=== PATIENT | male | born 1960 | race Caucasian/White ===

== ENCOUNTER 2019-06-16 12:32 | Emergency (ER) | payer MEDICARE, MEDICAID ==
[~2019-06-16] VITALS: Ht 175.3 cm; Wt 111.1 kg
[~2019-06-16 12:32] MED LIST: ACHD5005 PO
--- NOTE | 2019-06-16 13:04 | ED GI ---
General Chief Complaint: Abdominal/GI Problems Stated Complaint: HERNIA Nursing Triage Note: AMB TO ROOM WITH MOTHER. PATIENT REPORTS THAT HE HAS HAD A HERNIA FOR 8 YEARS LAST SEVERAL DAYS HAS FELT AREA HERNIA IS NOT FEELING RIGHT. NO PAIN. Sepsis Screen: No Definite Risk Source of Information: Patient Exam Limitations: No Limitations History of Present Illness Date Seen by Provider: Jun 16, 2019 Time Seen by Provider: 13:00 Initial Comments To ER by private vehicle accompanied by his mother with reports of epigastric abdominal discomfort. He states that his hernia here many years and years. Starting the past few days this area has had some sharp pains. He continues to pass gas and having normal bowel movements. No fevers or chills. No vomiting. Timing/Duration: Getting Worse, Intermittent Severity/Quality: Cramping Location: Epigastric Radiation: No Radiation Activities at Onset: None Allergies and Home Medications Allergies Coded Allergies: No Known Drug Allergies (Unverified , 09/14/15) Home Medications Hydrocodone Bit/Acetaminophen 1 Each Tablet, 1 EACH PO Q4H PRN for PAIN, (Reported) Patient Home Medication List Home Medication List Reviewed: Yes Review of Systems Review of Systems Constitutional: see HPI EENTM: No Symptoms Reported Respiratory: No Symptoms Reported Cardiovascular: No Symptoms Reported Gastrointestinal: See HPI, Abdominal Pain Genitourinary: No Symptoms Reported Musculoskeletal: no symptoms reported Skin: no symptoms reported Psychiatric/Neurological: No Symptoms Reported Endocrine: No Symptoms Reported Hematologic/Lymphatic: No Symptoms Reported Past Tnovqlw-Idbvba-Bazoqr Hx Patient Social History Alcohol Use: Occasionally Uses Alcohol Beverage of Choice: Beer Recreational Drug Use: Yes Smoking Status: Current Everyday Smoker Type Used: Smokeless Tobacco Recent Foreign Travel: No Contact w/Someone Who Travel: No Recent Infectious Disease Expo: No Seasonal Allergies Seasonal Allergies: No Past Medical History Surgeries: No Respiratory: No Cardiac: Yes Hypertension, Syncope Neurological: Yes (PAST HEAD INJURY) Traumatic Brain Injury Gastrointestinal: No Musculoskeletal: Yes Chronic Back Pain Endocrine: No Cancer: No Psychosocial: Yes ("MENTAL PROBLEMS" PER MOM) Depression Integumentary: No Blood Disorders: No Physical Exam Vital Signs Vital Signs - First Documented 06/16/19 12:37 Temp 99.0 Pulse 60 Resp 18 B/P (MAP) 129/88 (102) Pulse Ox 96 O2 Delivery Room Air Capillary Refill : Less Than 3 Seconds Height/Weight/BMI Height: 5'9.00" Weight: 245lbs. oz. 111.961697ab; BMI Method:Stated General Appearance: WD/WN, no apparent distress HEENT: PERRL/EOMI, normal ENT inspection Respiratory: no respiratory distress, no accessory muscle use Gastrointestinal: normal bowel sounds, soft, other (there is no palpable incarcerated hernia. When he goes from laying flat in an attempt to sit up in bed there is a bulge of the midline epigastric abdominal pain,diastasis rectus) Extremities: normal range of motion, non-tender Neurologic/Psychiatric: alert, normal mood/affect, oriented x 3 Skin: normal color, warm/dry Progress/Results/Core Measures Results/Orders Lab Results Laboratory Tests Test 06/16/19 13:05 Range/Units White Blood Count 9.9 4.3-11.0 10^3/uL Red Blood Count 4.84 4.35-5.85 10^6/uL Hemoglobin 15.4 13.3-17.7 G/DL Hematocrit 45 40-54 % Mean Corpuscular Volume 92 80-99 FL Mean Corpuscular Hemoglobin 32 25-34 PG Mean Corpuscular Hemoglobin Concent 35 32-36 G/DL Red Cell Distribution Width 14.1 10.0-14.5 % Platelet Count 260 130-400 10^3/uL Mean Platelet Volume 10.2 7.4-10.4 FL Neutrophils (%) (Auto) 62 42-75 % Lymphocytes (%) (Auto) 26 12-44 % Monocytes (%) (Auto) 9 0-12 % Eosinophils (%) (Auto) 3 0-10 % Basophils (%) (Auto) 1 0-10 % Neutrophils # (Auto) 6.1 1.8-7.8 X 10^3 Lymphocytes # (Auto) 2.6 1.0-4.0 X 10^3 Monocytes # (Auto) 0.9 0.0-1.0 X 10^3 Eosinophils # (Auto) 0.3 0.0-0.3 10^3/uL Basophils # (Auto) 0.1 0.0-0.1 10^3/uL My Orders Orders - ALEX DELANEY APRN Cbc With Automated Diff (06/16/19 12:57) Comprehensive Metabolic Panel (06/16/19 12:57) Lipase (06/16/19 12:57) Ed Iv/Invasive Line Start (06/16/19 12:57) Ct Abdomen/Pelvis W (06/16/19 12:57) Vital Signs/I&O 06/16/19 12:37 Temp 99.0 Pulse 60 Resp 18 B/P (MAP) 129/88 (102) Pulse Ox 96 O2 Delivery Room Air Blood Pressure Mean: 102 Departure Impression Primary Impression: Diastasis of rectus abdominis Disposition: 01 HOME, SELF-CARE Condition: Stable Departure-Patient Inst. Decision time for Depature: 13:17 Referrals: [facility] [place] (PCP/Family) Primary Care Physician MODESTO RODRIGEZ BRETT D DO KIDO, TAKAAKI MD Patient Instructions: Abdominal Wall Hernias Add. Discharge Instructions: 1. Call a surgeon of your choosing this week to make an appointment to be seen for further evaluation of this. All discharge instructions reviewed with patient and/or family. Voiced understanding. ALEX DELANEY APRN Jun 16, 2019 13:04
[2019-06-16] MEDS ORDERED: ALLO300T2 (13:13)
[2019-06-16] MEDS ORDERED: ATOR40TA70 (13:13)
[2019-06-16] MEDS ORDERED: OLAN7.5T3 (13:13)
[2019-06-16] MEDS ORDERED: LEVO125T6 (13:13)
[2019-06-16] MEDS ORDERED: BUSP15TA60 (13:13)
[2019-06-16] MEDS ORDERED: FLUO20CA42 (13:13)
[2019-06-16] MEDS ORDERED: PROP20TA5 (13:13)
[2019-06-16 13:15] LABS: BASOPHILS # (AUTO) 0.1 10^3/uL (0.0-0.1); BASOPHILS % (AUTO) 1 % (0-10); EOSINOPHILS # (AUTO) 0.3 10^3/uL (0.0-0.3); EOSINOPHILS % (AUTO) 3 % (0-10); HEMATOCRIT 45 % (40-54); HEMOGLOBIN 15.4 G/DL (13.3-17.7); LYMPHOCYTES # (AUTO) 2.6 X 10^3 (1.0-4.0); LYMPHOCYTES % (AUTO) 26 % (12-44); MEAN CORPUSCULAR HEMOGLOBIN 32 PG (25-34); MEAN CORPUSCULAR HGB CONC 35 G/DL (32-36); MEAN CORPUSCULAR VOLUME 92 FL (80-99); MEAN PLATELET VOLUME 10.2 FL (7.4-10.4); MONOCYTES # (AUTO) 0.9 X 10^3 (0.0-1.0); MONOCYTES % (AUTO) 9 % (0-12); NEUTROPHILS # (AUTO) 6.1 X 10^3 (1.8-7.8); NEUTROPHILS % (AUTO) 62 % (42-75); PLATELET COUNT 260 10^3/uL (130-400); RED CELL DISTRIBUTION WIDTH 14.1 % (10.0-14.5); WHITE BLOOD COUNT 9.9 10^3/uL (4.3-11.0)
[2019-06-16 13:32] LABS: ALANINE AMINOTRANSFERASE 23 U/L (0-55); ALBUMIN 4.3 GM/DL (3.2-4.5); ALKALINE PHOSPHATASE 75 U/L (40-136); BILIRUBIN,TOTAL 0.4 MG/DL (0.1-1.0); BUN/CREATININE RATIO 12; CALCIUM 9.6 MG/DL (8.5-10.1); CARBON DIOXIDE 24 MMOL/L (21-32); CHLORIDE 104 MMOL/L (98-107); CREATININE SERUM 1.07 MG/DL (0.60-1.30); GFR ESTIMATED > 60; GLUCOSE 110 MG/DL (70-105); LIPASE 39 U/L (8-78); POTASSIUM 4.1 MMOL/L (3.6-5.0); SODIUM 137 MMOL/L (135-145)
--- NOTE | 2019-06-16 13:44 | NUR ---
TO CT PER W/C
[2019-06-16] MEDS ORDERED: IOHEXOL 350 MG/ML 100 ML (OMNIPAQUE 350) VIAL IV ONE (13:45)
[2019-06-16] MEDS ORDERED: HOLD METFORMIN - RECEIVED CONTRAST 20 ML VIAL IV SCH (13:45)
[2019-06-16] MEDS ORDERED: NS 100 ML (IVPB) BAG IV ONE (13:45)
--- NOTE | 2019-06-16 14:09 | Diagnostic Imaging Report ---
PROCEDURE: CT abdomen and pelvis with contrast. TECHNIQUE: Multiple contiguous axial images were obtained through the abdomen and pelvis after administration of intravenous contrast. Auto Exposure Controls were utilized during the CT exam to meet ALARA standards for radiation dose reduction. INDICATION: Abdominal pain FINDINGS: Bibasilar partial atelectasis. The liver density suggest mild fatty infiltration. No liver mass. The gallbladder and bile ducts normal. The pancreas is unremarkable. There is no adrenal nodule. The spleen within normal limits. The kidneys unobstructed and nonfocal and nonacute. There is no evidence for bowel obstruction or viscus perforation. No ascites, abscesses, hematoma or other fluid collection. No inflammatory process. The aorta is nonaneurysmal. There is a small to moderate retrocardiac hiatal hernia. Prostate, seminal vesicles and urinary bladder are unremarkable. The osseous structures appeared nonacute. IMPRESSION: No obstructive features, inflammatory process, ascites, mass, fluid collection or acute pathology identified. Retrocardiac hiatal hernia noted. Dictated by: Dictated on workstation # [id number]
[2019-06-16 14:32] VITALS: BP 142/90
--- OUTSIDE RECORDS SUMMARY | 2019-06-16 22:50 | XMS REPORT ---
Author Author NANO ENAMORADO [facility] Address [address] [place] [address] Care Team Providers Care Process Maintenance Technician Name Role Phone NANO ENAMORADO Unavailable PROBLEMS Type Condition ICD9-CM Code YGF57-TC Code Onset Dates Condition Status SNOMED Code Problem Gout M10.9 Active 73423923 Problem Degenerative disc disease, lumbar M51.36 Active 33645459 Problem Hypothyroid E03.9 Active 27816920 Problem Chronic pain syndrome G89.4 Active 791184216 Problem Elevated fasting glucose R73.01 Active 12566911 Problem Hyperlipidemia E78.5 Active 47996021 Problem Depression F32.9 Active 94850541 Problem Anxiety F41.9 Active 31452260 Problem Hypertension I10 Active 66025731 Problem Unspecified kidney failure N19 Active 22103281 ALLERGIES No Information ENCOUNTERS Encounter Location Date Diagnosis [place] [address] [address] Jun, [facility] [id number] [place] [address] Apr, Hyperlipidemia LDL goal <70 E78.5 [facility] [id number] [place] [address] Apr, Hypertension I10 and Actinic keratoses L57.0 [facility] [id number] [place] [address] Dec, Hyperlipidemia LDL goal <70 E78.5 [facility] [id number] [place] [address] Nov, [facility] [id number] [place] [address] Oct, [place] [address] [id number] [place] [address] 13 Oct, 2018 Prediabetes R73.09 ; Hyperlipidemia E78.5 and Hypertension I10 [place] [address] [place] [id number] Jul, Hypertension I10 ; Hypothyroid E03.9 ; Actinic keratosis L57.0 ; Skin tag, acquired L91.8 ; Depression F32.9 ; Anxiety F41.9 and Hyperlipidemia LDL goal <70 E78.5 [place] [address] [address] May, Hypothyroid E03.9 [place] [address] [address] Apr, Hypertension I10 ; Hypothyroid E03.9 ; Elevated fasting glucose R73.01 ; Hypercholesterolemia E78.0 ; Depression F32.9 and Anxiety F41.9 [place] [address] [address] March, Depression F32.9 and Anxiety F41.9 [place] [address] [address] Jan, Hypothyroid E03.9 and Elevated fasting glucose R73.01 [place] [address] [address] Jan, Hypercholesterolemia E78.0 [place] [address] [place] [id number] [place] [address] Dec, Hypertension I10 ; Hypercholesterolemia E78.0 ; Hypothyroid E03.9 and Gout M10.[address] [address] 15 Dec, 2017 Hypertension I10 ; Hypercholesterolemia E78.0 ; Hypothyroid E03.9 ; Depression F32.9 ; Anxiety F41.9 ; Gout M10.9 ; Chronic pain syndrome G89.4 ; Controlled substance agreement broken Z91.14 and Controlled substance agreement terminated Z91.14 [facility] [address] [address] Sep, Degenerative disc disease, lumbar M51.36 [facility] [address] [place] [id number] Sep, Degenerative disc disease, lumbar M51.36 [place] [address] [address] Aug, Hypertension I10 ; Hypercholesterolemia E78.0 ; Hypothyroid E03.9 ; Depression F32.9 ; Gout M10.9 ; Anxiety F41.9 and Degenerative disc disease, lumbar M51.36 [place] [address] [address] Jul, [place] [address] [address] Jul, [place] [address] [address] Jun, [place] [address] [address] Jun, Gout M10.9 [place] [address] [address] May, Hypertension I10 and Hypercholesterolemia E78.0 [place] [address] [address] May, [place] [address] [address] May, Dental examination Z01.20 [place] [address] [address] Apr, [place] [address] [address] March, [place] [address] [address] March, [facility] [id number] [id number] March, [facility] [id number] [place] [address] March, [facility] [id number] [place] [address] Feb, [facility] [id number] [place] [address] Feb, [facility] [id number] [place] [address] Feb, Degenerative disc disease, lumbar M51.36 [facility] [id number] [place] [address] Feb, Hypothyroid E03.9 ; Hypertension I10 ; Anxiety F41.9 ; Hypercholesterolemia E78.0 ; Depression F32.9 ; Gout M10.9 and Degenerative disc disease, lumbar M51.36 [facility] [address] [place] [address] Feb, Encounter for dental examination and cleaning without abnormal findings Z01.20 [facility] [address] [place] [address] Jan, Encounter for dental examination Z01.20 [facility] [id number] [place] [address] Jan, [facility] [id number] [place] [address] Jan, Hypercholesterolemia E78.0 [facility] [address] [id number] [place] [address] Jan, Degenerative disc disease, lumbar M51.36 [facility] [id number] [place] [address] Dec, [facility] [id number] [place] [address] Dec, Degenerative disc disease, lumbar M51.36 ; Hypercholesterolemia E78.0 ; Depression F32.9 ; Hypothyroid E03.9 and Hypertension I10 [facility] [id number] [place] [address] 09 Dec, 2016 Degenerative disc disease, lumbar M51.36 [facility] [id number] [place] [id number] 03 Dec, 2016 Dental examination Z01.20 [facility] [address] [address] Nov, Dental examination Z01.20 [facility] [address] [address] Nov, Degenerative disc disease, lumbar M51.36 [facility] [address] [id number] [place] [address] Nov, Hypertension I10 ; Hypothyroid E03.9 ; Degenerative disc disease, lumbar M51.36 ; Gout M10.9 ; Unspecified kidney failure N19 ; Anxiety F41.9 ; Depression F32.9 and Hypercholesterolemia E78.0 [facility] [id number] [place] [address] Oct, [facility] [id number] [place] [address] Sep, [facility] [id number] [place] [address] Aug, [facility] [id number] [place] [address] Jul, [facility] [address] [address] Jun, [facility] [id number] [place] [address] Jun, [facility] [id number] [place] [address] May, [facility] [address] [address] May, [facility] [id number] [place] [address] May, [facility] [id number] [place] [address] Apr, Pain in unspecified shoulder M25.519 [facility] [address] [id number] [place] [address] Apr, Degenerative disc disease, lumbar M51.36 ; Hypertension I10 ; Unspecified kidney failure N19 ; Gout M10.9 ; Depression F32.9 ; Hypothyroid E03.9 ; Anxiety F41.9 ; 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 and Combined hyperlipidemia E78.2 [place] [address] [place] [id number] [place] [address] Apr, Gout M10.9 and Pain in unspecified shoulder M25.519 [facility] [address] [place] [id number] [place] [address] March, Degenerative disc disease, lumbar M51.36 [facility] [id number] [place] [address] Feb, Hypercholesterolemia E78.0 ; Hypothyroid E03.9 ; Gout M10.9 and Anxiety F41.9 [facility] [address] [place] [address] Feb, [facility] [address] [place] [address] Feb, Unspecified kidney failure N19 [facility] [address] [id number] [place] [address] Feb, Unspecified kidney failure N19 [facility] [id number] [place] [address] Feb, [facility] [address] [address] Feb, [facility] [id number] [place] [address] Jan, [facility] [id number] [place] [address] Dec, Sacroiliitis, not elsewhere classified 720.2 ; Hypercholesterolemia E78.0 ; Depression F32.9 ; Anxiety F41.9 ; Gout M10.9 ; Unspecified kidney failure N19 ; Hypothyroid E03.9 ; Degenerative disc disease, lumbar M51.36 and 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 [place] [address] [place] [id number] [place] [address] Dec, [facility] [id number] [place] [address] Nov, [facility] [id number] [place] [address] Nov, [facility] [id number] [place] [address] Nov, [facility] [id number] [place] [address] Oct, [facility] [address] [place] [address] Sep, [facility] [id number] [place] [address] Sep, Hypothyroid E03.9 ; Sacroiliitis, not elsewhere classified 720.2 ; Degenerative disc disease, lumbar M51.36 ; Hypercholesterolemia E78.0 ; Depression F32.9 ; Anxiety F41.9 ; Gout M10.9 ; HTN (hypertension) I10 and Hypothyroidism 244.9 [facility] [address] [address] Aug, Unspecified kidney failure N19 ; Hypothyroid E03.9 ; Hypertension I10 ; Anxiety F41.9 and Gout M10.9 [facility] [id number] [place] [address] Aug, Seborrheic keratosis L82.1 and Nevus D22.9 [facility] [id number] [place] [address] Aug, [place] [address] [address] Aug, [place] [address] [address] Aug, Hypothyroid E03.9 ; Degenerative disc disease, lumbar M51.36 ; Hypertension I10 ; Hypercholesterolemia E78.0 ; Depression F32.9 ; Anxiety F41.9 and Gout M10.9 [place] [address] [id number] [place] [address] Aug, [place] [address] [id number] [place] [address] Jun, [place] [address] [id number] [place] [address] Jun, Hypothyroidism 244.9 [place] [address] [id number] [place] [address] Jun, Hypothyroidism 244.9 ; Pain in joint, shoulder region 719.41 ; Sacroiliitis, not elsewhere classified 720.2 ; High risk medication use V58.69 and Facial skin lesion 709.9 [place] [id number] [place] [address] Apr, Hypothyroidism 244.9 ; Aggressive behavior of adult 301.3 and Edema 782.3 [place] [address] [place] [id number] [place] [address] March, [place] [address] [place] [id number] [place] [address] Feb, [place] [address] [place] [address] Feb, [facility] [place] [facility] [address] [id number] [place] [address] Jan, [facility] [place] [facility] [address] [id number] [place] [address] Jan, [facility] [place] [facility] [address] [id number] [place] [address] Jan, [facility] [place] [facility] [address] [id number] [place] [address] Jan, [facility] [place] [facility] [address] [id number] [place] [address] Dec, [facility] [place] [facility] [address] [id number] [place] [address] Dec, [facility] [place] [facility] [address] [id number] [place] [address] Nov, [facility] [place] [facility] [address] [id number] [place] [address] Nov, [facility] [place] [facility] [address] [id number] [place] [address] Nov, [facility] [place] [facility] [address] [id number] [place] [address] Nov, [facility] [place] [facility] [address] [id number] [place] [address] Nov, [facility] [place] [facility] [address] [id number] [place] [address] Nov, [facility] [place] [facility] [address] [id number] [place] [address] Oct, [facility] [place] [facility] [address] [id number] [place] [address] Oct, [facility] [place] [facility] [address] [id number] [place] [address] Sep, [facility] [place] [facility] [address] [id number] [place] [address] Sep, [facility] [place] [facility] [address] [id number] [place] [address] Sep, [facility] [place] [facility] [address] [id number] [place] [address] Sep, [facility] [place] [facility] [address] [id number] [place] [address] Sep, [facility] [place] [facility] [address] [id number] [place] [address] Sep, [facility] [place] [facility] [address] [id number] [place] [address] Aug, [facility] [place] [facility] [address] [id number] [place] [address] Aug, [facility] [place] [facility] [address] [id number] [address] Aug, [facility] [place] [facility] [address] [id number] [place] [address] Aug, [facility] [place] [facility] [address] [id number], [place] [address] Aug, [facility] [place] [facility] [address] [id number], [place] [address] Aug, [facility] [place] [facility] [address] [id number], [place] [address] 16 Jul, 2014 [facility] [place] [facility] [address] [id number] [place] [address] 16 Jul, 2014 [facility] [place] [facility] [address] [id number], [place] [address] 15 Jul, 2014 [facility] [place] [facility] [address] [id number] [place] [address] 15 Jul, 2014 [facility] [place] [facility] [address] [id number] [place] [address] Jul, [facility] [place] [facility] [address] [id number] [place] [address] Jul, [facility] [place] [facility] [address] [id number] [place] [address] Jun, [facility] [place] [facility] [address] [id number] [place] [address] Jun, [facility] [place] [facility] [address] [id number] [place] [address] May, [facility] [place] [facility] [address] [id number] [place] [address] May, [facility] [place] [facility] [address] [id number] [place] [address] May, [facility] [place] [facility] [address] [id number] [place] [address] May, [facility] [place] [facility] [address] [id number] [place] [address] May, [facility] [place] [facility] [address] [id number] [place] [address] May, [facility] [place] [facility] [address] [id number] [place] [address] Apr, [facility] [place] [facility] [address] [id number] [place] [address] Apr, [facility] [place] [facility] [address] [id number] [place] [address] Apr, [facility] [place] [facility] [address] [id number] [place] [address] Apr, [facility] [place] [facility] [address] [id number] [place] [address] Apr, [facility] [place] [facility] [address] [id number] [place] [address] Apr, [facility] [place] [facility] [address] [id number] [place] [address] Feb, [facility] [place] [facility] [address] [id number] [place] [address] Feb, [facility] [place] [facility] [address] [id number] [place] [address] Feb, [facility] [place] [facility] [address] [id number] [place] [address] Feb, [facility] [place] [facility] [address] [id number] [place] [address] Jan, [facility] [place] [facility] [address] [id number] [place] [address] Jan, [facility] [place] [facility] [address] [facility] [id number] [place] [address] Jan, [facility] [place] [facility] [address] [id number] [place] [address] Jan, [facility] [place] [facility] [address] [id number] [place] [address] Dec, [facility] [place] [facility] [address] [facility] [id number] [place] [address] Dec, [facility] [place] [facility] [address] [facility] [id number] [place] [address] Dec, [facility] [place] [facility] [address] [id number] [place] [address] Dec, [facility] [place] [facility] [address] [id number] [place] [address] Dec, [facility] [place] [facility] [address] [id number] [place] [address] Dec, [facility] [place] [facility] [address] [facility] [id number] [place] [address] Nov, [facility] [place] [facility] [address] [id number], [place] [address] Oct, [facility] [address] [id number] [place] [address] Oct, [facility] [place] [facility] [address] [id number] [place] [address] Oct, [facility] [address] [id number] [place] [address] Oct, [facility] [place] [facility] [address] [id number] [place] [address] Oct, [facility] [place] [facility] [address] [id number] [place] [address] Oct, [facility] [place] [facility] [address] [id number] [place] [address] Sep, [facility] [id number] [place] [address] Sep, [facility] [place] [facility] [address] [id number] [place] [address] Sep, [facility] [place] [facility] [id number] [place] [address] Jul, [facility] [place] [facility] [id number] [place] [address] Jun, [facility] [place] [facility] [address] [id number] [place] [address] Jun, [facility] [place] [facility] [address] [id number] [place] [address] Jun, [facility] [place] [facility] [address] [id number] [place] [address] May, [facility] [place] [facility] [address] [facility] [id number] [place] [address] May, [facility] [place] [facility] [address] [facility] [id number] [place] [address] May, [facility] [place] [facility] [address] [id number] [place] [address] Apr, [facility] [address] [id number] [place] [address] 24 Apr, 2013 [facility] [place] [facility] [address] [id number] [place] [address] 14 Apr, 2013 [facility] [place] [facility] [address] [id number] [place] [address] 05 Apr, 2013 [facility] [place] [facility] [address] [id number] [place] [address] March, [facility] [place] [facility] [address] [id number] [place] [address] March, [facility] [place] [facility] [address] [id number] [place] [address] March, [facility] [place] [facility] [address] [id number] [place] [address] March, [facility] [address] [id number] [place] [address] 24 Feb, 2013 [facility] [place] [facility] [address] [id number] [place] [address] Feb, [facility] [place] [facility] [address] [id number] [place] [address] 15 Feb, 2013 [facility] [place] [facility] [address] [id number] [place] [address] 10 Feb, 2013 [facility] [place] [facility] [address] [id number] [place] [address] 08 Feb, 2013 [facility] [place] [facility] [address] [id number] [place] [address] 04 Feb, 2013 [facility] [place] [facility] [address] [id number] [place] [address] 28 Jan, 2013 [facility] [place] [facility] [address] [id number] [place] [address] Jan, [facility] [place] [facility] [address] [id number] [place] [address] 16 Nov, 2012 [facility] [place] [facility] [address] [id number] [place] [address] 15 Nov, 2012 [facility] [place] [facility] [address] [id number] [place] [address] Nov, [facility] [place] [facility] [address] [id number] [place] [address] Nov, [facility] [place] [facility] [address] [id number] [place] [address] Sep, [facility] [place] [facility] [address] [id number] [place] [address] Sep, [facility] [place] [facility] [address] [id number] [place] [address] Sep, [facility] [place] [facility] [address] [id number] [address] Sep, [facility] [place] [facility] [address] [id number], [place] [address] Aug, [facility] [place] [facility] [address] [id number][place] [address] Aug, [facility] [place] [facility] [address] [id number], [place] [address] Aug, [facility] [place] [facility] [address] [id number], [place] [address] 26 Jul, 2012 [facility] [place] [facility] [address] [id number] [place] [address] 11 Jul, 2012 [facility] [place] [facility] [address] [id number][place] [address] 04 Jul, 2012 [facility] [place] [facility] [address] [id number], [place] [address] 13 Jun, 2012 [facility] [place] [facility] [address] [id number] [place] [address] Jun, [facility] [place] [facility] [address] [id number] [place] [address] May, [facility] [place] [facility] [address] [id number] [place] [address] May, [facility] [place] [facility] [address] [id number] [place] [address] May, [facility] [place] [facility] [address] [id number] [place] [address] Apr, [facility] [place] [facility] [address] [id number] [place] [address] March, [facility] [place] [facility] [address] [id number] [place] [address] Feb, [facility] [place] [facility] [address] [id number] [place] [address] Feb, [facility] [place] [facility] [address] [id number] [place] [address] Dec, [facility] [place] [facility] [address] [id number] [place] [address] Oct, [facility] [place] [facility] [address] [id number] [place] [address] Aug, [facility] [place] [facility] [address] [id number] [place] [address] Aug, [facility] [place] [facility] [address] [id number] [place] [address] Aug, [facility] [place] [facility] [address] [id number] [place] [address] Aug, [facility] [place] [facility] [address] [id number] [place] [address] Aug, [facility] [place] [facility] [address] [id number] [place] [address] Oct, [facility] [address] [id number], [place] [address] Sep, [facility] [address] [facility] [id number], [place] [address] Sep, [facility] [address] [facility] [id number], [place] [address] Sep, [facility] [address] [facility] [id number][place] [address] Sep, [facility] [address] [facility] [id number], [place] [address] Aug, [facility] [address] [facility] [id number], [place] [address] Aug, [facility] [address] [facility] [id number], [place] [address] Aug, [facility] [address] [facility] [id number], [place] [address] Aug, [facility] [address] [facility] [id number], [place] [address] Aug, [facility] [address] [facility] [id number][place] [address] Aug, [facility] [address] [facility] [id number], [place] [address] Nov, [facility] [address] [facility] [id number], [place] [address] Oct, [facility] [address] [facility] [facility] [id number] [address] Oct, [facility] [address] [facility] [id number] [address] Sep, [facility] [address] [facility] [id number], [place] [address] Jul, IMMUNIZATIONS No Known Immunizations SOCIAL HISTORY Never Assessed REASON FOR VISIT PLAN OF CARE VITAL SIGNS MEDICATIONS Unknown Medications RESULTS No Results PROCEDURES No Known procedures INSTRUCTIONS MEDICATIONS ADMINISTERED No Known Medications MEDICAL (GENERAL) HISTORY Type Description Date Medical History hypertension Medical History hyperlipidemia Medical History bronchitis Medical History Gout Medical History back pain Medical History neck pain - multi-level cervical degenerative disc disease most pronounced at C5-C6 w/ osteophytes resulting in bilateral neural foraminal stenosis, right greater than left Medical History anxiety Medical History depression Medical History alcohol abuse Medical History laceration to right 5th finger through tendon, subsequent Boxer's fracture - now has decreased ROM and pain in right hand and 5th finger Medical History periodontal disease Surgical History tonsillectomy Surgical History appendectomy Hospitalization History surgeries Hospitalization History kidney failure 08/2015
--- OUTSIDE RECORDS SUMMARY | 2019-06-16 22:51 | XMS REPORT ---
Author Author Migration, Doctor Organization 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 Name Role Phone Migration, Doctor Unavailable Unavailable PROBLEMS Type Condition ICD9-CM Code JMH62-DV Code Onset Dates Condition Status SNOMED Code Problem Gout M10.9 Active 00104556 Problem Degenerative disc disease, lumbar M51.36 Active 54399291 Problem Hypothyroid E03.9 Active 97613699 Problem Chronic pain syndrome G89.4 Active 302106959 Problem Elevated fasting glucose R73.01 Active 66796072 Problem Hyperlipidemia E78.5 Active 60322607 Problem Depression F32.9 Active 94172364 Problem Anxiety F41.9 Active 32365497 Problem Hypertension I10 Active 79719350 Problem Unspecified kidney failure N19 Active 47423893 ALLERGIES No Information ENCOUNTERS Encounter Location Date Diagnosis [place] [id number] [place] [address] Apr, [place] [address] [place] [id number] [place] [address] Dec, Hyperlipidemia LDL goal <70 E78.5 [place] [id number] [place] [address] Nov, [place] [id number] [place] [address] Oct, [place] [address] [place] [id number] [place] [address] Oct, Prediabetes R73.09 ; Hyperlipidemia E78.5 and Hypertension I10 [place] [address] [place] [id number] [place] [address] 18 Jul, 2018 Hypertension I10 ; Hypothyroid E03.9 ; Actinic keratosis L57.0 ; Skin tag, acquired L91.8 ; Depression F32.9 ; Anxiety F41.9 and Hyperlipidemia LDL goal <70 E78.5 [place] [address] [place] [id number] [place] [address] May, Hypothyroid E03.9 [place] [address] [place] [id number] Apr, Hypertension I10 ; Hypothyroid E03.9 ; Elevated fasting glucose R73.01 ; Hypercholesterolemia E78.0 ; Depression F32.9 and Anxiety F41.9 [place] [address] [address] March, Depression F32.9 and Anxiety F41.[address] [address] Jan, Hypothyroid E03.9 and Elevated fasting glucose R73.[address] [address] Jan, Hypercholesterolemia E78.0 [place] [address] [place] [id number] [place] [address] Dec, Hypertension I10 ; Hypercholesterolemia E78.0 ; Hypothyroid E03.9 and Gout M10.9 [place] [id number] [place] [address] Dec, Hypertension I10 ; Hypercholesterolemia E78.0 ; Hypothyroid E03.9 ; Depression F32.9 ; Anxiety F41.9 ; Gout M10.9 ; Chronic pain syndrome G89.4 ; Controlled substance agreement broken Z91.14 and Controlled substance agreement terminated Z91.14 [id number] [place] [address] Sep, Degenerative disc disease, lumbar M51.36 [place] [id number] [place] [address] Sep, Degenerative disc disease, lumbar M51.36 [place] [id number] [place] [address] Aug, Hypertension I10 ; Hypercholesterolemia E78.0 ; Hypothyroid E03.9 ; Depression F32.9 ; Gout M10.9 ; Anxiety F41.9 and Degenerative disc disease, lumbar M51.36 [facility] [address] [place] [address] [id number] [place] [address] Jul, [facility] [address] [id number] [place] [address] Jul, [facility] [address] [id number] [place] [address] Jun, [facility] [address] [place] [address] [id number] [place] [address] Jun, Gout M10.9 [facility] [address] [place] [id number] [place] [address] May, Hypertension I10 and Hypercholesterolemia E78.0 [facility] [address] [address] May, [facility] [address] [place] [id number] [place] [address] May, Dental examination Z01.20 [facility] [address] [place] [id number] [place] [address] Apr, [facility] [address] [place] [id number] [place] [address] March, [facility] [address] [place] [id number] [place] [address] March, [facility] [id number] [place] [id number] March, [facility] [address] [place] [address] [id number] [place] [address] March, [facility] [address] [place] [id number] [place] [address] Feb, [facility] [address] [address] Feb, [facility] [address] [address] Feb, Degenerative disc disease, lumbar M51.36 [facility] [address] [place] [address] Feb, Hypothyroid E03.9 ; Hypertension I10 ; Anxiety F41.9 ; Hypercholesterolemia E78.0 ; Depression F32.9 ; Gout M10.9 and Degenerative disc disease, lumbar M51.36 [facility] [address] [address] Feb, Encounter for dental examination and cleaning without abnormal findings Z01.20 [facility] [address] [place] [id number] Jan, Encounter for dental examination Z01.20 [place] [address] [address] Jan, [facility] [address] [address] Jan, Hypercholesterolemia E78.0 [facility] [address] [address] Jan, Degenerative disc disease, lumbar M51.36 [facility] [address] [address] Dec, [facility] [address] [address] Dec, Degenerative disc disease, lumbar M51.36 ; Hypercholesterolemia E78.0 ; Depression F32.9 ; Hypothyroid E03.9 and Hypertension I10 [facility] [address] [place] [id number] Dec, Degenerative disc disease, lumbar M51.36 [facility] [address] [id number] Dec, Dental examination Z01.20 [facility] [address] [id number] [address] Nov, Dental examination Z01.20 [facility] [address] [place] [id number] [place] [address] Nov, Degenerative disc disease, lumbar M51.36 [facility] [address] [place] [id number] [place] [address] Nov, Hypertension I10 ; Hypothyroid E03.9 ; Degenerative disc disease, lumbar M51.36 ; Gout M10.9 ; Unspecified kidney failure N19 ; Anxiety F41.9 ; Depression F32.9 and Hypercholesterolemia E78.0 [facility] [address] [place] [id number] [place] [address] Oct, [facility] [address] [place] [id number] [place] [address] Sep, [facility] [address] [place] [id number] [place] [address] Aug, [facility] [address] [place] [id number] [place] [address] Jul, [facility] [address] [place] [id number] [place] [address] Jun, [facility] [address] [place] [id number] [place] [address] Jun, [facility] [address] [place] [id number] [place] [address] May, [facility] [id number] [place] [address] May, [facility] [address] [place] [id number] [place] [address] May, [facility] [id number] [place] [address] Apr, Pain in unspecified shoulder M25.519 [facility] [address] [place] [id number] [place] [address] 13 Apr, 2016 Degenerative disc disease, lumbar M51.36 ; Hypertension I10 ; Unspecified kidney failure N19 ; Gout M10.9 ; Depression F32.9 ; Hypothyroid E03.9 ; Anxiety F41.9 ; 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 and Combined hyperlipidemia E78.2 [place] [address] [address] Apr, Gout M10.9 and Pain in unspecified shoulder M25.519 [place] [address] [address] March, Degenerative disc disease, lumbar M51.36 [place] [address] [address] Feb, Hypercholesterolemia E78.0 ; Hypothyroid E03.9 ; Gout M10.9 and Anxiety F41.9 [place] [address] [place] [id number] [place] [address] Feb, [place] [address] [address] Feb, Unspecified kidney failure N19 [place] [address] [place] [id number] [place] [address] Feb, Unspecified kidney failure N19 [place] [address] [place] [id number] [place] [address] Feb, [place] [address] [place] [id number] [place] [address] Feb, [place] [address] [address] Jan, [place] [address] [place] [id number] [place] [address] Dec, Sacroiliitis, not elsewhere classified 720.2 ; Hypercholesterolemia E78.0 ; Depression F32.9 ; Anxiety F41.9 ; Gout M10.9 ; Unspecified kidney failure N19 ; Hypothyroid E03.9 ; Degenerative disc disease, lumbar M51.36 and 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 [place] [address] [place] [id number] [place] [address] Dec, [place] [address] [place] [id number] [place] [address] Nov, [place] [address] [place] [id number] [place] [address] Nov, [place] [address] [place] [id number] [place] [address] Nov, [place] [id number] [place] [address] Oct, [place] [id number] [place] [address] Sep, [place] [id number] [place] [address] Sep, Hypothyroid E03.9 ; Sacroiliitis, not elsewhere classified 720.2 ; Degenerative disc disease, lumbar M51.36 ; Hypercholesterolemia E78.0 ; Depression F32.9 ; Anxiety F41.9 ; Gout M10.9 ; HTN (hypertension) I10 and Hypothyroidism 244.9 [place] [id number] [place] [address] Aug, Unspecified kidney failure N19 ; Hypothyroid E03.9 ; Hypertension I10 ; Anxiety F41.9 and Gout M10.9 [place] [id number] [place] [address] Aug, Seborrheic keratosis L82.1 and Nevus D22.9 [place] [id number] [place] [address] Aug, [place] [id number] [place] [address] Aug, [facility] [address] [place] [id number] [place] [address] Aug, Hypothyroid E03.9 ; Degenerative disc disease, lumbar M51.36 ; Hypertension I10 ; Hypercholesterolemia E78.0 ; Depression F32.9 ; Anxiety F41.9 and Gout M10.9 [facility] [address] [place] [id number] [place] [address] Aug, [facility] [address] [place] [id number] [place] [address] Jun, [facility] [address] [place] [id number] [place] [address] Jun, Hypothyroidism 244.9 [facility] [address] [place] [id number] [place] [address] Jun, Hypothyroidism 244.9 ; Pain in joint, shoulder region 719.41 ; Sacroiliitis, not elsewhere classified 720.2 ; High risk medication use V58.69 and Facial skin lesion 709.9 [facility] [address] [place] [id number] [place] [address] Apr, Hypothyroidism 244.9 ; Aggressive behavior of adult 301.3 and Edema 782.3 [facility] [address] [place] [id number] [place] [address] March, [facility] [address] [place] [id number] [place] [address] Feb, [facility] [address] [place] [id number] [place] [address] Feb, [facility] [address] [place] [id number] [place] [address] Jan, [facility] [address] [place] [id number] [place] [address] Jan, [facility] [address] [place] [id number] [place] [address] Jan, [facility] [place] [facility] [address] [id number] [place] [address] Jan, [facility] [place] [facility] [address] [id number] [place] [address] Dec, [facility] [place] [facility] [address] [id number] [place] [address] Dec, [facility] [place] [facility] [address] [id number] [place] [address] Nov, [facility] [place] [facility] [address] [id number] [place] [address] Nov, [facility] [place] [facility] [address] [id number] [place] [address] Nov, [facility] [place] [facility] [address] [id number] [place] [address] Nov, [facility] [place] [facility] [address] [id number] [place] [address] Nov, [facility] [place] [facility] [address] [id number] [place] [address] Nov, [facility] [place] [facility] [address] [id number] [place] [address] Oct, [facility] [place] [facility] [address] [id number] [place] [address] Oct, [facility] [place] [facility] [address] [id number], [place] [address] Sep, [facility] [place] [facility] [address] [id number] [place] [address] Sep, [facility] [place] [facility] [address] [id number] [place] [address] Sep, [facility] [place] [facility] [address] [id number] [place] [address] Sep, [facility] [place] [facility] [address] [id number] [address] Sep, [facility] [place] [facility] [address] [id number] [place] [address] Sep, [facility] [place] [facility] [address] [id number] [place] [address] Aug, [facility] [place] [facility] [address] [id number] [place] [address] Aug, [facility] [place] [facility] [address] [id number] [place] [address] Aug, [facility] [place] [facility] [address] [id number] [place] [address] Aug, [facility] [place] [facility] [address] [id number] [place] [address] Aug, [facility] [place] [facility] [address] [id number] [place] [address] Aug, [facility] [place] [facility] [address] [id number] [place] [address] 16 Jul, 2014 [facility] [place] [facility] [address] [id number] [place] [address] 16 Jul, 2014 [facility] [place] [facility] [address] [id number] [place] [address] 15 Jul, 2014 [facility] [place] [facility] [address] [id number], [place] [address] 15 Jul, 2014 [facility] [place] [facility] [address] [id number], [place] [address] 04 Jul, 2014 [facility] [place] [facility] [address] [id number] [place] [address] Jul, [facility] [place] [facility] [address] [id number] [place] [address] Jun, [facility] [place] [facility] [address] [id number] [place] [address] Jun, [facility] [place] [facility] [address] [id number] [place] [address] May, 2013 [facility] [place] [facility] [address] [id number] [place] [address] May, [facility] [place] [facility] [address] [id number] [place] [address] May, [facility] [place] [facility] [address] [id number] [place] [address] May, [facility] [place] [facility] [address] [id number] [place] [address] May, [facility] [place] [facility] [address] [id number] [place] [address] May, [facility] [place] [facility] [address] [id number] [place] [address] Apr, [facility] [place] [facility] [address] [id number] [place] [address] Apr, [facility] [place] [facility] [address] [id number] [place] [address] Apr, [facility] [place] [facility] [address] [id number] [place] [address] Apr, [facility] [place] [facility] [address] [id number] [place] [address] Apr, [facility] [place] [facility] [address] [id number] [place] [address] Apr, [facility] [place] [facility] [address] [id number] [place] [address] Feb, [facility] [place] [facility] [address] [id number] [place] [address] Feb, [facility] [place] [facility] [address] [id number] [place] [address] Feb, [facility] [place] [facility] [address] [id number] [place] [address] Feb, [facility] [place] [facility] [address] [id number] [place] [address] Jan, [facility] [place] [facility] [address] [id number] [place] [address] Jan, [facility] [place] [facility] [address] [id number] [place] [address] Jan, [facility] [place] [facility] [address] [id number] [place] [address] Jan, [facility] [place] [facility] [address] [id number] [place] [address] Dec, [facility] [place] [facility] [address] [id number] [place] [address] Dec, [facility] [place] [facility] [address] [facility] [id number] [place] [address] Dec, [facility] [place] [facility] [address] [id number] [place] [address] Dec, [facility] [place] [facility] [address] [id number] [place] [address] Dec, [facility] [place] [facility] [address] [facility] [id number] [place] [address] Dec, [facility] [place] [facility] [address] [facility] [id number] [place] [address] Nov, [facility] [place] [facility] [address] [id number] [place] [address] Oct, [facility] [place] [facility] [address] [id number] [place] [address] Oct, [facility] [place] [facility] [address] [facility] [id number] [place] [address] Oct, [facility] [place] [facility] [address] [facility] [id number] [place] [address] Oct, [facility] [place] [facility] [address] [id number] [place] [address] Oct, [facility] [address] [id number] [place] [address] Oct, [facility] [place] [facility] [address] [id number] [place] [address] Sep, [facility] [address] [id number] [place] [address] Sep, [facility] [place] [facility] [address] [id number] [place] [address] Sep, [facility] [address] [id number] [place] [address] Jul, [facility] [address] [id number] [place] [address] Jun, [facility] [address] [id number] [place] [address] Jun, [facility] [address] [id number] [place] [address] Jun, [facility] [address] [id number] [place] [address] May, [facility] [address] [id number] [place] [address] May, [facility] [place] [facility] [address] [id number] [place] [address] May, [facility] [place] [facility] [address] [id number] [place] [address] Apr, [facility] [place] [facility] [address] [id number] [place] [address] 24 Apr, 2013 [facility] [place] [facility] [address] [id number] [place] [address] 14 Apr, 2013 [facility] [place] [facility] [address] [id number] [place] [address] Apr, [facility] [address] [id number] [place] [address] March, [facility] [address] [id number] [place] [address] March, [facility] [address] [id number] [place] [address] March, [facility] [address] [id number] [place] [address] March, [facility] [address] [id number] [place] [address] Feb, [facility] [address] [id number] [place] [address] Feb, [facility] [address] [id number] [place] [address] Feb, [facility] [address] [id number] [place] [address] Feb, [facility] [address] [id number] [place] [address] Feb, [facility] [address] [id number] [place] [address] Feb, [facility] [address] [id number] [place] [address] Jan, [facility] [place] [facility] [address] [id number], [place] [address] Jan, [facility] [place] [facility] [address] [id number] [place] [address] 16 Nov, 2012 [facility] [place] [facility] [address] [id number] [place] [address] 15 Nov, 2012 [facility] [place] [facility] [address] [id number], [place] [address] Nov, [facility] [place] [facility] [address] [id number], [place] [address] Nov, [facility] [place] [facility] [address] [id number] [place] [address] Sep, [facility] [place] [facility] [address] [id number] [place] [address] Sep, [facility] [place] [facility] [address] [id number] [place] [address] Sep, [facility] [place] [facility] [address] [id number] [place] [address] Sep, [facility] [place] [facility] [address] [id number] [place] [address] Aug, [facility] [place] [facility] [address] [id number] [place] [address] Aug, [facility] [place] [facility] [address] [facility] [id number] [place] [address] Aug, [facility] [place] [facility] [address] [id number] [place] [address] Jul, [facility] [place] [facility] [address] [id number] [place] [address] Jul, [facility] [place] [facility] [address] [facility] [id number] [place] [address] Jul, [facility] [place] [facility] [address] [id number] [place] [address] Jun, [facility] [place] [facility] [address] [id number] [place] [address] Jun, [facility] [place] [facility] [address] [id number] [place] [address] May, [facility] [place] [facility] [address] [id number] [place] [address] May, [facility] [place] [facility] [address] [facility] [id number] [place] [address] May, [facility] [place] [facility] [address] [id number] [place] [address] Apr, [facility] [place] [facility] [address] [id number] [place] [address] March, [facility] [place] [facility] [address] [id number] [place] [address] Feb, [facility] [place] [facility] [address] [id number] [place] [address] Feb, [facility] [place] [facility] [address] [id number] [place] [address] Dec, [facility] [place] [facility] [address] [id number] [place] [address] Oct, [facility] [place] [facility] [address] [id number] [place] [address] Aug, [facility] [place] [facility] [address] [id number] [place] [address] Aug, [facility] [place] [facility] [address] [id number] [place] [address] Aug, [facility] [place] [facility] [address] [id number] [place] [address] Aug, [facility] [place] [facility] [address] [facility] [id number] [place] [address] Aug, [facility] [place] [facility] [address] [id number] [place] [address] Oct, [facility] [place] [facility] [address] [id number] [place] [address] Sep, [facility] [place] [facility] [address] [id number] [place] [address] Sep, [facility] [place] [facility] [address] [facility] [id number] [place] [address] Sep, [facility] [place] [facility] [address] [id number] [place] [address] Sep, [facility] [id number] [address] Aug, [facility] [address] [facility] [id number], [place] [address] Aug, [facility] [id number] [place] [address] Aug, [facility] [address] [facility] [id number], [place] [address] Aug, [facility] [id number] [address] Aug, [facility] [id number] [place] [id number] Aug, [facility] [id number], [place] [address] Nov, [facility] [id number] [address] Oct, [facility] [id number] [place] [address] Oct, [facility] [id number] [address] Sep, [facility] [id number] [address] Jul, IMMUNIZATIONS No Known Immunizations SOCIAL HISTORY Never Assessed REASON FOR VISIT [facility] [place] VITAL SIGNS MEDICATIONS Unknown [...]
--- OUTSIDE RECORDS SUMMARY | 2019-06-16 22:51 | XMS REPORT ---
Author Author NANO ENAMORADO [facility] Address [address] [place] [address] Care Team Providers Care Barrel Loader Name Role Phone NANO ENAMORADO Unavailable PROBLEMS Type Condition ICD9-CM Code OVC06-MJ Code Onset Dates Condition Status SNOMED Code Problem Gout M10.9 Active 94052263 Problem Degenerative disc disease, lumbar M51.36 Active 55279340 Problem Hypothyroid E03.9 Active 19765268 Problem Chronic pain syndrome G89.4 Active 701572228 Problem Elevated fasting glucose R73.01 Active 83546493 Problem Hyperlipidemia E78.5 Active 26057174 Problem Depression F32.9 Active 70458355 Problem Anxiety F41.9 Active 73760363 Problem Hypertension I10 Active 08746040 Problem Unspecified kidney failure N19 Active [id number] ALLERGIES No Information ENCOUNTERS Encounter Location Date Diagnosis [place] [id number] [place] [address] Apr, Hyperlipidemia LDL goal <70 E78.5 [place] [id number] [place] [address] Apr, Hypertension I10 and Actinic keratoses L57.0 [place] [id number] [place] [address] Dec, Hyperlipidemia LDL goal <70 E78.5 [place] [id number] [place] [address] Nov, [place] [id number] [place] [address] Oct, [place] [id number] [place] [address] Oct, Prediabetes R73.09 ; Hyperlipidemia E78.5 and Hypertension I10 [place] [address] [address] Jul, Hypertension I10 ; Hypothyroid E03.9 ; Actinic keratosis L57.0 ; Skin tag, acquired L91.8 ; Depression F32.9 ; Anxiety F41.9 and Hyperlipidemia LDL goal <70 E78.5 [place] [address] [address] May, Hypothyroid E03.9 [place] [address] [place] [id number] Apr, Hypertension I10 ; Hypothyroid E03.9 ; Elevated fasting glucose R73.01 ; Hypercholesterolemia E78.0 ; Depression F32.9 and Anxiety F41.9 [place] [address] [address] March, Depression F32.9 and Anxiety F41.9 [place] [address] [address] Jan, Hypothyroid E03.9 and Elevated fasting glucose R73.01 [place] [address] [address] Jan, Hypercholesterolemia E78.0 [place] [id number] [place] [address] Dec, Hypertension I10 ; Hypercholesterolemia E78.0 ; Hypothyroid E03.9 and Gout M10.9 [place] [address] [address] Dec, Hypertension I10 ; Hypercholesterolemia E78.0 ; Hypothyroid E03.9 ; Depression F32.9 ; Anxiety F41.9 ; Gout M10.9 ; Chronic pain syndrome G89.4 ; Controlled substance agreement broken Z91.14 and Controlled substance agreement terminated Z91.14 [place] [address] [address] Sep, Degenerative disc disease, lumbar M51.36 [facility] [id number] [place] [address] Sep, Degenerative disc disease, lumbar M51.36 [facility] [id number] [place] [address] Aug, Hypertension I10 ; Hypercholesterolemia E78.0 ; Hypothyroid E03.9 ; Depression F32.9 ; Gout M10.9 ; Anxiety F41.9 and Degenerative disc disease, lumbar M51.36 [facility] [id number] [place] [address] Jul, [facility] [address] [address] Jul, [facility] [address] [address] Jun, [facility] [address] [address] Jun, Gout M10.9 [facility] [id number] [place] [address] May, Hypertension I10 and Hypercholesterolemia E78.0 [facility] [id number] [place] [address] May, [facility] [address] [address] May, Dental examination Z01.20 [facility] [id number] [place] [address] Apr, [facility] [address] [address] March, [facility] [id number] [place] [address] March, [facility] [address] [id number] March, [place] [id number] [place] [address] March, [place] [id number] [place] [address] Feb, [place] [id number] [place] [address] Feb, [place] [id number] [place] [address] Feb, Degenerative disc disease, lumbar M51.36 [place] [id number] [place] [address] Feb, Hypothyroid E03.9 ; Hypertension I10 ; Anxiety F41.9 ; Hypercholesterolemia E78.0 ; Depression F32.9 ; Gout M10.9 and Degenerative disc disease, lumbar M51.36 [place] [id number] [place] [address] Feb, Encounter for dental examination and cleaning without abnormal findings Z01.20 [place] [id number] [place] [address] Jan, Encounter for dental examination Z01.20 [place] [id number] [place] [address] Jan, [place] [id number] [place] [address] Jan, Hypercholesterolemia E78.0 [place] [id number] [place] [address] Jan, Degenerative disc disease, lumbar M51.36 [place] [id number] [place] [address] Dec, [place] [id number] [place] [address] Dec, Degenerative disc disease, lumbar M51.36 ; Hypercholesterolemia E78.0 ; Depression F32.9 ; Hypothyroid E03.9 and Hypertension I10 [facility] [address] [address] Dec, Degenerative disc disease, lumbar M51.36 [facility] [address] [id number] Dec, Dental examination Z01.20 [facility] [id number] [place] [address] Nov, Dental examination Z01.20 [facility] [id number] [place] [address] Nov, Degenerative disc disease, lumbar M51.36 [facility] [id number] [place] [address] Nov, Hypertension I10 ; Hypothyroid E03.9 ; Degenerative disc disease, lumbar M51.36 ; Gout M10.9 ; Unspecified kidney failure N19 ; Anxiety F41.9 ; Depression F32.9 and Hypercholesterolemia E78.0 [facility] [id number] [place] [address] Oct, [facility] [id number] [place] [address] Sep, [facility] [id number] [place] [address] Aug, [facility] [id number] [place] [address] Jul, [facility] [id number] [place] [address] Jun, [facility] [id number] [place] [address] Jun, [facility] [id number] [place] [address] May, [facility] [id number] [place] [address] May, [facility] [id number] [place] [address] May, [facility] [id number] [place] [address] Apr, Pain in unspecified shoulder M25.519 [facility] [id number] [place] [address] Apr, Degenerative disc disease, lumbar M51.36 ; Hypertension I10 ; Unspecified kidney failure N19 ; Gout M10.9 ; Depression F32.9 ; Hypothyroid E03.9 ; Anxiety F41.9 ; Other group home (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.899 and Combined hyperlipidemia E78.2 [place] [id number] [place] [address] Apr, Gout M10.9 and Pain in unspecified shoulder M25.519 [place] [id number] [place] [address] March, Degenerative disc disease, lumbar M51.36 [place] [id number] [place] [address] Feb, Hypercholesterolemia E78.0 ; Hypothyroid E03.9 ; Gout M10.9 and Anxiety F41.9 [place] [id number] [place] [address] Feb, [place] [id number] [place] [address] Feb, Unspecified kidney failure N19 [facility] [id number] [place] [address] Feb, Unspecified kidney failure N19 [facility] [id number] [place] [address] Feb, [facility] [id number] [place] [address] Feb, [place] [id number] [place] [address] Jan, [facility] [id number] [place] [address] Dec, Sacroiliitis, not elsewhere classified 720.2 ; Hypercholesterolemia E78.0 ; Depression F32.9 ; Anxiety F41.9 ; Gout M10.9 ; Unspecified kidney failure N19 ; Hypothyroid E03.9 ; Degenerative disc disease, lumbar M51.36 and Other group home (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.899 [place] [id number] [place] [address] Dec, [facility] [address] [address] Nov, [place] [id number] [place] [address] Nov, [place] [id number] [place] [address] Nov, [facility] [id number] [place] [address] Oct, [place] [id number] [place] [address] Sep, [place] [id number] [place] [address] Sep, Hypothyroid E03.9 ; Sacroiliitis, not elsewhere classified 720.2 ; Degenerative disc disease, lumbar M51.36 ; Hypercholesterolemia E78.0 ; Depression F32.9 ; Anxiety F41.9 ; Gout M10.9 ; HTN (hypertension) I10 and Hypothyroidism 244.9 [facility] [id number] [place] [address] Aug, Unspecified kidney failure N19 ; Hypothyroid E03.9 ; Hypertension I10 ; Anxiety F41.9 and Gout M10.9 [place] [id number] [place] [address] Aug, Seborrheic keratosis L82.1 and Nevus D22.9 [place] [id number] [place] [address] Aug, [facility] [id number] [place] [address] Aug, [place] [address] [address] Aug, Hypothyroid E03.9 ; Degenerative disc disease, lumbar M51.36 ; Hypertension I10 ; Hypercholesterolemia E78.0 ; Depression F32.9 ; Anxiety F41.9 and Gout M10.9 [place] [id number] [place] [address] Aug, [place] [id number] [place] [address] Jun, [place] [id number] [place] [address] Jun, Hypothyroidism 244.9 [place] [id number] [place] [address] Jun, Hypothyroidism 244.9 ; Pain in joint, shoulder region 719.41 ; Sacroiliitis, not elsewhere classified 720.2 ; High risk medication use V58.69 and Facial skin lesion 709.9 [place] [id number] [place] [address] Apr, Hypothyroidism 244.9 ; Aggressive behavior of adult 301.3 and Edema 782.3 [place] [id number] [place] [address] March, [place] [id number] [place] [address] Feb, [facility] [id number] [place] [address] Feb, [place] [address] [place] [address] Jan, [facility] [place] [facility] [address] [id number] [place] [address] Jan, [facility] [place] [facility] [address] [id number] [place] [address] Jan, [facility] [place] [facility] [address] [id number] [place] [address] Jan, [facility] [place] [facility] [address] [id number] [place] [address] Dec, [facility] [place] [facility] [address] [id number] [place] [address] Dec, [facility] [place] [facility] [address] [id number] [place] [address] Nov, [facility] [place] [facility] [address] [id number] [place] [address] Nov, [facility] [place] [facility] [address] [id number] [place] [address] Nov, [facility] [place] [facility] [address] [id number] [place] [address] Nov, [facility] [place] [facility] [address] [id number] [place] [address] Nov, [facility] [place] [facility] [address] [id number] [place] [address] Nov, [facility] [place] [facility] [address] [id number] [place] [address] Oct, [facility] [place] [facility] [address] [id number] [place] [address] Oct, [facility] [place] [facility] [address] [id number] [place] [address] Sep, [facility] [place] [facility] [address] [id number] [place] [address] Sep, [facility] [place] [facility] [address] [id number] [place] [address] Sep, [facility] [place] [facility] [address] [id number] [place] [address] Sep, [facility] [place] [facility] [address] [id number] [place] [address] Sep, [facility] [place] [facility] [address] [id number] [place] [address] Sep, [facility] [place] [facility] [address] [id number] [place] [address] Aug, [facility] [place] [facility] [address] [id number] [place] [address] Aug, [facility] [place] [facility] [address] [id number] [place] [address] Aug, [facility] [place] [facility] [address] [id number] [address] Aug, [facility] [place] [facility] [address] [id number] [place] [address] Aug, [facility] [place] [facility] [address] [id number], [place] [address] Aug, [facility] [place] [facility] [address] [id number], [place] [address] 16 Jul, 2014 [facility] [place] [facility] [address] [id number], [place] [address] 16 Jul, 2014 [facility] [place] [facility] [address] [id number] [place] [address] 15 Jul, 2014 [facility] [place] [facility] [address] [id number], [place] [address] 15 Jul, 2014 [facility] [place] [facility] [address] [id number] [place] [address] 04 Jul, 2014 [facility] [place] [facility] [address] [id number] [place] [address] Jul, [facility] [place] [facility] [address] [id number] [place] [address] Jun, [facility] [place] [facility] [address] [id number] [place] [address] Jun, [facility] [place] [facility] [address] [id number] [place] [address] May, [facility] [place] [facility] [address] [id number] [place] [address] May, [facility] [place] [facility] [address] [id number] [place] [address] May, [facility] [place] [facility] [address] [id number] [place] [address] May, [facility] [place] [facility] [address] [id number] [place] [address] May, [facility] [place] [facility] [address] [id number] [place] [address] May, [facility] [place] [facility] [address] [id number] [place] [address] Apr, [facility] [place] [facility] [address] [id number] [place] [address] Apr, [facility] [place] [facility] [address] [id number] [place] [address] Apr, [facility] [place] [facility] [address] [id number] [place] [address] Apr, [facility] [place] [facility] [address] [id number] [place] [address] Apr, [facility] [place] [facility] [address] [id number] [place] [address] Apr, [facility] [place] [facility] [address] [id number] [place] [address] Feb, [facility] [place] [facility] [address] [id number] [place] [address] Feb, [facility] [place] [facility] [address] [id number] [place] [address] Feb, [facility] [place] [facility] [address] [id number] [place] [address] Feb, [facility] [place] [facility] [address] [id number] [place] [address] Jan, [facility] [place] [facility] [address] [id number] [place] [address] Jan, [facility] [place] [facility] [address] [id number] [place] [address] Jan, [facility] [place] [facility] [address] [facility] [id number] [place] [address] Jan, [facility] [place] [facility] [address] [id number] [place] [address] Dec, [facility] [place] [facility] [address] [id number] [place] [address] Dec, [facility] [place] [facility] [address] [facility] [place] [id number] [place] [address] Dec, [facility] [place] [facility] [address] [id number] [place] [address] Dec, [facility] [place] [facility] [address] [id number], [place] [address] Dec, [facility] [place] [facility] [address] [id number] [place] [address] Dec, [facility] [place] [facility] [address] [id number] [place] [address] Nov, [facility] [place] [facility] [address] [facility] [place] [id number] [place] [address] Oct, [facility] [place] [facility] [address] [id number], [place] [address] Oct, [facility] [address] [id number] [place] [address] Oct, [facility] [place] [facility] [address] [id number] [place] [address] Oct, [facility] [address] [facility] [place] [id number] [place] [address] Oct, [facility] [place] [facility] [address] [id number] [place] [address] Oct, [facility] [place] [facility] [address] [id number] [place] [address] Sep, [facility] [place] [facility] [address] [id number] [place] [address] Sep, [facility] [address] [id number] [place] [address] Sep, [facility] [place] [facility] [address] [facility] [place] [id number] [place] [address] Jul, [facility] [place] [facility] [address] [id number] [place] [address] Jun, [facility] [place] [facility] [address] [facility] [place] [id number] [place] [address] Jun, [facility] [place] [facility] [address] [facility] [place] [id number] [place] [address] Jun, [facility] [place] [facility] [address] [id number], [place] [address] May, [facility] [place] [facility] [address] [id number] [place] [address] May, [facility] [place] [facility] [address] [facility] [place] [id number] [place] [address] May, [facility] [place] [facility] [address] [facility] [place] [id number] [place] [address] Apr, [facility] [place] [facility] [address] [id number] [place] [address] 24 Apr, 2013 [facility] [address] [id number] [place] [address] Apr, [facility] [place] [facility] [address] [id number] [place] [address] 05 Apr, 2013 [facility] [address] [id number] [place] [address] March, [facility] [place] [facility] [address] [id number] [place] [address] March, [facility] [place] [facility] [address] [id number] [place] [address] March, [facility] [place] [facility] [address] [id number] [place] [address] March, [facility] [address] [id number] [place] [address] 24 Feb, 2013 [facility] [address] [id number] [place] [address] Feb, [facility] [place] [facility] [address] [id number] [place] [address] 15 Feb, 2013 [facility] [place] [facility] [address] [id number] [place] [address] Feb, [facility] [place] [facility] [address] [id number] [place] [address] 08 Feb, 2013 [facility] [place] [facility] [address] [id number] [place] [address] 04 Feb, 2013 [facility] [place] [facility] [address] [id number] [place] [address] 28 Jan, 2013 [facility] [place] [facility] [address] [id number] [place] [address] 13 Jan, 2013 [facility] [place] [facility] [address] [id number] [place] [address] 16 Nov, 2012 [facility] [place] [facility] [address] [id number] [place] [address] 15 Nov, 2012 [facility] [place] [facility] [address] [id number] [place] [address] Nov, [facility] [place] [facility] [address] [id number] [place] [address] Nov, [facility] [place] [facility] [address] [id number] [place] [address] Sep, [facility] [place] [facility] [address] [id number] [place] [address] Sep, [facility] [place] [facility] [address] [id number] [place] [address] Sep, [facility] [place] [facility] [address] [id number] [place] [address] Sep, [facility] [place] [facility] [address] [id number] [place] [address] Aug, [facility] [place] [facility] [address] [id number] [place] [address] Aug, [facility] [place] [facility] [address] [id number] [place] [address] Aug, [facility] [place] [facility] [address] [id number], [place] [address] Jul, [facility] [place] [facility] [address] [id number], [place] [address] Jul, [facility] [place] [facility] [address] [id number] [place] [address] Jul, [facility] [place] [facility] [address] [id number], [place] [address] Jun, [facility] [place] [facility] [address] [id number], [place] [address] Jun, [facility] [place] [facility] [address] [id number] [place] [address] May, [facility] [place] [facility] [address] [id number] [place] [address] May, [facility] [place] [facility] [address] [id number] [place] [address] May, [facility] [place] [facility] [address] [id number] [place] [address] Apr, [facility] [place] [facility] [address] [id number] [place] [address] March, [facility] [place] [facility] [address] [id number] [place] [address] Feb, [facility] [place] [facility] [address] [id number] [place] [address] Feb, [facility] [place] [facility] [address] [id number] [place] [address] Dec, [facility] [place] [facility] [address] [id number] [place] [address] Oct, [facility] [place] [facility] [address] [id number] [place] [address] Aug, [facility] [place] [facility] [address] [id number] [place] [address] Aug, [facility] [place] [facility] [address] [id number] [place] [address] Aug, [facility] [place] [facility] [address] [id number] [place] [address] Aug, [facility] [place] [facility] [address] [id number] [place] [address] Aug, [facility] [place] [facility] [address] [id number] [place] [address] Oct, [facility] [place] [facility] [address] [id number] [place] [address] Sep, [facility] [address] [facility] [place] [id number], [place] [address] Sep, [facility] [address] [facility] [place] [id number], [place] [address] Sep, [facility] [address] [facility] [place] [id number], [place] [address] Sep, [facility] [address] [facility] [place] [id number][place] [address] Aug, [facility] [address] [facility] [place] [id number], [place] [address] Aug, [facility] [address] [facility] [place] [id number], [place] [address] Aug, [facility] [id number], [place] [address] Aug, [facility] [id number], [place] [address] Aug, [facility] [id number], [place] [address] Aug, [facility] [id number], [place] [address] Nov, [facility] [address] [id number], [place] [address] Oct, [facility] [address] [id number], [place] [address] Oct, [facility] [address] [id number], [place] [address] Sep, [facility] [address] [id number], [place] [address] Jul, IMMUNIZATIONS No Known Immunizations SOCIAL HISTORY [...]
--- OUTSIDE RECORDS SUMMARY | 2019-06-16 22:52 | XMS REPORT ---
Author Author Migration, Doctor Organization [facility] Address Unknown Phone Unavailable Care Team Providers Care Magnetic Prospecting Supervisor Name Role Phone Migration, Doctor Unavailable Unavailable PROBLEMS Type Condition ICD9-CM Code TVV55-DE Code Onset Dates Condition Status SNOMED Code Problem Gout M10.9 Active 04643471 Problem Degenerative disc disease, lumbar M51.36 Active 09558064 Problem Hypothyroid E03.9 Active 46916141 Problem Chronic pain syndrome G89.4 Active 260769807 Problem Elevated fasting glucose R73.01 Active 32593817 Problem Hyperlipidemia E78.5 Active 39739765 Problem Depression F32.9 Active 38083116 Problem Anxiety F41.9 Active 77985703 Problem Hypertension I10 Active 74504257 Problem Unspecified kidney failure N19 Active 29356546 ALLERGIES No Information ENCOUNTERS Encounter Location Date Diagnosis [place] [id number] [place] [address] 15 Dec, 2018 Hyperlipidemia LDL goal <70 E78.5 [place] [address] [address] Nov, [place] [id number] [place] [address] Oct, [place] [id number] [place] [address] Oct, Prediabetes R73.09 ; Hyperlipidemia E78.5 and Hypertension I10 [place] [id number] [place] [address] Jul, Hypertension I10 ; Hypothyroid E03.9 ; Actinic keratosis L57.0 ; Skin tag, acquired L91.8 ; Depression F32.9 ; Anxiety F41.9 and Hyperlipidemia LDL goal <70 E78.5 [place] [id number] [place] [address] May, Hypothyroid E03.9 [place] [id number] [place] [address] Apr, Hypertension I10 ; Hypothyroid E03.9 ; Elevated fasting glucose R73.01 ; Hypercholesterolemia E78.0 ; Depression F32.9 and Anxiety F41.9 [place] [id number] [place] [address] March, Depression F32.9 and Anxiety F41.9 [place] [id number] [place] [address] Jan, Hypothyroid E03.9 and Elevated fasting glucose R73.01 [place] [id number] [place] [address] Jan, Hypercholesterolemia E78.0 [place] [id number] [place] [address] Dec, Hypertension I10 ; Hypercholesterolemia E78.0 ; Hypothyroid E03.9 and Gout M10.9 [place] [id number] [place] [address] Dec, Hypertension I10 ; Hypercholesterolemia E78.0 ; Hypothyroid E03.9 ; Depression F32.9 ; Anxiety F41.9 ; Gout M10.9 ; Chronic pain syndrome G89.4 ; Controlled substance agreement broken Z91.14 and Controlled substance agreement terminated Z91.14 [place] [id number] [place] [address] Sep, Degenerative disc disease, lumbar M51.36 [place] [id number] [place] [address] Sep, Degenerative disc disease, lumbar M51.36 [place] [id number] [place] [address] Aug, Hypertension I10 ; Hypercholesterolemia E78.0 ; Hypothyroid E03.9 ; Depression F32.9 ; Gout M10.9 ; Anxiety F41.9 and Degenerative disc disease, lumbar M51.36 [facility] [id number] [address] Jul, [facility] [id number] [place] [address] Jul, [facility] [id number] [place] [address] Jun, [facility] [id number] [place] [address] Jun, Gout M10.9 [facility] [id number] [place] [address] May, Hypertension I10 and Hypercholesterolemia E78.0 [facility] [id number] [place] [address] May, [facility] [id number] [place] [address] May, Dental examination Z01.20 [facility] [id number] [place] [address] Apr, [facility] [id number] [place] [address] March, [facility] [id number] [address] March, [facility] [id number] [place] [id number] March, [facility] [id number] [address] March, [facility] [id number] [place] [address] Feb, [facility] [address] [address] Feb, [facility] [id number] [place] [address] Feb, Degenerative disc disease, lumbar M51.36 [facility] [id number] [place] [address] Feb, Hypothyroid E03.9 ; Hypertension I10 ; Anxiety F41.9 ; Hypercholesterolemia E78.0 ; Depression F32.9 ; Gout M10.9 and Degenerative disc disease, lumbar M51.36 [facility] [address] [address] Feb, Encounter for dental examination and cleaning without abnormal findings Z01.20 [facility] [id number] [place] [address] Jan, Encounter for dental examination Z01.20 [facility] [address] [address] Jan, [facility] [address] [address] Jan, Hypercholesterolemia E78.0 [facility] [id number] [place] [address] Jan, Degenerative disc disease, lumbar M51.36 [facility] [address] [address] Dec, [facility] [id number] [place] [address] Dec, Degenerative disc disease, lumbar M51.36 ; Hypercholesterolemia E78.0 ; Depression F32.9 ; Hypothyroid E03.9 and Hypertension I10 [facility] [id number] [place] [address] Dec, Degenerative disc disease, lumbar M51.36 [facility] [id number] [place] [id number] Dec, Dental examination Z01.20 [facility] [id number] [place] [address] Nov, Dental examination Z01.20 [facility] [address] [address] Nov, Degenerative disc disease, lumbar M51.36 [facility] [id number] [place] [address] Nov, Hypertension I10 ; Hypothyroid E03.9 ; Degenerative disc disease, lumbar M51.36 ; Gout M10.9 ; Unspecified kidney failure N19 ; Anxiety F41.9 ; Depression F32.9 and Hypercholesterolemia E78.0 [facility] [id number] [place] [address] Oct, [facility] [id number] [place] [address] Sep, [facility] [id number] [place] [address] Aug, [facility] [id number] [place] [address] Jul, [facility] [id number] [place] [address] Jun, [facility] [id number] [place] [address] Jun, [facility] [id number] [place] [address] May, [facility] [id number] [place] [address] May, [facility] [id number] [place] [address] May, [facility] [id number] [place] [address] Apr, Pain in unspecified shoulder M25.519 [facility] [address] [address] Apr, Degenerative disc disease, lumbar M51.36 ; Hypertension I10 ; Unspecified kidney failure N19 ; Gout M10.9 ; Depression F32.9 ; Hypothyroid E03.9 ; Anxiety F41.9 ; Other chcf (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.899 and Combined hyperlipidemia E78.2 [place] [id number] [place] [address] Apr, Gout M10.9 and Pain in unspecified shoulder M25.519 [place] [address] [address] March, Degenerative disc disease, lumbar M51.36 [place] [address] [address] Feb, Hypercholesterolemia E78.0 ; Hypothyroid E03.9 ; Gout M10.9 and Anxiety F41.9 [place] [address] [address] Feb, [place] [address] [address] Feb, Unspecified kidney failure N19 [place] [address] [address] Feb, Unspecified kidney failure N19 [place] [id number] [place] [address] Feb, [place] [id number] [place] [address] Feb, [place] [id number] [place] [address] Jan, [place] [address] [address] Dec, Sacroiliitis, not elsewhere classified 720.2 ; Hypercholesterolemia E78.0 ; Depression F32.9 ; Anxiety F41.9 ; Gout M10.9 ; Unspecified kidney failure N19 ; Hypothyroid E03.9 ; Degenerative disc disease, lumbar M51.36 and Other chcf (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.899 [facility] [address] [address] Dec, [facility] [id number] [place] [address] Nov, [facility] [id number] [place] [address] Nov, [facility] [id number] [place] [address] Nov, [facility] [id number] [place] [address] Oct, [facility] [id number] [place] [address] Sep, [facility] [id number] [place] [address] Sep, Hypothyroid E03.9 ; Sacroiliitis, not elsewhere classified 720.2 ; Degenerative disc disease, lumbar M51.36 ; Hypercholesterolemia E78.0 ; Depression F32.9 ; Anxiety F41.9 ; Gout M10.9 ; HTN (hypertension) I10 and Hypothyroidism 244.9 [place] [id number] [place] [address] Aug, Unspecified kidney failure N19 ; Hypothyroid E03.9 ; Hypertension I10 ; Anxiety F41.9 and Gout M10.9 [facility] [address] [place] [address] Aug, Seborrheic keratosis L82.1 and Nevus D22.9 [place] [id number] [place] [address] Aug, [facility] [id number] [place] [address] Aug, [facility] [id number] [place] [address] Aug, Hypothyroid E03.9 ; Degenerative disc disease, lumbar M51.36 ; Hypertension I10 ; Hypercholesterolemia E78.0 ; Depression F32.9 ; Anxiety F41.9 and Gout M10.9 [facility] [id number] [place] [address] Aug, [facility] [address] [address] Jun, [facility] [address] [address] Jun, Hypothyroidism 244.9 [facility] [address] [address] Jun, Hypothyroidism 244.9 ; Pain in joint, shoulder region 719.41 ; Sacroiliitis, not elsewhere classified 720.2 ; High risk medication use V58.69 and Facial skin lesion 709.9 [place] [address] [address] Apr, Hypothyroidism 244.9 ; Aggressive behavior of adult 301.3 and Edema 782.3 [place] [address] [address] March, [facility] [id number] [place] [address] Feb, [facility] [id number] [place] [address] Feb, [facility] [id number] [place] [address] Jan, [facility] [address] [address] Jan, [facility] [id number] [place] [address] Jan, [facility] [address] [address] Jan, [facility] [place] [facility] [address] [id number] [place] [address] Dec, [facility] [place] [facility] [address] [id number] [place] [address] Dec, [facility] [place] [facility] [address] [id number] [place] [address] Nov, [facility] [place] [facility] [address] [id number] [place] [address] Nov, [facility] [place] [facility] [address] [id number] [place] [address] Nov, [facility] [place] [facility] [address] [id number] [place] [address] Nov, [facility] [place] [facility] [address] [facility] [id number] [place] [address] Nov, [facility] [place] [facility] [address] [id number] [place] [address] Nov, [facility] [place] [facility] [address] [id number] [place] [address] Oct, [facility] [place] [facility] [address] [id number] [place] [address] Oct, [facility] [place] [facility] [address] [id number] [place] [address] Sep, [facility] [place] [facility] [address] [id number] [address] Sep, [facility] [place] [facility] [address] [id number] [place] [address] Sep, [facility] [place] [facility] [address] [id number] [place] [address] Sep, [facility] [place] [facility] [address] [id number] [place] [address] Sep, [facility] [place] [facility] [address] [id number] [place] [address] Sep, [facility] [place] [facility] [address] [id number] [place] [address] Aug, [facility] [place] [facility] [address] [id number] [place] [address] Aug, [facility] [place] [facility] [address] [id number] [place] [address] Aug, [facility] [place] [facility] [address] [id number] [place] [address] Aug, [facility] [place] [facility] [address] [id number] [place] [address] Aug, [facility] [place] [facility] [address] [id number] [place] [address] Aug, [facility] [place] [facility] [address] [id number] [place] [address] 16 Jul, 2014 [facility] [place] [facility] [address] [id number] [place] [address] 16 Jul, 2014 [facility] [place] [facility] [address] [id number] [place] [address] 15 Jul, 2014 [facility] [place] [facility] [address] [id number] [place] [address] 15 Jul, 2014 [facility] [place] [facility] [address] [id number] [place] [address] Jul, [facility] [place] [facility] [address] [id number] [place] [address] Jul, [facility] [place] [facility] [address] [id number] [place] [address] Jun, [facility] [place] [facility] [address] [id number] [place] [address] Jun, [facility] [place] [facility] [address] [id number] [place] [address] May, [facility] [place] [facility] [address] [id number] [place] [address] May, [facility] [place] [facility] [address] [id number] [place] [address] May, [facility] [place] [facility] [address] [id number] [place] [address] May, [facility] [place] [facility] [address] [id number] [place] [address] May, [facility] [place] [facility] [address] [id number] [place] [address] May, [facility] [place] [facility] [address] [id number] [place] [address] Apr, [facility] [place] [facility] [address] [id number] [place] [address] Apr, [facility] [place] [facility] [address] [id number] [place] [address] Apr, [facility] [place] [facility] [address] [id number] [place] [address] Apr, [facility] [place] [facility] [address] [id number] [place] [address] Apr, [facility] [place] [facility] [address] [id number] [place] [address] Apr, [facility] [place] [facility] [address] [id number] [place] [address] Feb, [facility] [place] [facility] [address] [id number] [place] [address] Feb, [facility] [place] [facility] [address] [id number] [place] [address] Feb, [facility] [place] [facility] [address] [id number] [place] [address] Feb, [facility] [place] [facility] [address] [id number] [place] [address] Jan, [facility] [place] [facility] [address] [id number] [place] [address] 31 Jan, 2014 [facility] [place] [facility] [address] [id number] [place] [address] 14 Jan, 2014 [facility] [place] [facility] [address] [id number] [place] [address] 14 Jan, 2014 [facility] [place] [facility] [address] [id number] [place] [address] Dec, [facility] [place] [facility] [address] [id number] [place] [address] Dec, [facility] [place] [facility] [address] [id number] [place] [address] Dec, [facility] [place] [facility] [address] [id number] [place] [address] Dec, [facility] [place] [facility] [address] [id number] [place] [address] Dec, [facility] [place] [facility] [address] [id number] [place] [address] Dec, [facility] [place] [facility] [address] [id number] [place] [address] Nov, [facility] [place] [facility] [address] [id number] [place] [address] 18 Oct, 2013 [facility] [place] [facility] [address] [id number] [place] [address] 18 Oct, 2013 [facility] [place] [facility] [address] [id number] [place] [address] Oct, [facility] [place] [facility] [address] [id number] [place] [address] Oct, [facility] [place] [facility] [address] [facility] [id number] [place] [address] Oct, [facility] [place] [facility] [address] [id number] [place] [address] Oct, [facility] [address] [id number] [place] [address] Sep, [facility] [place] [facility] [address] [id number] [place] [address] Sep, [facility] [address] [id number] [place] [address] Sep, [facility] [address] [id number] [place] [address] Jul, [facility] [address] [id number] [place] [address] Jun, [facility] [address] [id number] [place] [address] Jun, [facility] [address] [id number] [place] [address] Jun, [facility] [address] [id number] [place] [address] May, [facility] [address] [id number] [place] [address] May, [facility] [address] [id number] [place] [address] May, [facility] [place] [facility] [address] [id number] [place] [address] Apr, [facility] [place] [facility] [address] [id number] [place] [address] Apr, [facility] [place] [facility] [address] [id number] [place] [address] Apr, [facility] [place] [facility] [address] [id number] [place] [address] Apr, [facility] [place] [facility] [address] [id number] [place] [address] March, [facility] [address] [id number] [place] [address] March, [facility] [address] [id number] [place] [address] March, [facility] [address] [id number] [place] [address] March, [facility] [address] [id number] [place] [address] Feb, [facility] [address] [id number] [place] [address] Feb, [facility] [address] [id number] [place] [address] Feb, [facility] [address] [id number] [place] [address] Feb, [facility] [address] [id number] [place] [address] Feb, [facility] [address] [id number] [place] [address] Feb, [facility] [address] [id number] [place] [address] Jan, [facility] [place] [facility] [address] [id number] [place] [address] Jan, [facility] [place] [facility] [address] [id number] [address] 16 Nov, 2012 [facility] [place] [facility] [address] [id number] [place] [address] Nov, [facility] [place] [facility] [address] [id number] [place] [address] Nov, [facility] [place] [facility] [address] [id number] [address] Nov, [facility] [place] [facility] [address] [id number], [place] [address] Sep, [facility] [place] [facility] [address] [id number] [place] [address] Sep, [facility] [place] [facility] [address] [id number] [place] [address] Sep, [facility] [place] [facility] [address] [id number] [place] [address] Sep, [facility] [place] [facility] [address] [id number] [place] [address] Aug, [facility] [place] [facility] [address] [id number] [place] [address] Aug, [facility] [place] [facility] [address] [id number] [place] [address] Aug, [facility] [place] [facility] [address] [facility] [id number] [place] [address] Jul, [facility] [place] [facility] [address] [id number] [place] [address] Jul, [facility] [place] [facility] [address] [facility] [id number] [place] [address] Jul, [facility] [place] [facility] [address] [facility] [id number] [place] [address] Jun, [facility] [place] [facility] [address] [id number] [place] [address] Jun, [facility] [place] [facility] [address] [id number] [place] [address] May, [facility] [place] [facility] [address] [id number] [place] [address] May, [facility] [place] [facility] [address] [facility] [id number] [place] [address] May, [facility] [place] [facility] [address] [facility] [id number] [place] [address] Apr, [facility] [place] [facility] [address] [id number] [place] [address] March, [facility] [place] [facility] [address] [id number] [place] [address] Feb, [facility] [place] [facility] [address] [id number] [place] [address] Feb, [facility] [place] [facility] [address] [id number] [place] [address] Dec, [facility] [place] [facility] [address] [id number] [place] [address] Oct, [facility] [place] [facility] [address] [id number] [place] [address] Aug, [facility] [place] [facility] [address] [id number] [place] [address] Aug, [facility] [place] [facility] [address] [id number] [place] [address] Aug, [facility] [place] [facility] [address] [id number] [place] [address] Aug, [facility] [place] [facility] [address] [id number] [place] [address] Aug, [facility] [place] [facility] [address] [id number] [place] [address] Oct, [facility] [place] [facility] [address] [id number] [place] [address] Sep, [facility] [place] [facility] [address] [id number] [place] [address] Sep, [facility] [place] [facility] [address] [id number] [place] [address] Sep, [facility] [place] [facility] [address] [id number] [place] [address] Sep, [facility] [place] [facility] [address] [id number] [place] [address] Aug, [facility] [address] [facility] [id number] [address] Aug, [facility] [address] [facility] [id number] [address] Aug, [facility] [address] [id number] [address] Aug, [facility] [address] [facility] [id number], [place] [address] Aug, [facility] [address] [facility] [id number] [address] Aug, [facility] [id number] [address] Nov, [facility] [id number] [address] Oct, [facility] [id number], [place] [address] Oct, [facility] [address] [id number] [address] Sep, [facility] [address] [id number] [address] Jul, IMMUNIZATIONS No Known Immunizations SOCIAL HISTORY Never Assessed REASON FOR VISIT EMR-[facility] PLAN OF CARE VITAL SIGNS MEDICATIONS Unknown [...]
--- OUTSIDE RECORDS SUMMARY | 2019-06-16 22:53 | XMS REPORT ---
Author Author KENISHA CABEZAS Organization [facility] Address [address] [place] [address] Care Team Providers Care Java Development Manager Name Role Phone KENISHA CABEZAS Unavailable PROBLEMS Type Condition ICD9-CM Code FXE39-HE Code Onset Dates Condition Status SNOMED Code Problem Gout M10.9 Active 75651712 Problem Hypothyroid E03.9 Active 68887775 Problem Degenerative disc disease, lumbar M51.36 Active 77882472 Problem Elevated fasting glucose R73.01 Active 67019420 Problem Hyperlipidemia E78.5 Active 21722453 Problem Chronic pain syndrome G89.4 Active 524281477 Problem Anxiety F41.9 Active 42708631 Problem Depression F32.9 Active 54144264 Problem Unspecified kidney failure N19 Active 85270389 Problem Hypertension I10 Active 13185149 ALLERGIES No Information ENCOUNTERS Encounter Location Date Diagnosis [place] [address] [address] Oct, [place] [address] [address] Oct, Prediabetes R73.09 ; Hyperlipidemia E78.5 and Hypertension I10 [place] [address] [place] [id number] [place] [address] Jul, Hypertension I10 ; Hypothyroid E03.9 ; Actinic keratosis L57.0 ; Skin tag, acquired L91.8 ; Depression F32.9 ; Anxiety F41.9 and Hyperlipidemia LDL goal <70 E78.5 [place] [address] [address] May, Hypothyroid E03.9 [place] [address] [place] [id number] [place] [address] Apr, Hypertension I10 ; Hypothyroid E03.9 ; Elevated fasting glucose R73.01 ; Hypercholesterolemia E78.0 ; Depression F32.9 and Anxiety F41.[address] [address] March, Depression F32.9 and Anxiety F41.9 [place] [address] [address] Jan, Hypothyroid E03.9 and Elevated fasting glucose R73.01 [place] [address] [address] Jan, Hypercholesterolemia E78.[address] [address] Dec, Hypertension I10 ; Hypercholesterolemia E78.0 ; Hypothyroid E03.9 and Gout M10.[address] [address] Dec, Hypertension I10 ; Hypercholesterolemia E78.0 ; Hypothyroid E03.9 ; Depression F32.9 ; Anxiety F41.9 ; Gout M10.9 ; Chronic pain syndrome G89.4 ; Controlled substance agreement broken Z91.14 and Controlled substance agreement terminated Z91.[address] [address] Sep, Degenerative disc disease, lumbar M51.[address] [address] Sep, Degenerative disc disease, lumbar M51.[address] [address] Aug, Hypertension I10 ; Hypercholesterolemia E78.0 ; Hypothyroid E03.9 ; Depression F32.9 ; Gout M10.9 ; Anxiety F41.9 and Degenerative disc disease, lumbar M51.36 [place] [address] [address] Jul, [address] [address] Jul, [facility] [address] [place] [id number] [place] [address] Jun, [facility] [address] [place] [id number] [place] [address] Jun, Gout M10.9 [facility] [address] [place] [id number] [place] [address] May, Hypertension I10 and Hypercholesterolemia E78.0 [facility] [address] [place] [id number] [place] [address] May, [facility] [address] [place] [id number] [place] [address] May, Dental examination Z01.20 [facility] [address] [place] [id number] [place] [address] Apr, [facility] [address] [place] [id number] [place] [address] March, [facility] [address] [place] [id number] [place] [address] March, [facility] [address] [id number] March, [facility] [id number] [place] [address] March, [facility] [address] [address] Feb, [facility] [id number] [place] [address] Feb, [facility] [id number] [place] [address] Feb, Degenerative disc disease, lumbar M51.36 [facility] [id number] [place] [address] Feb, Hypothyroid E03.9 ; Hypertension I10 ; Anxiety F41.9 ; Hypercholesterolemia E78.0 ; Depression F32.9 ; Gout M10.9 and Degenerative disc disease, lumbar M51.36 [facility] [address] [place] [id number] [place] [address] Feb, Encounter for dental examination and cleaning without abnormal findings Z01.20 [facility] [address] [place] [id number] [place] [address] Jan, Encounter for dental examination Z01.20 [facility] [address] [place] [id number] [place] [address] Jan, [facility] [address] [place] [id number] [place] [address] Jan, Hypercholesterolemia E78.0 [facility] [address] [place] [id number] [place] [address] Jan, Degenerative disc disease, lumbar M51.36 [facility] [address] [place] [id number] [place] [address] Dec, [facility] [address] [place] [id number] [place] [address] Dec, Degenerative disc disease, lumbar M51.36 ; Hypercholesterolemia E78.0 ; Depression F32.9 ; Hypothyroid E03.9 and Hypertension I10 [facility] [address] [place] [id number] [place] [address] Dec, Degenerative disc disease, lumbar M51.36 [facility] [address] [place] [id number] [place] [id number] Dec, Dental examination Z01.20 [facility] [address] [place] [id number] [place] [address] Nov, Dental examination Z01.20 [facility] [address] [place] [id number] [place] [address] Nov, Degenerative disc disease, lumbar M51.36 [place] [address] [address] Nov, Hypertension I10 ; Hypothyroid E03.9 ; Degenerative disc disease, lumbar M51.36 ; Gout M10.9 ; Unspecified kidney failure N19 ; Anxiety F41.9 ; Depression F32.9 and Hypercholesterolemia E78.0 [facility] [address] [place] [address] [id number] [address] Oct, [facility] [address] [place] [id number] [place] [address] Sep, [facility] [address] [place] [id number] [place] [address] Aug, [facility] [address] [place] [id number] [place] [address] Jul, [facility] [address] [place] [id number] [place] [address] Jun, [facility] [address] [place] [id number] [place] [address] Jun, [facility] [address] [place] [id number] [place] [address] May, [facility] [address] [place] [id number] [address] May, [facility] [address] [place] [id number] [place] [address] May, [facility] [address] [place] [id number] [place] [address] Apr, Pain in unspecified shoulder M25.519 [facility] [address] [place] [id number] [place] [address] Apr, Degenerative disc disease, lumbar M51.36 ; Hypertension I10 ; Unspecified kidney failure N19 ; Gout M10.9 ; Depression F32.9 ; Hypothyroid E03.9 ; Anxiety F41.9 ; 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 and Combined hyperlipidemia E78.2 [facility] [address] [place] [id number] [place] [address] Apr, Gout M10.9 and Pain in unspecified shoulder M25.519 [facility] [address] [place] [id number] [place] [address] March, Degenerative disc disease, lumbar M51.36 [place] [address] [address] Feb, Hypercholesterolemia E78.0 ; Hypothyroid E03.9 ; Gout M10.9 and Anxiety F41.9 [place] [address] [address] Feb, [place] [address] [address] Feb, Unspecified kidney failure N19 [place] [address] [address] Feb, Unspecified kidney failure N19 [facility] [address] [address] Feb, [place] [address] [place] [id number] [place] [address] Feb, [place] [address] [place] [id number] [place] [address] Jan, [place] [address] [address] Dec, Sacroiliitis, not elsewhere classified 720.2 ; Hypercholesterolemia E78.0 ; Depression F32.9 ; Anxiety F41.9 ; Gout M10.9 ; Unspecified kidney failure N19 ; Hypothyroid E03.9 ; Degenerative disc disease, lumbar M51.36 and Other penitentiary (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.899 [place] [address] [place] [id number] [place] [address] Dec, [place] [address] [address] Nov, [place] [address] [place] [id number] [place] [address] Nov, [facility] [address] [place] [id number] [place] [address] Nov, [place] [address] [place] [id number] [place] [address] Oct, [place] [address] [place] [id number] [place] [address] Sep, [place] [address] [place] [id number] [place] [address] Sep, Hypothyroid E03.9 ; Sacroiliitis, not elsewhere classified 720.2 ; Degenerative disc disease, lumbar M51.36 ; Hypercholesterolemia E78.0 ; Depression F32.9 ; Anxiety F41.9 ; Gout M10.9 ; HTN (hypertension) I10 and Hypothyroidism 244.9 [place] [id number] [place] [address] Aug, Unspecified kidney failure N19 ; Hypothyroid E03.9 ; Hypertension I10 ; Anxiety F41.9 and Gout M10.9 [place] [address] [place] [id number] [place] [address] Aug, Seborrheic keratosis L82.1 and Nevus D22.9 [place] [id number] [place] [address] Aug, [place] [address] [place] [id number] [place] [address] Aug, [place] [address] [place] [id number] [place] [address] Aug, Hypothyroid E03.9 ; Degenerative disc disease, lumbar M51.36 ; Hypertension I10 ; Hypercholesterolemia E78.0 ; Depression F32.9 ; Anxiety F41.9 and Gout M10.9 [facility] [address] [place] [id number] [place] [address] Aug, [facility] [address] [place] [id number] [place] [address] Jun, [facility] [address] [place] [id number] [place] [address] Jun, Hypothyroidism 244.9 [facility] [address] [address] Jun, Hypothyroidism 244.9 ; Pain in joint, shoulder region 719.41 ; Sacroiliitis, not elsewhere classified 720.2 ; High risk medication use V58.69 and Facial skin lesion 709.9 [facility] [address] [place] [id number] [place] [address] Apr, Hypothyroidism 244.9 ; Aggressive behavior of adult 301.3 and Edema 782.3 [facility] [address] [place] [id number] [place] [address] March, [facility] [address] [place] [id number] [place] [address] Feb, [facility] [address] [place] [id number] [place] [address] Feb, [facility] [address] [place] [id number] [place] [address] Jan, [facility] [address] [place] [id number] [place] [address] Jan, [facility] [address] [place] [id number] [place] [address] Jan, [facility] [address] [place] [id number] [place] [address] Jan, [facility] [id number] [place] [address] Dec, [facility] [address] [place] [id number] [place] [address] Dec, [facility] [place] [facility] [address] [id number] [place] [address] Nov, [facility] [place] [facility] [address] [facility] [id number] [address] Nov, [facility] [place] [facility] [address] [facility] [id number] [place] [address] Nov, [facility] [place] [facility] [address] [facility] [id number] [place] [address] Nov, [facility] [place] [facility] [id number] [place] [address] Nov, [facility] [place] [facility] [address] [facility] [id number] [place] [address] Nov, [facility] [place] [facility] [id number] [address] Oct, [facility] [place] [facility] [address] [facility] [id number], [place] [address] Oct, [facility] [place] [facility] [id number] [address] Sep, [facility] [place] [facility] [id number] [address] Sep, [facility] [place] [facility] [address] [facility] [id number], [place] [address] Sep, [facility] [place] [facility] [address] [facility] [id number], [place] [address] Sep, [facility] [place] [facility] [address] [facility] [id number], [place] [address] Sep, [facility] [place] [facility] [address] [facility] [id number], [place] [address] Sep, [facility] [place] [facility] [id number] [address] Aug, [facility] [place] [facility] [address] [id number] [place] [address] Aug, [facility] [place] [facility] [address] [id number] [place] [address] Aug, [facility] [place] [facility] [address] [id number] [place] [address] Aug, [facility] [place] [facility] [address] [id number] [place] [address] Aug, [facility] [place] [facility] [address] [id number] [place] [address] Aug, [facility] [place] [facility] [address] [id number] [place] [address] 16 Jul, 2014 [facility] [place] [facility] [address] [id number] [place] [address] 16 Jul, 2014 [facility] [place] [facility] [address] [id number] [place] [address] 15 Jul, 2014 [facility] [place] [facility] [address] [id number] [place] [address] 15 Jul, 2014 [facility] [place] [facility] [address] [id number] [place] [address] 04 Jul, 2014 [facility] [place] [facility] [address] [id number] [place] [address] Jul, [facility] [place] [facility] [address] [id number] [place] [address] Jun, [facility] [place] [facility] [address] [id number] [place] [address] Jun, [facility] [place] [facility] [address] [id number] [place] [address] May, [facility] [place] [facility] [address] [id number] [place] [address] May, [facility] [place] [facility] [address] [id number] [place] [address] May, [facility] [place] [facility] [address] [id number] [place] [address] May, [facility] [place] [facility] [address] [id number] [place] [address] May, [facility] [place] [facility] [address] [id number] [place] [address] May, [facility] [place] [facility] [address] [id number] [place] [address] Apr, [facility] [place] [facility] [address] [id number] [place] [address] Apr, [facility] [place] [facility] [address] [id number] [place] [address] Apr, [facility] [place] [facility] [address] [id number] [place] [address] Apr, [facility] [place] [facility] [address] [id number] [place] [address] Apr, [facility] [place] [facility] [address] [id number] [place] [address] Apr, [facility] [place] [facility] [address] [id number] [place] [address] Feb, [facility] [place] [facility] [address] [id number] [place] [address] Feb, [facility] [place] [facility] [address] [id number], [place] [address] Feb, [facility] [place] [facility] [address] [id number] [place] [address] Feb, [facility] [place] [facility] [address] [id number] [place] [address] Jan, [facility] [place] [facility] [address] [id number] [place] [address] Jan, [facility] [place] [facility] [address] [id number] [place] [address] 14 Jan, 2014 [facility] [place] [facility] [address] [id number] [place] [address] 14 Jan, 2014 [facility] [place] [facility] [address] [id number] [place] [address] Dec, [facility] [place] [facility] [address] [id number] [place] [address] Dec, [facility] [place] [facility] [address] [id number] [place] [address] Dec, [facility] [place] [facility] [address] [id number] [place] [address] Dec, [facility] [place] [facility] [address] [facility] [id number] [place] [address] Dec, [facility] [place] [facility] [address] [facility] [id number] [place] [address] 18 Dec, 2013 [facility] [place] [facility] [address] [id number] [place] [address] Nov, [facility] [place] [facility] [address] [facility] [id number] [place] [address] Oct, [facility] [place] [facility] [address] [facility] [id number] [place] [address] 18 Oct, 2013 [facility] [place] [facility] [address] [facility] [id number] [place] [address] Oct, [facility] [place] [facility] [address] [id number] [place] [address] 17 Oct, 2013 [facility] [place] [facility] [address] [facility] [id number] [place] [address] Oct, [facility] [place] [facility] [address] [facility] [id number] [place] [address] Oct, [facility] [place] [facility] [address] [facility] [id number] [place] [address] Sep, [facility] [place] [facility] [address] [id number] [place] [address] Sep, [facility] [place] [facility] [address] [id number] [place] [address] Sep, [facility] [place] [facility] [address] [id number] [place] [address] Jul, [facility] [place] [facility] [address] [id number] [place] [address] Jun, [facility] [place] [facility] [address] [id number] [place] [address] Jun, [facility] [place] [facility] [address] [id number] [place] [address] Jun, [facility] [place] [facility] [address] [id number] [place] [address] May, [facility] [place] [facility] [address] [id number] [place] [address] May, [facility] [place] [facility] [address] [id number] [place] [address] May, [facility] [place] [facility] [address] [id number] [place] [address] Apr, [facility] [place] [facility] [address] [id number] [place] [address] Apr, [facility] [place] [facility] [address] [id number] [address] Apr, [facility] [place] [facility] [address] [id number] [place] [address] Apr, [facility] [place] [facility] [address] [id number] [place] [address] March, [facility] [place] [facility] [address] [id number] [place] [address] March, [facility] [place] [facility] [address] [id number] [place] [address] March, [facility] [address] [id number] [place] [address] March, [facility] [address] [id number] [place] [address] Feb, [facility] [address] [id number] [place] [address] Feb, [facility] [address] [id number] [place] [address] 15 Feb, 2013 [facility] [address] [id number] [place] [address] Feb, [facility] [address] [id number] [place] [address] Feb, [facility] [address] [id number] [place] [address] Feb, [facility] [address] [id number] [place] [address] Jan, [facility] [address] [id number] [place] [address] Jan, [facility] [address] [id number] [place] [address] 16 Nov, 2012 [facility] [address] [id number] [place] [address] Nov, [facility] [address] [id number] [place] [address] Nov, [facility] [address] [id number] [place] [address] Nov, [facility] [address] [id number] [place] [address] Sep, [facility] [address] [id number] [place] [address] Sep, [facility] [place] [facility] [address] [id number] [place] [address] Sep, [facility] [place] [facility] [address] [id number] [place] [address] Sep, [facility] [place] [facility] [address] [id number] [place] [address] Aug, [facility] [place] [facility] [address] [id number] [place] [address] Aug, [facility] [place] [facility] [address] [id number] [place] [address] Aug, [facility] [place] [facility] [address] [id number] [place] [address] Jul, [facility] [place] [facility] [address] [id number] [place] [address] Jul, [facility] [place] [facility] [address] [id number] [place] [address] Jul, [facility] [place] [facility] [address] [id number] [place] [address] Jun, [facility] [place] [facility] [address] [id number] [place] [address] Jun, [facility] [place] [facility] [address] [id number] [place] [address] May, [facility] [place] [facility] [address] [id number] [place] [address] May, [facility] [place] [facility] [address] [id number] [place] [address] May, [facility] [place] [facility] [address] [id number] [place] [address] Apr, [facility] [place] [facility] [address] [id number] [place] [address] March, [facility] [place] [facility] [address] [id number] [place] [address] Feb, [facility] [place] [facility] [address] [id number] [place] [address] Feb, [facility] [place] [facility] [address] [id number] [place] [address] Dec, [facility] [place] [facility] [address] [id number] [place] [address] Oct, [facility] [place] [facility] [address] [id number] [place] [address] Aug, [facility] [place] [facility] [address] [id number] [place] [address] Aug, [facility] [place] [facility] [address] [id number] [place] [address] Aug, [facility] [place] [facility] [address] [id number] [place] [address] Aug, [facility] [place] [facility] [address] [id number] [place] [address] Aug, [facility] [place] [facility] [address] [id number] [place] [address] Oct, [facility] [place] [facility] [address] [id number] [place] [address] Sep, [facility] [facility] [facility] [address] [id number] [address] Sep, [facility] [place] [facility] [address] [id number], [place] [address] Sep, [facility] [place] [facility] [address] [id number] [place] [address] Sep, [facility] [place] [facility] [address] [id number] [place] [address] Aug, [facility] [place] [facility] [address] [id number] [place] [address] Aug, [facility] [place] [facility] [address] [id number] [address] 18 Aug, 2010 [facility] [address] [id number] [address] Aug, [facility] [id number] [address] Aug, [facility] [id number] [address] Aug, [facility] [id number] [address] Nov, [facility] [id number] [place] [id number] Oct, [facility] [id number] [address] Oct, [facility] [id number] [address] Sep, [facility] [address] [id number] [address] Jul, IMMUNIZATIONS No Known Immunizations SOCIAL HISTORY Never Assessed REASON FOR VISIT med refills PLAN OF CARE VITAL SIGNS MEDICATIONS Medication Instructions Dosage Frequency Start Date End Date Duration Status Allopurinol 300 MG TAKE 1 TABLET BY MOUTH ONCE DAILY 90 Active Propranolol HCl 20 mg TAKE 1 TABLET BY MOUTH TWICE DAILY 90 Active RESULTS No Results PROCEDURES No Known procedures [...]
--- OUTSIDE RECORDS SUMMARY | 2019-06-16 22:53 | XMS REPORT ---
Author Author Migration, Doctor Organization [facility] Address Unknown Phone Unavailable Care Team Providers Care Senior Net Software Developer Name Role Phone Migration, Doctor Unavailable Unavailable PROBLEMS Type Condition ICD9-CM Code THS00-MC Code Onset Dates Condition Status SNOMED Code Problem Gout M10.9 Active 02539270 Problem Degenerative disc disease, lumbar M51.36 Active 66294613 Problem Hypothyroid E03.9 Active 25552650 Problem Chronic pain syndrome G89.4 Active 857106136 Problem Elevated fasting glucose R73.01 Active 45231292 Problem Hyperlipidemia E78.5 Active 57880975 Problem Depression F32.9 Active 58266539 Problem Anxiety F41.9 Active 18536494 Problem Hypertension I10 Active 52362513 Problem Unspecified kidney failure N19 Active 12990505 ALLERGIES No Information ENCOUNTERS Encounter Location Date Diagnosis [place] [id number] [place] [address] 15 Dec, 2018 Hyperlipidemia LDL goal <70 E78.5 [place] [address] [address] Nov, [place] [id number] [place] [address] Oct, [place] [id number] [place] [address] Oct, Prediabetes R73.09 ; Hyperlipidemia E78.5 and Hypertension I10 [place] [id number] [place] [address] Jul, Hypertension I10 ; Hypothyroid E03.9 ; Actinic keratosis L57.0 ; Skin tag, acquired L91.8 ; Depression F32.9 ; Anxiety F41.9 and Hyperlipidemia LDL goal <70 E78.5 [place] [id number] [place] [address] May, Hypothyroid E03.9 [place] [id number] [place] [address] Apr, Hypertension I10 ; Hypothyroid E03.9 ; Elevated fasting glucose R73.01 ; Hypercholesterolemia E78.0 ; Depression F32.9 and Anxiety F41.9 [place] [id number] [place] [address] March, Depression F32.9 and Anxiety F41.9 [place] [id number] [place] [address] Jan, Hypothyroid E03.9 and Elevated fasting glucose R73.01 [place] [address] [address] [id number] [place] [address] Jan, Hypercholesterolemia E78.0 [place] [id number] [place] [address] Dec, Hypertension I10 ; Hypercholesterolemia E78.0 ; Hypothyroid E03.9 and Gout M10.9 [place] [id number] [place] [address] Dec, Hypertension I10 ; Hypercholesterolemia E78.0 ; Hypothyroid E03.9 ; Depression F32.9 ; Anxiety F41.9 ; Gout M10.9 ; Chronic pain syndrome G89.4 ; Controlled substance agreement broken Z91.14 and Controlled substance agreement terminated Z91.14 [place] [id number] [place] [address] Sep, Degenerative disc disease, lumbar M51.36 [place] [id number] [place] [address] Sep, Degenerative disc disease, lumbar M51.36 [place] [address] [id number] [place] [address] Aug, Hypertension I10 ; Hypercholesterolemia E78.0 ; Hypothyroid E03.9 ; Depression F32.9 ; Gout M10.9 ; Anxiety F41.9 and Degenerative disc disease, lumbar M51.36 [facility] [id number] [address] Jul, [facility] [id number] [place] [address] Jul, [facility] [id number] [place] [address] Jun, [facility] [id number] [place] [address] Jun, Gout M10.9 [facility] [id number] [place] [address] May, Hypertension I10 and Hypercholesterolemia E78.0 [facility] [id number] [place] [address] May, [facility] [id number] [place] [address] May, Dental examination Z01.20 [facility] [id number] [place] [address] Apr, [facility] [id number] [place] [address] March, [facility] [id number] [address] March, [facility] [id number] [place] [id number] March, [facility] [id number] [address] March, [facility] [id number] [place] [address] Feb, [facility] [address] [address] Feb, [facility] [id number] [place] [address] Feb, Degenerative disc disease, lumbar M51.36 [facility] [id number] [place] [address] Feb, Hypothyroid E03.9 ; Hypertension I10 ; Anxiety F41.9 ; Hypercholesterolemia E78.0 ; Depression F32.9 ; Gout M10.9 and Degenerative disc disease, lumbar M51.36 [facility] [address] [address] Feb, Encounter for dental examination and cleaning without abnormal findings Z01.20 [facility] [id number] [place] [address] Jan, Encounter for dental examination Z01.20 [facility] [place] [address] [address] Jan, [facility] [address] [address] Jan, Hypercholesterolemia E78.0 [facility] [id number] [place] [address] Jan, Degenerative disc disease, lumbar M51.36 [facility] [address] [address] Dec, [facility] [id number] [place] [address] Dec, Degenerative disc disease, lumbar M51.36 ; Hypercholesterolemia E78.0 ; Depression F32.9 ; Hypothyroid E03.9 and Hypertension I10 [facility] [id number] [place] [address] Dec, Degenerative disc disease, lumbar M51.36 [facility] [address] [place] [id number] Dec, Dental examination Z01.20 [facility] [id number] [place] [address] Nov, Dental examination Z01.20 [facility] [address] [address] Nov, Degenerative disc disease, lumbar M51.36 [facility] [id number] [place] [address] Nov, Hypertension I10 ; Hypothyroid E03.9 ; Degenerative disc disease, lumbar M51.36 ; Gout M10.9 ; Unspecified kidney failure N19 ; Anxiety F41.9 ; Depression F32.9 and Hypercholesterolemia E78.0 [facility] [id number] [place] [address] Oct, [facility] [id number] [place] [address] Sep, [facility] [id number] [place] [address] Aug, [facility] [id number] [place] [address] Jul, [facility] [id number] [place] [address] Jun, [facility] [id number] [place] [address] Jun, [facility] [id number] [place] [address] May, [facility] [id number] [place] [address] May, [facility] [address] [place] [address] May, [facility] [id number] [place] [address] Apr, Pain in unspecified shoulder M25.519 [facility] [address] [address] Apr, Degenerative disc disease, lumbar M51.36 ; Hypertension I10 ; Unspecified kidney failure N19 ; Gout M10.9 ; Depression F32.9 ; Hypothyroid E03.9 ; Anxiety F41.9 ; Other jail (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.899 and Combined hyperlipidemia E78.2 [place] [id number] [place] [address] Apr, Gout M10.9 and Pain in unspecified shoulder M25.519 [place] [address] [address] March, Degenerative disc disease, lumbar M51.36 [place] [address] [address] Feb, Hypercholesterolemia E78.0 ; Hypothyroid E03.9 ; Gout M10.9 and Anxiety F41.9 [place] [address] [address] Feb, [place] [address] [address] Feb, Unspecified kidney failure N19 [place] [address] [address] Feb, Unspecified kidney failure N19 [place] [address] [address] [id number] [place] [address] Feb, [place] [address] [address] [id number] [place] [address] Feb, [place] [id number] [place] [address] Jan, [place] [address] [address] Dec, Sacroiliitis, not elsewhere classified 720.2 ; Hypercholesterolemia E78.0 ; Depression F32.9 ; Anxiety F41.9 ; Gout M10.9 ; Unspecified kidney failure N19 ; Hypothyroid E03.9 ; Degenerative disc disease, lumbar M51.36 and Other jail (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.899 [facility] [address] [address] Dec, [facility] [id number] [place] [address] Nov, [facility] [id number] [place] [address] Nov, [facility] [id number] [place] [address] Nov, [facility] [id number] [place] [address] Oct, [facility] [id number] [place] [address] Sep, [facility] [id number] [place] [address] Sep, Hypothyroid E03.9 ; Sacroiliitis, not elsewhere classified 720.2 ; Degenerative disc disease, lumbar M51.36 ; Hypercholesterolemia E78.0 ; Depression F32.9 ; Anxiety F41.9 ; Gout M10.9 ; HTN (hypertension) I10 and Hypothyroidism 244.9 [place] [id number] [place] [address] Aug, Unspecified kidney failure N19 ; Hypothyroid E03.9 ; Hypertension I10 ; Anxiety F41.9 and Gout M10.9 [facility] [address] [place] [address] Aug, Seborrheic keratosis L82.1 and Nevus D22.9 [place] [id number] [place] [address] Aug, [facility] [id number] [place] [address] Aug, [facility] [id number] [place] [address] Aug, Hypothyroid E03.9 ; Degenerative disc disease, lumbar M51.36 ; Hypertension I10 ; Hypercholesterolemia E78.0 ; Depression F32.9 ; Anxiety F41.9 and Gout M10.9 [facility] [id number] [place] [address] Aug, [facility] [address] [address] Jun, [facility] [address] [address] Jun, Hypothyroidism 244.9 [facility] [address] [address] Jun, Hypothyroidism 244.9 ; Pain in joint, shoulder region 719.41 ; Sacroiliitis, not elsewhere classified 720.2 ; High risk medication use V58.69 and Facial skin lesion 709.9 [place] [address] [address] Apr, Hypothyroidism 244.9 ; Aggressive behavior of adult 301.3 and Edema 782.3 [place] [address] [address] March, [facility] [id number] [place] [address] Feb, [facility] [id number] [place] [address] Feb, [facility] [id number] [place] [address] Jan, [facility] [place] [address] [address] Jan, [facility] [id number] [place] [address] Jan, [facility] [place] [address] [address] Jan, [facility] [place] [facility] [address] [id number] [place] [address] Dec, [facility] [place] [facility] [address] [id number] [place] [address] Dec, [facility] [place] [facility] [address] [id number] [place] [address] Nov, [facility] [place] [facility] [address] [id number] [place] [address] Nov, [facility] [place] [facility] [address] [id number] [place] [address] Nov, [facility] [place] [facility] [address] [id number] [place] [address] Nov, [facility] [place] [facility] [address] [facility] [id number] [place] [address] Nov, [facility] [place] [facility] [address] [id number] [place] [address] Nov, [facility] [place] [facility] [address] [id number] [place] [address] Oct, [facility] [place] [facility] [address] [id number] [place] [address] Oct, [facility] [place] [facility] [address] [id number] [place] [address] Sep, [facility] [place] [facility] [address] [id number] [address] Sep, [facility] [place] [facility] [address] [id number] [place] [address] Sep, [facility] [place] [facility] [address] [id number] [place] [address] Sep, [facility] [place] [facility] [address] [id number] [place] [address] Sep, [facility] [place] [facility] [address] [id number] [place] [address] Sep, [facility] [place] [facility] [address] [id number] [place] [address] Aug, [facility] [place] [facility] [address] [id number] [place] [address] Aug, [facility] [place] [facility] [address] [id number] [place] [address] Aug, [facility] [place] [facility] [address] [id number] [place] [address] Aug, [facility] [place] [facility] [address] [id number] [place] [address] Aug, [facility] [place] [facility] [address] [id number] [place] [address] Aug, [facility] [place] [facility] [address] [id number] [place] [address] 16 Jul, 2014 [facility] [place] [facility] [address] [id number] [place] [address] 16 Jul, 2014 [facility] [place] [facility] [address] [id number] [place] [address] 15 Jul, 2014 [facility] [place] [facility] [address] [id number] [place] [address] 15 Jul, 2014 [facility] [place] [facility] [address] [id number] [place] [address] Jul, [facility] [place] [facility] [address] [id number] [place] [address] Jul, [facility] [place] [facility] [address] [id number] [place] [address] Jun, [facility] [place] [facility] [address] [id number] [place] [address] Jun, [facility] [place] [facility] [address] [id number] [place] [address] May, [facility] [place] [facility] [address] [id number] [place] [address] May, [facility] [place] [facility] [address] [id number] [place] [address] May, [facility] [place] [facility] [address] [id number] [place] [address] May, [facility] [place] [facility] [address] [id number] [place] [address] May, [facility] [place] [facility] [address] [id number] [place] [address] May, [facility] [place] [facility] [address] [id number] [place] [address] Apr, [facility] [place] [facility] [address] [id number] [place] [address] Apr, [facility] [place] [facility] [address] [id number] [place] [address] Apr, [facility] [place] [facility] [address] [id number] [place] [address] Apr, [facility] [place] [facility] [address] [id number] [place] [address] Apr, [facility] [place] [facility] [address] [id number] [place] [address] Apr, [facility] [place] [facility] [address] [id number] [place] [address] Feb, [facility] [place] [facility] [address] [id number] [place] [address] Feb, [facility] [place] [facility] [address] [id number] [place] [address] Feb, [facility] [place] [facility] [address] [id number] [place] [address] Feb, [facility] [place] [facility] [address] [id number] [place] [address] Jan, [facility] [place] [facility] [address] [id number] [place] [address] 31 Jan, 2014 [facility] [place] [facility] [address] [id number] [place] [address] 14 Jan, 2014 [facility] [place] [facility] [address] [id number] [place] [address] 14 Jan, 2014 [facility] [place] [facility] [address] [id number] [place] [address] Dec, [facility] [place] [facility] [address] [id number] [place] [address] Dec, [facility] [place] [facility] [address] [id number] [place] [address] Dec, [facility] [place] [facility] [address] [id number] [place] [address] Dec, [facility] [place] [facility] [address] [id number] [place] [address] Dec, [facility] [place] [facility] [address] [id number] [place] [address] Dec, [facility] [place] [facility] [address] [id number] [place] [address] Nov, [facility] [place] [facility] [address] [id number] [place] [address] 18 Oct, 2013 [facility] [place] [facility] [address] [id number] [place] [address] 18 Oct, 2013 [facility] [place] [facility] [address] [id number] [place] [address] Oct, [facility] [place] [facility] [address] [id number] [place] [address] Oct, [facility] [place] [facility] [address] [facility] [id number] [place] [address] Oct, [facility] [place] [facility] [address] [id number] [place] [address] Oct, [facility] [address] [id number] [place] [address] Sep, [facility] [place] [facility] [address] [id number] [place] [address] Sep, [facility] [address] [id number] [place] [address] Sep, [facility] [address] [id number] [place] [address] Jul, [facility] [address] [id number] [place] [address] Jun, [facility] [address] [id number] [place] [address] Jun, [facility] [address] [id number] [place] [address] Jun, [facility] [address] [id number] [place] [address] May, [facility] [address] [id number] [place] [address] May, [facility] [address] [id number] [place] [address] May, [facility] [place] [facility] [address] [id number] [place] [address] Apr, [facility] [place] [facility] [address] [id number] [place] [address] Apr, [facility] [place] [facility] [address] [id number] [place] [address] Apr, [facility] [place] [facility] [address] [id number] [place] [address] Apr, [facility] [place] [facility] [address] [id number] [place] [address] March, [facility] [address] [id number] [place] [address] March, [facility] [address] [id number] [place] [address] March, [facility] [address] [id number] [place] [address] March, [facility] [address] [id number] [place] [address] Feb, [facility] [address] [id number] [place] [address] Feb, [facility] [address] [id number] [place] [address] Feb, [facility] [address] [id number] [place] [address] Feb, [facility] [address] [id number] [place] [address] Feb, [facility] [address] [id number] [place] [address] Feb, [facility] [address] [id number] [place] [address] Jan, [facility] [place] [facility] [address] [id number] [place] [address] Jan, [facility] [place] [facility] [address] [id number], [place] [address] 16 Nov, 2012 [facility] [place] [facility] [address] [id number] [place] [address] Nov, [facility] [place] [facility] [address] [id number] [place] [address] Nov, [facility] [place] [facility] [address] [id number], [place] [address] Nov, [facility] [place] [facility] [address] [id number], [place] [address] Sep, [facility] [place] [facility] [address] [id number] [place] [address] Sep, [facility] [place] [facility] [address] [id number] [place] [address] Sep, [facility] [place] [facility] [address] [id number] [place] [address] Sep, [facility] [place] [facility] [address] [id number] [place] [address] Aug, [facility] [place] [facility] [address] [id number] [place] [address] Aug, [facility] [place] [facility] [address] [id number] [place] [address] Aug, [facility] [place] [facility] [address] [facility] [id number] [place] [address] Jul, [facility] [place] [facility] [address] [id number] [place] [address] Jul, [facility] [place] [facility] [address] [facility] [id number] [place] [address] Jul, [facility] [place] [facility] [address] [facility] [id number] [place] [address] Jun, [facility] [place] [facility] [address] [id number] [place] [address] Jun, [facility] [place] [facility] [address] [id number] [place] [address] May, [facility] [place] [facility] [address] [id number] [place] [address] May, [facility] [place] [facility] [address] [facility] [id number] [place] [address] May, [facility] [place] [facility] [address] [facility] [id number] [place] [address] Apr, [facility] [place] [facility] [address] [id number] [place] [address] March, [facility] [place] [facility] [address] [id number] [place] [address] Feb, [facility] [place] [facility] [address] [id number] [place] [address] Feb, [facility] [place] [facility] [address] [id number] [place] [address] Dec, [facility] [place] [facility] [address] [id number] [place] [address] Oct, [facility] [place] [facility] [address] [id number] [place] [address] Aug, [facility] [place] [facility] [address] [id number] [place] [address] Aug, [facility] [place] [facility] [address] [id number] [place] [address] Aug, [facility] [place] [facility] [address] [id number] [place] [address] Aug, [facility] [place] [facility] [address] [id number] [place] [address] Aug, [facility] [place] [facility] [address] [id number] [place] [address] Oct, [facility] [place] [facility] [address] [id number] [place] [address] Sep, [facility] [place] [facility] [address] [id number] [place] [address] Sep, [facility] [place] [facility] [address] [id number] [place] [address] Sep, [facility] [place] [facility] [address] [id number] [place] [address] Sep, [facility] [place] [facility] [address] [id number] [place] [address] Aug, [facility] [place] [address] [facility] [id number] [address] Aug, [facility] [place] [address] [facility] [id number][place] [address] Aug, [facility] [place] [address] [id number] [address] Aug, [facility] [place] [address] [facility] [id number], [place] [address] Aug, [facility] [place] [address] [facility] [id number], [place] [address] Aug, [facility] [place] [id number], [place] [address] Nov, [facility] [place] [id number], [place] [address] Oct, [facility] [place] [id number], [place] [address] Oct, [facility] [place] [address] [id number], [place] [address] Sep, [facility] [place] [address] [id number] [address] Jul, IMMUNIZATIONS No Known Immunizations SOCIAL HISTORY Never Assessed REASON FOR VISIT [place] [place] VITAL SIGNS MEDICATIONS Unknown [...]
--- OUTSIDE RECORDS SUMMARY | 2019-06-16 22:54 | XMS REPORT ---
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 Phone JARROD Roach Unavailable PROBLEMS Type Condition ICD9-CM Code BJD48-SU Code Onset Dates Condition Status SNOMED Code Problem Gout M10.9 Active 26162480 Problem Hypothyroid E03.9 Active 59655172 Problem Degenerative disc disease, lumbar M51.36 Active 66101014 Problem Elevated fasting glucose R73.01 Active 69990576 Problem Hyperlipidemia LDL goal <70 E78.5 Active 60725091 Problem Chronic pain syndrome G89.4 Active 294928946 Problem Anxiety F41.9 Active 58079152 Problem Depression F32.9 Active 81112959 Problem Unspecified kidney failure N19 Active 84737090 Problem Hypertension I10 Active 71087016 ALLERGIES No Known Allergies ENCOUNTERS Encounter Location Date Diagnosis [facility] [id number] [place] [address] Jul, Hypertension I10 ; Hypothyroid E03.9 ; Actinic keratosis L57.0 ; Skin tag, acquired L91.8 ; Depression F32.9 ; Anxiety F41.9 and Hyperlipidemia LDL goal <70 E78.5 [facility] [id number] [place] [address] May, Hypothyroid E03.9 [facility] [id number] [place] [address] Apr, Hypertension I10 ; Hypothyroid E03.9 ; Elevated fasting glucose R73.01 ; Hypercholesterolemia E78.0 ; Depression F32.9 and Anxiety F41.9 [facility] [id number] [place] [address] March, Depression F32.9 and Anxiety F41.9 [facility] [id number] [place] [address] Jan, Hypothyroid E03.9 and Elevated fasting glucose R73.01 [facility] [address] [address] Jan, Hypercholesterolemia E78.0 [facility] [address] [address] Dec, Hypertension I10 ; Hypercholesterolemia E78.0 ; Hypothyroid E03.9 and Gout M10.9 [facility] [address] [address] Dec, Hypertension I10 ; Hypercholesterolemia E78.0 ; Hypothyroid E03.9 ; Depression F32.9 ; Anxiety F41.9 ; Gout M10.9 ; Chronic pain syndrome G89.4 ; Controlled substance agreement broken Z91.14 and Controlled substance agreement terminated Z91.14 [facility] [address] [address] Sep, Degenerative disc disease, lumbar M51.36 [facility] [address] [address] Sep, Degenerative disc disease, lumbar M51.36 [facility] [address] [address] Aug, Hypertension I10 ; Hypercholesterolemia E78.0 ; Hypothyroid E03.9 ; Depression F32.9 ; Gout M10.9 ; Anxiety F41.9 and Degenerative disc disease, lumbar M51.36 [facility] [id number] [place] [address] Jul, [address] [address] Jul, [facility] [address] [address] Jun, [facility] [address] [place] [address] Jun, Gout M10.9 [facility] [id number] [place] [address] May, Hypertension I10 and Hypercholesterolemia E78.0 [facility] [id number] [place] [address] May, [facility] [id number] [place] [address] May, Dental examination Z01.20 [facility] [id number] [place] [address] Apr, [facility] [id number] [place] [address] March, [facility] [id number] [place] [address] March, [facility] [id number] [place] [id number] March, [facility] [id number] [place] [address] March, [facility] [id number] [place] [address] Feb, [facility] [id number] [place] [address] Feb, [facility] [id number] [place] [address] Feb, Degenerative disc disease, lumbar M51.36 [facility] [id number] [place] [address] Feb, Hypothyroid E03.9 ; Hypertension I10 ; Anxiety F41.9 ; Hypercholesterolemia E78.0 ; Depression F32.9 ; Gout M10.9 and Degenerative disc disease, lumbar M51.36 [facility] [id number] [place] [address] Feb, Encounter for dental examination and cleaning without abnormal findings Z01.20 [facility] [id number] [place] [address] Jan, Encounter for dental examination Z01.20 [facility] [id number] [place] [address] Jan, [facility] [id number] [place] [address] Jan, Hypercholesterolemia E78.0 [facility] [id number] [place] [address] Jan, Degenerative disc disease, lumbar M51.36 [facility] [id number] [place] [address] Dec, [facility] [id number] [place] [address] Dec, Degenerative disc disease, lumbar M51.36 ; Hypercholesterolemia E78.0 ; Depression F32.9 ; Hypothyroid E03.9 and Hypertension I10 [facility] [address] [place] [address] Dec, Degenerative disc disease, lumbar M51.36 [facility] [address] [place] [id number] Dec, Dental examination Z01.20 [facility] [id number] [place] [address] Nov, Dental examination Z01.20 [facility] [address] [place] [address] Nov, Degenerative disc disease, lumbar M51.36 [facility] [id number] [place], [place] [id number] Nov, Hypertension I10 ; Hypothyroid E03.9 ; Degenerative disc disease, lumbar M51.36 ; Gout M10.9 ; Unspecified kidney failure N19 ; Anxiety F41.9 ; Depression F32.9 and Hypercholesterolemia E78.0 [facility] [address] [address] 14 Oct, 2016 [facility] [id number] [place] [address] Sep, [facility] [id number] [place] [address] Aug, [facility] [id number] [place] [address] Jul, [facility] [id number] [place] [address] Jun, [facility] [id number] [place] [address] Jun, [facility] [id number] [place] [address] May, [facility] [id number] [place] [address] May, [facility] [id number] [place] [address] May, [facility] [id number] [place] [address] Apr, Pain in unspecified shoulder M25.519 [facility] [id number] [place] [address] 13 Apr, 2016 Degenerative disc disease, lumbar M51.36 ; Hypertension I10 ; Unspecified kidney failure N19 ; Gout M10.9 ; Depression F32.9 ; Hypothyroid E03.9 ; Anxiety F41.9 ; 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 and Combined hyperlipidemia E78.2 [facility] [address] [place] [address] Apr, Gout M10.9 and Pain in unspecified shoulder M25.519 [facility] [id number] [place] [address] March, Degenerative disc disease, lumbar M51.36 [facility] [id number] [place] [address] Feb, Hypercholesterolemia E78.0 ; Hypothyroid E03.9 ; Gout M10.9 and Anxiety F41.9 [facility] [id number] [place] [address] Feb, [facility] [address] [address] Feb, Unspecified kidney failure N19 [facility] [address] [address] Feb, Unspecified kidney failure N19 [facility] [id number] [place] [address] Feb, [facility] [id number] [place] [address] Feb, [facility] [id number] [place] [address] Jan, [facility] [id number] [place] [address] Dec, Sacroiliitis, not elsewhere classified 720.2 ; Hypercholesterolemia E78.0 ; Depression F32.9 ; Anxiety F41.9 ; Gout M10.9 ; Unspecified kidney failure N19 ; Hypothyroid E03.9 ; Degenerative disc disease, lumbar M51.36 and Other usp (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.899 [facility] [id number] [place] [address] Dec, [facility] [id number] [place] [address] Nov, [facility] [id number] [place] [address] Nov, [facility] [address] [place] [address] Nov, [facility] [id number] [place] [address] Oct, [facility] [id number] [place] [address] Sep, [place] [address] [address] Sep, Hypothyroid E03.9 ; Sacroiliitis, not elsewhere classified 720.2 ; Degenerative disc disease, lumbar M51.36 ; Hypercholesterolemia E78.0 ; Depression F32.9 ; Anxiety F41.9 ; Gout M10.9 ; HTN (hypertension) I10 and Hypothyroidism 244.9 [facility] [id number] [place] [address] Aug, Unspecified kidney failure N19 ; Hypothyroid E03.9 ; Hypertension I10 ; Anxiety F41.9 and Gout M10.9 [facility] [id number] [place] [address] Aug, Seborrheic keratosis L82.1 and Nevus D22.9 [facility] [id number] [place] [address] Aug, [facility] [id number] [place] [address] Aug, [facility] [address] [address] Aug, Hypothyroid E03.9 ; Degenerative disc disease, lumbar M51.36 ; Hypertension I10 ; Hypercholesterolemia E78.0 ; Depression F32.9 ; Anxiety F41.9 and Gout M10.9 [facility] [id number] [place] [address] Aug, [facility] [id number] [place] [address] Jun, [facility] [id number] [address] Jun, Hypothyroidism 244.9 [facility] [id number] [place] [address] Jun, Hypothyroidism 244.9 ; Pain in joint, shoulder region 719.41 ; Sacroiliitis, not elsewhere classified 720.2 ; High risk medication use V58.69 and Facial skin lesion 709.9 [facility] [id number] [place] [address] Apr, Hypothyroidism 244.9 ; Aggressive behavior of adult 301.3 and Edema 782.3 [facility] [id number] [place] [address] March, [facility] [id number] [place] [address] Feb, [facility] [id number] [place] [address] Feb, [facility] [id number] [place] [address] Jan, [facility] [id number] [place] [address] Jan, [facility] [address] [address] Jan, [facility] [id number] [place] [address] Jan, [facility] [address] [place] [address] Dec, [facility] [id number] [place] [address] Dec, [facility] [address] [address] Nov, [facility] [id number] [place] [address] Nov, [facility] [place] [facility] [address] [id number] [place] [address] Nov, [facility] [place] [facility] [address] [id number] [place] [address] Nov, [facility] [place] [facility] [address] [facility] [id number] [place] [address] Nov, [facility] [place] [facility] [address] [id number] [place] [address] Nov, [facility] [place] [facility] [address] [id number] [place] [address] Oct, [facility] [place] [facility] [address] [id number] [place] [address] Oct, [facility] [place] [facility] [address] [id number] [place] [address] Sep, [facility] [place] [facility] [address] [id number] [address] Sep, [facility] [place] [facility] [address] [id number], [place] [address] Sep, [facility] [place] [facility] [address] [id number] [address] Sep, [facility] [place] [facility] [address] [id number] [address] Sep, [facility] [place] [facility] [address] [id number], [place] [address] Sep, [facility] [place] [facility] [address] [id number], [place] [address] Aug, [facility] [place] [facility] [address] [id number], [place] [address] Aug, [facility] [place] [facility] [address] [facility] [id number] [address] Aug, [facility] [place] [facility] [address] [id number] [place] [address] Aug, [facility] [place] [facility] [address] [id number] [place] [address] Aug, [facility] [place] [facility] [address] [id number] [place] [address] Aug, [facility] [place] [facility] [address] [id number] [place] [address] 16 Jul, 2014 [facility] [place] [facility] [address] [id number] [place] [address] 16 Jul, 2014 [facility] [place] [facility] [address] [id number] [place] [address] 15 Jul, 2014 [facility] [place] [facility] [address] [id number] [place] [address] Jul, [facility] [place] [facility] [address] [id number] [place] [address] Jul, [facility] [place] [facility] [address] [id number] [place] [address] Jul, [facility] [place] [facility] [address] [id number] [place] [address] Jun, [facility] [place] [facility] [address] [id number] [place] [address] Jun, [facility] [place] [facility] [address] [id number] [place] [address] May, [facility] [place] [facility] [address] [id number] [place] [address] May, [facility] [place] [facility] [address] [id number] [place] [address] May, [facility] [place] [facility] [address] [id number] [place] [address] May, [facility] [place] [facility] [address] [id number] [place] [address] May, [facility] [place] [facility] [address] [id number] [place] [address] May, [facility] [place] [facility] [address] [id number] [place] [address] Apr, [facility] [place] [facility] [address] [id number] [place] [address] Apr, [facility] [place] [facility] [address] [id number] [place] [address] Apr, [facility] [place] [facility] [address] [id number] [place] [address] Apr, [facility] [place] [facility] [address] [id number] [place] [address] Apr, [facility] [place] [facility] [address] [id number] [place] [address] Apr, [facility] [place] [facility] [address] [id number] [place] [address] Feb, [facility] [place] [facility] [address] [id number] [place] [address] Feb, [facility] [place] [facility] [address] [id number] [place] [address] Feb, [facility] [place] [facility] [address] [id number] [place] [address] Feb, [facility] [place] [facility] [address] [id number] [place] [address] Jan, [facility] [place] [facility] [address] [id number] [place] [address] Jan, [facility] [place] [facility] [address] [id number] [place] [address] Jan, [facility] [place] [facility] [address] [id number] [place] [address] Jan, [facility] [place] [facility] [address] [id number] [place] [address] Dec, [facility] [address] [id number] [place] [address] Dec, [facility] [place] [facility] [address] [id number] [place] [address] Dec, [facility] [place] [facility] [address] [id number] [place] [address] Dec, [facility] [place] [facility] [address] [id number] [place] [address] Dec, [facility] [place] [facility] [address] [id number] [place] [address] Dec, [facility] [place] [facility] [address] [id number] [place] [address] Nov, [facility] [address] [id number] [place] [address] Oct, [facility] [place] [facility] [address] [id number] [place] [address] Oct, [facility] [place] [facility] [address] [id number] [place] [address] Oct, [facility] [place] [facility] [address] [facility] [id number] [place] [address] Oct, [facility] [place] [facility] [address] [id number] [place] [address] Oct, [facility] [place] [facility] [address] [id number] [place] [address] Oct, [facility] [place] [facility] [address] [id number] [place] [address] Sep, [facility] [place] [facility] [address] [id number] [place] [address] Sep, [facility] [place] [facility] [address] [id number] [place] [address] Sep, [facility] [place] [facility] [address] [id number] [place] [address] Jul, [facility] [place] [facility] [address] [id number] [place] [address] Jun, [facility] [place] [facility] [address] [id number] [place] [address] Jun, [facility] [place] [facility] [address] [id number] [place] [address] Jun, [facility] [place] [facility] [address] [id number] [place] [address] May, [facility] [place] [facility] [address] [id number] [place] [address] May, [facility] [place] [facility] [address] [id number] [place] [address] May, [facility] [place] [facility] [address] [id number] [place] [address] Apr, [facility] [place] [facility] [address] [id number] [place] [address] Apr, [facility] [place] [facility] [address] [id number] [place] [address] Apr, [facility] [place] [facility] [address] [id number] [place] [address] Apr, [facility] [place] [facility] [address] [id number] [place] [address] March, [facility] [place] [facility] [address] [id number] [place] [address] March, [facility] [place] [facility] [address] [id number] [place] [address] March, [facility] [place] [facility] [address] [id number] [place] [address] March, [facility] [place] [facility] [address] [id number] [place] [address] 24 Feb, 2013 [facility] [address] [id number] [place] [address] 22 Feb, 2013 [facility] [place] [facility] [address] [id number] [place] [address] 15 Feb, 2013 [facility] [place] [facility] [address] [id number] [place] [address] 10 Feb, 2013 [facility] [place] [facility] [address] [id number] [place] [address] 08 Feb, 2013 [facility] [address] [id number] [place] [address] 04 Feb, 2013 [facility] [place] [facility] [address] [id number] [place] [address] 28 Jan, 2013 [facility] [place] [facility] [address] [id number] [place] [address] Jan, [facility] [place] [facility] [address] [id number] [place] [address] 16 Nov, 2012 [facility] [address] [id number] [place] [address] Nov, [facility] [place] [facility] [address] [id number] [place] [address] Nov, [facility] [address] [id number] [address] Nov, [facility] [place] [facility] [address] [id number], [place] [address] Sep, [facility] [place] [facility] [address] [id number] [place] [address] Sep, [facility] [place] [facility] [address] [id number] [place] [address] 13 Sep, 2012 [facility] [place] [facility] [address] [id number] [place] [address] Sep, [facility] [place] [facility] [address] [id number] [place] [address] Aug, [facility] [address] [id number] [place] [address] Aug, [facility] [place] [facility] [address] [id number] [place] [address] Aug, [facility] [address] [id number] [place] [address] Jul, [facility] [address] [id number] [place] [address] Jul, [facility] [address] [id number] [place] [address] Jul, [facility] [address] [id number] [place] [address] Jun, [facility] [address] [id number] [place] [address] Jun, [facility] [address] [id number] [place] [address] May, [facility] [address] [id number] [place] [address] May, [facility] [address] [facility] [id number] [place] [address] May, [facility] [place] [facility] [address] [id number] [place] [address] Apr, [facility] [address] [id number] [place] [address] March, [facility] [place] [facility] [address] [id number] [place] [address] Feb, [facility] [place] [facility] [address] [id number] [place] [address] Feb, [facility] [place] [facility] [address] [id number] [place] [address] Dec, [facility] [place] [facility] [address] [id number] [place] [address] Oct, [facility] [place] [facility] [address] [id number] [place] [address] Aug, [facility] [place] [facility] [address] [id number] [place] [address] Aug, [facility] [place] [facility] [address] [id number] [place] [address] Aug, [facility] [place] [facility] [address] [id number] [place] [address] Aug, [facility] [place] [facility] [address] [id number] [place] [address] Aug, [facility] [place] [facility] [address] [id number] [place] [address] Oct, [facility] [place] [facility] [address] [id number], [place] [address] Sep, [facility] [place] [facility] [address] [id number] [place] [address] Sep, [facility] [place] [facility] [address] [id number], [place] [address] Sep, [facility] [place] [facility] [address] [id number], [place] [address] Sep, [facility] [place] [facility] [address] [address] [id number] [address] Aug, [facility] [address] [id number], [place] [address] Aug, [facility] [address] [id number], [place] [address] Aug, [facility] [address] [id number], [place] [address] Aug, [facility] [address] [id number], [place] [address] Aug, [facility] [address] [facility] [id number], [place] [address] Aug, [facility] [id number] [address] Nov, [facility] [address] [id number], [place] [address] Oct, [facility] [id number] [address] Oct, [facility] [address] [facility] [id number] [address] Sep, [facility] [address] [id number], [place] [address] Jul, IMMUNIZATIONS No Known Immunizations SOCIAL HISTORY Never Assessed REASON FOR VISIT Hypertension-Shelby, Will call [facility] pharmacy to verify medications as pt is unsure of what he is taking PLAN OF CARE Activity Details Follow Up 3 Months, prn Reason:CHM/w/ Supriya Future/Pending Procedure SKIN TAG REM 1-15 Future/Pending Procedure BIOPSY SKIN LESION (SINGLE) VITAL SIGNS Height 70 in 2018-08-13 Weight 244 lbs 2018-08-13 Temperature 98.7 degrees Fahrenheit 2018-08-13 Heart Rate 70 bpm 2018-08-13 Respiratory Rate 18 2018-08-13 BMI 35.01 kg/m2 2018-08-13 Blood pressure systolic 140 mmHg 2018-08-13 Blood pressure diastolic 82 mmHg 2018-08-13 MEDICATIONS Medication Instructions Dosage Frequency Start Date End Date Duration Status Levothyroxine Sodium 125 mcg Orally Once a day 1 tablet on an empty stomach in the morning 24h Active Propranolol HCl 20 mg 1 tablet Twice a day Orally 90 days Active Allopurinol 300 MG 1 tablet Once a day Orally 90 days 90 Active Depakote ER 250 MG Orally Once a day in the morning 1 tablet Nov, Active Zyprexa 7.5 MG Orally at bedtime 1 tablet Once a day Orally 30 days Active BusPIRone HCl 15 mg 1 tablet Twice a day Orally 90 days Active Lipitor 40 mg 1 tablet Once a day Orally 90 days Active Prozac 20 mg Orally Once a day 1 capsule in the morning 24h Nov, Active Depakote ER 500 mg Orally Once a day in the evening 1 tablet Nov, Active RESULTS No Results PROCEDURES Procedure Date Ordered Result Body Site BIOPSY OF SKIN LESION Aug 13, 2018 REMOVAL OF SKIN TAGS Aug 13, 2018 [facility] VISIT ESTABLISHED PATIENT Aug 13, 2018 INSTRUCTIONS MEDICATIONS ADMINISTERED No Known Medications MEDICAL [...]
--- OUTSIDE RECORDS SUMMARY | 2019-06-16 22:55 | XMS REPORT ---
Author Author FITZGERALDJARROD [place] Organization [facility] Address [address] [place] [address] Care Team Providers Care Keycase Assembler Name Role Phone JARROD FITZGERALD Unavailable PROBLEMS Type Condition ICD9-CM Code SVF26-PS Code Onset Dates Condition Status SNOMED Code Problem Gout M10.9 Active 03886383 Problem Hypothyroid E03.9 Active 61931327 Problem Degenerative disc disease, lumbar M51.36 Active 95598603 Problem Elevated fasting glucose R73.01 Active 19014711 Problem Chronic pain syndrome G89.4 Active 303434365 Problem Unspecified kidney failure N19 Active 80193058 Problem Hypercholesterolemia E78.0 Active 04479908 Problem Depression F32.9 Active 40489452 Problem Hypertension I10 Active 79801278 Problem Anxiety F41.9 Active 49041429 ALLERGIES No Information ENCOUNTERS Encounter Location Date Diagnosis [place] [id number] [place] [address] Jul, [place] [id number] [place] [address] May, Hypothyroid E03.9 [place] [id number] [place] [address] Apr, Hypertension I10 ; Hypothyroid E03.9 ; Elevated fasting glucose R73.01 ; Hypercholesterolemia E78.0 ; Depression F32.9 and Anxiety F41.9 [facility] [id number] [place] [address] March, Depression F32.9 and Anxiety F41.9 [place] [id number] [place] [address] Jan, Hypothyroid E03.9 and Elevated fasting glucose R73.01 [place] [address] [address] Jan, Hypercholesterolemia E78.0 [facility] [address] [address] Dec, Hypertension I10 ; Hypercholesterolemia E78.0 ; Hypothyroid E03.9 and Gout M10.9 [place] [address] [address] Dec, Hypertension I10 ; Hypercholesterolemia E78.0 ; Hypothyroid E03.9 ; Depression F32.9 ; Anxiety F41.9 ; Gout M10.9 ; Chronic pain syndrome G89.4 ; Controlled substance agreement broken Z91.14 and Controlled substance agreement terminated Z91.14 [place] [address] [address] Sep, Degenerative disc disease, lumbar M51.36 [place] [address] [address] Sep, Degenerative disc disease, lumbar M51.36 [place] [address] [address] Aug, Hypertension I10 ; Hypercholesterolemia E78.0 ; Hypothyroid E03.9 ; Depression F32.9 ; Gout M10.9 ; Anxiety F41.9 and Degenerative disc disease, lumbar M51.36 [place] [id number] [place] [address] Jul, [place] [address] [address] Jul, [place] [address] [address] Jun, [place] [address] [address] Jun, Gout M10.9 [facility] [address] [address] May, Hypertension I10 and Hypercholesterolemia E78.0 [facility] [address] [address] May, [facility] [id number] [place] [address] May, Dental examination Z01.20 [facility] [address], [place] [address] Apr, [facility] [id number] [place] [address] March, [facility] [address] [address] March, [facility] [id number] [place] [id number] March, [facility] [address] [place] [address] March, [facility] [id number] [place] [address] Feb, [facility] [address] [place] [address] Feb, [facility] [id number] [place] [address] Feb, Degenerative disc disease, lumbar M51.36 [facility] [id number] [place] [address] Feb, Hypothyroid E03.9 ; Hypertension I10 ; Anxiety F41.9 ; Hypercholesterolemia E78.0 ; Depression F32.9 ; Gout M10.9 and Degenerative disc disease, lumbar M51.36 [facility] [id number] [place] [address] Feb, Encounter for dental examination and cleaning without abnormal findings Z01.20 [facility] [address], [place] [address] Jan, Encounter for dental examination Z01.20 [facility] [address] [place] [address] Jan, [facility] [address] [address] Jan, Hypercholesterolemia E78.0 [facility] [id number] [place] [address] Jan, Degenerative disc disease, lumbar M51.36 [facility] [address] [place] [address] [address] Dec, [facility] [address] [address] Dec, Degenerative disc disease, lumbar M51.36 ; Hypercholesterolemia E78.0 ; Depression F32.9 ; Hypothyroid E03.9 and Hypertension I10 [place] [id number] [place] [address] Dec, Degenerative disc disease, lumbar M51.36 [facility] [id number] [place] [id number] Dec, Dental examination Z01.20 [facility] [id number] [place] [address] Nov, Dental examination Z01.20 [facility] [id number] [place] [address] Nov, Degenerative disc disease, lumbar M51.36 [facility] [id number] [place] [address] Nov, Hypertension I10 ; Hypothyroid E03.9 ; Degenerative disc disease, lumbar M51.36 ; Gout M10.9 ; Unspecified kidney failure N19 ; Anxiety F41.9 ; Depression F32.9 and Hypercholesterolemia E78.0 [facility] [id number] [place] [address] Oct, [facility] [address] [place] [address] [id number] Sep, [facility] [address], [place] [address] Aug, [facility] [address], [place] [address] Jul, [facility] [address], [place] [address] Jun, [facility] [id number] [place] [address] Jun, [facility] [address] [place] [address] May, [facility] [id number] [place] [address] May, [facility] [id number] [place] [address] May, [facility] [id number], [place] [address] Apr, Pain in unspecified shoulder M25.519 [facility] [id number] [place] [address] Apr, Degenerative disc disease, lumbar M51.36 ; Hypertension I10 ; Unspecified kidney failure N19 ; Gout M10.9 ; Depression F32.9 ; Hypothyroid E03.9 ; Anxiety F41.9 ; Other intermediate designer (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.899 and Combined hyperlipidemia E78.2 [facility] [address], [place] [address] Apr, Gout M10.9 and Pain in unspecified shoulder M25.519 [facility] [address], [place] [address] March, Degenerative disc disease, lumbar M51.36 [facility] [address], [place] [address] Feb, Hypercholesterolemia E78.0 ; Hypothyroid E03.9 ; Gout M10.9 and Anxiety F41.9 [facility] [address], [place] [address] Feb, [facility] [address] [place] [address] Feb, Unspecified kidney failure N19 [facility] [address] [place] [address] Feb, Unspecified kidney failure N19 [facility] [id number] [place] [address] Feb, [facility] [id number] [place] [address] Feb, [facility] [id number] [place] [address] Jan, [facility] [id number] [place] [address] Dec, Sacroiliitis, not elsewhere classified 720.2 ; Hypercholesterolemia E78.0 ; Depression F32.9 ; Anxiety F41.9 ; Gout M10.9 ; Unspecified kidney failure N19 ; Hypothyroid E03.9 ; Degenerative disc disease, lumbar M51.36 and Other custodial (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.899 [facility] [address], [place] [address] Dec, [facility] [address] [place] [address] Nov, [facility] [address] [place] [address] Nov, [facility] [address] [place] [address] Nov, [facility] [address], [place] [address] Oct, [facility] [id number] [place] [address] Sep, [place] [address] [address] Sep, Hypothyroid E03.9 ; Sacroiliitis, not elsewhere classified 720.2 ; Degenerative disc disease, lumbar M51.36 ; Hypercholesterolemia E78.0 ; Depression F32.9 ; Anxiety F41.9 ; Gout M10.9 ; HTN (hypertension) I10 and Hypothyroidism 244.9 [place] [id number] [place] [address] Aug, Unspecified kidney failure N19 ; Hypothyroid E03.9 ; Hypertension I10 ; Anxiety F41.9 and Gout M10.9 [place] [id number] [place] [address] Aug, Seborrheic keratosis L82.1 and Nevus D22.9 [place] [id number] [place] [address] Aug, [place] [id number] [place] [address] Aug, [place] [id number] [place] [address] Aug, Hypothyroid E03.9 ; Degenerative disc disease, lumbar M51.36 ; Hypertension I10 ; Hypercholesterolemia E78.0 ; Depression F32.9 ; Anxiety F41.9 and Gout M10.9 [place] [id number] [place] [address] Aug, [place] [address] [address] Jun, [place] [id number] [place] [address] Jun, Hypothyroidism 244.9 [place] [id number] [place] [address] Jun, Hypothyroidism 244.9 ; Pain in joint, shoulder region 719.41 ; Sacroiliitis, not elsewhere classified 720.2 ; High risk medication use V58.69 and Facial skin lesion 709.9 [facility] [id number] [place] [address] Apr, Hypothyroidism 244.9 ; Aggressive behavior of adult 301.3 and Edema 782.3 [facility] [address] [address] March, [facility] [id number] [place] [address] Feb, [facility] [id number] [place] [address] Feb, [facility] [id number] [place] [address] Jan, [facility] [id number] [place] [address] Jan, [facility] [id number] [place] [address] Jan, [facility] [id number] [place] [address] Jan, [facility] [id number] [place] [address] Dec, [facility] [id number] [place] [address] Dec, [facility] [id number] [place] [address] Nov, [facility] [id number] [place] [address] Nov, [facility] [id number] [place] [address] Nov, [facility] [id number] [place] [address] Nov, [facility] [place] [facility] [address] [id number] [place] [address] Nov, [facility] [place] [facility] [address] [id number] [place] [address] Nov, [facility] [place] [facility] [address] [id number] [place] [address] Oct, [facility] [place] [facility] [address] [id number] [place] [address] Oct, [facility] [place] [facility] [address] [id number] [place] [address] Sep, [facility] [place] [facility] [address] [id number] [place] [address] Sep, [facility] [place] [facility] [address] [id number] [place] [address] Sep, [facility] [place] [facility] [address] [id number] [place] [address] Sep, [facility] [place] [facility] [address] [id number] [place] [address] Sep, [facility] [place] [facility] [address] [id number] [place] [address] Sep, [facility] [place] [facility] [address] [id number] [address] Aug, [facility] [place] [facility] [address] [id number], [place] [address] Aug, [facility] [place] [facility] [address] [id number] [place] [address] Aug, [facility] [place] [facility] [address] [id number], [place] [address] Aug, [facility] [place] [facility] [address] [id number] [place] [address] Aug, [facility] [place] [facility] [address] [id number] [place] [address] Aug, [facility] [place] [facility] [address] [id number] [place] [address] 16 Jul, 2014 [facility] [place] [facility] [address] [id number] [place] [address] 16 Jul, 2014 [facility] [place] [facility] [address] [id number] [place] [address] 15 Jul, 2014 [facility] [place] [facility] [address] [id number] [place] [address] 15 Jul, 2014 [facility] [place] [facility] [address] [id number] [place] [address] Jul, [facility] [place] [facility] [address] [id number] [place] [address] Jul, [facility] [place] [facility] [address] [id number] [place] [address] Jun, [facility] [place] [facility] [address] [id number] [place] [address] Jun, [facility] [place] [facility] [address] [id number] [place] [address] May, [facility] [place] [facility] [address] [id number] [place] [address] May, [facility] [place] [facility] [address] [id number] [place] [address] May, [facility] [place] [facility] [address] [id number] [place] [address] May, [facility] [place] [facility] [address] [id number] [place] [address] May, [facility] [place] [facility] [address] [id number] [place] [address] May, [facility] [place] [facility] [address] [id number] [place] [address] Apr, [facility] [place] [facility] [address] [id number] [place] [address] Apr, [facility] [place] [facility] [address] [id number] [place] [address] Apr, [facility] [place] [facility] [address] [id number] [place] [address] Apr, [facility] [place] [facility] [address] [id number] [place] [address] Apr, [facility] [place] [facility] [address] [id number] [place] [address] Apr, [facility] [place] [facility] [address] [id number] [place] [address] Feb, [facility] [place] [facility] [address] [id number] [place] [address] Feb, [facility] [place] [facility] [address] [id number] [place] [address] Feb, [facility] [place] [facility] [address] [id number] [place] [address] Feb, [facility] [place] [facility] [address] [id number] [place] [address] Jan, [facility] [place] [facility] [address] [id number] [place] [address] Jan, [facility] [place] [facility] [address] [id number] [place] [address] Jan, [facility] [place] [facility] [address] [id number] [place] [address] Jan, [facility] [place] [facility] [address] [id number] [place] [address] Dec, [facility] [place] [facility] [address] [id number] [place] [address] Dec, [facility] [place] [facility] [address] [id number] [place] [address] Dec, [facility] [address] [id number] [place] [address] Dec, [facility] [place] [facility] [address] [id number] [place] [address] Dec, [facility] [address] [id number] [place] [address] Dec, [facility] [address] [id number] [place] [address] Nov, [facility] [address] [id number] [place] [address] Oct, [facility] [address] [facility] [id number] [place] [address] Oct, [facility] [address] [facility] [id number] [place] [address] Oct, [facility] [address] [facility] [id number] [place] [address] Oct, [facility] [id number] [place] [address] Oct, [facility] [address] [facility] [id number] [place] [address] Oct, [facility] [place] [facility] [address] [facility] [id number] [place] [address] Sep, [facility] [place] [facility] [address] [id number] [place] [address] Sep, [facility] [place] [facility] [address] [facility] [id number] [place] [address] Sep, [facility] [place] [facility] [address] [facility] [id number] [place] [address] 05 Jul, 2013 [facility] [place] [facility] [address] [facility] [id number] [place] [address] Jun, [facility] [address] [id number] [place] [address] Jun, [facility] [place] [facility] [address] [id number] [place] [address] Jun, [facility] [place] [facility] [address] [id number] [place] [address] May, [facility] [place] [facility] [address] [id number] [place] [address] May, [facility] [place] [facility] [address] [id number] [place] [address] May, [facility] [place] [facility] [address] [id number] [place] [address] Apr, [facility] [place] [facility] [address] [id number] [place] [address] Apr, [facility] [place] [facility] [address] [id number] [place] [address] Apr, [facility] [place] [facility] [address] [id number] [place] [address] Apr, [facility] [place] [facility] [address] [id number] [place] [address] March, [facility] [place] [facility] [address] [id number] [place] [address] March, [facility] [place] [facility] [address] [id number] [place] [address] March, [facility] [place] [facility] [address] [id number] [place] [address] March, [facility] [place] [facility] [address] [id number] [place] [address] Feb, [facility] [place] [facility] [address] [id number] [place] [address] Feb, [facility] [place] [facility] [address] [id number], [place] [address] 15 Feb, 2013 [facility] [address] [id number] [place] [address] 10 Feb, 2013 [facility] [place] [facility] [address] [id number] [place] [address] 08 Feb, 2013 [facility] [place] [facility] [address] [id number] [place] [address] 04 Feb, 2013 [facility] [place] [facility] [address] [id number] [place] [address] 28 Jan, 2013 [facility] [place] [facility] [address] [id number] [place] [address] Jan, [facility] [place] [facility] [address] [id number] [place] [address] 16 Nov, 2012 [facility] [address] [facility] [id number] [place] [address] Nov, [facility] [place] [facility] [address] [id number] [place] [address] Nov, [facility] [address] [facility] [id number] [place] [address] Nov, [facility] [place] [facility] [address] [facility] [id number] [place] [address] Sep, [facility] [place] [facility] [address] [id number], [place] [address] 27 Sep, 2012 [facility] [place] [facility] [address] [id number], [place] [address] Sep, [facility] [place] [facility] [address] [id number] [place] [address] 13 Sep, 2012 [facility] [place] [facility] [address] [facility] [id number] [place] [address] 11 Aug, 2012 [facility] [place] [facility] [address] [facility] [id number] [place] [address] 11 Aug, 2012 [facility] [place] [facility] [address] [id number] [place] [address] 09 Aug, 2012 [facility] [place] [facility] [address] [id number] [place] [address] 26 Jul, 2012 [facility] [place] [facility] [address] [id number] [place] [address] Jul, [facility] [place] [facility] [address] [id number] [place] [address] Jul, [facility] [place] [facility] [address] [id number] [place] [address] Jun, [facility] [place] [facility] [address] [id number] [place] [address] Jun, [facility] [place] [facility] [address] [id number] [place] [address] May, [facility] [place] [facility] [address] [id number] [place] [address] May, [facility] [place] [facility] [address] [id number] [place] [address] May, [facility] [place] [facility] [address] [id number] [place] [address] Apr, [facility] [place] [facility] [address] [id number] [place] [address] March, [facility] [place] [facility] [address] [id number] [place] [address] Feb, [facility] [place] [facility] [address] [id number] [place] [address] Feb, [facility] [place] [facility] [address] [id number] [place] [address] Dec, [facility] [place] [facility] [address] [id number] [place] [address] Oct, [facility] [place] [facility] [address] [id number] [place] [address] 13 Aug, 2011 [facility] [place] [facility] [address] [id number] [place] [address] 12 Aug, 2011 [facility] [place] [facility] [address] [id number] [place] [address] 11 Aug, 2011 [facility] [place] [facility] [address] [id number] [place] [address] 10 Aug, 2011 [facility] [place] [facility] [address] [id number] [place] [address] 10 Aug, 2011 [facility] [place] [facility] [address] [id number] [place] [address] Oct, [facility] [place] [facility] [address] [id number] [place] [address] Sep, [facility] [place] [facility] [address] [id number] [place] [address] Sep, [facility] [place] [facility] [address] [id number], [place] [address] Sep, [facility] [place] [facility] [address] [id number] [place] [address] Sep, [facility] [place] [facility] [address] [id number], [place] [address] Aug, [facility] [place] [facility] [address] [id number], [place] [address] Aug, [facility] [place] [facility] [address] [id number], [place] [address] 18 Aug, 2010 [facility] [place] [facility] [address] [id number], [place] [address] 18 Aug, 2010 [facility] [place] [facility] [address] [id number], [place] [address] 13 Aug, 2010 [facility] [place] [facility] [address] [id number], [place] [address] Aug, [facility] [place] [facility] [address] [facility] [id number] [place] [address] 11 Nov, 2009 [facility] [address] [facility] [id number], [place] [address] Oct, [facility] [address] [facility] [id number], [place] [address] Oct, [facility] [address] [facility] [id number], [place] [address] Sep, [facility] [address] [facility] [id number], [place] [address] Jul, IMMUNIZATIONS No Known Immunizations SOCIAL HISTORY Never Assessed REASON FOR VISIT med refill PLAN OF CARE VITAL SIGNS MEDICATIONS Medication Instructions Dosage Frequency Start Date End Date Duration Status Levothyroxine Sodium 125 mcg Orally Once a day 1 tablet on an empty stomach in the morning 24h 90 days Active RESULTS No Results PROCEDURES No Known [...]
--- OUTSIDE RECORDS SUMMARY | 2019-06-16 22:55 | XMS REPORT ---
Author Author FITZGERALDJARROD [place] Organization [facility] Address [address] [place] [address] Care Team Providers Care Brass Roller Name Role Phone JARROD FITZGERALD Unavailable PROBLEMS Type Condition ICD9-CM Code NTO82-HL Code Onset Dates Condition Status SNOMED Code Problem Gout M10.9 Active 71059560 Problem Hypothyroid E03.9 Active 59531858 Problem Degenerative disc disease, lumbar M51.36 Active 43056506 Problem Elevated fasting glucose R73.01 Active 65074575 Problem Chronic pain syndrome G89.4 Active 300847733 Problem Unspecified kidney failure N19 Active 51360342 Problem Hypercholesterolemia E78.0 Active 09897034 Problem Depression F32.9 Active 98795771 Problem Hypertension I10 Active 52846011 Problem Anxiety F41.9 Active 83698824 ALLERGIES No Known Allergies ENCOUNTERS Encounter Location Date Diagnosis [place] [id number] [place] [address] Jul, [place] [id number] [place] [address] May, Hypothyroid E03.9 [facility] [id number] [place] [address] Apr, Hypertension I10 ; Hypothyroid E03.9 ; Elevated fasting glucose R73.01 ; Hypercholesterolemia E78.0 ; Depression F32.9 and Anxiety F41.9 [facility] [id number] [place] [address] March, Depression F32.9 and Anxiety F41.9 [place] [id number] [place] [address] Jan, Hypothyroid E03.9 and Elevated fasting glucose R73.01 [place] [id number] [place] [address] Jan, Hypercholesterolemia E78.0 [place] [address] [address] Dec, Hypertension I10 ; Hypercholesterolemia E78.0 ; Hypothyroid E03.9 and Gout M10.9 [place] [address] [address] Dec, Hypertension I10 ; Hypercholesterolemia E78.0 ; Hypothyroid E03.9 ; Depression F32.9 ; Anxiety F41.9 ; Gout M10.9 ; Chronic pain syndrome G89.4 ; Controlled substance agreement broken Z91.14 and Controlled substance agreement terminated Z91.14 [place] [address] [address] Sep, Degenerative disc disease, lumbar M51.36 [place] [address] [address] Sep, Degenerative disc disease, lumbar M51.36 [place] [address] [address] Aug, Hypertension I10 ; Hypercholesterolemia E78.0 ; Hypothyroid E03.9 ; Depression F32.9 ; Gout M10.9 ; Anxiety F41.9 and Degenerative disc disease, lumbar M51.36 [place] [id number] [place] [address] Jul, [place] [address] [address] Jul, [place] [address] [address] Jun, [place] [address] [address] Jun, Gout M10.9 [place] [address] [address] May, Hypertension I10 and Hypercholesterolemia E78.0 [facility] [address], [place] [address] May, [facility] [id number] [place] [address] May, Dental examination Z01.20 [facility] [id number] [place] [address] Apr, [facility] [id number] [place] [address] March, [facility] [id number] [place] [address] March, [facility] [place] [id number] [place] [id number] March, [facility] [id number] [place] [address] March, [facility] [id number] [place] [address] Feb, [facility] [id number] [place] [address] Feb, [facility] [id number] [place] [address] Feb, Degenerative disc disease, lumbar M51.36 [facility] [id number] [place] [address] Feb, Hypothyroid E03.9 ; Hypertension I10 ; Anxiety F41.9 ; Hypercholesterolemia E78.0 ; Depression F32.9 ; Gout M10.9 and Degenerative disc disease, lumbar M51.36 [facility] [id number] [place] [address] Feb, Encounter for dental examination and cleaning without abnormal findings Z01.20 [facility] [address], [place] [address] Jan, Encounter for dental examination Z01.20 [facility] [address] [place] [address] Jan, [facility] [address] [address] Jan, Hypercholesterolemia E78.0 [facility] [id number] [place] [address] Jan, Degenerative disc disease, lumbar M51.36 [facility] [address] [address] Dec, [facility] [address] [address] Dec, Degenerative disc disease, lumbar M51.36 ; Hypercholesterolemia E78.0 ; Depression F32.9 ; Hypothyroid E03.9 and Hypertension I10 [place] [address] [address] Dec, Degenerative disc disease, lumbar M51.36 [facility] [address] [id number] Dec, Dental examination Z01.20 [place] [id number] [place] [address] Nov, Dental examination Z01.20 [facility] [id number] [place] [address] Nov, Degenerative disc disease, lumbar M51.36 [facility] [id number] [place] [address] Nov, Hypertension I10 ; Hypothyroid E03.9 ; Degenerative disc disease, lumbar M51.36 ; Gout M10.9 ; Unspecified kidney failure N19 ; Anxiety F41.9 ; Depression F32.9 and Hypercholesterolemia E78.0 [facility] [id number] [place] [address] Oct, [facility] [address] [id number] Sep, [facility] [address], [place] [address] Aug, [facility] [id number] [place] [address] Jul, [facility] [id number] [place] [address] Jun, [facility] [id number] [place] [address] Jun, [facility] [id number] [place] [address] May, [facility] [id number] [place] [address] May, [facility] [id number] [place] [address] May, [facility] [id number] [place] [address] Apr, Pain in unspecified shoulder M25.519 [facility] [id number] [place] [address] Apr, Degenerative disc disease, lumbar M51.36 ; Hypertension I10 ; Unspecified kidney failure N19 ; Gout M10.9 ; Depression F32.9 ; Hypothyroid E03.9 ; Anxiety F41.9 ; 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 and Combined hyperlipidemia E78.2 [facility] [address] [place] [address] Apr, Gout M10.9 and Pain in unspecified shoulder M25.519 [facility] [address] [place] [address] March, Degenerative disc disease, lumbar M51.36 [facility] [address], [place] [address] Feb, Hypercholesterolemia E78.0 ; Hypothyroid E03.9 ; Gout M10.9 and Anxiety F41.9 [facility] [address], [place] [address] Feb, [facility] [address] [place] [address] Feb, Unspecified kidney failure N19 [facility] [id number] [place] [address] Feb, Unspecified kidney failure N19 [facility] [id number] [place] [address] Feb, [facility] [id number] [place] [address] Feb, [facility] [id number] [place] [address] Jan, [facility] [id number] [place] [address] Dec, Sacroiliitis, not elsewhere classified 720.2 ; Hypercholesterolemia E78.0 ; Depression F32.9 ; Anxiety F41.9 ; Gout M10.9 ; Unspecified kidney failure N19 ; Hypothyroid E03.9 ; Degenerative disc disease, lumbar M51.36 and 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 [facility] [address], [place] [address] Dec, [facility] [address], [place] [address] Nov, [facility] [address], [place] [address] Nov, [facility] [id number] [place] [address] Nov, [facility] [address], [place] [address] Oct, [facility] [id number] [place] [address] Sep, [place] [address] [address] Sep, Hypothyroid E03.9 ; Sacroiliitis, not elsewhere classified 720.2 ; Degenerative disc disease, lumbar M51.36 ; Hypercholesterolemia E78.0 ; Depression F32.9 ; Anxiety F41.9 ; Gout M10.9 ; HTN (hypertension) I10 and Hypothyroidism 244.9 [place] [address] [address] Aug, Unspecified kidney failure N19 ; Hypothyroid E03.9 ; Hypertension I10 ; Anxiety F41.9 and Gout M10.9 [place] [address] [address] Aug, Seborrheic keratosis L82.1 and Nevus D22.9 [place] [address] [address] Aug, [place] [address] [address] Aug, [place] [id number] [place] [address] Aug, Hypothyroid E03.9 ; Degenerative disc disease, lumbar M51.36 ; Hypertension I10 ; Hypercholesterolemia E78.0 ; Depression F32.9 ; Anxiety F41.9 and Gout M10.9 [place] [id number] [place] [address] Aug, [place] [address] [address] Jun, [place] [address] [address] Jun, Hypothyroidism 244.9 [place] [address] [address] Jun, Hypothyroidism 244.9 ; Pain in joint, shoulder region 719.41 ; Sacroiliitis, not elsewhere classified 720.2 ; High risk medication use V58.69 and Facial skin lesion 709.9 [facility] [id number] [place] [address] Apr, Hypothyroidism 244.9 ; Aggressive behavior of adult 301.3 and Edema 782.3 [facility] [address] [address] March, [facility] [id number] [place] [address] Feb, [facility] [id number] [place] [address] Feb, [facility] [id number] [place] [address] Jan, [facility] [id number] [place] [address] Jan, [facility] [id number] [place] [address] Jan, [facility] [id number] [place] [address] Jan, [facility] [id number] [place] [address] Dec, [facility] [id number] [place] [address] Dec, [facility] [id number] [place] [address] Nov, [facility] [id number] [place] [address] Nov, [facility] [id number] [place] [address] Nov, [facility] [id number] [place] [address] Nov, [facility] [place] [facility] [address] [id number] [place] [address] Nov, [facility] [place] [facility] [address] [id number], [place] [address] Nov, [facility] [place] [facility] [address] [id number] [place] [address] Oct, [facility] [place] [facility] [address] [id number] [place] [address] Oct, [facility] [place] [facility] [address] [id number] [place] [address] Sep, [facility] [place] [facility] [address] [id number] [place] [address] Sep, [facility] [place] [facility] [address] [id number] [place] [address] Sep, [facility] [place] [facility] [address] [id number] [place] [address] Sep, [facility] [place] [facility] [address] [id number], [place] [address] Sep, [facility] [place] [facility] [address] [id number] [place] [address] Sep, [facility] [place] [facility] [address] [id number], [place] [address] Aug, [facility] [place] [facility] [address] [id number], [place] [address] Aug, [facility] [place] [facility] [address] [id number], [place] [address] Aug, [facility] [place] [facility] [address] [id number], [place] [address] Aug, [facility] [place] [facility] [address] [id number] [place] [address] Aug, [facility] [place] [facility] [address] [id number] [place] [address] Aug, [facility] [place] [facility] [address] [id number] [place] [address] 16 Jul, 2014 [facility] [place] [facility] [address] [id number] [place] [address] 16 Jul, 2014 [facility] [place] [facility] [address] [id number] [place] [address] 15 Jul, 2014 [facility] [place] [facility] [address] [id number] [place] [address] 15 Jul, 2014 [facility] [place] [facility] [address] [id number] [place] [address] Jul, [facility] [place] [facility] [address] [id number] [place] [address] Jul, [facility] [place] [facility] [address] [id number] [place] [address] Jun, [facility] [place] [facility] [address] [id number] [place] [address] Jun, [facility] [place] [facility] [address] [id number] [place] [address] May, [facility] [place] [facility] [address] [id number] [place] [address] May, [facility] [place] [facility] [address] [id number] [place] [address] May, [facility] [place] [facility] [address] [id number] [place] [address] May, [facility] [place] [facility] [address] [id number] [place] [address] May, [facility] [place] [facility] [address] [id number] [place] [address] May, [facility] [place] [facility] [address] [id number] [place] [address] Apr, [facility] [place] [facility] [address] [id number] [place] [address] Apr, [facility] [place] [facility] [address] [id number] [place] [address] Apr, [facility] [place] [facility] [address] [id number] [place] [address] Apr, [facility] [place] [facility] [address] [id number] [place] [address] Apr, [facility] [place] [facility] [address] [id number] [place] [address] Apr, [facility] [place] [facility] [address] [id number] [place] [address] Feb, [facility] [place] [facility] [address] [id number] [place] [address] Feb, [facility] [place] [facility] [address] [id number] [place] [address] Feb, [facility] [place] [facility] [address] [id number] [place] [address] Feb, [facility] [place] [facility] [address] [id number] [place] [address] Jan, [facility] [place] [facility] [address] [id number] [place] [address] Jan, [facility] [place] [facility] [address] [id number], [place] [address] Jan, [facility] [place] [facility] [address] [id number] [place] [address] Jan, [facility] [place] [facility] [address] [id number] [place] [address] Dec, [facility] [place] [facility] [address] [id number] [place] [address] Dec, [facility] [place] [facility] [address] [id number] [place] [address] Dec, [facility] [address] [id number] [place] [address] Dec, [facility] [place] [facility] [address] [id number] [place] [address] Dec, [facility] [address] [id number] [place] [address] Dec, [facility] [address] [id number] [place] [address] Nov, [facility] [address] [id number] [place] [address] Oct, [facility] [address] [id number] [place] [address] Oct, [facility] [address] [id number] [place] [address] Oct, [facility] [address] [id number] [place] [address] Oct, [facility] [address] [facility] [id number] [place] [address] Oct, [facility] [address] [facility] [id number] [place] [address] Oct, [facility] [place] [facility] [address] [id number] [place] [address] Sep, [facility] [address] [id number] [place] [address] Sep, [facility] [place] [facility] [address] [id number] [place] [address] Sep, [facility] [place] [facility] [address] [facility] [id number] [place] [address] 05 Jul, 2013 [facility] [place] [facility] [address] [facility] [id number] [place] [address] Jun, [facility] [address] [id number] [place] [address] Jun, [facility] [place] [facility] [address] [id number] [place] [address] Jun, [facility] [place] [facility] [address] [id number] [place] [address] May, [facility] [place] [facility] [address] [id number] [place] [address] May, [facility] [place] [facility] [address] [id number] [place] [address] May, [facility] [place] [facility] [address] [id number] [place] [address] Apr, [facility] [place] [facility] [address] [id number] [place] [address] Apr, [facility] [place] [facility] [address] [id number] [place] [address] Apr, [facility] [place] [facility] [address] [id number] [place] [address] Apr, [facility] [place] [facility] [address] [id number] [place] [address] March, [facility] [place] [facility] [address] [id number] [place] [address] March, [facility] [place] [facility] [address] [id number] [place] [address] March, [facility] [place] [facility] [address] [id number] [place] [address] March, [facility] [place] [facility] [address] [id number] [place] [address] Feb, [facility] [place] [facility] [address] [id number] [place] [address] Feb, [facility] [place] [facility] [address] [id number], [place] [address] 15 Feb, 2013 [facility] [address] [id number] [place] [address] 10 Feb, 2013 [facility] [place] [facility] [address] [id number] [place] [address] 08 Feb, 2013 [facility] [address] [facility] [id number] [place] [address] 04 Feb, 2013 [facility] [place] [facility] [address] [id number] [place] [address] 28 Jan, 2013 [facility] [address] [id number] [place] [address] Jan, [facility] [place] [facility] [address] [id number] [place] [address] 16 Nov, 2012 [facility] [address] [facility] [id number], [place] [address] Nov, [facility] [place] [facility] [address] [id number] [place] [address] Nov, [facility] [address] [facility] [id number] [place] [address] Nov, [facility] [address] [facility] [id number], [place] [address] Sep, [facility] [address] [id number], [place] [address] 27 Sep, 2012 [facility] [place] [facility] [address] [id number], [place] [address] Sep, [facility] [place] [facility] [address] [id number], [place] [address] Sep, [facility] [place] [facility] [address] [facility] [id number], [place] [address] Aug, [facility] [place] [facility] [address] [facility] [id number], [place] [address] Aug, [facility] [place] [facility] [address] [id number] [place] [address] Aug, [facility] [place] [facility] [address] [id number] [place] [address] 26 Jul, 2012 [facility] [place] [facility] [address] [id number] [place] [address] Jul, [facility] [place] [facility] [address] [id number] [place] [address] Jul, [facility] [place] [facility] [address] [id number] [place] [address] Jun, [facility] [place] [facility] [address] [id number] [place] [address] Jun, [facility] [place] [facility] [address] [id number] [place] [address] May, [facility] [place] [facility] [address] [id number] [place] [address] May, [facility] [place] [facility] [address] [id number] [place] [address] May, [facility] [place] [facility] [address] [id number] [place] [address] Apr, [facility] [place] [facility] [address] [id number] [place] [address] March, [facility] [place] [facility] [address] [id number] [place] [address] Feb, [facility] [place] [facility] [address] [id number] [place] [address] Feb, [facility] [place] [facility] [address] [id number] [place] [address] Dec, [facility] [place] [facility] [address] [id number] [place] [address] Oct, [facility] [place] [facility] [address] [id number] [place] [address] 13 Aug, 2011 [facility] [place] [facility] [address] [id number] [place] [address] 12 Aug, 2011 [facility] [place] [facility] [address] [id number] [place] [address] 11 Aug, 2011 [facility] [place] [facility] [address] [id number] [place] [address] 10 Aug, 2011 [facility] [place] [facility] [address] [id number] [place] [address] 10 Aug, 2011 [facility] [place] [facility] [address] [id number] [place] [address] Oct, [facility] [place] [facility] [address] [id number] [place] [address] Sep, [facility] [place] [facility] [address] [id number] [place] [address] Sep, [facility] [place] [facility] [address] [id number], [place] [address] Sep, [facility] [place] [facility] [address] [id number], [place] [address] Sep, [facility] [place] [facility] [address] [id number], [place] [address] Aug, [facility] [place] [facility] [address] [id number], [place] [address] Aug, [facility] [place] [facility] [address] [id number], [place] [address] 18 Aug, 2010 [facility] [place] [facility] [address] [id number], [place] [address] 18 Aug, 2010 [facility] [place] [facility] [address] [id number], [place] [address] Aug, [facility] [place] [facility] [address] [id number], [place] [address] Aug, [facility] [place] [facility] [address] [facility] [id number] [place] [address] Nov, [facility] [address] [facility] [id number], [place] [address] Oct, [facility] [address] [facility] [id number], [place] [address] Oct, [facility] [address] [facility] [id number], [place] [address] Sep, [facility] [address] [facility] [id number], [place] [address] Jul, IMMUNIZATIONS No Known Immunizations SOCIAL HISTORY Never Assessed REASON FOR VISIT Hypertension-twoodeila PLAN OF CARE Activity Details Follow Up 3 Months, prn Reason:CHM/HTN VITAL SIGNS Height 70 in 2018-04-26 Weight 252.1 lbs 2018-04-26 Temperature 98.8 degrees Fahrenheit 2018-04-26 Heart Rate 72 bpm 2018-04-26 Respiratory Rate 18 2018-04-26 BMI 36.17 kg/m2 2018-04-26 Blood pressure systolic 122 mmHg 2018-04-26 Blood pressure diastolic 84 mmHg 2018-04-26 MEDICATIONS Medication Instructions Dosage Frequency Start Date End Date Duration Status Zyprexa 5 mg Orally at bedtime 1 tablet Once a day Orally 30 days Active Prozac 20 mg Orally Once a day 1 capsule in the morning 24h Nov, Active BusPIRone HCl 15 mg 1 tablet Twice a day Orally 90 days Active Depakote ER 250 MG Orally Once a day in the morning 1 tablet Nov, Active Propranolol HCl 20 mg Orally Twice a day 1 tablet 12h Nov, 90 days Active Levothyroxine Sodium 125 MCG Orally Once a day 1 tablet on an empty stomach in the morning 24h 30 days Active Lipitor 40 mg Orally Once a day 1 tablet 24h Nov, 90 days Active Depakote ER 500 mg Orally Once a day in the evening 1 tablet Nov, Active RESULTS Name Result Date Reference Range A1C (IN HOUSE) 2018-04-26 A1C IN HOUSE 6.0 4.3 - 5.6 % Previous A1c N/A Lot [id number] Exp date 01/2020 THYROID ANALYZER 2018-04-26 TSH 1.40 0.40-4.50 PROCEDURES Procedure Date Ordered Result Body Site GLYCATED HEMOGLOBIN TEST April 26, 2018 [facility] April [facility], 2018 [facility] VISIT ESTABLISHED PATIENT April 26, 2018 SALIMA, ROUTINE* April 26, 2018 INSTRUCTIONS MEDICATIONS ADMINISTERED No Known Medications [...]
--- OUTSIDE RECORDS SUMMARY | 2019-06-16 22:56 | XMS REPORT ---
Author Author FITZGERALDJARROD [place] Organization [facility] Address [address] [place] [address] Care Team Providers Care Skidder Name Role Phone JARROD FITZGERALD Unavailable PROBLEMS Type Condition ICD9-CM Code PDE87-BR Code Onset Dates Condition Status SNOMED Code Problem Gout M10.9 Active 25846215 Problem Hypothyroid E03.9 Active 19066215 Problem Degenerative disc disease, lumbar M51.36 Active 46048920 Problem Elevated fasting glucose R73.01 Active 69531818 Problem Chronic pain syndrome G89.4 Active 638969177 Problem Unspecified kidney failure N19 Active 50763235 Problem Hypercholesterolemia E78.0 Active 17146365 Problem Depression F32.9 Active 69009669 Problem Hypertension I10 Active 84061950 Problem Anxiety F41.9 Active 60044613 ALLERGIES No Information ENCOUNTERS Encounter Location Date Diagnosis [place] [id number] [place] [address] Jul, [place] [id number] [place] [address] May, Hypothyroid E03.9 [facility] [id number] [place] [address] Apr, Hypertension I10 ; Hypothyroid E03.9 ; Elevated fasting glucose R73.01 ; Hypercholesterolemia E78.0 ; Depression F32.9 and Anxiety F41.9 [facility] [id number] [place] [address] March, Depression F32.9 and Anxiety F41.9 [place] [id number] [place] [address] Jan, Hypothyroid E03.9 and Elevated fasting glucose R73.01 [place] [address] [address] Jan, Hypercholesterolemia E78.0 [facility] [address] [address] Dec, Hypertension I10 ; Hypercholesterolemia E78.0 ; Hypothyroid E03.9 and Gout M10.9 [place] [address] [address] Dec, Hypertension I10 ; Hypercholesterolemia E78.0 ; Hypothyroid E03.9 ; Depression F32.9 ; Anxiety F41.9 ; Gout M10.9 ; Chronic pain syndrome G89.4 ; Controlled substance agreement broken Z91.14 and Controlled substance agreement terminated Z91.14 [place] [address] [address] Sep, Degenerative disc disease, lumbar M51.36 [place] [address] [address] Sep, Degenerative disc disease, lumbar M51.36 [place] [address] [address] Aug, Hypertension I10 ; Hypercholesterolemia E78.0 ; Hypothyroid E03.9 ; Depression F32.9 ; Gout M10.9 ; Anxiety F41.9 and Degenerative disc disease, lumbar M51.36 [place] [id number] [place] [address] Jul, [place] [address] [address] Jul, [place] [address] [address] Jun, [place] [address] [address] Jun, Gout M10.9 [facility] [address] [address] May, Hypertension I10 and Hypercholesterolemia E78.0 [facility] [address] [address] May, [facility] [id number] [place] [address] May, Dental examination Z01.20 [facility] [address] [address] Apr, [facility] [id number] [place] [address] March, [facility] [address] [address] March, [facility] [address] [place] [id number] March, [facility] [address] [place] [address] March, [facility] [id number] [place] [address] Feb, [facility] [address] [place] [address] Feb, [facility] [id number] [place] [address] Feb, Degenerative disc disease, lumbar M51.36 [facility] [id number] [place] [address] Feb, Hypothyroid E03.9 ; Hypertension I10 ; Anxiety F41.9 ; Hypercholesterolemia E78.0 ; Depression F32.9 ; Gout M10.9 and Degenerative disc disease, lumbar M51.36 [facility] [id number] [place] [address] Feb, Encounter for dental examination and cleaning without abnormal findings Z01.20 [facility] [address] [address] Jan, Encounter for dental examination Z01.20 [facility] [address] [place] [address] Jan, [facility] [address] [address] Jan, Hypercholesterolemia E78.0 [facility] [id number] [place] [address] Jan, Degenerative disc disease, lumbar M51.36 [facility] [address] [place] [address] [address] Dec, [facility] [address] [address] Dec, Degenerative disc disease, lumbar M51.36 ; Hypercholesterolemia E78.0 ; Depression F32.9 ; Hypothyroid E03.9 and Hypertension I10 [place] [id number] [place] [address] Dec, Degenerative disc disease, lumbar M51.36 [facility] [id number] [place] [id number] Dec, Dental examination Z01.20 [facility] [id number] [place], [place] [address] Nov, Dental examination Z01.20 [facility] [id number] [place] [address] Nov, Degenerative disc disease, lumbar M51.36 [facility] [id number] [place] [address] Nov, Hypertension I10 ; Hypothyroid E03.9 ; Degenerative disc disease, lumbar M51.36 ; Gout M10.9 ; Unspecified kidney failure N19 ; Anxiety F41.9 ; Depression F32.9 and Hypercholesterolemia E78.0 [facility] [id number] [place] [address] Oct, [facility] [address] [place] [address] [id number] Sep, [facility] [address] [address] Aug, [facility] [address], [place] [address] Jul, [facility] [address], [place] [address] Jun, [facility] [id number] [place] [address] Jun, [facility] [address] [place] [address] May, [facility] [id number] [place] [address] May, [facility] [id number] [place] [address] May, [facility] [id number], [place] [address] Apr, Pain in unspecified shoulder M25.519 [facility] [id number] [place] [address] Apr, Degenerative disc disease, lumbar M51.36 ; Hypertension I10 ; Unspecified kidney failure N19 ; Gout M10.9 ; Depression F32.9 ; Hypothyroid E03.9 ; Anxiety F41.9 ; Other intermodal dispatcher (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.899 and Combined hyperlipidemia E78.2 [facility] [address], [place] [address] Apr, Gout M10.9 and Pain in unspecified shoulder M25.519 [facility] [address], [place] [address] March, Degenerative disc disease, lumbar M51.36 [facility] [address], [place] [address] Feb, Hypercholesterolemia E78.0 ; Hypothyroid E03.9 ; Gout M10.9 and Anxiety F41.9 [facility] [address], [place] [address] Feb, [facility] [address] [place] [address] Feb, Unspecified kidney failure N19 [facility] [address] [place] [address] Feb, Unspecified kidney failure N19 [facility] [id number] [place] [address] Feb, [facility] [id number] [place] [address] Feb, [facility] [id number] [place] [address] Jan, [facility] [id number] [place] [address] Dec, Sacroiliitis, not elsewhere classified 720.2 ; Hypercholesterolemia E78.0 ; Depression F32.9 ; Anxiety F41.9 ; Gout M10.9 ; Unspecified kidney failure N19 ; Hypothyroid E03.9 ; Degenerative disc disease, lumbar M51.36 and Other longterm (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.899 [facility] [address] [address] Dec, [facility] [address] [place] [address] Nov, [facility] [address] [place] [address] Nov, [facility] [address] [place] [address] Nov, [facility] [address], [place] [address] Oct, [facility] [id number] [place] [address] Sep, [place] [address] [address] Sep, Hypothyroid E03.9 ; Sacroiliitis, not elsewhere classified 720.2 ; Degenerative disc disease, lumbar M51.36 ; Hypercholesterolemia E78.0 ; Depression F32.9 ; Anxiety F41.9 ; Gout M10.9 ; HTN (hypertension) I10 and Hypothyroidism 244.9 [place] [id number] [place] [address] Aug, Unspecified kidney failure N19 ; Hypothyroid E03.9 ; Hypertension I10 ; Anxiety F41.9 and Gout M10.9 [place] [id number] [place] [address] Aug, Seborrheic keratosis L82.1 and Nevus D22.9 [place] [id number] [place] [address] Aug, [place] [id number] [place] [address] Aug, [place] [id number] [place] [address] Aug, Hypothyroid E03.9 ; Degenerative disc disease, lumbar M51.36 ; Hypertension I10 ; Hypercholesterolemia E78.0 ; Depression F32.9 ; Anxiety F41.9 and Gout M10.9 [place] [id number] [place] [address] Aug, [place] [address] [address] Jun, [place] [id number] [place] [address] Jun, Hypothyroidism 244.9 [place] [id number] [place] [address] Jun, Hypothyroidism 244.9 ; Pain in joint, shoulder region 719.41 ; Sacroiliitis, not elsewhere classified 720.2 ; High risk medication use V58.69 and Facial skin lesion 709.9 [facility] [id number] [place] [address] Apr, Hypothyroidism 244.9 ; Aggressive behavior of adult 301.3 and Edema 782.3 [facility] [address] [address] March, [facility] [id number] [place] [address] Feb, [facility] [id number] [place] [address] Feb, [facility] [id number] [place] [address] Jan, [facility] [id number] [place] [address] Jan, [facility] [id number] [place] [address] Jan, [facility] [id number] [place] [address] Jan, [facility] [id number] [place] [address] Dec, [facility] [id number] [place] [address] Dec, [facility] [id number] [place] [address] Nov, [facility] [id number] [place] [address] Nov, [facility] [id number] [place] [address] Nov, [facility] [id number] [place] [address] Nov, [facility] [place] [facility] [address] [id number] [place] [address] Nov, [facility] [place] [facility] [address] [id number] [place] [address] Nov, [facility] [place] [facility] [address] [id number] [place] [address] Oct, [facility] [place] [facility] [address] [id number] [place] [address] Oct, [facility] [place] [facility] [address] [id number] [place] [address] Sep, [facility] [place] [facility] [address] [id number] [place] [address] Sep, [facility] [place] [facility] [address] [id number] [place] [address] Sep, [facility] [place] [facility] [address] [id number] [place] [address] Sep, [facility] [place] [facility] [address] [id number] [place] [address] Sep, [facility] [place] [facility] [address] [id number] [place] [address] Sep, [facility] [place] [facility] [address] [id number] [address] Aug, [facility] [place] [facility] [address] [id number], [place] [address] Aug, [facility] [place] [facility] [address] [id number] [place] [address] Aug, [facility] [place] [facility] [address] [id number] [address] Aug, [facility] [place] [facility] [address] [id number] [place] [address] Aug, [facility] [place] [facility] [address] [id number] [place] [address] Aug, [facility] [place] [facility] [address] [id number] [place] [address] 16 Jul, 2014 [facility] [place] [facility] [address] [id number] [place] [address] 16 Jul, 2014 [facility] [place] [facility] [address] [id number] [place] [address] 15 Jul, 2014 [facility] [place] [facility] [address] [id number] [place] [address] 15 Jul, 2014 [facility] [place] [facility] [address] [id number] [place] [address] Jul, [facility] [place] [facility] [address] [id number] [place] [address] Jul, [facility] [place] [facility] [address] [id number] [place] [address] Jun, [facility] [place] [facility] [address] [id number] [place] [address] Jun, [facility] [place] [facility] [address] [id number] [place] [address] May, [facility] [place] [facility] [address] [id number] [place] [address] May, [facility] [place] [facility] [address] [id number] [place] [address] May, [facility] [place] [facility] [address] [id number] [place] [address] May, [facility] [place] [facility] [address] [id number] [place] [address] May, [facility] [place] [facility] [address] [id number] [place] [address] May, [facility] [place] [facility] [address] [id number] [place] [address] Apr, [facility] [place] [facility] [address] [id number] [place] [address] Apr, [facility] [place] [facility] [address] [id number] [place] [address] Apr, [facility] [place] [facility] [address] [id number] [place] [address] Apr, [facility] [place] [facility] [address] [id number] [place] [address] Apr, [facility] [place] [facility] [address] [id number] [place] [address] Apr, [facility] [place] [facility] [address] [id number] [place] [address] Feb, [facility] [place] [facility] [address] [id number] [place] [address] Feb, [facility] [place] [facility] [address] [id number] [place] [address] Feb, [facility] [place] [facility] [address] [id number] [place] [address] Feb, [facility] [place] [facility] [address] [id number] [place] [address] Jan, [facility] [place] [facility] [address] [id number] [place] [address] Jan, [facility] [place] [facility] [address] [id number] [place] [address] Jan, [facility] [place] [facility] [address] [id number] [place] [address] Jan, [facility] [place] [facility] [address] [id number] [place] [address] Dec, [facility] [place] [facility] [address] [id number] [place] [address] Dec, [facility] [place] [facility] [address] [id number] [place] [address] Dec, [facility] [address] [id number] [place] [address] Dec, [facility] [place] [facility] [address] [id number] [place] [address] Dec, [facility] [address] [id number] [place] [address] Dec, [facility] [address] [id number] [place] [address] Nov, [facility] [address] [id number] [place] [address] Oct, [facility] [address] [facility] [id number] [place] [address] Oct, [facility] [address] [facility] [id number] [place] [address] Oct, [facility] [address] [facility] [id number] [place] [address] Oct, [facility] [id number] [place] [address] Oct, [facility] [address] [facility] [id number] [place] [address] Oct, [facility] [place] [facility] [address] [facility] [id number] [place] [address] Sep, [facility] [place] [facility] [address] [id number] [place] [address] Sep, [facility] [place] [facility] [address] [facility] [id number] [place] [address] Sep, [facility] [place] [facility] [address] [facility] [id number] [place] [address] 05 Jul, 2013 [facility] [place] [facility] [address] [facility] [id number] [place] [address] Jun, [facility] [address] [id number] [place] [address] Jun, [facility] [place] [facility] [address] [id number] [place] [address] Jun, [facility] [place] [facility] [address] [id number] [place] [address] May, [facility] [place] [facility] [address] [id number] [place] [address] May, [facility] [place] [facility] [address] [id number] [place] [address] May, [facility] [place] [facility] [address] [id number] [place] [address] Apr, [facility] [place] [facility] [address] [id number] [place] [address] Apr, [facility] [place] [facility] [address] [id number] [place] [address] Apr, [facility] [place] [facility] [address] [id number] [place] [address] Apr, [facility] [place] [facility] [address] [id number] [place] [address] March, [facility] [place] [facility] [address] [id number] [place] [address] March, [facility] [place] [facility] [address] [id number] [place] [address] March, [facility] [place] [facility] [address] [id number] [place] [address] March, [facility] [place] [facility] [address] [id number] [place] [address] Feb, [facility] [place] [facility] [address] [id number] [place] [address] Feb, [facility] [place] [facility] [address] [id number] [address] 15 Feb, 2013 [facility] [address] [id number] [place] [address] 10 Feb, 2013 [facility] [place] [facility] [address] [id number] [place] [address] 08 Feb, 2013 [facility] [place] [facility] [address] [id number] [place] [address] 04 Feb, 2013 [facility] [place] [facility] [address] [id number] [place] [address] 28 Jan, 2013 [facility] [place] [facility] [address] [id number] [place] [address] Jan, [facility] [place] [facility] [address] [id number] [place] [address] 16 Nov, 2012 [facility] [address] [facility] [id number] [place] [address] Nov, [facility] [place] [facility] [address] [id number] [place] [address] Nov, [facility] [address] [facility] [id number] [place] [address] Nov, [facility] [place] [facility] [address] [facility] [id number] [place] [address] Sep, [facility] [place] [facility] [address] [id number], [place] [address] 27 Sep, 2012 [facility] [place] [facility] [address] [id number], [place] [address] Sep, [facility] [place] [facility] [address] [id number] [place] [address] 13 Sep, 2012 [facility] [place] [facility] [address] [facility] [id number] [place] [address] 11 Aug, 2012 [facility] [place] [facility] [address] [facility] [id number] [place] [address] 11 Aug, 2012 [facility] [place] [facility] [address] [id number] [place] [address] 09 Aug, 2012 [facility] [place] [facility] [address] [id number] [place] [address] 26 Jul, 2012 [facility] [place] [facility] [address] [id number] [place] [address] Jul, [facility] [place] [facility] [address] [id number] [place] [address] Jul, [facility] [place] [facility] [address] [id number] [place] [address] Jun, [facility] [place] [facility] [address] [id number] [place] [address] Jun, [facility] [place] [facility] [address] [id number] [place] [address] May, [facility] [place] [facility] [address] [id number] [place] [address] May, [facility] [place] [facility] [address] [id number] [place] [address] May, [facility] [place] [facility] [address] [id number] [place] [address] Apr, [facility] [place] [facility] [address] [id number] [place] [address] March, [facility] [place] [facility] [address] [id number] [place] [address] Feb, [facility] [place] [facility] [address] [id number] [place] [address] Feb, [facility] [place] [facility] [address] [id number] [place] [address] Dec, [facility] [place] [facility] [address] [id number] [place] [address] Oct, [facility] [place] [facility] [address] [id number] [place] [address] 13 Aug, 2011 [facility] [place] [facility] [address] [id number] [place] [address] 12 Aug, 2011 [facility] [place] [facility] [address] [id number] [place] [address] 11 Aug, 2011 [facility] [place] [facility] [address] [id number] [place] [address] 10 Aug, 2011 [facility] [place] [facility] [address] [id number] [place] [address] 10 Aug, 2011 [facility] [place] [facility] [address] [id number] [place] [address] Oct, [facility] [place] [facility] [address] [id number] [place] [address] Sep, [facility] [place] [facility] [address] [id number] [place] [address] Sep, [facility] [facility] [address] [id number] [address] Sep, [facility] [address] [id number] [place] [address] Sep, [facility] [address] [id number], [place] [address] Aug, [facility] [address] [id number], [place] [address] Aug, [facility] [address] [id number], [place] [address] 18 Aug, 2010 [facility] [address] [id number], [place] [address] 18 Aug, 2010 [facility] [address] [id number], [place] [address] 13 Aug, 2010 [facility] [address] [id number], [place] [address] Aug, [facility] [address] [facility] [id number] [place] [address] 11 Nov, 2009 [facility] [address] [facility] [id number][place] [address] Oct, [facility] [address] [facility] [id number], [place] [address] Oct, [facility] [address] [facility] [id number], [place] [address] Sep, [facility] [address] [facility] [id number], [place] [address] Jul, IMMUNIZATIONS No Known Immunizations SOCIAL HISTORY Never Assessed REASON FOR VISIT updated EMAR PLAN OF CARE VITAL SIGNS MEDICATIONS Medication Instructions Dosage Frequency Start Date End Date Duration Status Zyprexa 5 mg Orally at bedtime 1 tablet Once a day Orally 30 days 30 Active BusPIRone HCl 15 mg Orally Twice a day 1 tablet 12h Nov, 90 days Active Prozac 20 mg Orally Once a day 1 capsule in the morning 24h Nov, 90 days Active Depakote ER 500 mg Orally Once a day in the evening 1 tablet Nov, 90 days Active Depakote ER 250 MG Orally Once a day in the morning 1 tablet Nov, 90 days Active RESULTS No Results PROCEDURES [...]
--- OUTSIDE RECORDS SUMMARY | 2019-06-16 22:56 | XMS REPORT ---
Author Author BECK POLLOCK Organization [facility] Address [address] [place] [address] Care Team Providers Care Automotive Sales Associate Name Role Phone BECK POLLOCK Unavailable PROBLEMS Type Condition ICD9-CM Code [id number] Code Onset Dates Condition Status SNOMED Code Problem Degenerative disc disease, lumbar M51.36 Active 69555322 Problem Gout M10.9 Active 85334671 Problem Unspecified kidney failure N19 Active 99340591 Problem Hypertension I10 Active 01776652 Problem Depression F32.9 Active 84979492 Problem Hypothyroid E03.9 Active 72427175 Problem Anxiety F41.9 Active 81323241 Problem Hypercholesterolemia E78.0 Active 86868968 ALLERGIES No Information SOCIAL HISTORY Never Assessed PLAN OF CARE VITAL SIGNS MEDICATIONS Medication Instructions Dosage Frequency Start Date End Date Duration Status Vicoprofen 7.5-200 MG Orally 3 times a day 1 tablet as needed 8h Oct, Active RESULTS No Results PROCEDURES No Known procedures IMMUNIZATIONS No Known Immunizations MEDICAL (GENERAL) HISTORY Type Description Date Medical [...]
--- OUTSIDE RECORDS SUMMARY | 2019-06-16 22:56 | XMS REPORT ---
Author Author BECK POLLOCK Organization [facility] Address [address] [place] [address] Care Team Providers Care Beater Tender Name Role Phone POLLOCK, BECK Unavailable PROBLEMS Type Condition ICD9-CM Code [id number] Code Onset Dates Condition Status SNOMED Code Problem Degenerative disc disease, lumbar M51.36 Active 91004742 Problem Gout M10.9 Active 70303956 Problem Unspecified kidney failure N19 Active 17185447 Problem Hypertension I10 Active 03843760 Problem Depression F32.9 Active 46037475 Problem Hypothyroid E03.9 Active 65417981 Problem Anxiety F41.9 Active 65976851 Problem Hypercholesterolemia E78.0 Active 02093763 ALLERGIES No Information SOCIAL HISTORY Never Assessed PLAN OF CARE VITAL SIGNS MEDICATIONS Medication Instructions Dosage Frequency Start Date End Date Duration Status Vicoprofen 7.5-200 MG Orally 3 times a day 1 tablet as needed 8h 16 Oct, 2016 Active Propranolol HCl 20 MG Orally Twice a day 1 tablet 12h Nov, 30 day(s) Active Levothyroxine Sodium 112 MCG Orally Once a day 1 tablet on an empty stomach in the morning 24h Nov, 30 day(s) Active Prozac 10 MG Orally Once a day 1 capsule in the morning 24h Nov, 30 day(s) Active Lipitor 40 MG Orally Once a day 1 tablet 24h Nov, 30 day(s) Active RESULTS No Results PROCEDURES No Known [...]
--- OUTSIDE RECORDS SUMMARY | 2019-06-16 22:57 | XMS REPORT ---
Author Author FITZGERALDJARROD [place] Organization [facility] Address [address] [place] [address] Care Team Providers Care Manufacturing Production Technician Name Role Phone JARROD FITZGERALD Unavailable PROBLEMS Type Condition ICD9-CM Code SKC00-CO Code Onset Dates Condition Status SNOMED Code Problem Gout M10.9 Active 64075397 Problem Hypothyroid E03.9 Active 65073111 Problem Degenerative disc disease, lumbar M51.36 Active 09727443 Problem Elevated fasting glucose R73.01 Active 09237895 Problem Chronic pain syndrome G89.4 Active 860955946 Problem Unspecified kidney failure N19 Active 69326140 Problem Hypercholesterolemia E78.0 Active 58258959 Problem Depression F32.9 Active 23136082 Problem Hypertension I10 Active 31610976 Problem Anxiety F41.9 Active 06731245 ALLERGIES No Information ENCOUNTERS Encounter Location Date Diagnosis [facility] [id number] [place] [address] Apr, Hypertension I10 ; Hypothyroid E03.9 ; Elevated fasting glucose R73.01 ; Hypercholesterolemia E78.0 ; Depression F32.9 and Anxiety F41.9 [facility] [id number] [place] [address] March, Depression F32.9 and Anxiety F41.9 [facility] [id number] [place] [address] Jan, Hypothyroid E03.9 and Elevated fasting glucose R73.01 [facility] [id number] [place] [address] Jan, Hypercholesterolemia E78.0 [facility] [id number] [place] [address] Dec, Hypertension I10 ; Hypercholesterolemia E78.0 ; Hypothyroid E03.9 and Gout M10.9 [facility] [id number] [place] [address] Dec, Hypertension I10 ; Hypercholesterolemia E78.0 ; Hypothyroid E03.9 ; Depression F32.9 ; Anxiety F41.9 ; Gout M10.9 ; Chronic pain syndrome G89.4 ; Controlled substance agreement broken Z91.14 and Controlled substance agreement terminated Z91.14 [facility] [address] [address] Sep, Degenerative disc disease, lumbar M51.36 [place] [address] [address] Sep, Degenerative disc disease, lumbar M51.36 [place] [address] [address] Aug, Hypertension I10 ; Hypercholesterolemia E78.0 ; Hypothyroid E03.9 ; Depression F32.9 ; Gout M10.9 ; Anxiety F41.9 and Degenerative disc disease, lumbar M51.36 [place] [address] [address] Jul, [place] [address] [address] Jul, [place] [id number] [place] [address] Jun, [place] [address] [address] Jun, Gout M10.9 [facility] [id number] [place] [address] May, Hypertension I10 and Hypercholesterolemia E78.0 [facility] [address] [address] May, [place] [address] [address] May, Dental examination Z01.20 [facility] [address] [address] Apr, [facility] [id number] [place] [address] March, [facility] [id number] [place] [address] March, [facility] [id number] [place] [id number] March, [facility] [id number] [place] [address] March, [facility] [id number] [place] [address] Feb, [facility] [id number] [place] [address] Feb, [facility] [id number] [place] [address] Feb, Degenerative disc disease, lumbar M51.36 [facility] [id number] [place] [address] Feb, Hypothyroid E03.9 ; Hypertension I10 ; Anxiety F41.9 ; Hypercholesterolemia E78.0 ; Depression F32.9 ; Gout M10.9 and Degenerative disc disease, lumbar M51.36 [facility] [address] [place] [address] Feb, Encounter for dental examination and cleaning without abnormal findings Z01.20 [facility] [address], [place] [address] Jan, Encounter for dental examination Z01.20 [facility] [id number] [place] [address] Jan, [facility] [address], [place] [address] Jan, Hypercholesterolemia E78.0 [facility] [address] [address] 10 Jan, 2017 Degenerative disc disease, lumbar M51.36 [facility] [id number] [place] [address] 10 Dec, 2016 [facility] [id number] [place] [address] Dec, Degenerative disc disease, lumbar M51.36 ; Hypercholesterolemia E78.0 ; Depression F32.9 ; Hypothyroid E03.9 and Hypertension I10 [facility] [id number] [place] [address] 09 Dec, 2016 Degenerative disc disease, lumbar M51.36 [facility] [id number] [place] [id number] 03 Dec, 2016 Dental examination Z01.20 [facility] [id number] [place] [address] Nov, Dental examination Z01.20 [facility] [id number] [place] [address] Nov, Degenerative disc disease, lumbar M51.36 [facility] [id number] [place] [address] Nov, Hypertension I10 ; Hypothyroid E03.9 ; Degenerative disc disease, lumbar M51.36 ; Gout M10.9 ; Unspecified kidney failure N19 ; Anxiety F41.9 ; Depression F32.9 and Hypercholesterolemia E78.0 [facility] [address] [place] [address] 14 Oct, 2016 [facility] [id number] [place] [address] 17 Sep, 2016 [facility] [address] [place] [address] Aug, [facility] [id number] [place] [address] Jul, [facility] [address] [address] Jun, [facility] [id number] [place] [address] Jun, [facility] [id number] [place] [address] May, [facility] [id number] [place] [address] May, [facility] [id number] [place] [address] May, [facility] [id number] [place] [address] Apr, Pain in unspecified shoulder M25.519 [place] [id number] [place] [address] Apr, Degenerative disc disease, lumbar M51.36 ; Hypertension I10 ; Unspecified kidney failure N19 ; Gout M10.9 ; Depression F32.9 ; Hypothyroid E03.9 ; Anxiety F41.9 ; Other alf (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.899 and Combined hyperlipidemia E78.2 [facility] [address] [place] [address] Apr, Gout M10.9 and Pain in unspecified shoulder M25.519 [facility] [address] [place] [address] March, Degenerative disc disease, lumbar M51.36 [facility] [address] [place] [address] Feb, Hypercholesterolemia E78.0 ; Hypothyroid E03.9 ; Gout M10.9 and Anxiety F41.9 [facility] [address], [place] [address] Feb, [facility] [id number] [place] [address] 14 Feb, 2016 Unspecified kidney failure N19 [facility] [address], [place] [address] Feb, Unspecified kidney failure N19 [facility] [address], [place] [address] Feb, [facility] [address] [place] [address] Feb, [facility] [address] [place] [address] Jan, [facility] [id number] [place] [address] Dec, Sacroiliitis, not elsewhere classified 720.2 ; Hypercholesterolemia E78.0 ; Depression F32.9 ; Anxiety F41.9 ; Gout M10.9 ; Unspecified kidney failure N19 ; Hypothyroid E03.9 ; Degenerative disc disease, lumbar M51.36 and Other alf (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.899 [facility] [address], [place] [address] Dec, [facility] [address] [place] [address] Nov, [facility] [address], [place] [address] Nov, [facility] [address], [place] [address] Nov, [facility] [address], [place] [address] Oct, [facility] [address], [place] [address] Sep, [facility] [id number] [address] Sep, Hypothyroid E03.9 ; Sacroiliitis, not elsewhere classified 720.2 ; Degenerative disc disease, lumbar M51.36 ; Hypercholesterolemia E78.0 ; Depression F32.9 ; Anxiety F41.9 ; Gout M10.9 ; HTN (hypertension) I10 and Hypothyroidism 244.9 [place] [address] Aug, Unspecified kidney failure N19 ; Hypothyroid E03.9 ; Hypertension I10 ; Anxiety F41.9 and Gout M10.9 [place] [address] Aug, Seborrheic keratosis L82.1 and Nevus D22.9 [place] [address] Aug, [place] [address] [address] Aug, [place] [id number] Aug, Hypothyroid E03.9 ; Degenerative disc disease, lumbar M51.36 ; Hypertension I10 ; Hypercholesterolemia E78.0 ; Depression F32.9 ; Anxiety F41.9 and Gout M10.9 [place] [address] [address] Aug, [place] [address] [address] Jun, [place] [address] Jun, Hypothyroidism 244.9 [place] [address] [address] [address] Jun, Hypothyroidism 244.9 ; Pain in joint, shoulder region 719.41 ; Sacroiliitis, not elsewhere classified 720.2 ; High risk medication use V58.69 and Facial skin lesion 709.9 [place] [id number] Apr, Hypothyroidism 244.9 ; Aggressive behavior of adult 301.3 and Edema 782.3 [facility] [id number] [address] March, [facility] [id number] [address] Feb, [facility] [id number] [place] [address] Feb, [facility] [id number] [place] [address], [place] [address] Jan, [facility] [id number] [place] [address], [place] [address] Jan, [facility] [id number] [address] Jan, [facility] [id number] [place] [address], [place] [address] Jan, [facility] [address], [place] [address] Dec, [facility] [id number] [place] [address] Dec, [facility] [address], [place] [address] Nov, [facility] [address], [place] [address] Nov, [facility] [address], [place] [address] Nov, [facility] [address], [place] [address] Nov, [facility] [address], [place] [address] Nov, [facility] [address], [place] [address] Nov, [facility] [place] [facility] [address] [id number] [place] [address] Oct, [facility] [place] [facility] [address] [id number] [place] [address] Oct, [facility] [place] [facility] [address] [id number] [place] [address] Sep, [facility] [place] [facility] [address] [id number] [place] [address] Sep, [facility] [place] [facility] [address] [id number] [place] [address] Sep, [facility] [place] [facility] [address] [id number] [place] [address] Sep, [facility] [place] [facility] [address] [id number] [place] [address] Sep, [facility] [place] [facility] [address] [id number] [place] [address] Sep, [facility] [place] [facility] [address] [id number] [place] [address] Aug, [facility] [place] [facility] [address] [id number] [place] [address] Aug, [facility] [place] [facility] [address] [id number], [place] [address] Aug, [facility] [place] [facility] [address] [id number], [place] [address] Aug, [facility] [place] [facility] [address] [id number] [place] [address] Aug, [facility] [place] [facility] [address] [id number], [place] [address] Aug, [facility] [place] [facility] [address] [id number], [place] [address] Jul, [facility] [place] [facility] [address] [id number] [place] [address] 16 Jul, 2013 [facility] [place] [facility] [address] [id number] [place] [address] 15 Jul, 2014 [facility] [place] [facility] [address] [id number] [place] [address] 15 Jul, 2014 [facility] [place] [facility] [address] [id number] [place] [address] 04 Jul, 2014 [facility] [place] [facility] [address] [id number] [place] [address] Jul, [facility] [place] [facility] [address] [id number] [place] [address] Jun, [facility] [place] [facility] [address] [id number] [place] [address] Jun, [facility] [place] [facility] [address] [id number] [place] [address] May, [facility] [place] [facility] [address] [id number] [place] [address] May, [facility] [place] [facility] [address] [id number] [place] [address] May, [facility] [place] [facility] [address] [id number] [place] [address] May, [facility] [place] [facility] [address] [id number] [place] [address] May, [facility] [place] [facility] [address] [id number] [place] [address] May, [facility] [place] [facility] [address] [id number] [place] [address] Apr, [facility] [place] [facility] [address] [id number] [place] [address] Apr, [facility] [place] [facility] [address] [id number] [place] [address] Apr, [facility] [place] [facility] [address] [id number] [place] [address] Apr, [facility] [place] [facility] [address] [id number] [place] [address] Apr, [facility] [place] [facility] [address] [id number] [place] [address] Apr, [facility] [place] [facility] [address] [id number] [place] [address] Feb, [facility] [place] [facility] [address] [id number] [place] [address] Feb, [facility] [place] [facility] [address] [id number] [place] [address] Feb, [facility] [place] [facility] [address] [facility] [id number] [place] [address] Feb, [facility] [place] [facility] [address] [id number] [place] [address] Jan, [facility] [place] [facility] [address] [id number] [place] [address] Jan, [facility] [place] [facility] [address] [id number] [place] [address] Jan, [facility] [place] [facility] [address] [id number] [place] [address] Jan, [facility] [place] [facility] [address] [id number] [place] [address] Dec, [facility] [place] [facility] [address] [id number] [place] [address] Dec, [facility] [place] [facility] [address] [id number] [place] [address] Dec, [facility] [place] [facility] [address] [id number] [place] [address] Dec, [facility] [place] [facility] [address] [id number], [place] [address] Dec, [facility] [address] [id number] [place] [address] Dec, [facility] [address] [facility] [id number] [place] [address] Nov, [facility] [address] [facility] [id number] [place] [address] Oct, [facility] [place] [facility] [address] [id number] [place] [address] Oct, [facility] [address] [id number] [place] [address] Oct, [facility] [address] [id number] [place] [address] Oct, [facility] [address] [facility] [id number] [place] [address] Oct, [facility] [place] [facility] [address] [id number] [place] [address] Oct, [facility] [address] [facility] [id number] [place] [address] Sep, [facility] [address] [facility] [id number] [place] [address] Sep, [facility] [address] [id number] [place] [address] Sep, [facility] [place] [facility] [address] [id number] [place] [address] Jul, [facility] [place] [facility] [address] [id number] [place] [address] Jun, [facility] [place] [facility] [address] [id number] [place] [address] Jun, [facility] [place] [facility] [address] [facility] [id number] [place] [address] Jun, [facility] [place] [facility] [address] [id number] [place] [address] 16 May, 2013 [facility] [place] [facility] [address] [id number] [place] [address] 15 May, 2013 [facility] [place] [facility] [address] [id number] [place] [address] 08 May, 2013 [facility] [place] [facility] [address] [id number] [place] [address] Apr, [facility] [place] [facility] [address] [id number] [place] [address] Apr, [facility] [place] [facility] [address] [id number] [place] [address] Apr, [facility] [place] [facility] [address] [id number] [place] [address] Apr, [facility] [place] [facility] [address] [id number] [place] [address] March, [facility] [address] [id number] [place] [address] March, [facility] [place] [facility] [address] [id number] [place] [address] March, [facility] [place] [facility] [address] [id number] [place] [address] March, [facility] [place] [facility] [address] [id number] [place] [address] 24 Feb, 2013 [facility] [place] [facility] [address] [id number] [place] [address] Feb, [facility] [place] [facility] [address] [id number] [place] [address] 15 Feb, 2013 [facility] [place] [facility] [address] [id number] [place] [address] 10 Feb, 2013 [facility] [place] [facility] [address] [id number] [place] [address] 08 Feb, 2013 [facility] [place] [facility] [address] [id number] [place] [address] 04 Feb, 2013 [facility] [place] [facility] [address] [id number] [place] [address] 28 Jan, 2013 [facility] [place] [facility] [address] [id number] [place] [address] 13 Jan, 2013 [facility] [place] [facility] [address] [id number] [place] [address] 16 Nov, 2012 [facility] [place] [facility] [address] [id number] [place] [address] 15 Nov, 2012 [facility] [place] [facility] [address] [id number] [place] [address] Nov, [facility] [place] [facility] [address] [id number] [place] [address] Nov, [facility] [place] [facility] [address] [id number], [place] [address] Sep, [facility] [place] [facility] [address] [id number], [place] [address] Sep, [facility] [place] [facility] [address] [id number], [place] [address] Sep, [facility] [place] [facility] [address] [id number], [place] [address] Sep, [facility] [place] [facility] [address] [id number], [place] [address] Aug, [facility] [place] [facility] [address] [id number], [place] [address] Aug, [facility] [place] [facility] [address] [id number], [place] [address] 09 Aug, 2012 [facility] [place] [facility] [address] [id number], [place] [address] Jul, [facility] [place] [facility] [address] [id number] [place] [address] 11 Jul, 2012 [facility] [address] [id number] [place] [address] Jul, [facility] [place] [facility] [address] [id number] [place] [address] Jun, [facility] [address] [id number] [place] [address] Jun, [facility] [place] [facility] [address] [id number] [place] [address] May, [facility] [address] [id number] [place] [address] May, [facility] [place] [facility] [address] [id number] [place] [address] May, [facility] [address] [id number] [place] [address] Apr, [facility] [address] [id number] [place] [address] March, [facility] [place] [facility] [address] [id number] [place] [address] Feb, [facility] [address] [id number] [place] [address] Feb, [facility] [address] [id number] [place] [address] Dec, [facility] [address] [id number] [place] [address] Oct, [facility] [place] [facility] [address] [id number] [place] [address] Aug, [facility] [place] [facility] [address] [id number] [place] [address] Aug, [facility] [place] [facility] [address] [id number] [place] [address] Aug, [facility] [place] [facility] [address] [id number] [place] [address] 10 Aug, 2011 [facility] [place] [facility] [address] [id number] [place] [address] 10 Aug, 2011 [facility] [place] [facility] [address] [id number] [place] [address] Oct, [facility] [place] [facility] [address] [id number] [place] [address] Sep, [facility] [place] [facility] [address] [id number] [place] [address] Sep, [facility] [place] [facility] [address] [id number] [place] [address] Sep, [facility] [place] [facility] [address] [id number] [place] [address] Sep, [facility] [place] [facility] [address] [id number] [place] [address] Aug, [facility] [place] [facility] [address] [id number] [place] [address] Aug, [facility] [place] [facility] [address] [id number] [place] [address] Aug, [facility] [place] [facility] [address] [id number] [place] [address] 18 Aug, 2010 [facility] [place] [facility] [address] [id number], [place] [address] Aug, [facility] [place] [facility] [address] [id number] [place] [address] Aug, [facility] [place] [facility] [address] [id number], [place] [address] Nov, [facility] [place] [facility] [address] [id number], [place] [address] 15 Oct, 2009 [facility] [place] [facility] [address] [id number], [place] [address] Oct, [facility] [address] [facility] [id number] [place] [address] Sep, [facility] [address] [facility] [id number], [place] [address] Jul, IMMUNIZATIONS No Known Immunizations SOCIAL HISTORY Never Assessed REASON FOR VISIT refill request PLAN OF CARE VITAL SIGNS MEDICATIONS Medication Instructions Dosage Frequency Start Date End Date Duration Status Gemfibrozil 600 MG Orally 2 times a day 1 tablet 12h Oct, 90 days Active RESULTS No Results PROCEDURES [...]
--- OUTSIDE RECORDS SUMMARY | 2019-06-16 22:58 | XMS REPORT ---
Author Author EDGARDO WEBB [facility] Address [address] [place] [address] Care Team Providers Care Refractory Tile Helper Name Role Phone EDGARDO WEBB Unavailable PROBLEMS Type Condition ICD9-CM Code [id number] Code Onset Dates Condition Status SNOMED Code Problem Anxiety F41.9 Active 84461811 Problem Gout M10.9 Active 47258829 Problem Unspecified kidney failure N19 Active 43842437 Problem Hypothyroid E03.9 Active 60579533 Problem Hypercholesterolemia E78.0 Active 19824403 Problem Depression F32.9 Active 47080558 Problem Degenerative disc disease, lumbar M51.36 Active 35004799 Problem Hypertension I10 Active 54531055 ALLERGIES Unknown Allergies SOCIAL HISTORY No smoking Hx information available PLAN OF CARE VITAL SIGNS MEDICATIONS Medication Instructions Dosage Frequency Start Date End Date Duration Status Vicoprofen 7.5-200 MG Orally every 6 hrs 1 tablet as needed 6h Oct, Active RESULTS No Results PROCEDURES No Known procedures IMMUNIZATIONS No Known Immunizations
--- OUTSIDE RECORDS SUMMARY | 2019-06-16 22:58 | XMS REPORT ---
Author Author BECK POLLOCK Organization [employer] Address Unknown Phone Unavailable Care Team Providers Care Peoplesoft Analyst Name Role Phone BECK POLLOCK CP Unavailable Allergies No Known Allergies Problems Problem Type Condition Code Onset Dates Condition Status Problem Sacroiliitis, not elsewhere classified 720.2 Active Problem Anxiety F41.9 Active Problem Gout M10.9 Active Problem Unspecified kidney failure N19 Active Problem Hypothyroid E03.9 Active Problem Other penitentiary (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.899 Active Problem Hypercholesterolemia E78.0 Active Problem Depression F32.9 Active Problem Degenerative disc disease, lumbar M51.36 Active Problem Hypertension I10 Active Assessment Anxiety F41.9 Active Assessment Gout M10.9 Active Assessment Hypothyroid E03.9 Active Assessment Hypercholesterolemia E78.0 Active Medications Medication Code System Code Instructions Start Date End Date Status Dosage Lipitor [facility] [address]-61 40 mg Orally Once a day 1 tablet at bedtime Lopid [facility] [address]-46 600 MG Orally Twice a day 1 tablet Levothyroxine Sodium [facility] [address]-10 112 MCG Orally Once a day May 11, 2015 1 tablet propranolol ND 0 20 mg by oral route 2 times a day Sep 30, 2014 1 tablet Colcrys [facility] [address]-50 0.6 MG Orally Once a day March 14, 2016 1 tablet Allopurinol [facility] [address]-88 300 MG Orally Once a day March 14, 2016 1 tablet Results No Known Results Summary Purpose [employer] Submission
--- OUTSIDE RECORDS SUMMARY | 2019-06-16 22:58 | XMS REPORT ---
Author BECK Benitez [facility] [employer] Address Unknown Phone Unavailable Care Team Providers Care On Air Announcer Name Role Phone BECK POLLOCK CP Unavailable Allergies, Adverse Reactions, Alerts Substance Reaction Event Type N.K.D.A. Info Not Available Non Drug Allergy Problems Problem Type Condition Code Onset Dates Condition Status Assessment Gout M10.9 Active Problem Impotence of organic origin 607.84 Active Assessment Anxiety F41.9 Active Problem Need for prophylactic vaccination and inoculation, Influenza V04.81 Active Assessment Depression F32.9 Active Problem Pain in joint, shoulder region 719.41 Active Problem Unspecified ventral hernia without mention of obstruction or gangrene 553.20 Active Problem Abdominal pain, unspecified site 789.00 Active Problem Degenerative disc disease, lumbar M51.36 Active Problem Hypertension I10 Active Assessment Degenerative disc disease, lumbar M51.36 Active Assessment Hypertension I10 Active Problem Hypothyroid E03.9 Active Assessment Hypercholesterolemia E78.0 Active Problem Anxiety F41.9 Active Problem Gout M10.9 Active Problem Hypercholesterolemia E78.0 Active Problem Depression F32.9 Active Problem Gout, unspecified 274.9 Active Problem Retained (old) foreign body, intraocular, unspecified 360.60 Active Assessment Hypothyroid E03.9 Active Problem Sacroiliitis, not elsewhere classified 720.2 Active Problem Lesion of sciatic nerve 355.0 Active Problem Osteoarthrosis, unspecified whether generalized or localized, hand 715.94 Active Problem Other abnormal glucose 790.29 Active Problem Umbilical hernia without mention of obstruction or gangrene 553.1 Active Medications Medication Code System Code Instructions Start Date End Date Status Dosage Lasix [facility] [address]-69 20 MG Orally Once every other day May 11, 2015 1 tablet Lipitor [facility] [address]-02 40 MG Orally Once a day 1 tablet Levothyroxine Sodium [facility] [address]-46 112 MCG Orally Once a day May 11, 2015 1 tablet Lisinopril-Hydrochlorothiazide [facility] [address]-73 20-25 MG Orally Once a day 1 tablet ASA ND 0 Oral 1 tab Prozac [facility] [address]-44 20 MG Orally Once a day 1 capsule in the morning Hydrocodone-Acetaminophen [facility] [address]-08 5-325 MG Orally 3 times a day Sep 07, 2015 Sep 21, 2015 1 tablet as needed Depakote [facility] [address]-17 500 MG Orally Once a day 1 tablet BusPIRone HCl [facility] 76656847977 15 MG TAKE ONE TABLET BY MOUTH AT NOON AND ONE TABLET AT BEDTIME Gabapentin [facility] [address]-72 300 MG Orally 2 times a day Sep 07, 2015 1 capsule Zyprexa [facility] [address]-19 5 MG Orally Once a day 1 tablet Gemfibrozil [facility] [address]-63 600 MG Orally 2 times a day Oct 27, 2014 1 tablet Procedures Procedure Coding System Code Date COMPREHEN METABOLIC PANEL CPT-4 46791 Sep 07, 2015 ASSAY OF FREE THYROXINE CPT-4 94447 Sep 07, 2015 COMPLETE CBC W/AUTO DIFF WBC CPT-4 21549 Sep 07, 2015 Office Visit, Est Pt., Level 4 CPT-4 29096 Sep 07, 2015 ASSAY OF BLOOD/URIC ACID CPT-4 70300 Sep 07, 2015 VENIPUNCT, ROUTINE* CPT-4 20874 Sep 07, 2015 Vital Signs Date/Time: Sep 07, 2015 Temperature 97.6 F Weight 245.8 lbs Height 70 in BMI 35.26 Index Blood Pressure Diastolic 82 mmHg Blood Pressure Systolic 140 mmHg Cardiac Monitoring Heart Rate 70 bpm Results Name Result Date Reference Range Unit Abnormality Flag ROUTINE VENIPUNCTURE TSH W/ FREE T4 Summary Purpose [employer] Submission
--- OUTSIDE RECORDS SUMMARY | 2019-06-16 22:58 | XMS REPORT ---
Author Author FITZGERALDJARROD [place] Organization [facility] Address [address] [place] [address] Care Team Providers Care Director Of Casework Name Role Phone JARROD FITZGERALD Unavailable PROBLEMS Type Condition ICD9-CM Code HOF15-LT Code Onset Dates Condition Status SNOMED Code Problem Gout M10.9 Active 95942894 Problem Hypothyroid E03.9 Active 26288155 Problem Degenerative disc disease, lumbar M51.36 Active 40426295 Problem Elevated fasting glucose R73.01 Active 20251640 Problem Chronic pain syndrome G89.4 Active 178391313 Problem Unspecified kidney failure N19 Active 49514839 Problem Hypercholesterolemia E78.0 Active 27387371 Problem Depression F32.9 Active 68323023 Problem Hypertension I10 Active 38897987 Problem Anxiety F41.9 Active 53772346 ALLERGIES No Information ENCOUNTERS Encounter Location Date Diagnosis [facility] [id number] [place] [address] Apr, Hypertension I10 ; Hypothyroid E03.9 ; Elevated fasting glucose R73.01 ; Hypercholesterolemia E78.0 ; Depression F32.9 and Anxiety F41.9 [facility] [id number] [place] [address] March, Depression F32.9 and Anxiety F41.9 [facility] [id number] [place] [address] Jan, Hypothyroid E03.9 and Elevated fasting glucose R73.01 [facility] [id number] [place] [address] Jan, Hypercholesterolemia E78.0 [facility] [id number] [place] [address] Dec, Hypertension I10 ; Hypercholesterolemia E78.0 ; Hypothyroid E03.9 and Gout M10.9 [facility] [id number] [place] [address] Dec, Hypertension I10 ; Hypercholesterolemia E78.0 ; Hypothyroid E03.9 ; Depression F32.9 ; Anxiety F41.9 ; Gout M10.9 ; Chronic pain syndrome G89.4 ; Controlled substance agreement broken Z91.14 and Controlled substance agreement terminated Z91.14 [facility] [address] [address] Sep, Degenerative disc disease, lumbar M51.36 [place] [address] [address] Sep, Degenerative disc disease, lumbar M51.36 [place] [address] [address] Aug, Hypertension I10 ; Hypercholesterolemia E78.0 ; Hypothyroid E03.9 ; Depression F32.9 ; Gout M10.9 ; Anxiety F41.9 and Degenerative disc disease, lumbar M51.36 [place] [address] [address] Jul, [place] [address] [address] Jul, [place] [id number] [place] [address] Jun, [place] [address] [address] Jun, Gout M10.9 [facility] [id number] [place] [address] May, Hypertension I10 and Hypercholesterolemia E78.0 [facility] [address] [address] May, [place] [address] [address] May, Dental examination Z01.20 [facility] [address], [place] [address] Apr, [facility] [id number] [place] [address] March, [facility] [id number] [place] [address] March, [facility] [id number] [place] [id number] March, [facility] [id number] [place] [address] March, [facility] [id number] [place] [address] Feb, [facility] [id number] [place] [address] Feb, [facility] [id number] [place] [address] Feb, Degenerative disc disease, lumbar M51.36 [facility] [id number] [place] [address] Feb, Hypothyroid E03.9 ; Hypertension I10 ; Anxiety F41.9 ; Hypercholesterolemia E78.0 ; Depression F32.9 ; Gout M10.9 and Degenerative disc disease, lumbar M51.36 [facility] [id number] [place] [address] Feb, Encounter for dental examination and cleaning without abnormal findings Z01.20 [facility] [address], [place] [address] Jan, Encounter for dental examination Z01.20 [facility] [id number] [place] [address] Jan, [facility] [address], [place] [address] Jan, Hypercholesterolemia E78.0 [facility] [address], [place] [address] 10 Jan, 2017 Degenerative disc disease, lumbar M51.36 [facility] [id number] [place] [address] 10 Dec, 2016 [facility] [id number] [place] [address] Dec, Degenerative disc disease, lumbar M51.36 ; Hypercholesterolemia E78.0 ; Depression F32.9 ; Hypothyroid E03.9 and Hypertension I10 [facility] [id number] [place] [address] 09 Dec, 2016 Degenerative disc disease, lumbar M51.36 [facility] [id number] [place] [id number] 03 Dec, 2016 Dental examination Z01.20 [facility] [id number] [place] [address] Nov, Dental examination Z01.20 [facility] [id number] [place] [address] Nov, Degenerative disc disease, lumbar M51.36 [facility] [id number] [place] [address] Nov, Hypertension I10 ; Hypothyroid E03.9 ; Degenerative disc disease, lumbar M51.36 ; Gout M10.9 ; Unspecified kidney failure N19 ; Anxiety F41.9 ; Depression F32.9 and Hypercholesterolemia E78.0 [facility] [address] [place] [address] 14 Oct, 2016 [facility] [id number] [place] [address] 17 Sep, 2016 [facility] [id number] [place] [address] Aug, [facility] [id number] [place] [address] Jul, [facility] [address], [place] [address] Jun, [facility] [id number] [place] [address] Jun, [facility] [id number] [place] [address] May, [facility] [id number] [place] [address] May, [facility] [id number] [place] [address] May, [facility] [id number] [place] [address] Apr, Pain in unspecified shoulder M25.519 [place] [id number] [place] [address] Apr, Degenerative disc disease, lumbar M51.36 ; Hypertension I10 ; Unspecified kidney failure N19 ; Gout M10.9 ; Depression F32.9 ; Hypothyroid E03.9 ; Anxiety F41.9 ; Other residential (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.899 and Combined hyperlipidemia E78.2 [facility] [address] [place] [address] Apr, Gout M10.9 and Pain in unspecified shoulder M25.519 [facility] [id number] [place] [address] March, Degenerative disc disease, lumbar M51.36 [facility] [address] [place] [address] Feb, Hypercholesterolemia E78.0 ; Hypothyroid E03.9 ; Gout M10.9 and Anxiety F41.9 [facility] [address], [place] [address] Feb, [facility] [id number] [place] [address] 14 Feb, 2016 Unspecified kidney failure N19 [facility] [address], [place] [address] Feb, Unspecified kidney failure N19 [facility] [address], [place] [address] Feb, [facility] [id number] [place] [address] Feb, [facility] [id number] [place] [address] Jan, [facility] [id number] [place] [address] Dec, Sacroiliitis, not elsewhere classified 720.2 ; Hypercholesterolemia E78.0 ; Depression F32.9 ; Anxiety F41.9 ; Gout M10.9 ; Unspecified kidney failure N19 ; Hypothyroid E03.9 ; Degenerative disc disease, lumbar M51.36 and Other residential (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.899 [facility] [address], [place] [address] Dec, [facility] [id number] [place] [address] Nov, [facility] [address], [place] [address] Nov, [facility] [address], [place] [address] Nov, [facility] [address], [place] [address] Oct, [facility] [address], [place] [address] Sep, [facility] [id number], [place] [address] Sep, Hypothyroid E03.9 ; Sacroiliitis, not elsewhere classified 720.2 ; Degenerative disc disease, lumbar M51.36 ; Hypercholesterolemia E78.0 ; Depression F32.9 ; Anxiety F41.9 ; Gout M10.9 ; HTN (hypertension) I10 and Hypothyroidism 244.9 [place] [address] [id number] Aug, Unspecified kidney failure N19 ; Hypothyroid E03.9 ; Hypertension I10 ; Anxiety F41.9 and Gout M10.9 [place] [address] [id number] Aug, Seborrheic keratosis L82.1 and Nevus D22.9 [place] [address] Aug, [place] [address] [address] Aug, [place] [id number] Aug, Hypothyroid E03.9 ; Degenerative disc disease, lumbar M51.36 ; Hypertension I10 ; Hypercholesterolemia E78.0 ; Depression F32.9 ; Anxiety F41.9 and Gout M10.9 [place] [address] [address] Aug, [place] [address] [address] Jun, [place] [address] [id number] Jun, Hypothyroidism 244.9 [place] [address] [address] Jun, Hypothyroidism 244.9 ; Pain in joint, shoulder region 719.41 ; Sacroiliitis, not elsewhere classified 720.2 ; High risk medication use V58.69 and Facial skin lesion 709.9 [place] [id number] Apr, Hypothyroidism 244.9 ; Aggressive behavior of adult 301.3 and Edema 782.3 [facility] [id number] [place] [address] March, [facility] [id number] [place] [address] Feb, [facility] [id number] [place] [address] Feb, [facility] [id number] [place] [address], [place] [address] Jan, [facility] [id number] [place] [address], [place] [address] Jan, [facility] [id number] [address] Jan, [facility] [id number] [place] [address], [place] [address] Jan, [facility] [address], [place] [address] Dec, [facility] [id number] [place] [address] Dec, [facility] [address], [place] [address] Nov, [facility] [address], [place] [address] Nov, [facility] [address], [place] [address] Nov, [facility] [address], [place] [address] Nov, [facility] [address], [place] [address] Nov, [facility] [address], [place] [address] Nov, [facility] [place] [facility] [address] [id number] [place] [address] Oct, [facility] [place] [facility] [address] [id number] [place] [address] Oct, [facility] [place] [facility] [address] [id number] [place] [address] Sep, [facility] [place] [facility] [address] [id number] [place] [address] Sep, [facility] [place] [facility] [address] [id number] [place] [address] Sep, [facility] [place] [facility] [address] [id number] [place] [address] Sep, [facility] [place] [facility] [address] [id number] [place] [address] Sep, [facility] [place] [facility] [address] [id number] [place] [address] Sep, [facility] [place] [facility] [address] [id number] [place] [address] Aug, [facility] [place] [facility] [address] [id number] [place] [address] Aug, [facility] [place] [facility] [address] [id number], [place] [address] Aug, [facility] [place] [facility] [address] [id number], [place] [address] Aug, [facility] [place] [facility] [address] [id number] [place] [address] Aug, [facility] [place] [facility] [address] [id number], [place] [address] Aug, [facility] [place] [facility] [address] [id number], [place] [address] Jul, [facility] [place] [facility] [address] [id number] [place] [address] 16 Jul, 2013 [facility] [place] [facility] [address] [id number] [place] [address] 15 Jul, 2014 [facility] [place] [facility] [address] [id number] [place] [address] 15 Jul, 2014 [facility] [place] [facility] [address] [id number] [place] [address] 04 Jul, 2014 [facility] [place] [facility] [address] [id number] [place] [address] Jul, [facility] [place] [facility] [address] [id number] [place] [address] Jun, [facility] [place] [facility] [address] [id number] [place] [address] Jun, [facility] [place] [facility] [address] [id number] [place] [address] May, [facility] [place] [facility] [address] [id number] [place] [address] May, [facility] [place] [facility] [address] [id number] [place] [address] May, [facility] [place] [facility] [address] [id number] [place] [address] May, [facility] [place] [facility] [address] [id number] [place] [address] May, [facility] [place] [facility] [address] [id number] [place] [address] May, [facility] [place] [facility] [address] [id number] [place] [address] Apr, [facility] [place] [facility] [address] [id number] [place] [address] Apr, [facility] [place] [facility] [address] [id number] [place] [address] Apr, [facility] [place] [facility] [address] [id number] [place] [address] Apr, [facility] [place] [facility] [address] [id number] [place] [address] Apr, [facility] [place] [facility] [address] [id number] [place] [address] Apr, [facility] [place] [facility] [address] [id number] [place] [address] Feb, [facility] [place] [facility] [address] [id number] [place] [address] Feb, [facility] [place] [facility] [address] [id number] [place] [address] Feb, [facility] [place] [facility] [address] [facility] [id number] [place] [address] Feb, [facility] [place] [facility] [address] [id number] [place] [address] Jan, [facility] [place] [facility] [address] [id number] [place] [address] Jan, [facility] [place] [facility] [address] [id number] [place] [address] Jan, [facility] [place] [facility] [address] [id number] [place] [address] Jan, [facility] [place] [facility] [address] [id number] [place] [address] Dec, [facility] [place] [facility] [address] [id number] [place] [address] Dec, [facility] [place] [facility] [address] [id number] [place] [address] Dec, [facility] [place] [facility] [address] [id number] [place] [address] Dec, [facility] [place] [facility] [address] [id number], [place] [address] Dec, [facility] [address] [id number] [place] [address] Dec, [facility] [address] [facility] [id number] [place] [address] Nov, [facility] [address] [facility] [id number] [place] [address] Oct, [facility] [place] [facility] [address] [id number] [place] [address] Oct, [facility] [address] [id number] [place] [address] Oct, [facility] [address] [id number] [place] [address] Oct, [facility] [address] [facility] [id number] [place] [address] Oct, [facility] [place] [facility] [address] [id number] [place] [address] Oct, [facility] [address] [facility] [id number] [place] [address] Sep, [facility] [address] [facility] [id number] [place] [address] Sep, [facility] [address] [id number] [place] [address] Sep, [facility] [place] [facility] [address] [id number] [place] [address] Jul, [facility] [place] [facility] [address] [id number] [place] [address] Jun, [facility] [place] [facility] [address] [id number] [place] [address] Jun, [facility] [place] [facility] [address] [facility] [id number] [place] [address] Jun, [facility] [place] [facility] [address] [id number] [place] [address] 16 May, 2013 [facility] [place] [facility] [address] [id number] [place] [address] 15 May, 2013 [facility] [place] [facility] [address] [id number] [place] [address] 08 May, 2013 [facility] [place] [facility] [address] [id number] [place] [address] Apr, [facility] [place] [facility] [address] [id number] [place] [address] Apr, [facility] [place] [facility] [address] [id number] [place] [address] Apr, [facility] [place] [facility] [address] [id number] [place] [address] Apr, [facility] [place] [facility] [address] [id number] [place] [address] March, [facility] [address] [id number] [place] [address] March, [facility] [place] [facility] [address] [id number] [place] [address] March, [facility] [place] [facility] [address] [id number] [place] [address] March, [facility] [place] [facility] [address] [id number] [place] [address] 24 Feb, 2013 [facility] [place] [facility] [address] [id number] [place] [address] Feb, [facility] [place] [facility] [address] [id number] [place] [address] 15 Feb, 2013 [facility] [place] [facility] [address] [id number] [place] [address] 10 Feb, 2013 [facility] [place] [facility] [address] [id number] [place] [address] 08 Feb, 2013 [facility] [place] [facility] [address] [id number] [place] [address] 04 Feb, 2013 [facility] [place] [facility] [address] [id number] [place] [address] 28 Jan, 2013 [facility] [place] [facility] [address] [id number] [place] [address] 13 Jan, 2013 [facility] [place] [facility] [address] [id number] [place] [address] 16 Nov, 2012 [facility] [place] [facility] [address] [id number] [place] [address] 15 Nov, 2012 [facility] [place] [facility] [address] [id number] [place] [address] Nov, [facility] [place] [facility] [address] [id number] [place] [address] Nov, [facility] [place] [facility] [address] [id number], [place] [address] Sep, [facility] [place] [facility] [address] [id number], [place] [address] Sep, [facility] [place] [facility] [address] [id number], [place] [address] Sep, [facility] [place] [facility] [address] [id number], [place] [address] Sep, [facility] [place] [facility] [address] [id number], [place] [address] Aug, [facility] [place] [facility] [address] [id number], [place] [address] Aug, [facility] [place] [facility] [address] [id number], [place] [address] 09 Aug, 2012 [facility] [facility] [address] [id number], [place] [address] Jul, [facility] [place] [facility] [address] [id number] [place] [address] 11 Jul, 2012 [facility] [address] [id number] [place] [address] Jul, [facility] [place] [facility] [address] [id number] [place] [address] Jun, [facility] [address] [id number] [place] [address] Jun, [facility] [place] [facility] [address] [id number] [place] [address] May, [facility] [address] [id number] [place] [address] May, [facility] [address] [id number] [place] [address] May, [facility] [address] [id number] [place] [address] Apr, [facility] [address] [id number] [place] [address] March, [facility] [address] [id number] [place] [address] Feb, [facility] [address] [id number] [place] [address] Feb, [facility] [address] [id number] [place] [address] Dec, [facility] [address] [id number] [place] [address] Oct, [facility] [address] [id number] [place] [address] Aug, [facility] [place] [facility] [address] [id number] [place] [address] Aug, [facility] [address] [id number] [place] [address] Aug, [facility] [address] [id number] [place] [address] 10 Aug, 2011 [facility] [address] [id number] [place] [address] 10 Aug, 2011 [facility] [address] [id number] [place] [address] Oct, [facility] [address] [id number] [place] [address] Sep, [facility] [address] [id number] [place] [address] Sep, [facility] [address] [id number] [place] [address] Sep, [facility] [address] [id number] [place] [address] Sep, [facility] [address] [id number] [place] [address] Aug, [facility] [place] [facility] [address] [id number] [place] [address] Aug, [facility] [address] [id number] [place] [address] Aug, [facility] [address] [id number] [place] [address] 18 Aug, 2010 [facility] [address] [id number], [place] [address] Aug, [facility] [address] [id number] [place] [address] Aug, [facility] [address] [id number], [place] [address] Nov, [facility] [address] [id number], [place] [address] 15 Oct, 2009 [facility] [address] [id number], [place] [address] Oct, [facility] [address] [facility] [id number] [place] [address] Sep, [facility] [address] [facility] [id number] [place] [address] Jul, IMMUNIZATIONS No Known Immunizations SOCIAL HISTORY Never Assessed REASON FOR VISIT Lab results PLAN OF CARE VITAL SIGNS MEDICATIONS Medication Instructions Dosage Frequency Start Date End Date Duration Status Levothyroxine Sodium 125 MCG Orally Once a day 1 tablet on an empty stomach in the morning 24h Nov, 30 days Active RESULTS No Results PROCEDURES No [...]
--- OUTSIDE RECORDS SUMMARY | 2019-06-16 22:58 | XMS REPORT ---
Author Author NANO GILLIS [facility] eClinicalWorks Address Unknown Phone Unavailable Care Team Providers Care Structural Design Engineer Name Role Phone NANO GILLIS Unavailable Allergies No Known Allergies Problems Problem Type Condition ICD-9 Code Onset Dates Condition Status Problem Retained (old) foreign body, intraocular, unspecified 360.60 Active Problem Umbilical hernia without mention of obstruction or gangrene 553.1 Active Problem Other abnormal glucose 790.29 Active Problem Abdominal pain, unspecified site 789.00 Active Problem Pain in joint, shoulder region 719.41 Active Problem Unspecified ventral hernia without mention of obstruction or gangrene 553.20 Active Problem Osteoarthrosis, unspecified whether generalized or localized, hand 715.94 Active Problem Lesion of sciatic nerve 355.0 Active Problem Need for prophylactic vaccination and inoculation, Influenza V04.81 Active Problem Impotence of organic origin 607.84 Active Assessment Hypothyroidism 244.9 Active Problem Sacroiliitis, not elsewhere classified 720.2 Active Problem Gout, unspecified 274.9 Active Medications Medication Code System Code Instructions Start Date End Date Status Dosage Levothyroxine Sodium [facility] [address]-51 112 MCG Orally Once a day May 11, 2015 1 tablet Results No Known Results Summary Purpose eClinicalWorks Submission
--- OUTSIDE RECORDS SUMMARY | 2019-06-16 22:58 | XMS REPORT ---
Author Author BECK POLLOCK Organization [facility] Address [address] [place] [address] Care Team Providers Care Journeyman Pressman Name Role Phone BECK POLLOCK Unavailable PROBLEMS Type Condition ICD9-CM Code [id number] Code Onset Dates Condition Status SNOMED Code Problem Degenerative disc disease, lumbar M51.36 Active 56223529 Problem Gout M10.9 Active 35892658 Problem Unspecified kidney failure N19 Active 94215996 Problem Hypertension I10 Active 57173434 Problem Depression F32.9 Active 72805371 Problem Hypothyroid E03.9 Active 52004337 Problem Anxiety F41.9 Active 77093421 Problem Hypercholesterolemia E78.0 Active 16658691 ALLERGIES No Information SOCIAL HISTORY Never Assessed PLAN OF CARE VITAL SIGNS MEDICATIONS Medication Instructions Dosage Frequency Start Date End Date Duration Status Lipitor 40 MG Orally Once a day [...]
--- OUTSIDE RECORDS SUMMARY | 2019-06-16 22:58 | XMS REPORT ---
Author Author BECK POLLOCK [facility] eClinicalWorks Address Unknown Phone Unavailable Care Team Providers Care Coin Purse Assembler Name Role Phone BCEK POLLOCK Unavailable Allergies No Known Allergies Problems Problem Type Condition Code Onset Dates Condition Status Problem Abdominal pain, unspecified site 789.00 Active Problem Gout M10.9 Active Problem Unspecified ventral hernia without mention of obstruction or gangrene 553.20 Active Problem Hypothyroid E03.9 Active Problem Degenerative disc disease, lumbar M51.36 Active Problem Unspecified kidney failure N19 Active Problem Depression F32.9 Active Problem Anxiety F41.9 Active Problem Hypertension I10 Active Problem Hypercholesterolemia E78.0 Active Problem Retained (old) foreign body, intraocular, unspecified 360.60 Active Problem Other abnormal glucose 790.29 Active Problem Sacroiliitis, not elsewhere classified 720.2 Active Problem Gout, unspecified 274.9 Active Problem Osteoarthrosis, unspecified whether generalized or localized, hand 715.94 Active Problem Impotence of organic origin 607.84 Active Problem Umbilical hernia without mention of obstruction or gangrene 553.1 Active Problem Need for prophylactic vaccination and inoculation, Influenza V04.81 Active Problem Lesion of sciatic nerve 355.0 Active Problem Pain in joint, shoulder region 719.41 Active Medications Medication Code System Code Instructions Start Date End Date Status Dosage Vicoprofen [facility] [place] [address]-69 7.5-200 MG Orally 2 times a day Oct 13, 2015 Nov 12, 2015 1 tablet Results No Known Results Summary Purpose eClinicalWorks Submission
--- OUTSIDE RECORDS SUMMARY | 2019-06-16 22:58 | XMS REPORT ---
Author Author NANO GILLIS [facility] eClinicalWorks Address Unknown Phone Unavailable Care Team Providers Care Academic Hospitalist Name Role Phone NANO GILLIS Unavailable Allergies No Known Allergies Problems Problem Type Condition ICD-9 Code Onset Dates Condition Status Problem Retained (old) foreign body, intraocular, unspecified 360.60 Active Problem Umbilical hernia without mention of obstruction or gangrene 553.1 Active Problem Other abnormal glucose 790.29 Active Problem Sacroiliitis, not elsewhere classified 720.2 Active Problem Gout, unspecified 274.9 Active Problem Abdominal pain, unspecified site 789.00 Active Problem Pain in joint, shoulder region 719.41 Active Problem Unspecified ventral hernia without mention of obstruction or gangrene 553.20 Active Problem Osteoarthrosis, unspecified whether generalized or localized, hand 715.94 Active Problem Lesion of sciatic nerve 355.0 Active Problem Need for prophylactic vaccination and inoculation, Influenza V04.81 Active Problem Impotence of organic origin 607.84 Active Medications No Known Medications Results No Known Results Summary Purpose eClinicalWorks Submission
--- OUTSIDE RECORDS SUMMARY | 2019-06-16 22:58 | XMS REPORT ---
Author Author NANO GILLIS [facility] eClinicalWorks Address Unknown Phone Unavailable Care Team Providers Care Battery Test Engineer Name Role Phone NANO GILLIS CP Unavailable Allergies, Adverse Reactions, Alerts Substance Reaction Event Type N.K.D.A. Info Not Available Non Drug Allergy Problems Problem Type Condition ICD-9 Code Onset [...] Impotence of organic origin 607.84 Active Assessment Facial skin lesion 709.9 Active Assessment Pain in joint, shoulder region 719.41 Active Assessment Hypothyroidism 244.9 Active Assessment High risk medication use V58.69 Active Problem Sacroiliitis, not elsewhere classified 720.2 Active Assessment Sacroiliitis, not elsewhere classified 720.2 Active Problem Gout, unspecified 274.9 Active Medications Medication Code System Code Instructions Start Date End Date Status Dosage Levothyroxine Sodium [facility] [address]-54 100 MCG Orally Once a day May 11, 2015 1 tablet Lasix [facility] [address]-35 20 MG Orally Once every other day May 11, 2015 1 tablet Lisinopril-Hydrochlorothiazide [facility] [address]-22 20-25 MG Orally Once a day 1 tablet Prozac [facility] [address]-51 20 MG Orally Once a day 1 capsule in the morning Lipitor [facility] [address]-22 40 MG Orally Once a day 1 tablet propranolol [facility] 0 20 mg 2 times a day Sep 30, 2014 1 tab Zyprexa [facility] [address]-41 5 MG Orally Once a day 1 tablet Depakote [facility] [address]-58 250 MG Orally Once a day 1 tablet ASA NDC 0 Oral 1 tab Depakote [facility] [address]-28 500 MG Orally Once a day 1 tablet BuSpar NDC 0 15 mg daily 1 tablet Gemfibrozil [facility] [address]-19 600 MG Orally 2 times a day Oct 27, 2014 1 tablet Procedures Procedure Coding System Code Date ASSAY OF FREE THYROXINE CPT-4 15187 Jul 20, 2015 LIPID PANEL CPT-4 99211 Jul 20, 2015 ASSAY THYROID STIM HORMONE CPT-4 96323 Jul 20, 2015 VENIPUNCT, ROUTINE* CPT-4 75823 Jul 20, 2015 COMPLETE CBC W/AUTO DIFF WBC CPT-4 61958 Jul 20, 2015 COMPREHEN METABOLIC PANEL CPT-4 68171 Jul 20, 2015 Office Visit, Est Pt., Level 4 CPT-4 77100 Jul 20, 2015 ASSAY, DIPROPYLACETIC ACID CPT-4 92456 Jul 20, 2015 Vital Signs Date/Time: Jul 20, 2015 Temperature 97.4 F Weight 239.0 lbs Height 70 in BMI 34.29 Index Blood Pressure Diastolic 70 mmHg Blood Pressure Systolic 112 mmHg Cardiac Monitoring Heart Rate 68 bpm Results Name Result Date Reference Range Unit Abnormality Flag ROUTINE VENIPUNCTURE Summary Purpose eClinicalWorks Submission
--- OUTSIDE RECORDS SUMMARY | 2019-06-16 22:59 | XMS REPORT ---
Author Author BECK POLLOCK [facility] eClinicalWorks Address Unknown Phone Unavailable Care Team Providers Care Pile Driving Supervisor Name Role Phone PHILL BECK CP Unavailable Allergies No Known Allergies Problems Problem Type Condition Code Onset Dates Condition Status Problem Sacroiliitis, not elsewhere classified 720.2 Active Problem Anxiety F41.9 Active Problem Gout M10.9 Active Assessment Unspecified kidney failure N19 Active Problem Unspecified kidney failure N19 Active Problem Hypothyroid E03.9 Active Problem Other intermodal dispatcher (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.899 Active Problem Hypercholesterolemia E78.0 Active Problem Depression F32.9 Active Problem Degenerative disc disease, lumbar M51.36 Active Problem Hypertension I10 Active Medications No Known Medications Procedures Procedure Coding System Code Date VENIPUNCT, ROUTINE* CPT-4 68010 March 09, [address] [facility] CPT-4 NOBLL March 09, 2016 Results Name Result Date Reference Range Unit Abnormality Flag UA W/ MICROSCOPY ----Urobilinogen,Semi-Qn 0.2 80305171 0.2-1.0 mg/dL ----Bilirubin Negative 40436032 Negative ----Urine-Color Yellow 48288001 Yellow ----Bacteria None seen [id number] None seen/Few ----Appearance Clear [id number] Clear ----Mucus Threads Present [id number] Not Estab. ----WBC Esterase 1+ 72355109 Negative A ----Epithelial Cells (non renal) 0-10 65686729 0 - 10 /hpf ----Protein Negative [id number] Negative/Trace ----RBC 0-2 91405341 0 - 2 /hpf ----Glucose Negative 02042480 Negative ----WBC 6-10 15716711 0 - 5 /hpf A ----Ketones Negative 00274482 Negative ----Specific [place] 1.017 39931641 1.005-1.030 ----Occult Blood Negative [id number] Negative ----Microscopic Examination See below: [id number] ----pH 5.5 21587851 5.0-7.5 ----Nitrite, Urine Negative 14079320 Negative CBC ----Basos 1 80092374 % ----MCV 84 69610940 79-97 fL ----Hematocrit 41.5 96683597 37.5-51.0 % ----Eos 3 22985068 % ----MCHC 35.2 03361421 31.5-35.7 g/dL ----Monocytes 9 32893715 % ----MCH 29.6 53164482 26.6-33.0 pg ----Lymphs 32 08937564 % ----Eos (Absolute) 0.3 57691002 0.0-0.4 x10E3/uL ----WBC 9.5 50372338 3.4-10.8 x10E3/uL ----Monocytes(Absolute) 0.8 82144632 0.1-0.9 x10E3/uL ----Lymphs (Absolute) 3.0 20393606 0.7-3.1 x10E3/uL ----Hemoglobin 14.6 03132575 12.6-17.7 g/dL ----Neutrophils (Absolute) 5.3 35429310 1.4-7.0 x10E3/uL ----RBC 4.93 83687141 4.14-5.80 x10E6/uL ----Immature Grans (Abs) 0.0 23987241 0.0-0.1 x10E3/uL ----Immature Granulocytes 0 72216929 % ----Neutrophils 55 45390486 % ----Baso (Absolute) 0.1 23705983 0.0-0.2 x10E3/uL ----RDW 14.2 89427075 12.3-15.4 % ----Platelets 320 65193050 150-379 x10E3/uL ROUTINE VENIPUNCTURE URINE PROTEIN TO CREATININE RATIO ----Protein,Total,Urine 21.6 75811883 0.0-15.0 mg/dL H ----Protein/Creat Ratio 92 29013387 0-200 mg/g creat ----Creatinine, Urine 235.1 23049126 22.0-328.0 mg/dL RENAL PROFILE ----Potassium, Serum 4.7 09349461 3.5-5.2 mmol/L ----Sodium, Serum 138 88734543 134-144 mmol/L ----BUN/Creatinine Ratio 13 23488507 9-20 ----eGFR If Africn Am 71 22992943 >59 mL/min/1.73 ----eGFR If NonAfricn Am 61 17100012 >59 mL/min/1.73 ----Creatinine, Serum 1.32 25452145 0.76-1.27 mg/dL H ----BUN 17 61864081 6-24 mg/dL ----Glucose, Serum 103 44656495 65-99 mg/dL H ----Carbon Dioxide, Total 21 41574801 18-29 mmol/L ----Calcium, Serum 9.9 88473577 8.7-10.2 mg/dL ----Phosphorus, Serum 3.7 03593675 2.5-4.5 mg/dL ----Albumin, Serum 5.0 52874441 3.5-5.5 g/dL ----Chloride, Serum 97 39845497 97-108 mmol/L Summary Purpose eClinicalWorks Submission
--- OUTSIDE RECORDS SUMMARY | 2019-06-16 22:59 | XMS REPORT ---
Author Author BECK POLLOCK [facility] eClinicalWorks Address Unknown Phone Unavailable Care Team Providers Care Dehydrator Operator Name Role Phone BECK POLLOCK Unavailable Allergies No Known Allergies Problems Problem Type Condition Code Onset Dates Condition Status Problem Gout M10.9 Active Problem Depression F32.9 Active Problem Anxiety F41.9 Active Problem Sacroiliitis, not elsewhere classified 720.2 Active Problem Other [facility] (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.899 Active Problem Unspecified kidney failure N19 Active Problem Pain in unspecified shoulder M25.519 Active Problem Hypertension I10 Active Problem Hypercholesterolemia E78.0 Active Problem Hypothyroid E03.9 Active Problem Degenerative disc disease, lumbar M51.36 Active Medications Medication Code System Code Instructions Start Date End Date Status Dosage Vicoprofen [facility] [address]-98 7.5-200 MG Orally 2 times a day Oct 13, 2015 1 tablet Results No Known Results Summary Purpose eClinicalWorks Submission
--- OUTSIDE RECORDS SUMMARY | 2019-06-16 22:59 | XMS REPORT ---
Author Author BECK POLLOCK [facility] eClinicalWorks Address Unknown Phone Unavailable Care Team Providers Care Lining Folder Name Role Phone BECK POLLOCK Unavailable Allergies No Known Allergies Problems Problem Type Condition Code Onset Dates Condition Status Problem Gout M10.9 Active Problem Depression F32.9 Active Problem Anxiety F41.9 Active Problem Sacroiliitis, not elsewhere classified 720.2 Active Problem Other [facility] (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.899 Active Problem Unspecified kidney failure N19 Active Problem Pain in unspecified shoulder M25.519 Active Problem Hypertension I10 Active Problem Hypercholesterolemia E78.0 Active Problem Hypothyroid E03.9 Active Problem Degenerative disc disease, lumbar M51.36 Active Medications Medication Code System Code Instructions Start Date End Date Status Dosage Allopurinol [facility] [address]-82 300 MG orally TAKE ONE TABLET BY MOUTH ONCE DAILY Levothyroxine Sodium [facility] 58137302704 112 MCG Orally Once a day 1 tablet Results No Known Results Summary Purpose eClinicalWorks Submission
--- OUTSIDE RECORDS SUMMARY | 2019-06-16 22:59 | XMS REPORT ---
Author Author AMILCAR JARROD Organization [facility] Address [address] [place] [address] Care Team Providers Care Termite Technician Name Role Phone JARROD FITZGERALD Unavailable PROBLEMS Type Condition ICD9-CM Code EUD36-OC Code Onset Dates Condition Status SNOMED Code Problem Gout M10.9 Active 20426682 Problem Hypothyroid E03.9 Active 94735349 Problem Degenerative disc disease, lumbar M51.36 Active 43053686 Problem Elevated fasting glucose R73.01 Active 72563867 Problem Chronic pain syndrome G89.4 Active 753460169 Problem Unspecified kidney failure N19 Active 58365678 Problem Hypercholesterolemia E78.0 Active 62076776 Problem Depression F32.9 Active 74359015 Problem Hypertension I10 Active 16660177 Problem Anxiety F41.9 Active 90706262 ALLERGIES No Known Allergies ENCOUNTERS Encounter Location Date Diagnosis [place] [id number] [address] Apr, [facility] [address] [address] Jan, Hypothyroid E03.9 and Elevated fasting glucose R73.01 [facility] [address] [place] [id number] [place] [address] Jan, Hypercholesterolemia E78.0 [facility] [address] [place] [id number] [place] [address] Dec, Hypertension I10 ; Hypercholesterolemia E78.0 ; Hypothyroid E03.9 and Gout M10.9 [facility] [address] [address] 15 Dec, 2017 Hypertension I10 ; Hypercholesterolemia E78.0 ; Hypothyroid E03.9 ; Depression F32.9 ; Anxiety F41.9 ; Gout M10.9 ; Chronic pain syndrome G89.4 ; Controlled substance agreement broken Z91.14 and Controlled substance agreement terminated Z91.14 [facility] [address] [address] Sep, Degenerative disc disease, lumbar M51.36 [facility] [address] [place] [id number] [place] [address] Sep, Degenerative disc disease, lumbar M51.36 [facility] [address] [address] Aug, Hypertension I10 ; Hypercholesterolemia E78.0 ; Hypothyroid E03.9 ; Depression F32.9 ; Gout M10.9 ; Anxiety F41.9 and Degenerative disc disease, lumbar M51.36 [facility] [address] [address] Jul, [facility] [address] [address] Jul, [facility] [address] [address] Jun, [facility] [address] [address] Jun, Gout M10.9 [facility] [address] [place] [id number] [place] [address] May, Hypertension I10 and Hypercholesterolemia E78.0 [facility] [address] [place] [id number] [place] [address] May, [facility] [address] [address] May, Dental examination Z01.20 [facility] [address] [place] [id number] [place] [address] Apr, [facility] [address] [place] [id number] [place] [address] March, [facility] [id number] [place] [address] March, [facility] [id number] [place] [id number] March, [facility] [address] [place] [id number] [place] [address] March, [facility] [address] [place] [id number] [place] [address] Feb, [facility] [address] [place] [id number] [place] [address] Feb, [facility] [address] [address] Feb, Degenerative disc disease, lumbar M51.36 [facility] [address] [place] [id number] [place] [address] Feb, Hypothyroid E03.9 ; Hypertension I10 ; Anxiety F41.9 ; Hypercholesterolemia E78.0 ; Depression F32.9 ; Gout M10.9 and Degenerative disc disease, lumbar M51.36 [facility] [address] [place] [id number] [place] [address] Feb, Encounter for dental examination and cleaning without abnormal findings Z01.20 [facility] [address] [place] [id number] [place] [address] Jan, Encounter for dental examination Z01.20 [facility] [address] [place] [id number] [place] [address] Jan, [facility] [id number] [place] [id number] Jan, Hypercholesterolemia E78.0 [facility] [address] [place] [id number] [place] [address] Jan, Degenerative disc disease, lumbar M51.36 [facility] [address] [place] [id number] [place] [address] Dec, [facility] [address] [place] [id number] [place] [address] 10 Dec, 2016 Degenerative disc disease, lumbar M51.36 ; Hypercholesterolemia E78.0 ; Depression F32.9 ; Hypothyroid E03.9 and Hypertension I10 [facility] [address] [place] [id number] [place] [address] 09 Dec, 2016 Degenerative disc disease, lumbar M51.36 [facility] [address] [place] [id number] [place] [id number] Dec, 2016 Dental examination Z01.20 [facility] [address] [place] [id number] [place] [address] Nov, Dental examination Z01.20 [facility] [address] [place] [id number] [place] [address] Nov, Degenerative disc disease, lumbar M51.36 [facility] [address] [place] [id number] [place] [address] Nov, Hypertension I10 ; Hypothyroid E03.9 ; Degenerative disc disease, lumbar M51.36 ; Gout M10.9 ; Unspecified kidney failure N19 ; Anxiety F41.9 ; Depression F32.9 and Hypercholesterolemia E78.0 [facility] [id number] [place] [address] Oct, [facility] [address] [place] [id number] [place] [address] Sep, [facility] [address] [place] [id number] [place] [address] Aug, [facility] [address] [place] [id number] [place] [address] Jul, [facility] [address] [place] [id number] [place] [address] Jun, [facility] [address] [place] [id number] [place] [address] Jun, [facility] [id number] [place] [address] May, [facility] [address] [place] [id number] [place] [address] May, [facility] [address] [place] [id number] [place] [address] May, [place] [address] [place] [id number] [place] [address] Apr, Pain in unspecified shoulder M25.519 [place] [address] [place] [id number] [place] [address] Apr, Degenerative disc disease, lumbar M51.36 ; Hypertension I10 ; Unspecified kidney failure N19 ; Gout M10.9 ; Depression F32.9 ; Hypothyroid E03.9 ; Anxiety F41.9 ; 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 and Combined hyperlipidemia E78.2 [place] [address] [place] [id number] [place] [address] Apr, Gout M10.9 and Pain in unspecified shoulder M25.519 [place] [address] [place] [id number] [place] [address] March, Degenerative disc disease, lumbar M51.36 [place] [address] [place] [id number] [place] [address] Feb, Hypercholesterolemia E78.0 ; Hypothyroid E03.9 ; Gout M10.9 and Anxiety F41.9 [place] [address] [place] [address] Feb, [place] [address] [place] [id number] [place] [address] Feb, Unspecified kidney failure N19 [place] [address] [place] [id number] [place] [address] Feb, Unspecified kidney failure N19 [place] [address] [place] [id number] [place] [address] Feb, [facility] [id number] [place] [address] Feb, [facility] [address] [place] [id number] [place] [address] Jan, [facility] [address] [place] [id number] [place] [address] Dec, Sacroiliitis, not elsewhere classified 720.2 ; Hypercholesterolemia E78.0 ; Depression F32.9 ; Anxiety F41.9 ; Gout M10.9 ; Unspecified kidney failure N19 ; Hypothyroid E03.9 ; Degenerative disc disease, lumbar M51.36 and 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 [facility] [address] [place] [id number] [place] [address] Dec, [facility] [address] [place] [id number] [place] [address] Nov, [facility] [address] [place] [id number] [place] [address] Nov, [facility] [address] [place] [id number] [place] [address] Nov, [facility] [address] [place] [id number] [place] [address] Oct, [facility] [address] [place] [id number] [place] [address] Sep, [facility] [address] [place] [id number] [place] [address] Sep, Hypothyroid E03.9 ; Sacroiliitis, not elsewhere classified 720.2 ; Degenerative disc disease, lumbar M51.36 ; Hypercholesterolemia E78.0 ; Depression F32.9 ; Anxiety F41.9 ; Gout M10.9 ; HTN (hypertension) I10 and Hypothyroidism 244.9 [facility] [address] [place] [address] Aug, Unspecified kidney failure N19 ; Hypothyroid E03.9 ; Hypertension I10 ; Anxiety F41.9 and Gout M10.[address] [address] Aug, Seborrheic keratosis L82.1 and Nevus D22.[address] [address] Aug, [place] [address] [address] Aug, [address] [address] Aug, Hypothyroid E03.9 ; Degenerative disc disease, lumbar M51.36 ; Hypertension I10 ; Hypercholesterolemia E78.0 ; Depression F32.9 ; Anxiety F41.9 and Gout M10.[address] [address] Aug, [place] [address] [address] Jun, [address] [address] Jun, Hypothyroidism 244.[address] [address] Jun, Hypothyroidism 244.9 ; Pain in joint, shoulder region 719.41 ; Sacroiliitis, not elsewhere classified 720.2 ; High risk medication use V58.69 and Facial skin lesion 709.[address] [address] Apr, Hypothyroidism 244.9 ; Aggressive behavior of adult 301.3 and Edema 782.[address] [address] March, [address] [address] 14 Feb, 2015 [facility] [place] [facility] [address] [id number] [place] [address] Feb, [facility] [place] [facility] [address] [id number] [place] [address] Jan, [facility] [place] [facility] [address] [id number] [place] [address] Jan, [facility] [place] [facility] [address] [id number] [place] [address] Jan, [facility] [place] [facility] [address] [id number] [place] [address] Jan, [facility] [place] [facility] [address] [id number] [place] [address] Dec, [facility] [place] [facility] [address] [id number] [place] [address] Dec, [facility] [place] [facility] [address] [id number] [place] [address] Nov, [facility] [place] [facility] [address] [id number] [place] [address] Nov, [facility] [place] [facility] [address] [id number] [place] [address] Nov, [facility] [place] [facility] [address] [id number], [place] [address] Nov, [facility] [place] [facility] [address] [id number], [place] [address] Nov, [facility] [place] [facility] [address] [id number] [place] [address] Nov, [facility] [place] [facility] [address] [id number] [place] [address] Oct, [facility] [place] [facility] [address] [id number] [place] [address] Oct, [facility] [place] [facility] [address] [id number] [place] [address] Sep, [facility] [place] [facility] [address] [id number] [place] [address] Sep, [facility] [place] [facility] [address] [id number] [place] [address] Sep, [facility] [place] [facility] [address] [id number] [place] [address] Sep, [facility] [place] [facility] [address] [id number] [place] [address] Sep, [facility] [place] [facility] [address] [id number] [place] [address] Sep, [facility] [place] [facility] [address] [id number] [place] [address] Aug, [facility] [place] [facility] [address] [id number] [place] [address] Aug, [facility] [place] [facility] [address] [id number] [place] [address] Aug, [facility] [place] [facility] [address] [id number] [place] [address] Aug, [facility] [place] [facility] [address] [facility] [id number] [place] [address] Aug, [facility] [place] [facility] [address] [id number] [place] [address] 02 Aug, 2014 [facility] [place] [facility] [address] [id number] [place] [address] 16 Jul, 2014 [facility] [place] [facility] [address] [id number] [place] [address] 16 Jul, 2014 [facility] [place] [facility] [address] [id number] [place] [address] 15 Jul, 2014 [facility] [place] [facility] [address] [id number] [place] [address] Jul, [facility] [place] [facility] [address] [id number] [place] [address] Jul, [facility] [place] [facility] [address] [id number] [place] [address] Jul, [facility] [place] [facility] [address] [id number] [place] [address] Jun, [facility] [place] [facility] [address] [id number] [place] [address] Jun, [facility] [place] [facility] [address] [id number] [place] [address] May, [facility] [place] [facility] [address] [id number] [place] [address] May, [facility] [place] [facility] [address] [id number] [place] [address] May, [facility] [place] [facility] [address] [id number] [place] [address] May, [facility] [place] [facility] [address] [id number] [place] [address] May, [facility] [place] [facility] [address] [id number] [place] [address] May, [facility] [place] [facility] [address] [id number] [place] [address] Apr, [facility] [place] [facility] [address] [id number] [place] [address] Apr, [facility] [place] [facility] [address] [id number] [place] [address] Apr, [facility] [place] [facility] [address] [id number] [place] [address] Apr, [facility] [place] [facility] [address] [id number] [place] [address] Apr, [facility] [place] [facility] [address] [id number] [place] [address] Apr, [facility] [place] [facility] [address] [id number] [place] [address] Feb, [facility] [place] [facility] [address] [id number] [place] [address] Feb, [facility] [place] [facility] [address] [id number] [place] [address] Feb, [facility] [place] [facility] [address] [id number] [place] [address] Feb, [facility] [place] [facility] [address] [id number] [place] [address] Jan, [facility] [place] [facility] [address] [id number] [place] [address] Jan, [facility] [place] [facility] [address] [facility] [id number] [place] [address] Jan, [facility] [place] [facility] [address] [facility] [id number] [place] [address] Jan, [facility] [place] [facility] [address] [id number] [place] [address] Dec, [facility] [place] [facility] [address] [facility] [id number] [place] [address] Dec, [facility] [place] [facility] [address] [facility] [id number] [place] [address] Dec, [facility] [place] [facility] [address] [facility] [id number] [place] [address] Dec, [facility] [place] [facility] [address] [id number] [place] [address] Dec, [facility] [place] [facility] [address] [facility] [id number] [place] [address] Dec, [facility] [place] [facility] [address] [facility] [id number] [place] [address] Nov, [facility] [address] [id number] [place] [address] Oct, [facility] [place] [facility] [address] [id number] [place] [address] Oct, [facility] [place] [facility] [address] [id number] [place] [address] Oct, [facility] [place] [facility] [address] [id number] [place] [address] Oct, [facility] [place] [facility] [address] [id number] [place] [address] Oct, [facility] [place] [facility] [address] [id number] [place] [address] Oct, [facility] [place] [facility] [address] [id number] [place] [address] Sep, [facility] [place] [facility] [address] [id number] [place] [address] Sep, [facility] [place] [facility] [address] [id number] [place] [address] Sep, [facility] [place] [facility] [address] [id number] [place] [address] Jul, [facility] [place] [facility] [address] [id number] [place] [address] Jun, [facility] [place] [facility] [address] [id number], [place] [address] Jun, [facility] [place] [facility] [address] [id number] [place] [address] Jun, [facility] [place] [facility] [address] [id number] [place] [address] May, [facility] [place] [facility] [address] [id number], [place] [address] May, [facility] [place] [facility] [address] [id number], [place] [address] 08 May, 2013 [facility] [address] [id number] [place] [address] Apr, [facility] [address] [id number] [place] [address] 24 Apr, 2013 [facility] [address] [id number] [place] [address] Apr, [facility] [address] [id number] [place] [address] 05 Apr, 2013 [facility] [address] [id number] [place] [address] March, [facility] [address] [id number] [place] [address] March, [facility] [address] [id number] [place] [address] March, [facility] [address] [id number] [place] [address] March, [facility] [address] [id number] [place] [address] 24 Feb, 2013 [facility] [address] [id number] [place] [address] Feb, [facility] [address] [id number] [place] [address] 15 Feb, 2013 [facility] [place] [facility] [address] [id number] [place] [address] 10 Feb, 2013 [facility] [place] [facility] [address] [id number] [place] [address] 08 Feb, 2013 [facility] [place] [facility] [address] [id number] [place] [address] 04 Feb, 2013 [facility] [place] [facility] [address] [id number] [place] [address] Jan, [facility] [place] [facility] [address] [id number] [place] [address] 13 Jan, 2013 [facility] [place] [facility] [address] [id number] [place] [address] 16 Nov, 2012 [facility] [place] [facility] [address] [id number] [place] [address] 15 Nov, 2012 [facility] [place] [facility] [address] [id number] [place] [address] 11 Nov, 2012 [facility] [place] [facility] [address] [id number] [place] [address] Nov, [facility] [place] [facility] [address] [id number] [place] [address] Sep, [facility] [place] [facility] [address] [id number] [place] [address] Sep, [facility] [place] [facility] [address] [id number] [place] [address] Sep, [facility] [place] [facility] [address] [id number] [place] [address] Sep, [facility] [place] [facility] [address] [id number] [place] [address] Aug, [facility] [place] [facility] [address] [id number] [place] [address] Aug, [facility] [place] [facility] [address] [id number] [place] [address] 09 Aug, 2012 [facility] [place] [facility] [address] [id number] [place] [address] 26 Jul, 2012 [facility] [place] [facility] [address] [id number] [place] [address] 11 Jul, 2012 [facility] [place] [facility] [address] [id number] [place] [address] 04 Jul, 2012 [facility] [place] [facility] [address] [id number] [place] [address] Jun, [facility] [place] [facility] [address] [id number] [place] [address] Jun, [facility] [place] [facility] [address] [id number] [place] [address] May, [facility] [place] [facility] [address] [id number] [place] [address] May, [facility] [place] [facility] [address] [id number] [place] [address] May, [facility] [place] [facility] [address] [id number] [place] [address] Apr, [facility] [place] [facility] [address] [id number] [place] [address] March, [facility] [place] [facility] [address] [id number] [place] [address] Feb, [facility] [place] [facility] [address] [id number] [place] [address] Feb, [facility] [place] [facility] [address] [id number] [place] [address] Dec, [facility] [place] [facility] [address] [id number] [place] [address] Oct, [facility] [place] [facility] [address] [id number], [place] [address] Aug, [facility] [place] [facility] [address] [id number], [place] [address] Aug, [facility] [place] [facility] [address] [id number] [place] [address] Aug, [facility] [place] [facility] [address] [id number] [place] [address] Aug, [facility] [place] [facility] [address] [id number] [place] [address] Aug, [facility] [place] [facility] [address] [id number] [place] [address] 02 Oct, 2010 [facility] [address] [id number] [place] [address] Sep, [facility] [address] [id number] [place] [address] Sep, [facility] [address] [facility] [id number] [place] [address] Sep, [facility] [address] [id number] [place] [address] Sep, [facility] [address] [facility] [id number] [place] [address] Aug, [facility] [address] [facility] [id number] [place] [address] Aug, [facility] [address] [facility] [id number] [place] [address] Aug, [facility] [address] [facility] [id number] [place] [address] Aug, [facility] [address] [facility] [id number] [place] [address] Aug, [facility] [address] [facility] [id number], [place] [address] Aug, [facility] [address] [facility] [id number], [place] [address] Nov, [facility] [address] [facility] [id number], [place] [address] 15 Oct, 2009 [facility] [address] [facility] [id number], [place] [address] Oct, [facility] [address] [facility] [facility] [id number], [place] [address] Sep, [facility] [address] [facility] [id number], [place] [address] 11 Jul, 2009 IMMUNIZATIONS No Known Immunizations SOCIAL HISTORY Never Assessed REASON FOR VISIT HTN---Kaiden,STEPHANIE PLAN OF CARE Activity Details Follow Up 3 Months Reason:chm VITAL SIGNS Height 70 in 2017-09-04 Weight 241.7 lbs 2017-09-04 Temperature 98.4 degrees Fahrenheit 2017-09-04 Heart Rate 72 bpm 2017-09-04 Respiratory Rate 18 2017-09-04 BMI 34.68 kg/m2 2017-09-04 Blood pressure systolic 141 mmHg 2017-09-04 Blood pressure diastolic 82 mmHg 2017-09-04 MEDICATIONS Medication Instructions Dosage Frequency Start Date End Date Duration Status Lipitor 40 mg Orally Once a day 1 tablet 24h Nov, 90 days Active Allopurinol 300 MG Orally Once a day 1 tablet 24h Aug, Nov, 90 days Active Hydrocodone-Ibuprofen 7.5-200 MG Orally 3 times a day 1 tablet 8h Aug, 28 days Active Colcrys 0.6 MG Orally Once a day 1 tablet 24h 30 days Active Gemfibrozil 600 MG Orally 2 times a day 1 tablet 12h Oct, 90 days Active Depakote ER 250 MG Orally Once a day as directed 24h Nov, 90 days Active Prozac 10 mg Orally Once a day 1 capsule in the morning 24h Nov, 90 days Active Levothyroxine Sodium 112 MCG Orally Once a day 1 tablet on an empty stomach in the morning 24h Nov, 90 days Active BusPIRone HCl 15 MG Orally Twice a day 1 tablet 12h Nov, 90 days Active Depakote ER 500 mg Orally Once a day as directed 24h Nov, 90 days Active Propranolol HCl 20 mg Orally Twice a day 1 tablet 12h Nov, 90 days Active Zyprexa 5 mg Orally Once a day 1 tablet 24h Nov, 30 days Active RESULTS No Results PROCEDURES Procedure Date Ordered Result Body Site [facility] VISIT ESTABLISHED PATIENT Sep 04, 2017 INSTRUCTIONS MEDICATIONS ADMINISTERED No Known Medications MEDICAL [...]
--- OUTSIDE RECORDS SUMMARY | 2019-06-16 23:00 | XMS REPORT ---
Author Author BECK POLLOCK Organization [facility] Address [address] [place] [address] Care Team Providers Care Gauge Controller Name Role Phone BECK POLLOCK Unavailable PROBLEMS Type Condition ICD9-CM Code AIE90-YP Code Onset Dates Condition Status SNOMED Code Problem Anxiety F41.9 Active 59463945 Problem Hypercholesterolemia E78.0 Active 04815362 Problem Depression F32.9 Active 14515573 Problem Sacroiliitis, not elsewhere classified 720.2 Active 256387578 Problem Gout M10.9 Active 32424435 Problem Pain in unspecified shoulder M25.519 Active 753866884 Problem Other shelter (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.899 Active 897286405 Problem Degenerative disc disease, lumbar M51.36 Active 89837702 Problem Hypertension I10 Active 07395981 Problem Unspecified kidney failure N19 Active 44087760 Problem Hypothyroid E03.9 Active 41273454 ALLERGIES Unknown Allergies SOCIAL HISTORY No smoking Hx information available PLAN OF CARE VITAL SIGNS MEDICATIONS Medication Instructions Dosage Frequency Start Date End Date Duration Status Vicoprofen 7.5-200 MG Orally 2 times a day 1 tablet 12h 18 Sep, 2015 Active RESULTS No Results PROCEDURES No Known procedures IMMUNIZATIONS No Known Immunizations
--- OUTSIDE RECORDS SUMMARY | 2019-06-16 23:00 | XMS REPORT ---
Author Author BEKC Gant Organization [facility] Address [address] [place] [address] Care Team Providers Care Snow Shoveler Name Role Phone camilaCONNIE BECK Unavailable PROBLEMS Type Condition ICD9-CM Code AAA48-FU Code Onset Dates Condition Status SNOMED Code Problem Gout M10.9 Active 81574874 Problem Hypothyroid E03.9 Active 90962098 Problem Degenerative disc disease, lumbar M51.36 Active 57546973 Problem Elevated fasting glucose R73.01 Active 91688746 Problem Chronic pain syndrome G89.4 Active 010881026 Problem Unspecified kidney failure N19 Active 07259110 Problem Hypercholesterolemia E78.0 Active 00788414 Problem Depression F32.9 Active 47210021 Problem Hypertension I10 Active 03996568 Problem Anxiety F41.9 Active 72125944 ALLERGIES No Information ENCOUNTERS Encounter Location Date Diagnosis [facility] [address] [address] Jan, Hypothyroid E03.9 and Elevated fasting glucose R73.01 [facility] [address] [address] Jan, Hypercholesterolemia E78.0 [facility] [address] [address] Dec, Hypertension I10 ; Hypercholesterolemia E78.0 ; Hypothyroid E03.9 and Gout M10.9 [facility] [address] [address] Dec, Hypertension I10 ; Hypercholesterolemia E78.0 ; Hypothyroid E03.9 ; Depression F32.9 ; Anxiety F41.9 ; Gout M10.9 ; Chronic pain syndrome G89.4 ; Controlled substance agreement broken Z91.14 and Controlled substance agreement terminated Z91.14 [facility] [id number] [place] [address] Sep, Degenerative disc disease, lumbar M51.36 [facility] [address] [address] Sep, Degenerative disc disease, lumbar M51.36 [facility] [address] [address] Aug, Hypertension I10 ; Hypercholesterolemia E78.0 ; Hypothyroid E03.9 ; Depression F32.9 ; Gout M10.9 ; Anxiety F41.9 and Degenerative disc disease, lumbar M51.36 [facility] [address] [address] Jul, [facility] [address] [address] Jul, [facility] [address] [address] Jun, [facility] [address] [address] Jun, Gout M10.9 [facility] [id number] [place] [address] May, Hypertension I10 and Hypercholesterolemia E78.0 [place] [address] [address] May, [facility] [address] [address] May, Dental examination Z01.20 [facility] [address] [address] Apr, [facility] [address] [address] March, [facility] [address] [address] March, [facility] [address] [id number] [id number] March, [facility] [id number] [place] [address] March, [facility] [id number] [place] [address] Feb, [facility] [address] [address] Feb, [facility] [id number] [place] [address] Feb, Degenerative disc disease, lumbar M51.36 [facility] [id number] [place] [address] Feb, Hypothyroid E03.9 ; Hypertension I10 ; Anxiety F41.9 ; Hypercholesterolemia E78.0 ; Depression F32.9 ; Gout M10.9 and Degenerative disc disease, lumbar M51.36 [facility] [id number] [place] [address] Feb, Encounter for dental examination and cleaning without abnormal findings Z01.20 [facility] [id number] [place] [address] Jan, Encounter for dental examination Z01.20 [facility] [id number] [place] [address] Jan, [facility] [id number] [place] [address] Jan, Hypercholesterolemia E78.0 [facility] [id number] [place] [address] Jan, Degenerative disc disease, lumbar M51.36 [facility] [id number] [place] [address] Dec, [facility] [id number] [place] [address] Dec, Degenerative disc disease, lumbar M51.36 ; Hypercholesterolemia E78.0 ; Depression F32.9 ; Hypothyroid E03.9 and Hypertension I10 [facility] [id number] [place] [address] 09 Dec, 2016 Degenerative disc disease, lumbar M51.36 [facility] [id number] [place] [id number] 03 Dec, 2016 Dental examination Z01.20 [facility] [id number] [place] [address] Nov, Dental examination Z01.20 [facility] [id number] [place] [address] Nov, Degenerative disc disease, lumbar M51.36 [facility] [id number] [place] [address] Nov, Hypertension I10 ; Hypothyroid E03.9 ; Degenerative disc disease, lumbar M51.36 ; Gout M10.9 ; Unspecified kidney failure N19 ; Anxiety F41.9 ; Depression F32.9 and Hypercholesterolemia E78.0 [facility] [id number] [place] [address] Oct, [facility] [id number] [place] [address] Sep, [facility] [id number] [place] [address] Aug, [facility] [id number] [place] [address] Jul, [facility] [id number] [place] [address] Jun, [facility] [id number] [place] [address] Jun, [facility] [id number] [place] [address] May, [facility] [id number] [place] [address] May, [facility] [id number] [place] [address] May, [facility] [id number] [place] [address] Apr, Pain in unspecified shoulder M25.519 [facility] [id number] [place] [address] Apr, Degenerative disc disease, lumbar M51.36 ; Hypertension I10 ; Unspecified kidney failure N19 ; Gout M10.9 ; Depression F32.9 ; Hypothyroid E03.9 ; Anxiety F41.9 ; 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 and Combined hyperlipidemia E78.2 [place] [id number] [place] [address] Apr, Gout M10.9 and Pain in unspecified shoulder M25.519 [facility] [id number] [place] [address] March, Degenerative disc disease, lumbar M51.36 [place] [id number] [place] [address] Feb, Hypercholesterolemia E78.0 ; Hypothyroid E03.9 ; Gout M10.9 and Anxiety F41.9 [facility] [id number] [place] [address] Feb, [facility] [id number] [place] [address] Feb, Unspecified kidney failure N19 [facility] [id number] [place] [address] Feb, Unspecified kidney failure N19 [facility] [id number] [place] [address] Feb, [facility] [id number] [place] [address] Feb, [facility] [id number] [place] [address] Jan, [facility] [id number] [place] [address] Dec, Sacroiliitis, not elsewhere classified 720.2 ; Hypercholesterolemia E78.0 ; Depression F32.9 ; Anxiety F41.9 ; Gout M10.9 ; Unspecified kidney failure N19 ; Hypothyroid E03.9 ; Degenerative disc disease, lumbar M51.36 and 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 [facility] [address] [address] Dec, [facility] [id number] [place] [address] Nov, [facility] [id number] [place] [address] Nov, [facility] [id number] [place] [address] Nov, [facility] [id number] [place] [address] Oct, [facility] [id number] [place] [address] Sep, [facility] [id number] [place] [address] Sep, Hypothyroid E03.9 ; Sacroiliitis, not elsewhere classified 720.2 ; Degenerative disc disease, lumbar M51.36 ; Hypercholesterolemia E78.0 ; Depression F32.9 ; Anxiety F41.9 ; Gout M10.9 ; HTN (hypertension) I10 and Hypothyroidism 244.9 [facility] [id number] [place] [address] Aug, Unspecified kidney failure N19 ; Hypothyroid E03.9 ; Hypertension I10 ; Anxiety F41.9 and Gout M10.9 [facility] [id number] [place] [address] Aug, Seborrheic keratosis L82.1 and Nevus D22.9 [facility] [address] [address] Aug, [place] [address] [address] Aug, [place] [address] [address] Aug, Hypothyroid E03.9 ; Degenerative disc disease, lumbar M51.36 ; Hypertension I10 ; Hypercholesterolemia E78.0 ; Depression F32.9 ; Anxiety F41.9 and Gout M10.9 [place] [address] [address] Aug, [place] [address] [address] Jun, [place] [address] [address] Jun, Hypothyroidism 244.9 [place] [address] [address] Jun, Hypothyroidism 244.9 ; Pain in joint, shoulder region 719.41 ; Sacroiliitis, not elsewhere classified 720.2 ; High risk medication use V58.69 and Facial skin lesion 709.9 [place] [id number] [place] [address] Apr, Hypothyroidism 244.9 ; Aggressive behavior of adult 301.3 and Edema 782.[address] [address] March, [place] [address] [address] Feb, [address] [place] [address] Feb, [facility] [place] [facility] [address] [id number] [place] [address] Jan, [facility] [place] [facility] [address] [id number] [place] [address] Jan, [facility] [place] [facility] [address] [id number] [place] [address] Jan, [facility] [place] [facility] [address] [id number] [place] [address] Jan, [facility] [place] [facility] [address] [id number] [place] [address] Dec, [facility] [place] [facility] [address] [id number] [place] [address] Dec, [facility] [place] [facility] [address] [id number] [place] [address] Nov, [facility] [place] [facility] [address] [id number] [place] [address] Nov, [facility] [place] [facility] [address] [id number] [place] [address] Nov, [facility] [place] [facility] [address] [id number] [place] [address] Nov, [facility] [place] [facility] [address] [id number] [place] [address] Nov, [facility] [place] [facility] [address] [id number] [place] [address] Nov, [facility] [place] [facility] [address] [id number] [place] [address] Oct, [facility] [place] [facility] [address] [id number] [place] [address] Oct, [facility] [place] [facility] [address] [id number] [place] [address] Sep, [facility] [place] [facility] [address] [id number] [place] [address] Sep, [facility] [place] [facility] [address] [id number] [place] [address] Sep, [facility] [place] [facility] [address] [id number] [place] [address] Sep, [facility] [place] [facility] [address] [id number] [place] [address] Sep, [facility] [place] [facility] [address] [id number] [place] [address] Sep, [facility] [place] [facility] [address] [id number] [place] [address] Aug, [facility] [place] [facility] [address] [id number] [place] [address] Aug, [facility] [place] [facility] [address] [id number] [place] [address] Aug, [facility] [place] [facility] [address] [id number] [place] [address] Aug, [facility] [place] [facility] [address] [id number] [place] [address] Aug, [facility] [place] [facility] [address] [id number] [place] [address] Aug, [facility] [place] [facility] [address] [id number] [address] 16 Jul, 2014 [facility] [place] [facility] [address] [id number] [place] [address] 16 Jul, 2014 [facility] [place] [facility] [address] [id number] [place] [address] 15 Jul, 2014 [facility] [place] [facility] [address] [id number] [place] [address] 15 Jul, 2014 [facility] [place] [facility] [address] [id number] [address] Jul, [facility] [place] [facility] [address] [id number] [place] [address] Jul, [facility] [place] [facility] [address] [id number] [place] [address] Jun, [facility] [place] [facility] [address] [id number] [place] [address] Jun, [facility] [place] [facility] [address] [id number] [place] [address] May, [facility] [place] [facility] [address] [id number] [place] [address] May, [facility] [place] [facility] [address] [id number] [place] [address] May, [facility] [place] [facility] [address] [id number] [place] [address] May, [facility] [place] [facility] [address] [id number] [place] [address] May, [facility] [place] [facility] [address] [id number] [place] [address] May, [facility] [place] [facility] [address] [id number] [place] [address] Apr, [facility] [place] [facility] [address] [id number] [place] [address] Apr, [facility] [place] [facility] [address] [id number] [place] [address] Apr, [facility] [place] [facility] [address] [id number] [place] [address] Apr, [facility] [place] [facility] [address] [id number] [place] [address] Apr, [facility] [place] [facility] [address] [id number] [place] [address] Apr, [facility] [place] [facility] [address] [id number] [place] [address] Feb, [facility] [place] [facility] [address] [id number] [place] [address] Feb, [facility] [place] [facility] [address] [id number] [place] [address] Feb, [facility] [place] [facility] [address] [id number] [place] [address] Feb, [facility] [place] [facility] [address] [id number] [place] [address] Jan, [facility] [place] [facility] [address] [id number] [place] [address] Jan, [facility] [place] [facility] [address] [facility] [id number] [place] [address] Jan, [facility] [place] [facility] [address] [id number] [place] [address] Jan, [facility] [place] [facility] [address] [id number] [place] [address] Dec, [facility] [place] [facility] [address] [facility] [id number] [place] [address] Dec, [facility] [place] [facility] [address] [facility] [id number] [place] [address] Dec, [facility] [place] [facility] [address] [facility] [id number] [place] [address] Dec, [facility] [place] [facility] [address] [id number] [place] [address] Dec, [facility] [place] [facility] [address] [id number] [place] [address] Dec, [facility] [place] [facility] [address] [facility] [id number] [place] [address] Nov, [facility] [place] [facility] [address] [id number] [place] [address] Oct, [facility] [place] [facility] [address] [id number] [place] [address] Oct, [facility] [place] [facility] [address] [id number] [place] [address] Oct, [facility] [place] [facility] [address] [id number] [place] [address] Oct, [facility] [place] [facility] [address] [id number] [place] [address] Oct, [facility] [place] [facility] [address] [id number] [place] [address] Oct, [facility] [place] [facility] [address] [id number] [place] [address] Sep, [facility] [place] [facility] [address] [id number] [place] [address] Sep, [facility] [place] [facility] [address] [id number] [place] [address] Sep, [facility] [place] [facility] [address] [id number] [place] [address] Jul, [facility] [place] [facility] [address] [id number] [place] [address] Jun, [facility] [place] [facility] [address] [id number] [place] [address] Jun, [facility] [place] [facility] [address] [id number] [place] [address] Jun, [facility] [place] [facility] [address] [id number] [place] [address] May, [facility] [place] [facility] [address] [id number] [place] [address] May, [facility] [place] [facility] [address] [id number] [place] [address] May, [facility] [place] [facility] [address] [id number] [place] [address] Apr, [facility] [address] [id number] [place] [address] 24 Apr, 2013 [facility] [address] [id number] [place] [address] Apr, [facility] [address] [id number] [place] [address] Apr, [facility] [address] [id number] [place] [address] March, [facility] [address] [id number] [place] [address] March, [facility] [address] [id number] [place] [address] March, [facility] [address] [id number] [place] [address] March, [facility] [address] [id number] [place] [address] 24 Feb, 2013 [facility] [address] [id number] [place] [address] Feb, [facility] [address] [id number] [place] [address] 15 Feb, 2013 [facility] [address] [id number] [place] [address] 10 Feb, 2013 [facility] [address] [id number] [place] [address] 08 Feb, 2013 [facility] [address] [id number] [place] [address] 04 Feb, 2013 [facility] [address] [id number] [place] [address] 28 Jan, 2013 [facility] [address] [id number] [place] [address] 13 Jan, 2013 [facility] [place] [facility] [address] [id number] [place] [address] 16 Nov, 2012 [facility] [place] [facility] [address] [id number] [place] [address] 15 Nov, 2012 [facility] [place] [facility] [address] [id number] [place] [address] Nov, [facility] [place] [facility] [address] [id number] [place] [address] Nov, [facility] [place] [facility] [address] [id number] [place] [address] Sep, [facility] [place] [facility] [address] [id number] [place] [address] Sep, [facility] [place] [facility] [address] [id number] [place] [address] Sep, [facility] [place] [facility] [address] [id number] [place] [address] Sep, [facility] [place] [facility] [address] [id number] [place] [address] Aug, [facility] [place] [facility] [address] [id number] [place] [address] Aug, [facility] [place] [facility] [address] [id number] [place] [address] Aug, [facility] [place] [facility] [address] [id number] [place] [address] 26 Jul, 2012 [facility] [place] [facility] [address] [id number] [place] [address] 11 Jul, 2012 [facility] [place] [facility] [address] [id number] [place] [address] 04 Jul, 2012 [facility] [place] [facility] [address] [id number] [place] [address] 13 Jun, 2012 [facility] [place] [facility] [address] [id number] [place] [address] Jun, [facility] [place] [facility] [address] [id number] [place] [address] May, [facility] [place] [facility] [address] [id number] [place] [address] May, [facility] [place] [facility] [address] [id number] [place] [address] May, [facility] [place] [facility] [address] [id number] [place] [address] Apr, [facility] [place] [facility] [address] [id number] [place] [address], [place] [address] March, [facility] [place] [facility] [address] [id number] [place] [address] Feb, [facility] [place] [facility] [address] [facility] [id number] [place] [address] Feb, [facility] [place] [facility] [address] [facility] [id number] [place] [address] Dec, [facility] [place] [facility] [address] [facility] [id number] [place] [address] Oct, [facility] [place] [facility] [address] [facility] [id number] [place] [address] Aug, [facility] [place] [facility] [address] [id number] [place] [address] Aug, [facility] [place] [facility] [address] [id number] [place] [address] Aug, [facility] [place] [facility] [address] [id number] [place] [address] Aug, [facility] [place] [facility] [address] [facility] [id number] [place] [address] Aug, [facility] [place] [facility] [address] [facility] [id number] [place] [address] Oct, [facility] [place] [facility] [address] [facility] [id number] [place] [address] Sep, [facility] [address] [facility] [id number] [place] [address] Sep, [facility] [address] [facility] [id number] [place] [address] Sep, [facility] [address] [facility] [id number] [place] [address] Sep, [facility] [address] [facility] [id number] [place] [address] Aug, [facility] [address] [facility] [id number] [place] [address] Aug, [facility] [address] [facility] [id number] [place] [address] Aug, [facility] [address] [facility] [id number] [place] [address] Aug, [facility] [address] [facility] [id number] [place] [address] Aug, [facility] [address] [facility] [id number] [place] [address] Aug, [facility] [address] [facility] [id number] [place] [address] Nov, [facility] [address] [facility] [id number] [place] [address] Oct, [facility] [address] [facility] [id number] [place] [address] Oct, [facility] [address] [facility] [id number] [place] [address] Sep, [facility] [address] [facility] [id number] [place] [address] Jul, IMMUNIZATIONS No Known Immunizations SOCIAL HISTORY Never Assessed REASON FOR VISIT Refill request PLAN OF CARE VITAL SIGNS MEDICATIONS Medication Instructions Dosage Frequency Start Date End Date Duration Status Colcrys 0.6 MG Orally Once a day 1 tablet 24h 30 days Active RESULTS No Results PROCEDURES [...]
--- OUTSIDE RECORDS SUMMARY | 2019-06-16 23:00 | XMS REPORT ---
Author Author BECK POLLOCK [facility] eClinicalWorks Address Unknown Phone Unavailable Care Team Providers Care Hospital Director Name Role Phone BECK POLLOCK Unavailable Allergies [...] Degenerative disc disease, lumbar M51.36 Active Medications No Known Medications Results No Known Results Summary Purpose eClinicalWorks Submission
--- OUTSIDE RECORDS SUMMARY | 2019-06-16 23:00 | XMS REPORT ---
Author Author BECK POLLOCK [facility] eClinicalWorks Address Unknown Phone Unavailable Care Team Providers Care Model Dresser Name Role Phone BECK POLLOCK CP Unavailable Allergies, Adverse Reactions, Alerts Substance Reaction Event Type N.K.D.A. Info Not Available Non Drug Allergy Problems Problem Type Condition Code Onset Dates Condition Status Assessment Hypothyroidism 244.9 Active Assessment HTN (hypertension) I10 Active Assessment Gout M10.9 Active Assessment Anxiety F41.9 Active Problem Need for prophylactic vaccination and inoculation, Influenza V04.81 Active Assessment Depression F32.9 Active Problem Pain in joint, shoulder region 719.41 Active Assessment Hypercholesterolemia E78.0 Active Problem Abdominal pain, unspecified site 789.00 Active Problem Gout M10.9 Active Problem Unspecified ventral hernia without mention of obstruction or gangrene 553.20 Active Problem Hypothyroid E03.9 Active Problem Degenerative disc disease, lumbar M51.36 Active Assessment Hypothyroid E03.9 Active Assessment Sacroiliitis, not elsewhere classified 720.2 Active Problem Unspecified kidney failure N19 Active Assessment Degenerative disc disease, lumbar M51.36 Active Problem Depression F32.9 Active Problem Anxiety [...] of obstruction or gangrene 553.1 Active Problem Lesion of sciatic nerve 355.0 Active Medications Medication Code System Code Instructions Start Date End Date Status Dosage BusPIRone HCl [facility] 67652962530 15 MG TAKE ONE TABLET BY MOUTH AT NOON AND ONE TABLET AT BEDTIME Lopid [facility] [address]-02 600 MG Orally Twice a day 1 tablet Prozac [facility] [address]-70 10 Orally Once a day 1 capsule in the morning Levothyroxine Sodium [facility] [address]-55 112 MCG Orally Once a day May 11, 2015 1 tablet Depakote [facility] [address]-12 50 Orally Once a day 1 tablet Zyprexa [facility] [address]-45 5 MG Orally Once a day 1 tablet Lipitor [facility] [address]-37 40 MG Orally Once a day 1 tablet Depakote [facility] [address]-13 125 MG Orally Once a day 1 tablet Colcrys [facility] [address]-97 0.6 MG Orally Once a day Sep 23, 2015 Dec 22, 2015 1 tablet Procedures Procedure Coding System Code Date URINALYSIS, AUTO, W/O SCOPE CPT-4 82765 Oct 07, 2015 Office Visit, Est Pt., Level 4 CPT-4 37844 Oct 07, 2015 COMPREHEN METABOLIC PANEL CPT-4 10275 Oct 07, 2015 ASSAY THYROID STIM HORMONE CPT-4 74776 Oct 07, 2015 VENIPUNCT, ROUTINE* CPT-4 55829 Oct 07, 2015 Vital Signs Date/Time: Oct 07, 2015 Temperature 98.1 F Weight 243.1 lbs Height 70 in BMI 34.88 Index Blood Pressure Diastolic 82 mmHg Blood Pressure Systolic 140 mmHg Cardiac Monitoring Heart Rate 80 bpm Results Name Result Date Reference Range Unit Abnormality Flag TSH ROUTINE VENIPUNCTURE UA LONG DIP (IN HOUSE) Summary Purpose eClinicalWorks Submission
--- OUTSIDE RECORDS SUMMARY | 2019-06-16 23:01 | XMS REPORT ---
Author Author BECK POLLOCK Organization [facility] Address [address] [place] [address] Care Team Providers Care Baffle Mounter Name Role Phone BECK POLLOCK Unavailable PROBLEMS Type Condition ICD9-CM Code [id number] Code Onset Dates Condition Status SNOMED Code Problem Degenerative disc disease, lumbar M51.36 Active 67043898 Problem Gout M10.9 Active 12435333 Problem Unspecified kidney failure N19 Active 32468320 Problem Hypertension I10 Active 35974042 Problem Depression F32.9 Active 25813001 Problem Hypothyroid E03.9 Active 33080209 Problem Anxiety F41.9 Active 79121531 Problem Hypercholesterolemia E78.0 Active 76217322 ALLERGIES Unknown Allergies SOCIAL HISTORY No smoking Hx information available PLAN OF CARE VITAL SIGNS MEDICATIONS Medication Instructions Dosage Frequency Start Date End Date Duration Status Vicoprofen 7.5-200 MG Orally 3 times a day 1 tablet as needed 8h 16 Oct, 2016 Active RESULTS No Results PROCEDURES No Known procedures IMMUNIZATIONS No Known Immunizations
--- OUTSIDE RECORDS SUMMARY | 2019-06-16 23:01 | XMS REPORT ---
Author Author EDGARDO WEBB Organization [facility] Address [address] [place] [address] Care Team Providers Care Hardware Sales Assistant Name Role Phone TRACEY EDGARDO Unavailable PROBLEMS Type Condition ICD9-CM Code [id number] Code Onset Dates Condition Status SNOMED Code Problem Degenerative disc disease, lumbar M51.36 Active 33374755 Problem Gout M10.9 Active 10355499 Problem Unspecified kidney failure N19 Active 99139978 Problem Hypertension I10 Active 73819901 Problem Depression F32.9 Active 49331131 Problem Hypothyroid E03.9 Active 34845603 Problem Anxiety F41.9 Active 66325279 Problem Hypercholesterolemia E78.0 Active 78498033 ALLERGIES No Information SOCIAL HISTORY Never Assessed PLAN OF CARE VITAL SIGNS MEDICATIONS Medication Instructions Dosage Frequency Start Date End Date Duration Status Ativan 1 MG Orally Once a day, for dental procedure 1 tablet at bedtime as needed March, 1 dose Active RESULTS No Results PROCEDURES No Known [...]
--- OUTSIDE RECORDS SUMMARY | 2019-06-16 23:01 | XMS REPORT ---
Author Author BECK POLLOCK Organization [employer] Address Unknown Phone Unavailable Care Team Providers Care Pharmacy Stock Clerk Name Role Phone BECK POLLOCK CP Unavailable Allergies No Known Allergies Problems Problem Type Condition Code Onset Dates Condition Status Problem Pain in joint, shoulder region 719.41 Active Problem Unspecified ventral hernia without mention of obstruction or gangrene 553.20 Active Problem Abdominal pain, unspecified site 789.00 Active Problem Degenerative disc disease, lumbar M51.36 Active Problem Hypertension I10 Active Problem Hypothyroid E03.9 Active Problem Anxiety F41.9 Active Problem Gout M10.9 Active Problem Hypercholesterolemia E78.0 Active Problem Depression F32.9 Active Problem Gout, unspecified 274.9 Active Problem Retained (old) foreign body, intraocular, unspecified 360.60 Active Problem Sacroiliitis, not elsewhere classified 720.2 Active Problem Lesion of sciatic nerve 355.0 Active Problem Osteoarthrosis, unspecified whether generalized or localized, hand 715.94 Active Problem Other abnormal glucose 790.29 Active Problem Impotence of organic origin 607.84 Active Problem Umbilical hernia without mention of obstruction or gangrene 553.1 Active Problem Need for prophylactic vaccination and inoculation, Influenza V04.81 Active Medications No Known Medications Results No Known Results Summary Purpose eClinicalWorks Submission
--- OUTSIDE RECORDS SUMMARY | 2019-06-16 23:01 | XMS REPORT ---
Author Author BECK POLLOCK [facility] eClinicalWorks Address Unknown Phone Unavailable Care Team Providers Care [facility] Corpsman Name Role Phone BECK POLLOCK Unavailable Allergies No Known Allergies Problems Problem Type Condition Code Onset Dates Condition Status Problem Gout M10.9 Active Problem Depression F32.9 Active Problem Anxiety F41.9 Active Problem Sacroiliitis, not elsewhere classified 720.2 Active Problem Other detention (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.899 Active Problem Unspecified kidney failure N19 Active Problem Pain in unspecified shoulder M25.519 Active Problem Hypertension I10 Active Problem Hypercholesterolemia E78.0 Active Problem Hypothyroid E03.9 Active Problem Degenerative disc disease, lumbar M51.36 Active Medications No Known Medications Results No Known Results Summary Purpose eClinicalWorks Submission
--- OUTSIDE RECORDS SUMMARY | 2019-06-16 23:01 | XMS REPORT ---
Author Author JILLIAN DUENAS Organization [facility] Address [address] [place] [address] Care Team Providers Care Production Material Coordinator Name Role Phone JILLIAN DUENAS Unavailable PROBLEMS Type Condition ICD9-CM Code [id number] Code Onset Dates Condition Status SNOMED Code Problem Degenerative disc disease, lumbar M51.36 Active 05048862 Problem Gout M10.9 Active 89551242 Problem Unspecified kidney failure N19 Active 04409275 Problem Hypertension I10 Active 01381519 Problem Depression F32.9 Active 14319701 Problem Hypothyroid E03.9 Active 85268128 Problem Anxiety F41.9 Active 38569460 Problem Hypercholesterolemia E78.0 Active 40928172 ALLERGIES No Information SOCIAL HISTORY Never Assessed PLAN OF CARE Activity Details Follow Up prn Reason:SRP/EXT VITAL SIGNS MEDICATIONS Unknown Medications RESULTS No Results PROCEDURES Procedure Date Ordered Result Body Site COMP ORAL EVALUATION - NEW/EST PT Dec 29, 2016 IMMUNIZATIONS No Known Immunizations MEDICAL (GENERAL) HISTORY [...]
--- OUTSIDE RECORDS SUMMARY | 2019-06-16 23:02 | XMS REPORT ---
Author Author KENISHA CABEZAS [facility] Address [address] [place] [address] Care Team Providers Care Emergency Department Aide Name Role Phone KENISHA CABEZAS Unavailable PROBLEMS Type Condition ICD9-CM Code TUE87-RT Code Onset Dates Condition Status SNOMED Code Problem Gout M10.9 Active 01155213 Problem Hypothyroid E03.9 Active 02536693 Problem Degenerative disc disease, lumbar M51.36 Active 65157981 Problem Elevated fasting glucose R73.01 Active 72724537 Problem Chronic pain syndrome G89.4 Active 155272737 Problem Unspecified kidney failure N19 Active 65082176 Problem Hypercholesterolemia E78.0 Active 69402150 Problem Depression F32.9 Active 23034369 Problem Hypertension I10 Active 38437799 Problem Anxiety F41.9 Active 89351431 ALLERGIES No Information ENCOUNTERS Encounter Location Date Diagnosis [place] [id number] [address] Apr, [place] [address] [address] March, Depression F32.9 and Anxiety F41.9 [place] [address] [place] [id number] [place] [address] Jan, Hypothyroid E03.9 and Elevated fasting glucose R73.01 [facility] [address] [place] [id number] [place] [address] Jan, Hypercholesterolemia E78.0 [place] [address] [address] Dec, Hypertension I10 ; Hypercholesterolemia E78.0 ; Hypothyroid E03.9 and Gout M10.9 [place] [address] [address] Dec, Hypertension I10 ; Hypercholesterolemia E78.0 ; Hypothyroid E03.9 ; Depression F32.9 ; Anxiety F41.9 ; Gout M10.9 ; Chronic pain syndrome G89.4 ; Controlled substance agreement broken Z91.14 and Controlled substance agreement terminated Z91.14 [facility] [address] [address] Sep, Degenerative disc disease, lumbar M51.36 [facility] [address] [address] Sep, Degenerative disc disease, lumbar M51.36 [place] [address] [address] Aug, Hypertension I10 ; Hypercholesterolemia E78.0 ; Hypothyroid E03.9 ; Depression F32.9 ; Gout M10.9 ; Anxiety F41.9 and Degenerative disc disease, lumbar M51.36 [place] [address] [address] Jul, [facility] [address] [address] Jul, [place] [address] [address] Jun, [facility] [address] [address] Jun, Gout M10.9 [facility] [address] [address] May, Hypertension I10 and Hypercholesterolemia E78.0 [place] [address] [address] May, [facility] [address] [address] May, Dental examination Z01.20 [place] [address] [address] Apr, [facility] [address] [address] March, [facility] [address] [place] [id number] [place] [address] March, [facility] [address] [id number] March, [facility] [address] [place] [id number] [place] [address] March, [facility] [address] [place] [id number] [place] [address] Feb, [facility] [address] [place] [id number] [place] [address] Feb, [facility] [address] [place] [id number] [place] [address] Feb, Degenerative disc disease, lumbar M51.36 [facility] [address] [place] [id number] [place] [address] Feb, Hypothyroid E03.9 ; Hypertension I10 ; Anxiety F41.9 ; Hypercholesterolemia E78.0 ; Depression F32.9 ; Gout M10.9 and Degenerative disc disease, lumbar M51.36 [facility] [id number] [place] [address] Feb, Encounter for dental examination and cleaning without abnormal findings Z01.20 [facility] [address] [place] [id number] [place] [address] Jan, Encounter for dental examination Z01.20 [facility] [address] [place] [id number] [place] [address] Jan, [facility] [address] [place] [id number] [place] [address] Jan, Hypercholesterolemia E78.0 [facility] [address] [place] [id number] [place] [address] Jan, Degenerative disc disease, lumbar M51.36 [facility] [address] [place] [id number] [place] [address] Dec, [facility] [address] [address] Dec, Degenerative disc disease, lumbar M51.36 ; Hypercholesterolemia E78.0 ; Depression F32.9 ; Hypothyroid E03.9 and Hypertension I10 [place] [address] [address] Dec, Degenerative disc disease, lumbar M51.36 [facility] [address] [place] [id number] [place] [id number] Dec, 2016 Dental examination Z01.20 [place] [address] [place] [id number] [place] [address] Nov, Dental examination Z01.20 [place] [address] [address] Nov, Degenerative disc disease, lumbar M51.36 [place] [address] [place] [id number] [place] [address] Nov, Hypertension I10 ; Hypothyroid E03.9 ; Degenerative disc disease, lumbar M51.36 ; Gout M10.9 ; Unspecified kidney failure N19 ; Anxiety F41.9 ; Depression F32.9 and Hypercholesterolemia E78.0 [place] [address] [place] [id number] [place] [address] Oct, [place] [address] [place] [id number] [place] [address] Sep, [place] [address] [address] Aug, [place] [address] [place] [id number] [place] [address] Jul, [place] [address] [address] Jun, [facility] [address] [place] [id number] [place] [address] Jun, [facility] [address] [place] [id number] [place] [address] May, [facility] [address] [place] [id number] [place] [address] May, [facility] [address] [address] May, [facility] [address] [place] [id number] [place] [address] Apr, Pain in unspecified shoulder M25.519 [place] [address] [place] [id number] [place] [address] Apr, Degenerative disc disease, lumbar M51.36 ; Hypertension I10 ; Unspecified kidney failure N19 ; Gout M10.9 ; Depression F32.9 ; Hypothyroid E03.9 ; Anxiety F41.9 ; Other alf (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.899 and Combined hyperlipidemia E78.2 [place] [address] [place] [id number] [place] [address] Apr, Gout M10.9 and Pain in unspecified shoulder M25.519 [place] [address] [place] [id number] [place] [address] March, Degenerative disc disease, lumbar M51.36 [facility] [address] [place] [id number] [place] [address] Feb, Hypercholesterolemia E78.0 ; Hypothyroid E03.9 ; Gout M10.9 and Anxiety F41.9 [facility] [address] [place] [id number] [place] [address] Feb, [facility] [address] [place] [id number] [place] [address] Feb, Unspecified kidney failure N19 [facility] [address] [place] [id number] [place] [address] Feb, Unspecified kidney failure N19 [facility] [address] [place] [address] Feb, [facility] [address] [place] [address] Feb, [facility] [address] [place] [id number] [place] [address] Jan, [facility] [address] [place] [address] Dec, Sacroiliitis, not elsewhere classified 720.2 ; Hypercholesterolemia E78.0 ; Depression F32.9 ; Anxiety F41.9 ; Gout M10.9 ; Unspecified kidney failure N19 ; Hypothyroid E03.9 ; Degenerative disc disease, lumbar M51.36 and 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 [facility] [address] [place] [address] Dec, [facility] [address] [place] [address] Nov, [facility] [address] [place] [id number] [place] [address] Nov, [facility] [address] [place] [address] Nov, [facility] [address] [place] [address] Oct, [facility] [address] [address] Sep, [facility] [address] [place] [id number] [place] [address] Sep, Hypothyroid E03.9 ; Sacroiliitis, not elsewhere classified 720.2 ; Degenerative disc disease, lumbar M51.36 ; Hypercholesterolemia E78.0 ; Depression F32.9 ; Anxiety F41.9 ; Gout M10.9 ; HTN (hypertension) I10 and Hypothyroidism 244.9 [place] [address] [place] [id number] [place] [address] Aug, Unspecified kidney failure N19 ; Hypothyroid E03.9 ; Hypertension I10 ; Anxiety F41.9 and Gout M10.9 [place] [address] [address] Aug, Seborrheic keratosis L82.1 and Nevus D22.9 [place] [address] [address] Aug, [address] [address] Aug, [address] [address] Aug, Hypothyroid E03.9 ; Degenerative disc disease, lumbar M51.36 ; Hypertension I10 ; Hypercholesterolemia E78.0 ; Depression F32.9 ; Anxiety F41.9 and Gout M10.9 [place] [address] [address] Aug, [place] [address] [address] Jun, [place] [address] [address] Jun, Hypothyroidism 244.9 [place] [address] [address] Jun, Hypothyroidism 244.9 ; Pain in joint, shoulder region 719.41 ; Sacroiliitis, not elsewhere classified 720.2 ; High risk medication use V58.69 and Facial skin lesion 709.9 [place] [address] [place] [id number] [place] [address] Apr, Hypothyroidism 244.9 ; Aggressive behavior of adult 301.3 and Edema 782.3 [place] [address] [place] [address] March, [facility] [place] [facility] [address] [id number] [place] [address] Feb, [facility] [place] [facility] [address] [id number] [place] [address] Feb, [facility] [place] [facility] [address] [id number] [place] [address] Jan, [facility] [place] [facility] [address] [id number] [place] [address] Jan, [facility] [place] [facility] [address] [id number] [place] [address] Jan, [facility] [place] [facility] [address] [id number] [place] [address] Jan, [facility] [place] [facility] [address] [id number] [place] [address] Dec, [facility] [place] [facility] [address] [id number] [place] [address] Dec, [facility] [place] [facility] [address] [facility] [id number] [place] [address] Nov, [facility] [place] [facility] [address] [facility] [id number] [place] [address] Nov, [facility] [place] [facility] [address] [id number] [place] [address] Nov, [facility] [place] [facility] [address] [id number] [place] [address] Nov, [facility] [place] [facility] [address] [id number] [place] [address] Nov, [facility] [place] [facility] [address] [facility] [id number] [place] [address] Nov, [facility] [place] [facility] [address] [facility] [id number] [place] [address] Oct, [facility] [place] [facility] [address] [id number] [place] [address] Oct, [facility] [place] [facility] [address] [id number] [place] [address] Sep, [facility] [place] [facility] [address] [id number] [place] [address] Sep, [facility] [place] [facility] [address] [id number] [place] [address] Sep, [facility] [place] [facility] [address] [id number] [place] [address] Sep, [facility] [place] [facility] [address] [id number] [place] [address] Sep, [facility] [place] [facility] [address] [facility] [id number] [place] [address] Sep, [facility] [place] [facility] [address] [id number] [place] [address] Aug, [facility] [place] [facility] [address] [id number] [place] [address] Aug, [facility] [place] [facility] [address] [facility] [id number] [address] Aug, [facility] [place] [facility] [address] [facility] [id number] [address] Aug, [facility] [place] [facility] [address] [id number] [address] Aug, [facility] [place] [facility] [address] [id number] [address] Aug, [facility] [place] [facility] [address] [id number] [address] Jul, [facility] [place] [facility] [address] [id number] [address] Jul, [facility] [place] [facility] [address] [id number] [address] Jul, [facility] [place] [facility] [address] [id number] [place] [address] Jul, [facility] [place] [facility] [address] [id number] [place] [address] Jul, [facility] [place] [facility] [address] [id number] [place] [address] Jul, [facility] [place] [facility] [address] [id number] [place] [address] Jun, [facility] [place] [facility] [address] [id number] [place] [address] Jun, [facility] [place] [facility] [address] [id number] [place] [address] May, [facility] [place] [facility] [address] [id number] [place] [address] May, [facility] [place] [facility] [address] [id number] [place] [address] May, [facility] [place] [facility] [address] [id number] [place] [address] May, [facility] [place] [facility] [address] [id number] [place] [address] May, [facility] [place] [facility] [address] [id number] [place] [address] May, [facility] [place] [facility] [address] [id number] [place] [address] Apr, [facility] [place] [facility] [address] [id number] [place] [address] Apr, [facility] [place] [facility] [address] [id number] [place] [address] Apr, [facility] [place] [facility] [address] [id number] [place] [address] Apr, [facility] [place] [facility] [address] [id number] [place] [address] Apr, [facility] [place] [facility] [address] [id number] [place] [address] Apr, [facility] [place] [facility] [address] [id number] [place] [address] Feb, [facility] [place] [facility] [address] [id number] [place] [address] Feb, [facility] [place] [facility] [address] [id number] [place] [address] Feb, [facility] [place] [facility] [address] [id number] [place] [address] Feb, [facility] [place] [facility] [address] [facility] [id number] [place] [address] Jan, [facility] [place] [facility] [address] [id number] [place] [address] Jan, [facility] [place] [facility] [address] [id number] [place] [address] Jan, [facility] [place] [facility] [address] [id number] [place] [address] Jan, [facility] [place] [facility] [address] [facility] [id number] [place] [address] Dec, [facility] [place] [facility] [address] [id number] [place] [address] Dec, [facility] [place] [facility] [address] [id number] [place] [address] Dec, [facility] [place] [facility] [address] [id number] [place] [address] Dec, [facility] [place] [facility] [address] [id number] [place] [address] 18 Dec, 2013 [facility] [place] [facility] [address] [id number] [place] [address] Dec, [facility] [address] [id number] [place] [address] Nov, [facility] [place] [facility] [address] [id number] [place] [address] Oct, [facility] [place] [facility] [address] [id number] [place] [address] Oct, [facility] [place] [facility] [address] [id number] [place] [address] Oct, [facility] [place] [facility] [address] [id number] [place] [address] Oct, [facility] [place] [facility] [address] [id number] [place] [address] Oct, [facility] [place] [facility] [address] [id number] [place] [address] Oct, [facility] [place] [facility] [address] [id number] [place] [address] Sep, [facility] [place] [facility] [address] [id number] [place] [address] Sep, [facility] [place] [facility] [address] [id number] [place] [address] Sep, [facility] [place] [facility] [address] [id number] [place] [address] Jul, [facility] [place] [facility] [address] [id number] [place] [address] Jun, [facility] [place] [facility] [address] [id number] [place] [address] Jun, [facility] [place] [facility] [address] [id number] [place] [address] Jun, [facility] [place] [facility] [address] [id number] [place] [address] May, [facility] [place] [facility] [address] [id number] [place] [address] 15 May, 2013 [facility] [address] [id number] [place] [address] May, [facility] [address] [id number] [place] [address] Apr, [facility] [address] [id number] [place] [address] Apr, [facility] [address] [id number] [place] [address] Apr, [facility] [address] [id number] [place] [address] Apr, [facility] [address] [id number] [place] [address] March, [facility] [address] [id number] [place] [address] March, [facility] [address] [id number] [place] [address] March, [facility] [address] [id number] [place] [address] March, [facility] [address] [id number] [place] [address] Feb, [facility] [address] [id number] [place] [address] Feb, [facility] [address] [id number] [place] [address] 15 Feb, 2013 [facility] [address] [id number] [place] [address] 10 Feb, 2013 [facility] [address] [id number] [place] [address] 08 Feb, 2013 [facility] [address] [id number] [place] [address] Feb, [facility] [place] [facility] [address] [id number] [place] [address] Jan, [facility] [place] [facility] [address] [id number] [place] [address] Jan, [facility] [place] [facility] [address] [id number] [place] [address] 16 Nov, 2012 [facility] [place] [facility] [address] [id number] [place] [address] 15 Nov, 2012 [facility] [place] [facility] [address] [id number] [place] [address] Nov, [facility] [place] [facility] [address] [id number] [place] [address] Nov, [facility] [place] [facility] [address] [id number] [place] [address] Sep, [facility] [place] [facility] [address] [id number] [place] [address] Sep, [facility] [place] [facility] [address] [id number] [place] [address] Sep, [facility] [place] [facility] [address] [id number] [place] [address] Sep, [facility] [place] [facility] [address] [id number] [place] [address] Aug, [facility] [place] [facility] [address] [id number] [address] Aug, [facility] [place] [facility] [address] [id number] [place] [address] Aug, [facility] [place] [facility] [address] [id number] [place] [address] 26 Jul, 2012 [facility] [place] [facility] [address] [id number] [place] [address] Jul, [facility] [place] [facility] [address] [id number] [place] [address] Jul, [facility] [place] [facility] [address] [id number] [place] [address] Jun, [facility] [place] [facility] [address] [id number] [place] [address] Jun, [facility] [place] [facility] [address] [id number] [place] [address] May, [facility] [place] [facility] [address] [id number] [place] [address] May, [facility] [place] [facility] [address] [id number] [place] [address], [place] [address] May, [facility] [place] [facility] [address] [id number] [place] [address] Apr, [facility] [place] [facility] [address] [id number] [place] [address] March, [facility] [place] [facility] [address] [id number] [place] [address] Feb, [facility] [place] [facility] [address] [id number] [place] [address] Feb, [facility] [place] [facility] [address] [id number] [place] [address] Dec, [facility] [place] [facility] [address] [id number] [place] [address] Oct, [facility] [place] [facility] [address] [id number] [address] Aug, [facility] [place] [facility] [address] [id number] [place] [address] Aug, [facility] [place] [facility] [address] [id number] [place] [address] Aug, [facility] [place] [facility] [address] [id number] [address] Aug, [facility] [place] [facility] [address] [id number] [place] [address] 10 Aug, 2011 [facility] [place] [facility] [address] [id number] [place] [address] Oct, [facility] [place] [facility] [address] [id number] [place] [address] Sep, [facility] [place] [facility] [address] [id number] [place] [address] Sep, [facility] [place] [facility] [address] [id number] [place] [address] Sep, [facility] [place] [facility] [address] [id number] [place] [address] Sep, [facility] [place] [facility] [address] [id number] [place] [address] Aug, [facility] [place] [facility] [address] [id number] [place] [address] Aug, [facility] [place] [facility] [address] [id number] [place] [address] Aug, [facility] [place] [facility] [address] [id number] [place] [address] Aug, [facility] [place] [facility] [address] [id number] [place] [address] Aug, [facility] [place] [facility] [address] [id number] [place] [address] Aug, [facility] [place] [facility] [address] [id number] [place] [address] Nov, [facility] [place] [facility] [address] [id number] [place] [address] Oct, [facility] [place] [facility] [address] [id number] [place] [address] Oct, [facility] [place] [facility] [address] [id number] [place] [address] Sep, [facility] [address] [facility] [id number] [place] [address] Jul, IMMUNIZATIONS No Known Immunizations SOCIAL HISTORY Never Assessed REASON FOR VISIT Hydrocodone 10/25 PLAN OF CARE VITAL SIGNS MEDICATIONS Medication Instructions Dosage Frequency Start Date End Date Duration Status Hydrocodone-Ibuprofen 7.5-200 MG Orally 3 times a day 1 tablet 8h Sep, 28 days Active RESULTS No Results PROCEDURES No [...]
--- OUTSIDE RECORDS SUMMARY | 2019-06-16 23:02 | XMS REPORT ---
Author Author KENISHA CABEZAS Organization [facility] Address [address] [place] [address] Care Team Providers Care Driver/Sales Workers Name Role Phone KENISHA CABEZAS Unavailable PROBLEMS Type Condition ICD9-CM Code [id number] Code Onset Dates Condition Status SNOMED Code Problem Gout M10.9 Active 61647338 Problem Hypothyroid E03.9 Active 34465002 Problem Degenerative disc disease, lumbar M51.36 Active 13535369 Problem Elevated fasting glucose R73.01 Active 12791568 Problem Chronic pain syndrome G89.4 Active 134404402 Problem Unspecified kidney failure N19 Active 91923602 Problem Hypercholesterolemia E78.0 Active 73735370 Problem Depression F32.9 Active 10041668 Problem Hypertension I10 Active 57489681 Problem Anxiety F41.9 Active [id number] ALLERGIES No Information ENCOUNTERS Encounter Location Date Diagnosis [place] [address] [address] Apr, [place] [address] [address] Jan, Hypothyroid E03.9 and Elevated fasting glucose R73.01 [place] [address] [place] [id number] [place] [address] Jan, Hypercholesterolemia E78.0 [place] [address] [place] [id number] [place] [address] Dec, Hypertension I10 ; Hypercholesterolemia E78.0 ; Hypothyroid E03.9 and Gout M10.9 [facility] [address] [address] 15 Dec, 2017 Hypertension I10 ; Hypercholesterolemia E78.0 ; Hypothyroid E03.9 ; Depression F32.9 ; Anxiety F41.9 ; Gout M10.9 ; Chronic pain syndrome G89.4 ; Controlled substance agreement broken Z91.14 and Controlled substance agreement terminated Z91.14 [facility] [address] [address] Sep, Degenerative disc disease, lumbar M51.36 [facility] [address] [place] [id number] [place] [address] Sep, Degenerative disc disease, lumbar M51.36 [facility] [address] [address] Aug, Hypertension I10 ; Hypercholesterolemia E78.0 ; Hypothyroid E03.9 ; Depression F32.9 ; Gout M10.9 ; Anxiety F41.9 and Degenerative disc disease, lumbar M51.36 [facility] [address] [address] Jul, [facility] [address] [address] Jul, [facility] [address] [address] Jun, [facility] [address] [address] Jun, Gout M10.9 [facility] [address] [place] [id number] [place] [address] May, Hypertension I10 and Hypercholesterolemia E78.0 [facility] [address] [address] May, [facility] [address] [address] May, Dental examination Z01.20 [facility] [address] [place] [id number] [place] [address] Apr, [facility] [address] [place] [id number] [place] [address] March, [facility] [address] [place] [id number] [address] March, [facility] [address] [id number] March, [facility] [address] [place] [id number] [place] [address] March, [facility] [address] [place] [id number] [place] [address] Feb, [facility] [address] [place] [id number] [place] [address] Feb, [facility] [address] [place] [id number] [place] [address] Feb, Degenerative disc disease, lumbar M51.36 [facility] [address] [place] [id number] [place] [address] Feb, Hypothyroid E03.9 ; Hypertension I10 ; Anxiety F41.9 ; Hypercholesterolemia E78.0 ; Depression F32.9 ; Gout M10.9 and Degenerative disc disease, lumbar M51.36 [facility] [id number] [place] [address] Feb, Encounter for dental examination and cleaning without abnormal findings Z01.20 [facility] [id number] [place] [address] Jan, Encounter for dental examination Z01.20 [facility] [id number] [place] [address] Jan, [facility] [address] [address] Jan, Hypercholesterolemia E78.0 [facility] [address] [place] [id number] [place] [address] Jan, Degenerative disc disease, lumbar M51.36 [facility] [address] [address] Dec, [facility] [address] [place] [id number] [place] [address] 10 Dec, 2016 Degenerative disc disease, lumbar M51.36 ; Hypercholesterolemia E78.0 ; Depression F32.9 ; Hypothyroid E03.9 and Hypertension I10 [facility] [address] [place] [id number] [place] [address] 09 Dec, 2016 Degenerative disc disease, lumbar M51.36 [facility] [address] [place] [id number] [place] [id number] 03 Dec, 2016 Dental examination Z01.20 [facility] [address] [place] [id number] [place] [address] Nov, Dental examination Z01.20 [facility] [address] [place] [id number] [place] [address] Nov, Degenerative disc disease, lumbar M51.36 [facility] [address] [place] [id number] [place] [address] Nov, Hypertension I10 ; Hypothyroid E03.9 ; Degenerative disc disease, lumbar M51.36 ; Gout M10.9 ; Unspecified kidney failure N19 ; Anxiety F41.9 ; Depression F32.9 and Hypercholesterolemia E78.0 [facility] [id number] [place] [address] Oct, [facility] [address] [place] [id number] [place] [address] Sep, [facility] [address] [place] [id number] [place] [address] Aug, [facility] [address] [place] [id number] [place] [address] Jul, [facility] [address] [place] [id number] [place] [address] Jun, [facility] [address] [place] [id number] [place] [address] Jun, [facility] [address] [place] [id number] [place] [address] May, [facility] [address] [place] [id number] [place] [address] May, [facility] [address] [place] [id number] [place] [address] May, [place] [address] [place] [id number] [place] [address] Apr, Pain in unspecified shoulder M25.519 [place] [address] [place] [id number] [place] [address] Apr, Degenerative disc disease, lumbar M51.36 ; Hypertension I10 ; Unspecified kidney failure N19 ; Gout M10.9 ; Depression F32.9 ; Hypothyroid E03.9 ; Anxiety F41.9 ; 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 and Combined hyperlipidemia E78.2 [place] [address] [place] [id number] [place] [address] Apr, Gout M10.9 and Pain in unspecified shoulder M25.519 [place] [address] [place] [id number] [place] [address] March, Degenerative disc disease, lumbar M51.36 [place] [address] [place] [id number] [place] [address] Feb, Hypercholesterolemia E78.0 ; Hypothyroid E03.9 ; Gout M10.9 and Anxiety F41.9 [place] [address] [place] [id number] [place] [address] Feb, [place] [address] [place] [id number] [place] [address] 14 Feb, 2016 Unspecified kidney failure N19 [place] [address] [place] [id number] [place] [address] Feb, Unspecified kidney failure N19 [place] [address] [place] [id number] [place] [address] Feb, [facility] [id number] [place] [address] Feb, [facility] [address] [place] [id number] [place] [address] Jan, [facility] [address] [place] [id number] [place] [address] Dec, Sacroiliitis, not elsewhere classified 720.2 ; Hypercholesterolemia E78.0 ; Depression F32.9 ; Anxiety F41.9 ; Gout M10.9 ; Unspecified kidney failure N19 ; Hypothyroid E03.9 ; Degenerative disc disease, lumbar M51.36 and 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 [facility] [address] [place] [id number] [place] [address] Dec, [facility] [address] [place] [id number] [place] [address] Nov, [facility] [address] [place] [id number] [place] [address] Nov, [facility] [address] [place] [id number] [place] [address] Nov, [facility] [address] [place] [id number] [place] [address] Oct, [facility] [address] [place] [id number] [place] [address] Sep, [facility] [address] [place] [id number] [place] [address] Sep, Hypothyroid E03.9 ; Sacroiliitis, not elsewhere classified 720.2 ; Degenerative disc disease, lumbar M51.36 ; Hypercholesterolemia E78.0 ; Depression F32.9 ; Anxiety F41.9 ; Gout M10.9 ; HTN (hypertension) I10 and Hypothyroidism 244.9 [facility] [id number] [place] [address] Aug, Unspecified kidney failure N19 ; Hypothyroid E03.9 ; Hypertension I10 ; Anxiety F41.9 and Gout M10.[address] [address] Aug, Seborrheic keratosis L82.1 and Nevus D22.[address] [address] Aug, [place] [address] [address] Aug, [address] [address] Aug, Hypothyroid E03.9 ; Degenerative disc disease, lumbar M51.36 ; Hypertension I10 ; Hypercholesterolemia E78.0 ; Depression F32.9 ; Anxiety F41.9 and Gout M10.[address] [address] Aug, [place] [address] [address] Jun, [address] [address] Jun, Hypothyroidism 244.9 [place] [address] [address] Jun, Hypothyroidism 244.9 ; Pain in joint, shoulder region 719.41 ; Sacroiliitis, not elsewhere classified 720.2 ; High risk medication use V58.69 and Facial skin lesion 709.[address] [address] Apr, Hypothyroidism 244.9 ; Aggressive behavior of adult 301.3 and Edema 782.[address] [address] March, [address] [address] 14 Feb, 2015 [facility] [place] [facility] [address] [id number] [place] [address] Feb, [facility] [place] [facility] [address] [id number] [place] [address] Jan, [facility] [place] [facility] [address] [id number] [place] [address] Jan, [facility] [place] [facility] [address] [id number] [place] [address] Jan, [facility] [place] [facility] [address] [id number] [place] [address] Jan, [facility] [place] [facility] [address] [id number] [place] [address] Dec, [facility] [place] [facility] [address] [id number] [place] [address] Dec, [facility] [place] [facility] [address] [id number] [place] [address] Nov, [facility] [place] [facility] [address] [id number] [place] [address] Nov, [facility] [place] [facility] [address] [id number] [place] [address] Nov, [facility] [place] [facility] [address] [id number] [address] Nov, [facility] [place] [facility] [address] [id number] [address] Nov, [facility] [place] [facility] [address] [id number] [place] [address] Nov, [facility] [place] [facility] [address] [id number] [place] [address] Oct, [facility] [place] [facility] [address] [id number] [place] [address] Oct, [facility] [place] [facility] [address] [id number] [place] [address] Sep, [facility] [place] [facility] [address] [id number] [place] [address] Sep, [facility] [place] [facility] [address] [id number] [place] [address] Sep, [facility] [place] [facility] [address] [id number] [place] [address] Sep, [facility] [place] [facility] [address] [id number] [place] [address] Sep, [facility] [place] [facility] [address] [id number] [place] [address] Sep, [facility] [place] [facility] [address] [id number] [place] [address] Aug, [facility] [place] [facility] [address] [id number] [place] [address] Aug, [facility] [place] [facility] [address] [id number] [place] [address] Aug, [facility] [place] [facility] [address] [id number] [place] [address] Aug, [facility] [place] [facility] [address] [facility] [id number] [place] [address] Aug, [facility] [place] [facility] [address] [id number] [place] [address] 02 Aug, 2014 [facility] [place] [facility] [address] [id number] [place] [address] 16 Jul, 2014 [facility] [place] [facility] [address] [id number] [place] [address] 16 Jul, 2014 [facility] [place] [facility] [address] [id number] [place] [address] 15 Jul, 2014 [facility] [place] [facility] [address] [id number] [place] [address] Jul, [facility] [place] [facility] [address] [id number] [place] [address] Jul, [facility] [place] [facility] [address] [id number] [place] [address] Jul, [facility] [place] [facility] [address] [id number] [place] [address] Jun, [facility] [place] [facility] [address] [id number] [place] [address] Jun, [facility] [place] [facility] [address] [id number] [place] [address] May, [facility] [place] [facility] [address] [id number] [place] [address] May, [facility] [place] [facility] [address] [id number] [place] [address] May, [facility] [place] [facility] [address] [id number] [place] [address] May, [facility] [place] [facility] [address] [id number] [place] [address] May, [facility] [place] [facility] [address] [id number] [place] [address] May, [facility] [place] [facility] [address] [id number] [place] [address] Apr, [facility] [place] [facility] [address] [id number] [place] [address] Apr, [facility] [place] [facility] [address] [id number] [place] [address] Apr, [facility] [place] [facility] [address] [id number] [place] [address] Apr, [facility] [place] [facility] [address] [id number] [place] [address] Apr, [facility] [place] [facility] [address] [id number] [address] Apr, [facility] [place] [facility] [address] [id number] [place] [address] Feb, [facility] [place] [facility] [address] [facility] [id number] [place] [address] Feb, [facility] [place] [facility] [address] [facility] [id number] [place] [address] Feb, [facility] [place] [facility] [address] [facility] [id number] [place] [address] Feb, [facility] [place] [facility] [address] [facility] [id number] [place] [address] Jan, [facility] [place] [facility] [address] [facility] [id number] [place] [address] Jan, [facility] [place] [facility] [address] [place] [id number] [place] [address] Jan, [facility] [place] [facility] [address] [facility] [id number] [place] [address] Jan, [facility] [place] [facility] [address] [place] [id number] [place] [address] Dec, [facility] [place] [facility] [address] [place] [id number] [place] [address] Dec, [facility] [place] [facility] [address] [place] [id number] [place] [address] Dec, [facility] [place] [facility] [address] [facility] [id number] [address] Dec, [facility] [place] [facility] [address] [facility] [id number] [place] [address] Dec, [facility] [place] [facility] [address] [facility] [id number] [place] [address] Dec, [facility] [place] [facility] [address] [facility] [id number] [place] [address] Nov, [facility] [place] [facility] [address] [id number] [place] [address] Oct, [facility] [place] [facility] [address] [id number] [place] [address] Oct, [facility] [place] [facility] [address] [id number] [place] [address] Oct, [facility] [place] [facility] [address] [id number] [place] [address] Oct, [facility] [place] [facility] [address] [id number] [place] [address] Oct, [facility] [place] [facility] [address] [id number] [place] [address] Oct, [facility] [place] [facility] [address] [id number] [place] [address] Sep, [facility] [place] [facility] [address] [id number] [place] [address] Sep, [facility] [place] [facility] [address] [id number] [place] [address] Sep, [facility] [place] [facility] [address] [id number] [place] [address] Jul, [facility] [place] [facility] [address] [id number] [place] [address] Jun, [facility] [place] [facility] [address] [id number][place] [address] Jun, [facility] [place] [facility] [address] [id number] [place] [address] Jun, [facility] [place] [facility] [address] [id number] [place] [address] May, [facility] [place] [facility] [address] [id number] [place] [address] May, [facility] [place] [facility] [address] [id number][place] [address] 08 May, 2013 [facility] [address] [id number] [place] [address] Apr, [facility] [place] [facility] [address] [id number] [place] [address] 24 Apr, 2013 [facility] [address] [id number] [place] [address] Apr, [facility] [place] [facility] [address] [id number] [place] [address] Apr, [facility] [address] [id number] [place] [address] March, [facility] [address] [id number] [place] [address] March, [facility] [address] [id number] [place] [address] March, [facility] [address] [id number] [place] [address] March, [facility] [address] [id number] [place] [address] 24 Feb, 2013 [facility] [place] [facility] [address] [id number] [place] [address] Feb, [facility] [address] [id number] [place] [address] 15 Feb, 2013 [facility] [place] [facility] [address] [id number] [place] [address] 10 Feb, 2013 [facility] [place] [facility] [address] [id number] [place] [address] 08 Feb, 2013 [facility] [place] [facility] [address] [id number] [place] [address] 04 Feb, 2013 [facility] [place] [facility] [address] [id number] [place] [address] Jan, [facility] [place] [facility] [address] [id number] [place] [id number] 13 Jan, 2013 [facility] [place] [facility] [address] [id number] [place] [address] 16 Nov, 2012 [facility] [place] [facility] [address] [id number] [place] [address] 15 Nov, 2012 [facility] [place] [facility] [address] [id number] [place] [address] 11 Nov, 2012 [facility] [place] [facility] [address] [id number] [place] [address] Nov, [facility] [place] [facility] [address] [id number] [place] [address] Sep, [facility] [place] [facility] [address] [id number] [place] [address] Sep, [facility] [place] [facility] [address] [id number] [place] [address] Sep, [facility] [place] [facility] [address] [id number] [place] [address] Sep, [facility] [place] [facility] [address] [id number] [place] [address] Aug, [facility] [place] [facility] [address] [id number] [place] [address] Aug, [facility] [place] [facility] [address] [id number] [place] [address] Aug, [facility] [place] [facility] [address] [id number] [place] [address] 26 Jul, 2012 [facility] [place] [facility] [address] [id number] [place] [address] 11 Jul, 2012 [facility] [place] [facility] [address] [id number] [place] [id number] 04 Jul, 2012 [facility] [place] [facility] [address] [id number] [place] [address] Jun, [facility] [place] [facility] [address] [id number] [place] [address] Jun, [facility] [place] [facility] [address] [id number] [place] [address] May, [facility] [place] [facility] [address] [id number] [place] [address] May, [facility] [place] [facility] [address] [id number] [place] [address] May, [facility] [place] [facility] [address] [id number] [place] [address] Apr, [facility] [place] [facility] [address] [id number] [place] [address] March, [facility] [place] [facility] [address] [id number] [place] [address] Feb, [facility] [place] [facility] [address] [id number] [place] [address] Feb, [facility] [place] [facility] [address] [id number] [place] [address] Dec, [facility] [place] [facility] [address] [id number] [place] [address] Oct, [facility] [place] [facility] [address] [id number] [address] Aug, [facility] [place] [facility] [address] [id number] [address] Aug, [facility] [place] [facility] [address] [id number] [place] [address] Aug, [facility] [place] [facility] [address] [id number] [address] Aug, [facility] [place] [facility] [address] [id number] [place] [address] Aug, [facility] [place] [facility] [address] [id number] [place] [address] 02 Oct, 2010 [facility] [address] [id number] [place] [address] Sep, [facility] [address] [facility] [id number] [place] [address] Sep, [facility] [address] [facility] [id number] [place] [address] Sep, [facility] [address] [id number] [place] [address] Sep, [facility] [address] [facility] [id number] [place] [address] Aug, [facility] [address] [facility] [id number] [place] [address] Aug, [facility] [address] [facility] [id number] [place] [address] Aug, [facility] [address] [facility] [id number] [place] [address] 18 Aug, 2010 [facility] [address] [facility] [id number] [place] [address] Aug, [facility] [address] [facility] [id number][place] [address] Aug, [facility] [address] [facility] [id number][place] [address] Nov, [facility] [address] [facility] [id number][place] [address] 15 Oct, 2009 [facility] [address] [facility] [id number] [address] Oct, [facility] [address] [facility] [id number][place] [address] 24 Sep, 2009 [facility] [address] [facility] [id number] [address] 11 Jul, 2009 IMMUNIZATIONS No Known Immunizations SOCIAL HISTORY Never Assessed REASON FOR VISIT hydrocodone- 08/30 PLAN OF CARE VITAL SIGNS MEDICATIONS Medication Instructions Dosage Frequency Start Date End Date Duration Status Hydrocodone-Ibuprofen 7.5-200 MG Orally 3 times a day 1 tablet 8h 05 Aug, 2017 28 days Active RESULTS No Results PROCEDURES [...]
--- OUTSIDE RECORDS SUMMARY | 2019-06-16 23:02 | XMS REPORT ---
Author Author BECK POLLOCK Organization [facility] Address [address] [place] [address] Care Team Providers Care Pre K Teacher Name Role Phone POLLOCK BECK Unavailable PROBLEMS Type Condition ICD9-CM Code [id number] Code Onset Dates Condition Status SNOMED Code Problem Anxiety F41.9 Active 32360884 Problem Gout M10.9 Active 46816113 Problem Unspecified kidney failure N19 Active 70761034 Problem Hypothyroid E03.9 Active 82687718 Problem Hypercholesterolemia E78.0 Active 59787453 Problem Depression F32.9 Active 56111880 Problem Degenerative disc disease, lumbar M51.36 Active 82232677 Problem Hypertension I10 Active 60466514 ALLERGIES Substance Reaction Event Type Date Status N.K.D.A. Unknown Non Drug Allergy Nov, Unknown SOCIAL HISTORY No smoking Hx information available PLAN OF CARE Activity Details Follow Up 3 Months Reason:chm, htn, degen anxiety kidney Pending Test VALPROIC ACID/DEPAKOTE Pending Test TSH W/ FREE T4 Pending Test URIC ACID, SERUM Pending Test CBC Pending Test LIPID PANEL Pending Test CMP VITAL SIGNS Height 70 in 2016-11-27 Weight 258 lbs 2016-11-27 Temperature 98.0 degrees Fahrenheit 2016-11-27 Heart Rate 70 bpm 2016-11-27 Respiratory Rate 20 2016-11-27 BMI 37.02 kg/m2 2016-11-27 Blood pressure systolic 144 mmHg 2016-11-27 Blood pressure diastolic 98 mmHg 2016-11-27 MEDICATIONS Medication Instructions Dosage Frequency Start Date End Date Duration Status BusPIRone HCl 15 MG Orally Twice a day 1 tablet 12h Nov, 30 days Active Allopurinol 300 MG Orally Once a day 1 tablet 24h Nov, Dec, 30 day(s) Active Prozac 10 MG Orally Once a day 1 capsule in the morning 24h Nov, 30 day(s) Active Levothyroxine Sodium 112 MCG Orally Once a day 1 tablet on an empty stomach in the morning 24h Nov, 30 day(s) Active Vicoprofen 7.5-200 MG Orally every 6 hrs 1 tablet as needed 6h 16 Oct, 2016 Active Propranolol HCl 20 MG Orally Twice a day 1 tablet 12h Nov, 30 day(s) Active Colcrys 0.6 MG Orally Once a day 1 tablet 24h 30 Active Zyprexa 5 MG Orally Once a day 1 tablet 24h Nov, 30 day(s) Active Depakote ER 250 MG Orally Once a day as directed 24h Nov, 30 days Active Depakote 50 Orally Once a day 1 tablet 24h Active Lipitor 40 MG Orally Once a day 1 tablet 24h Nov, 30 day(s) Active Depakote ER 500 MG Orally Once a day as directed 24h Nov, 30 days Active RESULTS Name Result Date Reference Range AMERITOX 2016-11-27 PROCEDURES Procedure Date Ordered Related Diagnosis Body Site LAB NOT BILLED BY [facility] Nov 27, 2016 No Charge Nov 27, 2016 VENIPUNCT, ROUTINE* Nov 27, 2016 Office Visit, Est Pt., Level 4 Nov 27, 2016 IMMUNIZATIONS No Known Immunizations
--- OUTSIDE RECORDS SUMMARY | 2019-06-16 23:02 | XMS REPORT ---
Author Author BECK POLLOCK Organization [employer] Address Unknown Phone Unavailable Care Team Providers Care Fire Department Battalion Chief Name Role Phone BECK POLLOCK CP Unavailable [...] in joint, shoulder region 719.41 Active Medications No Known Medications Results No Known Results Summary Purpose [employer] Submission
--- OUTSIDE RECORDS SUMMARY | 2019-06-16 23:02 | XMS REPORT ---
Author Author BECK POLLOCK Organization [facility] Address [address] [place] [address] Care Team Providers Care Cheese Cutter Name Role Phone BECK POLLOCK Unavailable PROBLEMS Type Condition ICD9-CM Code [id number] Code Onset Dates Condition Status SNOMED Code Problem Degenerative disc disease, lumbar M51.36 Active 54705657 Problem Gout M10.9 Active 70824165 Problem Unspecified kidney failure N19 Active 43957947 Problem Hypertension I10 Active 73266139 Problem Depression F32.9 Active 67762267 Problem Hypothyroid E03.9 Active 57437039 Problem Anxiety F41.9 Active 71778555 Problem Hypercholesterolemia E78.0 Active 96629199 ALLERGIES No Information SOCIAL HISTORY Never Assessed PLAN OF CARE VITAL SIGNS MEDICATIONS Medication Instructions Dosage Frequency Start Date End Date Duration Status Vicoprofen 7.5-200 MG Orally 3 times a day 1 tablet as needed 8h Oct, 28 days Active RESULTS No Results PROCEDURES [...]
--- OUTSIDE RECORDS SUMMARY | 2019-06-16 23:03 | XMS REPORT ---
Author Author BECK POLLOCK [facility] [employer] Address Unknown Phone Unavailable Care Team Providers Care Automation Control Technician Name Role Phone BECK POLLOCK CP Unavailable [...] Start Date End Date Status Dosage Vicoprofen [facility] [address]-48 7.5-200 MG Orally 2 times a day Oct 13, 2015 1 tablet Results No Known Results Summary Purpose [employer] Submission
--- OUTSIDE RECORDS SUMMARY | 2019-06-16 23:03 | XMS REPORT ---
Author Author BECK POLLOCK Organization [employer] Address Unknown Phone Unavailable Care Team Providers Care Chain Saw Operator Name Role Phone EBCK POLLOCK CP Unavailable Allergies No Known Allergies [...]
--- OUTSIDE RECORDS SUMMARY | 2019-06-16 23:03 | XMS REPORT ---
Author Author BECK POLLOCK [facility] [employer] Address Unknown Phone Unavailable Care Team Providers Care Social Media Marketing Specialist Name Role Phone BECK POLLOCK Unavailable Allergies No Known Allergies Problems Problem Type Condition Code Onset Dates Condition Status Problem Retained [...]
--- OUTSIDE RECORDS SUMMARY | 2019-06-16 23:03 | XMS REPORT ---
Author Author BECK POLLOCK Organization [facility] Address [address] [place] [address] Care Team Providers Care Medical Records Specialist Name Role Phone BECK POLLOCK Unavailable PROBLEMS Type Condition ICD9-CM Code [id number] Code Onset Dates Condition Status SNOMED Code Problem Degenerative disc disease, lumbar M51.36 Active 01245578 Problem Gout M10.9 Active 34901831 Problem Unspecified kidney failure N19 Active 51453338 Problem Hypertension I10 Active 49360861 Problem Depression F32.9 Active 02518525 Problem Hypothyroid E03.9 Active 49314149 Problem Anxiety F41.9 Active 69083929 Problem Hypercholesterolemia E78.0 Active 59705731 ALLERGIES No Information SOCIAL HISTORY Never Assessed PLAN OF CARE VITAL SIGNS MEDICATIONS Unknown [...]
--- OUTSIDE RECORDS SUMMARY | 2019-06-16 23:03 | XMS REPORT ---
Author Author BECK POLLOCK [facility] [employer] Address Unknown Phone Unavailable Care Team Providers Care Medical Library Assistant Name Role Phone BECK POLLOCK Unavailable Allergies No Known Allergies Problems Problem Type Condition Code Onset Dates Condition Status Problem Gout M10.9 Active Problem Depression F32.9 Active Problem Anxiety F41.9 Active Problem Sacroiliitis, not elsewhere classified 720.2 Active Problem 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 Active Problem Unspecified kidney failure N19 Active Problem Pain in unspecified shoulder M25.519 Active Problem Hypertension I10 Active Problem Hypercholesterolemia E78.0 Active Problem Hypothyroid E03.9 Active Problem Degenerative disc disease, lumbar M51.36 Active Medications Medication Code System Code Instructions Start Date End Date Status Dosage Vicoprofen [facility] [address]-60 7.5-200 MG Orally 2 times a day Oct 13, 2015 1 tablet Results No Known Results Summary Purpose [employer] Submission
--- OUTSIDE RECORDS SUMMARY | 2019-06-16 23:03 | XMS REPORT ---
Author Author BECK POLLOCK [facility] [employer] Address Unknown Phone Unavailable Care Team Providers Care Advertising Executive Name Role Phone BECK POLLOCK CP Unavailable Allergies, Adverse Reactions, Alerts Substance Reaction Event Type N.K.D.A. Info Not Available Non Drug Allergy Problems Problem Type Condition Code Onset Dates Condition Status Problem Need for prophylactic vaccination and inoculation, Influenza V04.81 Active Assessment Gout M10.9 Active Problem Pain in joint, shoulder region 719.41 Active Assessment Anxiety F41.9 Active Problem Abdominal pain, unspecified site 789.00 Active Problem Gout M10.9 Active Problem Unspecified ventral hernia without mention of obstruction or gangrene 553.20 Active Problem Hypothyroid E03.9 Active Problem Degenerative disc disease, lumbar M51.36 Active Assessment Unspecified kidney failure N19 Active Assessment Hypothyroid E03.9 Active Problem Unspecified kidney failure N19 Active Assessment Hypertension I10 Active Problem Depression F32.9 Active Problem Anxiety [...] Instructions Start Date End Date Status Dosage Lopid [facility] [address]-08 600 MG Orally Twice a day 1 tablet Levothyroxine Sodium [facility] [address]-00 112 MCG Orally Once a day May 11, 2015 1 tablet Depakote [facility] [address]-01 50 Orally Once a day 1 tablet BusPIRone HCl [facility] 15348582360 15 MG TAKE ONE TABLET BY MOUTH AT NOON AND ONE TABLET AT BEDTIME Lipitor [facility] [address]-98 40 MG Orally Once a day 1 tablet Zyprexa [facility] [address]-48 5 MG Orally Once a day 1 tablet Colcrys [facility] [address]-78 0.6 MG Orally Once a day Sep 23, 2015 Dec 22, 2015 1 tablet Depakote [facility] [address]-99 125 MG Orally Once a day 1 tablet Prozac [facility] [address]-70 10 Orally Once a day 1 capsule in the morning Procedures Procedure Coding System Code Date ASSAY THYROID STIM HORMONE CPT-4 24026 Sep 23, 2015 ASSAY OF FREE THYROXINE CPT-4 40347 Sep 23, 2015 COMPLETE CBC W/AUTO DIFF WBC CPT-4 18936 Sep 23, 2015 Office Visit, Est Pt., Level 3 CPT-4 79254 Sep 23, 2015 DEPO MEDROL 40 MG/ML CPT-4 J1030 Sep 23, 2015 ASSAY OF BLOOD/URIC ACID CPT-4 17404 Sep 23, 2015 COMPREHEN METABOLIC PANEL CPT-4 48043 Sep 23, 2015 THER/PROPH/DIAG INJ, SC/IM CPT-4 90928 Sep 23, 2015 DEXAMETHASONE 4MG/ML (PER 1 MG) CPT-4 J1100 Sep 23, 2015 Vital Signs Date/Time: Sep 23, 2015 Temperature 97.0 F Weight 241.6 lbs Height 70 in BMI 34.66 Index Blood Pressure Diastolic 78 mmHg Blood Pressure Systolic 130 mmHg Cardiac Monitoring Heart Rate 78 bpm Results No Known Results Summary Purpose [employer] Submission
--- OUTSIDE RECORDS SUMMARY | 2019-06-16 23:03 | XMS REPORT ---
Author Author BECK POLLOCK [facility] [employer] Address Unknown Phone Unavailable Care Team Providers Care Supervisor Model Making Name Role Phone BECK POLLOCK Unavailable Allergies No Known Allergies Problems Problem Type Condition Code Onset Dates Condition Status Problem Gout M10.9 Active Problem Depression F32.9 Active Problem Anxiety F41.9 Active Problem Sacroiliitis, not elsewhere classified 720.2 Active Problem Other snf (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.899 Active Problem Unspecified kidney failure N19 Active Problem Pain in unspecified shoulder M25.519 Active Problem Hypertension I10 Active Problem Hypercholesterolemia E78.0 Active Problem Hypothyroid E03.9 Active Problem Degenerative disc disease, lumbar M51.36 Active Medications Medication Code System Code Instructions Start Date End Date Status Dosage Vicoprofen [facility] [address]-93 7.5-200 MG Orally 2 times a day Oct 13, 2015 1 tablet Results No Known Results Summary Purpose [employer]ClinicalWorks Submission
--- OUTSIDE RECORDS SUMMARY | 2019-06-16 23:03 | XMS REPORT ---
Author Author BECK POLLOCK [facility] [employer] Address Unknown Phone Unavailable Care Team Providers Care Continuous Improvement Manager Name Role Phone BECK POLLOCK CP Unavailable [...] vaccination and inoculation, Influenza V04.81 Active Medications Medication Code System Code Instructions Start Date End Date Status Dosage Allopurinol [facility] [address]-07 300 MG Orally Once a day Sep 08, 2015 1 tablet Results No Known Results Summary Purpose [employer]ClinicalWorks Submission
--- OUTSIDE RECORDS SUMMARY | 2019-06-16 23:04 | XMS REPORT ---
Author Author KENISHA CABEZAS [facility] Address [address] [place] [address] Care Team Providers Care Senior Planning Manager Name Role Phone KENISHA CABEZAS Unavailable PROBLEMS Type Condition ICD9-CM Code IXK69-DX Code Onset Dates Condition Status SNOMED Code Problem Gout M10.9 Active 23700214 Problem Hypothyroid E03.9 Active 25057498 Problem Degenerative disc disease, lumbar M51.36 Active 57538713 Problem Elevated fasting glucose R73.01 Active 04543981 Problem Chronic pain syndrome G89.4 Active 862133933 Problem Unspecified kidney failure N19 Active 34595546 Problem Hypercholesterolemia E78.0 Active 77115184 Problem Depression F32.9 Active 61983614 Problem Hypertension I10 Active 00770305 Problem Anxiety F41.9 Active 40162949 ALLERGIES No Information ENCOUNTERS Encounter Location Date Diagnosis [place] [id number] [address] Apr, [place] [address] [address] March, Depression F32.9 and Anxiety F41.9 [place] [address] [place] [id number] [place] [address] Jan, Hypothyroid E03.9 and Elevated fasting glucose R73.01 [facility] [address] [place] [id number] [place] [address] Jan, Hypercholesterolemia E78.0 [place] [address] [address] Dec, Hypertension I10 ; Hypercholesterolemia E78.0 ; Hypothyroid E03.9 and Gout M10.9 [place] [address] [address] Dec, Hypertension I10 ; Hypercholesterolemia E78.0 ; Hypothyroid E03.9 ; Depression F32.9 ; Anxiety F41.9 ; Gout M10.9 ; Chronic pain syndrome G89.4 ; Controlled substance agreement broken Z91.14 and Controlled substance agreement terminated Z91.14 [facility] [address] [address] Sep, Degenerative disc disease, lumbar M51.36 [facility] [address] [address] Sep, Degenerative disc disease, lumbar M51.36 [place] [address] [address] Aug, Hypertension I10 ; Hypercholesterolemia E78.0 ; Hypothyroid E03.9 ; Depression F32.9 ; Gout M10.9 ; Anxiety F41.9 and Degenerative disc disease, lumbar M51.36 [place] [address] [address] Jul, [facility] [address] [address] Jul, [place] [address] [address] Jun, [facility] [address] [address] Jun, Gout M10.9 [facility] [address] [address] May, Hypertension I10 and Hypercholesterolemia E78.0 [place] [address] [address] May, [facility] [address] [address] May, Dental examination Z01.20 [place] [address] [address] Apr, [facility] [address] [address] March, [facility] [address] [place] [id number] [place] [address] March, [facility] [address] [id number] March, [facility] [address] [place] [id number] [place] [address] March, [facility] [address] [place] [id number] [place] [address] Feb, [facility] [address] [place] [id number] [place] [address] Feb, [facility] [address] [place] [id number] [place] [address] Feb, Degenerative disc disease, lumbar M51.36 [facility] [address] [place] [id number] [place] [address] Feb, Hypothyroid E03.9 ; Hypertension I10 ; Anxiety F41.9 ; Hypercholesterolemia E78.0 ; Depression F32.9 ; Gout M10.9 and Degenerative disc disease, lumbar M51.36 [facility] [id number] [place] [address] Feb, Encounter for dental examination and cleaning without abnormal findings Z01.20 [facility] [address] [place] [id number] [place] [address] Jan, Encounter for dental examination Z01.20 [facility] [address] [place] [id number] [place] [address] Jan, [facility] [address] [place] [id number] [place] [address] Jan, Hypercholesterolemia E78.0 [facility] [address] [place] [id number] [place] [address] Jan, Degenerative disc disease, lumbar M51.36 [facility] [address] [place] [id number] [place] [address] Dec, [facility] [address] [address] Dec, Degenerative disc disease, lumbar M51.36 ; Hypercholesterolemia E78.0 ; Depression F32.9 ; Hypothyroid E03.9 and Hypertension I10 [place] [address] [address] Dec, Degenerative disc disease, lumbar M51.36 [facility] [address] [place] [id number] [place] [id number] 03 Dec, 2016 Dental examination Z01.20 [place] [address] [place] [id number] [place] [address] Nov, Dental examination Z01.20 [place] [address] [address] Nov, Degenerative disc disease, lumbar M51.36 [place] [address] [place] [id number] [place] [address] Nov, Hypertension I10 ; Hypothyroid E03.9 ; Degenerative disc disease, lumbar M51.36 ; Gout M10.9 ; Unspecified kidney failure N19 ; Anxiety F41.9 ; Depression F32.9 and Hypercholesterolemia E78.0 [place] [address] [place] [id number] [place] [address] Oct, [place] [address] [place] [id number] [place] [address] Sep, [place] [address] [address] Aug, [place] [address] [place] [id number] [place] [address] Jul, [place] [address] [address] Jun, [facility] [address] [place] [id number] [place] [address] Jun, [facility] [address] [place] [id number] [place] [address] May, [facility] [address] [place] [id number] [place] [address] May, [facility] [address] [address] May, [facility] [address] [place] [id number] [place] [address] Apr, Pain in unspecified shoulder M25.519 [place] [address] [place] [id number] [place] [address] Apr, Degenerative disc disease, lumbar M51.36 ; Hypertension I10 ; Unspecified kidney failure N19 ; Gout M10.9 ; Depression F32.9 ; Hypothyroid E03.9 ; Anxiety F41.9 ; Other long-term (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.899 and Combined hyperlipidemia E78.2 [place] [address] [place] [id number] [place] [address] Apr, Gout M10.9 and Pain in unspecified shoulder M25.519 [place] [address] [place] [id number] [place] [address] March, Degenerative disc disease, lumbar M51.36 [facility] [address] [place] [id number] [place] [address] Feb, Hypercholesterolemia E78.0 ; Hypothyroid E03.9 ; Gout M10.9 and Anxiety F41.9 [facility] [address] [place] [id number] [place] [address] Feb, [facility] [address] [place] [id number] [place] [address] Feb, Unspecified kidney failure N19 [facility] [address] [place] [id number] [place] [address] Feb, Unspecified kidney failure N19 [facility] [id number] [place] [address] Feb, [facility] [id number] [place] [address] Feb, [facility] [address] [place] [id number] [place] [address] Jan, [facility] [id number] [place] [address] Dec, Sacroiliitis, not elsewhere classified 720.2 ; Hypercholesterolemia E78.0 ; Depression F32.9 ; Anxiety F41.9 ; Gout M10.9 ; Unspecified kidney failure N19 ; Hypothyroid E03.9 ; Degenerative disc disease, lumbar M51.36 and 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 [facility] [id number] [place] [address] Dec, [facility] [id number] [place] [address] Nov, [facility] [address] [place] [id number] [place] [address] Nov, [facility] [id number] [place] [address] Nov, [facility] [id number] [place] [address] Oct, [facility] [address], [place] [address] Sep, [facility] [address] [place] [id number] [place] [address] Sep, Hypothyroid E03.9 ; Sacroiliitis, not elsewhere classified 720.2 ; Degenerative disc disease, lumbar M51.36 ; Hypercholesterolemia E78.0 ; Depression F32.9 ; Anxiety F41.9 ; Gout M10.9 ; HTN (hypertension) I10 and Hypothyroidism 244.9 [place] [address] [place] [id number] [place] [address] Aug, Unspecified kidney failure N19 ; Hypothyroid E03.9 ; Hypertension I10 ; Anxiety F41.9 and Gout M10.9 [place] [address] [address] Aug, Seborrheic keratosis L82.1 and Nevus D22.9 [place] [address] [address] Aug, [address] [address] Aug, [address] [address] Aug, Hypothyroid E03.9 ; Degenerative disc disease, lumbar M51.36 ; Hypertension I10 ; Hypercholesterolemia E78.0 ; Depression F32.9 ; Anxiety F41.9 and Gout M10.9 [place] [address] [address] Aug, [place] [address] [address] Jun, [place] [address] [address] Jun, Hypothyroidism 244.9 [place] [address] [address] Jun, Hypothyroidism 244.9 ; Pain in joint, shoulder region 719.41 ; Sacroiliitis, not elsewhere classified 720.2 ; High risk medication use V58.69 and Facial skin lesion 709.9 [place] [address] [place] [id number] [place] [address] Apr, Hypothyroidism 244.9 ; Aggressive behavior of adult 301.3 and Edema 782.3 [place] [address] [place] [address] March, [facility] [place] [facility] [address] [id number] [place] [address] Feb, [facility] [place] [facility] [address] [id number] [place] [address] Feb, [facility] [place] [facility] [address] [id number] [place] [address] Jan, [facility] [place] [facility] [address] [id number] [place] [address] Jan, [facility] [place] [facility] [address] [id number] [place] [address] Jan, [facility] [place] [facility] [address] [id number] [place] [address] Jan, [facility] [place] [facility] [address] [id number] [place] [address] Dec, [facility] [place] [facility] [address] [id number] [place] [address] Dec, [facility] [place] [facility] [address] [facility] [id number] [place] [address] Nov, [facility] [place] [facility] [address] [facility] [id number] [place] [address] Nov, [facility] [place] [facility] [address] [id number] [place] [address] Nov, [facility] [place] [facility] [address] [id number] [place] [address] Nov, [facility] [place] [facility] [address] [id number] [place] [address] Nov, [facility] [place] [facility] [address] [facility] [id number] [place] [address] Nov, [facility] [place] [facility] [address] [facility] [address] [id number] [place] [address] Oct, [facility] [place] [facility] [address] [id number] [place] [address] Oct, [facility] [place] [facility] [address] [id number] [place] [address] Sep, [facility] [place] [facility] [address] [id number] [place] [address] Sep, [facility] [place] [facility] [address] [id number] [place] [address] Sep, [facility] [place] [facility] [address] [id number] [place] [address] Sep, [facility] [place] [facility] [address] [id number] [place] [address] Sep, [facility] [place] [facility] [address] [facility] [id number] [place] [address] Sep, [facility] [place] [facility] [address] [id number] [place] [address] Aug, [facility] [place] [facility] [address] [id number] [place] [address] Aug, [facility] [place] [facility] [address] [facility] [address] [id number] [address] Aug, [facility] [place] [facility] [address] [facility] [address] [id number] [address] Aug, [facility] [place] [facility] [address] [id number], [place] [address] Aug, [facility] [place] [facility] [address] [id number], [place] [address] Aug, [facility] [place] [facility] [address] [id number], [place] [address] Jul, [facility] [place] [facility] [address] [id number], [place] [address] Jul, [facility] [place] [facility] [address] [id number], [place] [address] Jul, [facility] [place] [facility] [address] [id number] [place] [address] Jul, [facility] [place] [facility] [address] [id number] [place] [address] Jul, [facility] [place] [facility] [address] [id number] [place] [address] Jul, [facility] [place] [facility] [address] [id number] [place] [address] Jun, [facility] [place] [facility] [address] [id number] [place] [address] Jun, [facility] [place] [facility] [address] [id number] [place] [address] May, [facility] [place] [facility] [address] [id number] [place] [address] May, [facility] [place] [facility] [address] [id number] [place] [address] May, [facility] [place] [facility] [address] [id number] [place] [address] May, [facility] [place] [facility] [address] [id number] [place] [address] May, [facility] [place] [facility] [address] [id number] [place] [address] May, [facility] [place] [facility] [address] [id number] [place] [address] Apr, [facility] [place] [facility] [address] [id number] [place] [address] Apr, [facility] [place] [facility] [address] [id number] [place] [address] Apr, [facility] [place] [facility] [address] [id number] [place] [address] Apr, [facility] [place] [facility] [address] [id number] [place] [address] Apr, [facility] [place] [facility] [address] [id number] [place] [address] Apr, [facility] [place] [facility] [address] [id number] [place] [address] Feb, [facility] [place] [facility] [address] [id number] [place] [address] Feb, [facility] [place] [facility] [address] [id number] [place] [address] Feb, [facility] [place] [facility] [address] [id number] [place] [address] Feb, [facility] [place] [facility] [address] [facility] [id number] [place] [address] Jan, [facility] [place] [facility] [address] [id number] [place] [address] Jan, [facility] [place] [facility] [address] [id number] [place] [address] Jan, [facility] [place] [facility] [address] [id number] [place] [address] Jan, [facility] [place] [facility] [address] [facility] [id number] [place] [address] Dec, [facility] [place] [facility] [address] [id number] [place] [address] Dec, [facility] [place] [facility] [address] [id number] [place] [address] Dec, [facility] [place] [facility] [address] [id number] [place] [address] Dec, [facility] [place] [facility] [address] [id number] [place] [address] 18 Dec, 2013 [facility] [place] [facility] [address] [id number] [place] [address] Dec, [facility] [address] [id number] [place] [address] Nov, [facility] [place] [facility] [address] [id number] [place] [address] Oct, [facility] [place] [facility] [address] [id number] [place] [address] Oct, [facility] [place] [facility] [address] [id number] [place] [address] Oct, [facility] [place] [facility] [address] [id number] [place] [address] Oct, [facility] [place] [facility] [address] [id number] [place] [address] Oct, [facility] [place] [facility] [address] [id number] [place] [address] Oct, [facility] [place] [facility] [address] [id number] [place] [address] Sep, [facility] [place] [facility] [address] [id number] [place] [address] Sep, [facility] [place] [facility] [address] [id number] [place] [address] Sep, [facility] [place] [facility] [address] [id number] [place] [address] Jul, [facility] [place] [facility] [address] [id number] [place] [address] Jun, [facility] [place] [facility] [address] [id number] [place] [address] Jun, [facility] [place] [facility] [address] [id number] [place] [address] Jun, [facility] [place] [facility] [address] [id number] [place] [address] May, [facility] [place] [facility] [address] [id number] [place] [address] 15 May, 2013 [facility] [address] [id number] [place] [address] May, [facility] [address] [id number] [place] [address] Apr, [facility] [address] [id number] [place] [address] Apr, [facility] [address] [id number] [place] [address] Apr, [facility] [address] [id number] [place] [address] Apr, [facility] [address] [id number] [place] [address] March, [facility] [address] [id number] [place] [address] March, [facility] [address] [id number] [place] [address] March, [facility] [address] [id number] [place] [address] March, [facility] [address] [id number] [place] [address] Feb, [facility] [address] [id number] [place] [address] Feb, [facility] [address] [id number] [place] [address] 15 Feb, 2013 [facility] [address] [id number] [place] [address] 10 Feb, 2013 [facility] [address] [id number] [place] [address] 08 Feb, 2013 [facility] [address] [id number] [place] [address] Feb, [facility] [place] [facility] [address] [id number] [place] [address] Jan, [facility] [place] [facility] [address] [id number] [place] [address] Jan, [facility] [place] [facility] [address] [id number] [place] [address] 16 Nov, 2012 [facility] [place] [facility] [address] [id number] [place] [address] 15 Nov, 2012 [facility] [place] [facility] [address] [id number] [place] [address] Nov, [facility] [place] [facility] [address] [id number] [place] [address] Nov, [facility] [place] [facility] [address] [id number] [place] [address] Sep, [facility] [place] [facility] [address] [id number] [place] [address] Sep, [facility] [place] [facility] [address] [id number] [place] [address] Sep, [facility] [place] [facility] [address] [id number] [place] [address] Sep, [facility] [place] [facility] [address] [id number] [place] [address] Aug, [facility] [place] [facility] [address] [id number] [address] Aug, [facility] [place] [facility] [address] [id number] [place] [address] Aug, [facility] [place] [facility] [address] [id number] [place] [address] 26 Jul, 2012 [facility] [place] [facility] [address] [id number] [place] [address] Jul, [facility] [place] [facility] [address] [id number] [place] [address] Jul, [facility] [place] [facility] [address] [id number] [place] [address] Jun, [facility] [place] [facility] [address] [id number] [place] [address] Jun, [facility] [place] [facility] [address] [id number] [place] [address] May, [facility] [place] [facility] [address] [id number] [place] [address] May, [facility] [place] [facility] [address] [id number] [place] [address], [place] [address] May, [facility] [place] [facility] [address] [id number] [place] [address] Apr, [facility] [place] [facility] [address] [id number] [place] [address] March, [facility] [place] [facility] [address] [id number] [place] [address] Feb, [facility] [place] [facility] [address] [id number] [place] [address] Feb, [facility] [place] [facility] [address] [id number] [place] [address] Dec, [facility] [place] [facility] [address] [id number] [place] [address] Oct, [facility] [place] [facility] [address] [id number], [place] [address] Aug, [facility] [place] [facility] [address] [id number] [place] [address] Aug, [facility] [place] [facility] [address] [id number] [place] [address] Aug, [facility] [place] [facility] [address] [id number], [place] [address] Aug, [facility] [place] [facility] [address] [id number] [place] [address] 10 Aug, 2011 [facility] [place] [facility] [address] [id number] [place] [address] Oct, [facility] [place] [facility] [address] [id number] [place] [address] Sep, [facility] [place] [facility] [address] [id number] [place] [address] Sep, [facility] [place] [facility] [address] [id number] [place] [address] Sep, [facility] [place] [facility] [address] [id number] [place] [address] Sep, [facility] [place] [facility] [address] [id number] [place] [address] Aug, [facility] [place] [facility] [address] [id number] [place] [address] Aug, [facility] [place] [facility] [address] [id number] [place] [address] Aug, [facility] [place] [facility] [address] [id number] [place] [address] Aug, [facility] [place] [facility] [address] [id number] [place] [address] Aug, [facility] [place] [facility] [address] [id number] [place] [address] Aug, [facility] [place] [facility] [address] [id number] [place] [address] Nov, [facility] [place] [facility] [address] [id number] [place] [address] Oct, [facility] [place] [facility] [address] [address] [id number] [place] [address] Oct, [facility] [place] [facility] [address] [id number] [place] [address] Sep, [facility] [address] [facility] [address] [id number] [place] [address] Jul, IMMUNIZATIONS No Known Immunizations SOCIAL HISTORY Never Assessed REASON FOR VISIT Vicoprofen- 09/27 PLAN OF CARE VITAL SIGNS MEDICATIONS Medication [...]
--- OUTSIDE RECORDS SUMMARY | 2019-06-16 23:05 | XMS REPORT ---
Author Author BECK POLLOCK Organization [employer] Address Unknown Phone Unavailable Care Team Providers Care Meter Tester Name Role Phone BECK POLLOCK Unavailable Allergies No Known Allergies Problems Problem Type Condition Code Onset Dates Condition Status Problem Sacroiliitis, not elsewhere classified 720.2 Active Problem Anxiety F41.9 Active Problem Gout M10.9 Active Problem Unspecified kidney failure N19 Active Problem Hypothyroid E03.9 Active Problem Other group home (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.899 Active Problem Hypercholesterolemia E78.0 Active Problem Depression F32.9 Active Problem Degenerative disc disease, lumbar M51.36 Active Problem Hypertension I10 Active Medications No Known Medications Results No Known Results Summary Purpose eClinical[employer] Submission
--- OUTSIDE RECORDS SUMMARY | 2019-06-16 23:05 | XMS REPORT ---
Author Author BECK POLLOCK [facility] [employer] Address Unknown Phone Unavailable Care Team Providers Care Tech Brazer Tester Name Role Phone BECK POLLOCK CP Unavailable [...] Start Date End Date Status Dosage Vicoprofen [facility] [address]-15 7.5-200 MG Orally 2 times a day Oct 13, 2015 1 tablet Results No Known Results Summary Purpose [employer]ClinicalWorks Submission
--- OUTSIDE RECORDS SUMMARY | 2019-06-16 23:05 | XMS REPORT ---
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 Info Not Available Non Drug Allergy Problems Problem Type Condition Code Onset Dates Condition Status Problem Pain in joint, shoulder region 719.41 Active Problem Unspecified ventral hernia without mention of obstruction or gangrene 553.20 Active Problem Abdominal pain, unspecified site 789.00 Active Problem Degenerative disc disease, lumbar M51.36 Active Assessment Nevus D22.9 Active Problem Hypertension I10 Active Problem Hypothyroid E03.9 Active Problem Anxiety F41.9 Active Problem Gout M10.9 Active Problem Hypercholesterolemia E78.0 Active Problem Depression F32.9 Active Problem Gout, unspecified 274.9 Active Problem Retained (old) foreign body, intraocular, unspecified 360.60 Active Assessment Seborrheic keratosis L82.1 Active Problem Sacroiliitis, not elsewhere classified 720.2 [...] Start Date End Date Status Dosage Allopurinol [facility] [address]-10 300 MG Orally Once a day Sep 08, 2015 1 tablet ASA NDC 0 Oral 1 tab Lipitor [facility] [address]-58 40 MG Orally Once a day 1 tablet Depakote [facility] [address]-72 500 MG Orally Once a day 1 tablet Gabapentin [facility] [address]-44 300 MG Orally 2 times a day Sep 07, 2015 1 capsule Gemfibrozil [facility] [address]-42 600 MG Orally 2 times a day Oct 27, 2014 1 tablet Prozac [facility] [address]-63 20 MG Orally Once a day 1 capsule in the morning Lisinopril-Hydrochlorothiazide [facility] [address]-10 20-25 MG Orally Once a day 1 tablet BusPIRone HCl [facility] 58646496090 15 MG TAKE ONE TABLET BY MOUTH AT NOON AND ONE TABLET AT BEDTIME Levothyroxine Sodium [facility] [address]-18 112 MCG Orally Once a day May 11, 2015 1 tablet Hydrocodone-Acetaminophen [facility] [address]-49 5-325 MG Orally 3 times a day Sep 07, 2015 Sep 21, 2015 1 tablet as needed Zyprexa [facility] [address]-64 5 MG Orally Once a day 1 tablet Lasix [facility] [address]-39 20 MG Orally Once every other day May 11, 2015 1 tablet Procedures Procedure Coding System Code Date CRYOTHERAPY OF SKIN CPT-4 37197 Sep 21, 2015 Vital Signs Date/Time: Sep 21, 2015 Temperature 98.5 F Weight 243.4 lbs Height 70 in BMI 34.92 Index Blood Pressure Diastolic 72 mmHg Blood Pressure Systolic 114 mmHg Cardiac Monitoring Heart Rate 64 bpm Results No Known Results Summary Purpose eClinicalWorks Submission
--- OUTSIDE RECORDS SUMMARY | 2019-06-16 23:05 | XMS REPORT ---
Author Author LEILANI HARTMANN Organization [facility] Address [address] [place] [address] Care Team Providers Care Magnetic Prospector Name Role Phone LEILANI HARTMANN Unavailable PROBLEMS Type Condition ICD9-CM Code VMQ74-OX Code Onset Dates Condition Status SNOMED Code Problem Gout M10.9 Active 67085422 Problem Hypothyroid E03.9 Active 26878666 Problem Degenerative disc disease, lumbar M51.36 Active 35191354 Problem Elevated fasting glucose R73.01 Active 59921524 Problem Chronic pain syndrome G89.4 Active 776001115 Problem Unspecified kidney failure N19 Active 06344750 Problem Hypercholesterolemia E78.0 Active 99802363 Problem Depression F32.9 Active 37699203 Problem Hypertension I10 Active 50750530 Problem Anxiety F41.9 Active 39301904 ALLERGIES No Information ENCOUNTERS Encounter Location Date Diagnosis [place] [id number] [place] [address] Apr, [place] [id number] [place] [address] Jan, Hypothyroid E03.9 and Elevated fasting glucose R73.01 [place] [id number] [place] [address] Jan, Hypercholesterolemia E78.0 [place] [id number] [place] [address] Dec, Hypertension I10 ; Hypercholesterolemia E78.0 ; Hypothyroid E03.9 and Gout M10.9 [facility] [id number] [place] [address] Dec, Hypertension I10 ; Hypercholesterolemia E78.0 ; Hypothyroid E03.9 ; Depression F32.9 ; Anxiety F41.9 ; Gout M10.9 ; Chronic pain syndrome G89.4 ; Controlled substance agreement broken Z91.14 and Controlled substance agreement terminated Z91.14 [facility] [address] [address] Sep, Degenerative disc disease, lumbar M51.36 [facility] [address] [address] Sep, Degenerative disc disease, lumbar M51.36 [facility] [address] [address] Aug, Hypertension I10 ; Hypercholesterolemia E78.0 ; Hypothyroid E03.9 ; Depression F32.9 ; Gout M10.9 ; Anxiety F41.9 and Degenerative disc disease, lumbar M51.36 [place] [address] [address] Jul, [place] [address] [address] Jul, [facility] [address] [address] Jun, [place] [address] [address] Jun, Gout M10.9 [place] [address] [address] May, Hypertension I10 and Hypercholesterolemia E78.0 [facility] [address] [address] May, [facility] [address] [address] May, Dental examination Z01.20 [place] [address] [address] Apr, [place] [address] [address] March, [place] [id number] [place] [address] March, [facility] [id number] [place] [id number] March, [facility] [id number] [place] [address] March, [facility] [id number] [place] [address] Feb, [facility] [id number] [place] [address] Feb, [facility] [address] [address] Feb, Degenerative disc disease, lumbar M51.36 [facility] [id number] [place] [address] Feb, Hypothyroid E03.9 ; Hypertension I10 ; Anxiety F41.9 ; Hypercholesterolemia E78.0 ; Depression F32.9 ; Gout M10.9 and Degenerative disc disease, lumbar M51.36 [facility] [id number] [place] [address] Feb, Encounter for dental examination and cleaning without abnormal findings Z01.20 [facility] [id number] [place] [address] Jan, Encounter for dental examination Z01.20 [facility] [id number] [place] [address] Jan, [facility] [id number] [place] [address] Jan, Hypercholesterolemia E78.0 [facility] [id number] [place] [address] Jan, Degenerative disc disease, lumbar M51.36 [facility] [id number] [place] [address] Dec, [place] [id number] [place] [address] Dec, Degenerative disc disease, lumbar M51.36 ; Hypercholesterolemia E78.0 ; Depression F32.9 ; Hypothyroid E03.9 and Hypertension I10 [facility] [id number] [place] [address] Dec, Degenerative disc disease, lumbar M51.36 [facility] [address] [id number] Dec, 2016 Dental examination Z01.20 [facility] [address] [address] Nov, Dental examination Z01.20 [facility] [id number] [place] [address] Nov, Degenerative disc disease, lumbar M51.36 [facility] [address] [address] Nov, Hypertension I10 ; Hypothyroid E03.9 ; Degenerative disc disease, lumbar M51.36 ; Gout M10.9 ; Unspecified kidney failure N19 ; Anxiety F41.9 ; Depression F32.9 and Hypercholesterolemia E78.0 [facility] [id number] [place] [address] Oct, [facility] [id number] [place] [address] Sep, [facility] [id number] [place] [address] Aug, [facility] [id number] [place] [address] Jul, [facility] [id number] [place] [address] Jun, [facility] [id number] [place] [address] Jun, [facility] [address] [address] May, [facility] [id number] [place] [address] May, [facility] [address] [place] [address] May, [facility] [id number] [place] [address] Apr, Pain in unspecified shoulder M25.519 [place] [id number] [place] [address] Apr, Degenerative disc disease, lumbar M51.36 ; Hypertension I10 ; Unspecified kidney failure N19 ; Gout M10.9 ; Depression F32.9 ; Hypothyroid E03.9 ; Anxiety F41.9 ; 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 and Combined hyperlipidemia E78.2 [place] [id number] [place] [address] Apr, Gout M10.9 and Pain in unspecified shoulder M25.519 [place] [id number] [place] [address] March, Degenerative disc disease, lumbar M51.36 [place] [id number] [place] [address] Feb, Hypercholesterolemia E78.0 ; Hypothyroid E03.9 ; Gout M10.9 and Anxiety F41.9 [facility] [address] [place] [address] Feb, [place] [id number] [place] [address] 14 Feb, 2016 Unspecified kidney failure N19 [facility] [address] [place] [address] Feb, Unspecified kidney failure N19 [place] [id number] [place] [address] Feb, [facility] [id number] [place] [address] Feb, [facility] [id number] [place] [address] Jan, [facility] [id number] [place] [address] Dec, Sacroiliitis, not elsewhere classified 720.2 ; Hypercholesterolemia E78.0 ; Depression F32.9 ; Anxiety F41.9 ; Gout M10.9 ; Unspecified kidney failure N19 ; Hypothyroid E03.9 ; Degenerative disc disease, lumbar M51.36 and 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 [facility] [id number] [place] [address] Dec, [facility] [id number] [place] [address] Nov, [facility] [id number] [place] [address] Nov, [facility] [id number] [place] [address] Nov, [facility] [id number] [place] [address] Oct, [facility] [id number] [place] [address] Sep, [facility] [address] [place] [address] Sep, Hypothyroid E03.9 ; Sacroiliitis, not elsewhere classified 720.2 ; Degenerative disc disease, lumbar M51.36 ; Hypercholesterolemia E78.0 ; Depression F32.9 ; Anxiety F41.9 ; Gout M10.9 ; HTN (hypertension) I10 and Hypothyroidism 244.9 [facility] [address] [place] [address] Aug, Unspecified kidney failure N19 ; Hypothyroid E03.9 ; Hypertension I10 ; Anxiety F41.9 and Gout M10.9 [place] [address] [address] Aug, Seborrheic keratosis L82.1 and Nevus D22.[address] [address] Aug, [place] [address] [address] Aug, [address] [address] Aug, Hypothyroid E03.9 ; Degenerative disc disease, lumbar M51.36 ; Hypertension I10 ; Hypercholesterolemia E78.0 ; Depression F32.9 ; Anxiety F41.9 and Gout M10.[address] [address] Aug, [place] [address] [address] Jun, [address] [address] Jun, Hypothyroidism 244.[address] [address] Jun, Hypothyroidism 244.9 ; Pain in joint, shoulder region 719.41 ; Sacroiliitis, not elsewhere classified 720.2 ; High risk medication use V58.69 and Facial skin lesion 709.[address] [address] Apr, Hypothyroidism 244.9 ; Aggressive behavior of adult 301.3 and Edema 782.[address] [address] March, [address] [address] 14 Feb, 2015 [facility] [place] [facility] [address] [id number] [place] [address] Feb, [facility] [place] [facility] [address] [id number] [place] [address] Jan, [facility] [place] [facility] [address] [facility] [id number] [place] [address] Jan, [facility] [place] [facility] [address] [id number] [place] [address] Jan, [facility] [place] [facility] [address] [id number] [place] [address] Jan, [facility] [place] [facility] [address] [facility] [address] [id number] [place] [address] Dec, [facility] [place] [facility] [address] [facility] [address] [id number] [place] [address] Dec, [facility] [place] [facility] [address] [facility] [id number] [place] [address] Nov, [facility] [place] [facility] [address] [facility] [id number] [place] [address] Nov, [facility] [place] [facility] [address] [facility] [id number] [place] [address] Nov, [facility] [place] [facility] [address] [facility] [address] [id number] [address] Nov, [facility] [place] [facility] [address] [facility] [address] [id number] [address] Nov, [facility] [place] [facility] [address] [id number] [address] Nov, [facility] [place] [facility] [address] [facility] [address] [id number] [place] [address] Oct, [facility] [place] [facility] [address] [facility] [address] [id number] [place] [address] Oct, [facility] [place] [facility] [address] [id number] [place] [address] Sep, [facility] [place] [facility] [address] [id number] [place] [address] Sep, [facility] [place] [facility] [address] [id number] [place] [address] Sep, [facility] [place] [facility] [address] [id number] [place] [address] Sep, [facility] [place] [facility] [address] [id number] [place] [address] Sep, [facility] [place] [facility] [address] [id number] [place] [address] Sep, [facility] [place] [facility] [address] [id number] [place] [address] Aug, [facility] [place] [facility] [address] [id number] [place] [address] Aug, [facility] [place] [facility] [address] [id number] [place] [address] Aug, [facility] [place] [facility] [address] [id number] [place] [address] Aug, [facility] [place] [facility] [address] [id number] [place] [address] Aug, [facility] [place] [facility] [address] [id number] [place] [address] 02 Aug, 2014 [facility] [place] [facility] [address] [id number] [place] [address] 16 Jul, 2014 [facility] [place] [facility] [address] [id number] [place] [address] 16 Jul, 2014 [facility] [place] [facility] [address] [id number] [place] [address] 15 Jul, 2014 [facility] [place] [facility] [address] [id number] [place] [address] Jul, [facility] [place] [facility] [address] [id number] [place] [address] Jul, [facility] [place] [facility] [address] [id number] [place] [address] Jul, [facility] [place] [facility] [address] [id number] [place] [address] Jun, [facility] [place] [facility] [address] [id number] [place] [address] Jun, [facility] [place] [facility] [address] [id number] [place] [address] May, [facility] [place] [facility] [address] [id number] [place] [address] May, [facility] [place] [facility] [address] [id number] [place] [address] May, [facility] [place] [facility] [address] [id number] [place] [address] May, [facility] [place] [facility] [address] [id number] [place] [address] May, [facility] [place] [facility] [address] [id number] [place] [address] May, [facility] [place] [facility] [address] [id number] [place] [address] Apr, [facility] [place] [facility] [address] [id number] [place] [address] Apr, [facility] [place] [facility] [address] [id number] [place] [address] Apr, [facility] [place] [facility] [address] [id number] [place] [address] Apr, [facility] [place] [facility] [address] [id number] [place] [address] Apr, [facility] [place] [facility] [address] [id number] [place] [address] Apr, [facility] [place] [facility] [address] [id number] [place] [address] Feb, [facility] [place] [facility] [address] [id number] [place] [address] Feb, [facility] [place] [facility] [address] [id number] [place] [address] Feb, [facility] [place] [facility] [address] [id number] [place] [address] Feb, [facility] [place] [facility] [address] [id number] [place] [address] Jan, [facility] [place] [facility] [address] [facility] [id number] [place] [address] Jan, [facility] [place] [facility] [address] [facility] [id number] [place] [address] Jan, [facility] [place] [facility] [address] [facility] [id number] [place] [address] Jan, [facility] [place] [facility] [address] [facility] [address] [id number] [place] [address] Dec, [facility] [place] [facility] [address] [facility] [address] [id number] [place] [address] Dec, [facility] [place] [facility] [address] [facility] [address] [id number] [place] [address] Dec, [facility] [place] [facility] [address] [facility] [id number] [place] [address] Dec, [facility] [place] [facility] [address] [id number] [place] [address] Dec, [facility] [place] [facility] [address] [facility] [address] [id number] [place] [address] Dec, [facility] [place] [facility] [address] [facility] [address] [id number] [place] [address] Nov, [facility] [address] [id number] [place] [address] Oct, [facility] [place] [facility] [address] [id number] [place] [address] Oct, [facility] [place] [facility] [address] [id number] [place] [address] Oct, [facility] [place] [facility] [address] [id number] [place] [address] Oct, [facility] [place] [facility] [address] [id number] [place] [address] Oct, [facility] [place] [facility] [address] [id number] [place] [address] Oct, [facility] [place] [facility] [address] [id number] [place] [address] Sep, [facility] [place] [facility] [address] [id number] [place] [address] Sep, [facility] [place] [facility] [address] [id number] [place] [address] Sep, [facility] [place] [facility] [address] [id number] [place] [address] Jul, [facility] [place] [facility] [address] [id number] [place] [address] Jun, [facility] [place] [facility] [address] [id number] [address] Jun, [facility] [place] [facility] [address] [id number] [place] [address] Jun, [facility] [place] [facility] [address] [id number] [place] [address] May, [facility] [place] [facility] [address] [id number] [place] [address] May, [facility] [place] [facility] [address] [id number] [place] [address] 08 May, 2013 [facility] [address] [id number] [place] [address] 26 Apr, 2013 [facility] [address] [id number] [place] [address] 24 Apr, 2013 [facility] [address] [id number] [place] [address] Apr, [facility] [place] [facility] [address] [id number] [place] [address] 05 Apr, 2013 [facility] [address] [id number] [place] [address] March, [facility] [address] [id number] [place] [address] March, [facility] [address] [id number] [place] [address] March, [facility] [address] [id number] [place] [address] March, [facility] [address] [id number] [place] [address] 24 Feb, 2013 [facility] [address] [id number] [place] [address] Feb, [facility] [address] [id number] [place] [address] 15 Feb, 2013 [facility] [place] [facility] [address] [id number] [place] [address] 10 Feb, 2013 [facility] [place] [facility] [address] [id number] [place] [address] 08 Feb, 2013 [facility] [place] [facility] [address] [id number] [place] [address] 04 Feb, 2013 [facility] [place] [facility] [address] [id number] [place] [address] Jan, [facility] [place] [facility] [address] [id number] [place] [address] Jan, [facility] [place] [facility] [address] [id number] [place] [address] 16 Nov, 2012 [facility] [place] [facility] [address] [id number] [place] [address] 15 Nov, 2012 [facility] [place] [facility] [address] [id number] [place] [address] Nov, [facility] [place] [facility] [address] [id number] [place] [address] Nov, [facility] [place] [facility] [address] [id number] [place] [address] Sep, [facility] [place] [facility] [address] [id number] [place] [address] Sep, [facility] [place] [facility] [address] [id number] [place] [address] Sep, [facility] [place] [facility] [address] [id number] [place] [address] Sep, [facility] [place] [facility] [address] [id number] [place] [address] Aug, [facility] [place] [facility] [address] [id number] [place] [address] Aug, [facility] [place] [facility] [address] [id number] [place] [address] Aug, [facility] [place] [facility] [address] [id number] [place] [address] 26 Jul, 2012 [facility] [place] [facility] [address] [id number] [place] [address] 11 Jul, 2012 [facility] [place] [facility] [address] [id number] [place] [address] 04 Jul, 2012 [facility] [place] [facility] [address] [id number] [place] [address] Jun, [facility] [place] [facility] [address] [id number] [place] [address] Jun, [facility] [place] [facility] [address] [id number] [place] [address] May, [facility] [place] [facility] [address] [id number] [place] [address] May, [facility] [place] [facility] [address] [id number] [place] [address] May, [facility] [place] [facility] [address] [id number] [place] [address] Apr, [facility] [place] [facility] [address] [id number] [place] [address] March, [facility] [place] [facility] [address] [id number] [place] [address] Feb, [facility] [place] [facility] [address] [id number] [place] [address] Feb, [facility] [place] [facility] [address] [id number] [place] [address] Dec, [facility] [place] [facility] [address] [id number] [place] [address] Oct, [facility] [place] [facility] [address] [id number] [place] [address] Aug, [facility] [place] [facility] [address] [id number] [address] Aug, [facility] [place] [facility] [address] [id number] [place] [address] Aug, [facility] [place] [facility] [address] [id number] [place] [address] Aug, [facility] [place] [facility] [address] [id number] [place] [address] Aug, [facility] [place] [facility] [address] [id number] [place] [address] 02 Oct, 2010 [facility] [address] [id number] [place] [address] Sep, [facility] [address] [id number] [place] [address] Sep, [facility] [address] [id number] [place] [address] Sep, [facility] [address] [id number] [place] [address] Sep, [facility] [address] [facility] [id number] [place] [address], [place] [address] Aug, [facility] [address] [facility] [address] [id number] [place] [address] Aug, [facility] [address] [facility] [address] [id number] [place] [address] Aug, [facility] [address] [facility] [address] [id number] [place] [address] 18 Aug, 2010 [facility] [address] [id number] [place] [address] Aug, [facility] [address] [id number] [address] Aug, [facility] [address] [id number] [place] [address] Nov, [facility] [address] [id number] [address] 15 Oct, 2009 [facility] [address] [id number] [place] [address] Oct, [facility] [address] [id number] [place] [address] 24 Sep, 2009 [facility] [address] [id number] [address] Jul, IMMUNIZATIONS No Known Immunizations SOCIAL HISTORY Never Assessed REASON FOR VISIT Vicoprofen 08/02 PLAN OF CARE VITAL SIGNS MEDICATIONS Medication Instructions Dosage Frequency Start Date End Date Duration Status Hydrocodone-Ibuprofen 7.5-200 MG Orally 3 times a day 1 tablet 8h Jul, 28 days Active RESULTS No Results PROCEDURES [...]
--- OUTSIDE RECORDS SUMMARY | 2019-06-16 23:06 | XMS REPORT | Continuity of Care Document ---
Author Organization Unknown Address Unknown Allergies Active Description Code Type Severity Reaction Onset Reported/Identified Relationship to Patient Clinical Status Yes No Known Drug Allergies [id number] Drug Allergy Unknown N/A 09/14/2015 Medications There is no data. Problems Date Dx Coded Attending Type Code Diagnosis Diagnosed By 08/06/2009 MARIE DO, EBONI K 401.9 HYPERTENSION (SYSTEMIC) 08/06/2009 MARIE DO, EBONI K 724.2 lower back pain 08/06/2009 MARIE DO, EBONI K 401.9 HYPERTENSION (SYSTEMIC) 08/06/2009 MARIE DO, EBONI K 724.2 lower back pain 08/06/2009 MARIE DO, EBONI K 401.9 HYPERTENSION (SYSTEMIC) 08/06/2009 MARIE DO, EBONI K 724.2 lower back pain 08/06/2009 MARIE DO, EBONI K 401.9 HYPERTENSION (SYSTEMIC) 08/06/2009 MARIE DO, EBONI K 724.2 lower back pain 08/06/2009 401.9 HYPERTENSION (SYSTEMIC) 08/06/2009 724.2 lower back pain 08/06/2009 401.9 HYPERTENSION (SYSTEMIC) 08/06/2009 724.2 lower back pain 08/06/2009 401.9 HYPERTENSION (SYSTEMIC) 08/06/2009 724.2 lower back pain 08/06/2009 401.9 HYPERTENSION (SYSTEMIC) 08/06/2009 724.2 lower back pain 08/06/2009 MARIE DO, EBONI K 401.9 HYPERTENSION (SYSTEMIC) 08/06/2009 MARIE DO, EBONI K 724.2 lower back pain 08/06/2009 MARIE DO, EBONI K 401.9 HYPERTENSION (SYSTEMIC) 08/06/2009 MARIE DO, EBONI K 724.2 lower back pain 08/06/2009 MARIE DO, EBONI K 401.9 HYPERTENSION (SYSTEMIC) 08/06/2009 MARIE DO, EBONI K 724.2 lower back pain 08/06/2009 MARIE DO, EBONI K 401.9 HYPERTENSION (SYSTEMIC) 08/06/2009 MARIE DO, EBONI K 724.2 lower back pain 08/06/2009 MARIE DO, EBONI K 401.9 HYPERTENSION (SYSTEMIC) 08/06/2009 MARIE DO, EBONI K 724.2 lower back pain 08/06/2009 MARIE DO, EBONI K 401.9 HYPERTENSION (SYSTEMIC) 08/06/2009 MARIE DO, EBONI K 724.2 lower back pain 08/06/2009 RAZA CASHERO SIGN MAKER, NANO N 401.9 HYPERTENSION (SYSTEMIC) 08/06/2009 RAZA CASHERO SIGN MAKER, NANO N 724.2 lower back pain 08/06/2009 RAZA CASHERO SIGN MAKER, NANO N 401.9 HYPERTENSION (SYSTEMIC) 08/06/2009 RAZA CASHERO SIGN MAKER, NANO N 724.2 lower back pain 08/06/2009 RAZA CASHERO SIGN MAKER, NANO N 401.9 HYPERTENSION (SYSTEMIC) 08/06/2009 RAZA CASHERO SIGN MAKER, NANO N 724.2 lower back pain 08/06/2009 RAZA CASHERO SIGN MAKER, NANO N 401.9 HYPERTENSION (SYSTEMIC) 08/06/2009 RAZA CASHERO SIGN MAKER, NANO N 724.2 lower back pain 08/06/2009 RAZA CASHERO SIGN MAKER, NANO N 401.9 HYPERTENSION (SYSTEMIC) 08/06/2009 RAZA CASHERO SIGN MAKER, NNAO N 724.2 lower back pain 08/06/2009 RAZA CASHERO SIGN MAKER, NANO N 401.9 HYPERTENSION (SYSTEMIC) 08/06/2009 RAZA CASHERO SIGN MAKER, NANO N 724.2 lower back pain 12/06/2009 MARIE DO, EBONI K 724.5 BACKACHE UNSPECIFIED 12/06/2009 MARIE DO, EBONI K 724.5 BACKACHE UNSPECIFIED 12/06/2009 MARIE DO, EBONI K 724.5 BACKACHE UNSPECIFIED 12/06/2009 MARIE DO, EBONI K 724.5 BACKACHE UNSPECIFIED 12/06/2009 724.5 BACKACHE UNSPECIFIED 12/06/2009 724.5 BACKACHE UNSPECIFIED 12/06/2009 724.5 BACKACHE UNSPECIFIED 12/06/2009 724.5 BACKACHE UNSPECIFIED 12/06/2009 MARIE DO, EBONI K 724.5 BACKACHE UNSPECIFIED 12/06/2009 MARIE DO, EBONI K 724.5 BACKACHE UNSPECIFIED 12/06/2009 MARIE DO, EBONI K 724.5 BACKACHE UNSPECIFIED 12/06/2009 MARIE DO, EBONI K 724.5 BACKACHE UNSPECIFIED 12/06/2009 MARIE DO, EBONI K 724.5 BACKACHE UNSPECIFIED 12/06/2009 MARIE DO, EBONI K 724.5 BACKACHE UNSPECIFIED 12/06/2009 RAZA CASHERO SIGN MAKER, NANO N 724.5 BACKACHE UNSPECIFIED 12/06/2009 RAZA CASHERO SIGN MAKER, NANO N 724.5 BACKACHE UNSPECIFIED 12/06/2009 RAZA CASHERO SIGN MAKER, NANO N 724.5 BACKACHE UNSPECIFIED 12/06/2009 RAZA CASHERO SIGN MAKER, NANO N 724.5 BACKACHE UNSPECIFIED 12/06/2009 RAZA CASHERO SIGN MAKER, NANO N 724.5 BACKACHE UNSPECIFIED 12/06/2009 RAZA CASHERO SIGN MAKER, NANO N 724.5 BACKACHE UNSPECIFIED 04/21/2010 MARIE DO, EBONI K 305.00 NONDEPENDENT ABUSE OF DRUGS, ALCOHOL ABUSE, UNSPECIFIED 04/21/2010 MARIE DO, EBONI K 338.4 CHRONIC PAIN SYNDROME 04/21/2010 MARIE DO, EBONI K 368.9 UNSPECIFIED VISUAL DISTURBANCE 04/21/2010 MARIE DO, EBONI K 305.00 NONDEPENDENT ABUSE OF DRUGS, ALCOHOL ABUSE, UNSPECIFIED 04/21/2010 MARIE DO, EBONI K 338.4 CHRONIC PAIN SYNDROME 04/21/2010 MARIE DO, EBONI K 368.9 UNSPECIFIED VISUAL DISTURBANCE 04/21/2010 MARIE DO, EBONI K 305.00 NONDEPENDENT ABUSE OF DRUGS, ALCOHOL ABUSE, UNSPECIFIED 04/21/2010 MARIE DO, EBONI K 338.4 CHRONIC PAIN SYNDROME 04/21/2010 MARIE DO, EBONI K 368.9 UNSPECIFIED VISUAL DISTURBANCE 04/21/2010 MARIE DO, EBONI K 305.00 NONDEPENDENT ABUSE OF DRUGS, ALCOHOL ABUSE, UNSPECIFIED 04/21/2010 MARIE DO, EBONI K 338.4 CHRONIC PAIN SYNDROME 04/21/2010 MARIE DO, EBONI K 368.9 UNSPECIFIED VISUAL DISTURBANCE 04/21/2010 305.00 NONDEPENDENT ABUSE OF DRUGS, ALCOHOL ABUSE, UNSPECIFIED 04/21/2010 338.4 CHRONIC PAIN SYNDROME 04/21/2010 368.9 UNSPECIFIED VISUAL DISTURBANCE 04/21/2010 305.00 NONDEPENDENT ABUSE OF DRUGS, ALCOHOL ABUSE, UNSPECIFIED 04/21/2010 338.4 CHRONIC PAIN SYNDROME 04/21/2010 368.9 UNSPECIFIED VISUAL DISTURBANCE 04/21/2010 305.00 NONDEPENDENT ABUSE OF DRUGS, ALCOHOL ABUSE, UNSPECIFIED 04/21/2010 338.4 CHRONIC PAIN SYNDROME 04/21/2010 368.9 UNSPECIFIED VISUAL DISTURBANCE 04/21/2010 305.00 NONDEPENDENT ABUSE OF DRUGS, ALCOHOL ABUSE, UNSPECIFIED 04/21/2010 338.4 CHRONIC PAIN SYNDROME 04/21/2010 368.9 UNSPECIFIED VISUAL DISTURBANCE 04/21/2010 MARIE DO, EBONI K 305.00 NONDEPENDENT ABUSE OF DRUGS, ALCOHOL ABUSE, UNSPECIFIED 04/21/2010 MARIE DO, EBONI K 338.4 CHRONIC PAIN SYNDROME 04/21/2010 MARIE DO, EBONI K 368.9 UNSPECIFIED VISUAL DISTURBANCE 04/21/2010 MARIE DO, EBONI K 305.00 NONDEPENDENT ABUSE OF DRUGS, ALCOHOL ABUSE, UNSPECIFIED 04/21/2010 MARIE DO, EBONI K 338.4 CHRONIC PAIN SYNDROME 04/21/2010 MARIE DO, EBONI K 368.9 UNSPECIFIED VISUAL DISTURBANCE 04/21/2010 MARIE DO, EBONI K 305.00 NONDEPENDENT ABUSE OF DRUGS, ALCOHOL ABUSE, UNSPECIFIED 04/21/2010 MARIE DO, EBONI K 338.4 CHRONIC PAIN SYNDROME 04/21/2010 MARIE DO, EBONI K 368.9 UNSPECIFIED VISUAL DISTURBANCE 04/21/2010 MARIE DO, EBONI K 305.00 NONDEPENDENT ABUSE OF DRUGS, ALCOHOL ABUSE, UNSPECIFIED 04/21/2010 MARIE DO, EBONI K 338.4 CHRONIC PAIN SYNDROME 04/21/2010 MARIE DO, EBONI K 368.9 UNSPECIFIED VISUAL DISTURBANCE 04/21/2010 MAREI DO, EBONI K 305.00 NONDEPENDENT ABUSE OF DRUGS, ALCOHOL ABUSE, UNSPECIFIED 04/21/2010 MARIE DO, EBONI K 338.4 CHRONIC PAIN SYNDROME 04/21/2010 MARIE DO, EBONI K 368.9 UNSPECIFIED VISUAL DISTURBANCE 04/21/2010 MARIE DO, EBONI K 305.00 NONDEPENDENT ABUSE OF DRUGS, ALCOHOL ABUSE, UNSPECIFIED 04/21/2010 MARIE DO, EBONI K 338.4 CHRONIC PAIN SYNDROME 04/21/2010 MARIE DO, EBONI K 368.9 UNSPECIFIED VISUAL DISTURBANCE 04/21/2010 RAZA CASHERO SIGN MAKER, NANO N 305.00 NONDEPENDENT ABUSE OF DRUGS, ALCOHOL ABUSE, UNSPECIFIED 04/21/2010 RAZA CASHERO SIGN MAKER, NANO N 338.4 CHRONIC PAIN SYNDROME 04/21/2010 RAZA CASHERO SIGN MAKERMATTCY N 368.9 UNSPECIFIED VISUAL DISTURBANCE 04/21/2010 RAZA CASHSHELDON SIGN MAKERMATTCY N 305.00 NONDEPENDENT ABUSE OF DRUGS, ALCOHOL ABUSE, UNSPECIFIED 04/21/2010 RAZA CASHERO SIGN MAKER, NANO N 338.4 CHRONIC PAIN SYNDROME 04/21/2010 RAZA CASHERO SIGN MAKER, NANO N 368.9 UNSPECIFIED VISUAL DISTURBANCE 04/21/2010 RAZA CASHERO SIGN MAKER, NANO N 305.00 NONDEPENDENT ABUSE OF DRUGS, ALCOHOL ABUSE, UNSPECIFIED 04/21/2010 RAZA CASHERO SIGN MAKER, NANO N 338.4 CHRONIC PAIN SYNDROME 04/21/2010 RAZA CASHSHELDON HERZOGNNANO N 368.9 UNSPECIFIED VISUAL DISTURBANCE 04/21/2010 RAZA CASHERO SIGN MAKER, NANO N 305.00 NONDEPENDENT ABUSE OF DRUGS, ALCOHOL ABUSE, UNSPECIFIED 04/21/2010 RAZA CASHERO SIGN MAKER, NANO N 338.4 CHRONIC PAIN SYNDROME 04/21/2010 RAZA CASHERO SIGN MAKER, NANO N 368.9 UNSPECIFIED VISUAL DISTURBANCE 04/21/2010 RAZA CASHERO SIGN MAKER, NANO N 305.00 NONDEPENDENT ABUSE OF DRUGS, ALCOHOL ABUSE, UNSPECIFIED 04/21/2010 RAZA CASHSHELDON SIGN MAKERMATTCY N 338.4 CHRONIC PAIN SYNDROME 04/21/2010 RAZA CASHERO SIGN MAKER, NANO N 368.9 UNSPECIFIED VISUAL DISTURBANCE 04/21/2010 RAZA CASHERO SIGN MAKER, NANO N 305.00 NONDEPENDENT ABUSE OF DRUGS, ALCOHOL ABUSE, UNSPECIFIED 04/21/2010 RAZA CASHERO SIGN MAKER, NANO N 338.4 CHRONIC PAIN SYNDROME 04/21/2010 RAZA CASHERO SIGN MAKER, NANO N 368.9 UNSPECIFIED VISUAL DISTURBANCE 05/24/2010 MARIE DO, EBONI K 311 MO DEPRESS NOS 05/24/2010 MARIE DO, EBONI K 311 MO DEPRESS NOS 05/24/2010 MARIE DO, EBONI K 311 MO DEPRESS NOS 05/24/2010 MARIE DO, EBONI K 311 MO DEPRESS NOS 05/24/2010 311 MO DEPRESS NOS 05/24/2010 311 MO DEPRESS NOS 05/24/2010 311 MO DEPRESS NOS 05/24/2010 311 MO DEPRESS NOS 05/24/2010 MARIE DO, EBONI K 311 MO DEPRESS NOS 05/24/2010 MARIE DO, EBONI K 311 MO DEPRESS NOS 05/24/2010 MARIE DO, EBONI K 311 MO DEPRESS NOS 05/24/2010 MARIE DO, EBONI K 311 MO DEPRESS NOS 05/24/2010 MARIE DO, EBONI K 311 MO DEPRESS NOS 05/24/2010 MARIE DO, EBONI K 311 MO DEPRESS NOS 05/24/2010 RAZA CASHERO SIGN MAKER, NANO N 311 MO DEPRESS NOS 05/24/2010 RAZA CASHERO SIGN MAKER, NANO N 311 MO DEPRESS NOS 05/24/2010 RAZA CASHERO SIGN MAKER, NANO N 311 MO DEPRESS NOS 05/24/2010 RAZA CASHERO SIGN MAKER, NANO N 311 MO DEPRESS NOS 05/24/2010 RAZA CASHERO SIGN MAKER, NANO N 311 MO DEPRESS NOS 05/24/2010 RAZA CASHERO SIGN MAKER, NANO N 311 MO DEPRESS NOS 06/02/2010 MARIE DO, EBONI K 296.90 MO MOOD DIS NOS 06/02/2010 MARIE DO, EBONI K 300.00 AN ANXIETY UNSPEC 06/02/2010 MARIE DO, EBONI K 296.90 MO MOOD DIS NOS 06/02/2010 MARIE DO, EBONI K 300.00 AN ANXIETY UNSPEC 06/02/2010 MARIE DO, EBONI K 296.90 MO MOOD DIS NOS 06/02/2010 MARIE DO, EBONI K 300.00 AN ANXIETY UNSPEC 06/02/2010 MARIE DO, EBONI K 296.90 MO MOOD DIS NOS 06/02/2010 MARIE DO, EBONI K 300.00 AN ANXIETY UNSPEC 06/02/2010 296.90 MO MOOD DIS NOS 06/02/2010 300.00 AN ANXIETY UNSPEC 06/02/2010 296.90 MO MOOD DIS NOS 06/02/2010 300.00 AN ANXIETY UNSPEC 06/02/2010 296.90 MO MOOD DIS NOS 06/02/2010 300.00 AN ANXIETY UNSPEC 06/02/2010 296.90 MO MOOD DIS NOS 06/02/2010 300.00 AN ANXIETY UNSPEC 06/02/2010 MARIE DO, EBONI K 296.90 MO MOOD DIS NOS 06/02/2010 MARIE DO, EBONI K 300.00 AN ANXIETY UNSPEC 06/02/2010 MARIE DO, EBONI K 296.90 MO MOOD DIS NOS 06/02/2010 MARIE DO, EBONI K 300.00 AN ANXIETY UNSPEC 06/02/2010 MARIE DO, EBONI K 296.90 MO MOOD DIS NOS 06/02/2010 MARIE DO, EBONI K 300.00 AN ANXIETY UNSPEC 06/02/2010 MARIE DO, EBONI K 296.90 MO MOOD DIS NOS 06/02/2010 MARIE DO, EBONI K 300.00 AN ANXIETY UNSPEC 06/02/2010 MARIE DO, EBONI K 296.90 MO MOOD DIS NOS 06/02/2010 MARIE DO, EBONI K 300.00 AN ANXIETY UNSPEC 06/02/2010 MARIE DO, EBONI K 296.90 MO MOOD DIS NOS 06/02/2010 MARIE DO, EBONI K 300.00 AN ANXIETY UNSPEC 06/02/2010 RAZA CASHERO SIGN MAKER, NANO N 296.90 MO MOOD DIS NOS 06/02/2010 RAZA CASHSHELDON SIGN MAKERNANO Wilks N 300.00 AN ANXIETY UNSPEC 06/02/2010 RAZA CASHERO SIGN MAKER, NANO N 296.90 MO MOOD DIS NOS 06/02/2010 RAZA CASHERO SIGN MAKER, NANO N 300.00 AN ANXIETY UNSPEC 06/02/2010 RAZA CASHERO SIGN MAKER, NANO N 296.90 MO MOOD DIS NOS 06/02/2010 RAZA CASHERO SIGN MAKER, NANO N 300.00 AN ANXIETY UNSPEC 06/02/2010 RAZA CASHERO SIGN MAKERMATT WilksCY N 296.90 MO MOOD DIS NOS 06/02/2010 RAZA CASHERO SIGN MAKERMATT WilksCY N 300.00 AN ANXIETY UNSPEC 06/02/2010 RAZA CASHERO SIGN MAKER, NANO N 296.90 MO MOOD DIS NOS 06/02/2010 RAZA CASHERO SIGN MAKER, NANO N 300.00 AN ANXIETY UNSPEC 06/02/2010 RAZA CASHERO SIGN MAKER, NANO N 296.90 MO MOOD DIS NOS 06/02/2010 RAZA CASHERO SIGN MAKER, NANO N 300.00 AN ANXIETY UNSPEC 2010 MARIE DO, EBONI K 299.90 DV PER DEV DIS 2010 MARIE DO, EBONI K V58.69 LONG-TERM (CURRENT) USE OF OTHER MEDICATIONS 2010 MARIE DO, EBONI K 299.90 DV PER DEV DIS 2010 MARIE DO, EBONI K V58.69 LONG-TERM (CURRENT) USE OF OTHER MEDICATIONS 2010 MARIE DO, EBONI K 299.90 DV PER DEV DIS 2010 MARIE DO, EBONI K V58.69 LONG-TERM (CURRENT) USE OF OTHER MEDICATIONS 2010 MARIE DO, EBONI K 299.90 DV PER DEV DIS 2010 MARIE DO, EBONI K V58.69 LONG-TERM (CURRENT) USE OF OTHER MEDICATIONS 2010 299.90 DV PER DEV DIS 2010 V58.69 LONG-TERM (CURRENT) USE OF OTHER MEDICATIONS 2010 299.90 DV PER DEV DIS 2010 V58.69 LONG-TERM (CURRENT) USE OF OTHER MEDICATIONS 2010 299.90 DV PER DEV DIS 2010 V58.69 LONG-TERM (CURRENT) USE OF OTHER MEDICATIONS 2010 299.90 DV PER DEV DIS 2010 V58.69 LONG-TERM (CURRENT) USE OF OTHER MEDICATIONS 2010 MARIE DO, EBONI K 299.90 DV PER DEV DIS 2010 MARIE DO, EBONI K V58.69 LONG-TERM (CURRENT) USE OF OTHER MEDICATIONS 2010 MARIE DO, EBONI K 299.90 DV PER DEV DIS 2010 MARIE DO, EBONI K V58.69 LONG-TERM (CURRENT) USE OF OTHER MEDICATIONS 2010 MARIE DO, EBONI K 299.90 DV PER DEV DIS 2010 MARIE DO, EBONI K V58.69 LONG-TERM (CURRENT) USE OF OTHER MEDICATIONS 2010 MARIE DO, EBONI K 299.90 DV PER DEV DIS 2010 MARIE DO, EBONI K V58.69 LONG-TERM (CURRENT) USE OF OTHER MEDICATIONS 2010 MARIE DO, EBONI K 299.90 DV PER DEV DIS 2010 MARIE DO, EBONI K V58.69 LONG-TERM (CURRENT) USE OF OTHER MEDICATIONS 2010 MARIE DO, EBONI K 299.90 DV PER DEV DIS 2010 MARIE DO, EBONI K V58.69 LONG-TERM (CURRENT) USE OF OTHER MEDICATIONS 2010 RAZA CASHERO SIGN MAKER, NANO N 299.90 DV PER DEV DIS 2010 RAZA CASHERO SIGN MAKER, NANO N V58.69 LONG-TERM (CURRENT) USE OF OTHER MEDICATIONS 2010 RAZA CASHERO SIGN MAKER, NANO N 299.90 DV PER DEV DIS 2010 RAZA CASHERO SIGN MAKER, NANO N V58.69 LONG-TERM (CURRENT) USE OF OTHER MEDICATIONS 2010 RAZA CASHERO SIGN MAKER, NANO N 299.90 DV PER DEV DIS 2010 RAZA CASHERO SIGN MAKER, NANO N V58.69 LONG-TERM (CURRENT) USE OF OTHER MEDICATIONS 2010 RAZA CASHERO SIGN MAKER, NANO N 299.90 DV PER DEV DIS 2010 RAZA CASHERO SIGN MAKER, NANO N V58.69 LONG-TERM (CURRENT) USE OF OTHER MEDICATIONS 2010 RAZA CASHERO SIGN MAKER, NANO N 299.90 DV PER DEV DIS 2010 RAZA CASHERO SIGN MAKER, NANO N V58.69 LONG-TERM (CURRENT) USE OF OTHER MEDICATIONS 2010 RAZA CASHERO SIGN MAKER, NANO N 299.90 DV PER DEV DIS 2010 RAZA CASHERO SIGN MAKER, NANO N V58.69 LONG-TERM (CURRENT) USE OF OTHER MEDICATIONS 06/24/2010 MARIE DO, EBONI K 307.47 SI PARASOMNIA 06/24/2010 MARIE DO, EBONI K 312.30 I IMPULSE CONTROL DISORDER NOS 06/24/2010 MARIE DO, EBONI K 307.47 SI PARASOMNIA 06/24/2010 MARIE DO, EBONI K 312.30 I IMPULSE CONTROL DISORDER NOS 06/24/2010 MARIE DO, EBONI K 307.47 SI PARASOMNIA 06/24/2010 MARIE DO, EBONI K 312.30 I IMPULSE CONTROL DISORDER NOS 06/24/2010 MARIE DO, EBONI K 307.47 SI PARASOMNIA 06/24/2010 MARIE DO, EBONI K 312.30 I IMPULSE CONTROL DISORDER NOS 06/24/2010 307.47 SI PARASOMNIA 06/24/2010 312.30 I IMPULSE CONTROL DISORDER NOS 06/24/2010 307.47 SI PARASOMNIA 06/24/2010 312.30 I IMPULSE CONTROL DISORDER NOS 06/24/2010 307.47 SI PARASOMNIA 06/24/2010 312.30 I IMPULSE CONTROL DISORDER NOS 06/24/2010 307.47 SI PARASOMNIA 06/24/2010 312.30 I IMPULSE CONTROL DISORDER NOS 06/24/2010 MARIE DO, EBONI K 307.47 SI PARASOMNIA 06/24/2010 MARIE DO, EBONI K 312.30 I IMPULSE CONTROL DISORDER NOS 06/24/2010 MARIE DO, EBONI K 307.47 SI PARASOMNIA 06/24/2010 MARIE DO, EBONI K 312.30 I IMPULSE CONTROL DISORDER NOS 06/24/2010 MARIE DO, EBONI K 307.47 SI PARASOMNIA 06/24/2010 MARIE DO, EBONI K 312.30 I IMPULSE CONTROL DISORDER NOS 06/24/2010 MARIE DO, EBONI K 307.47 SI PARASOMNIA 06/24/2010 MARIE DO, EBONI K 312.30 I IMPULSE CONTROL DISORDER NOS 06/24/2010 MARIE DO, EBONI K 307.47 SI PARASOMNIA 06/24/2010 MARIE DO, EBONI K 312.30 I IMPULSE CONTROL DISORDER NOS 06/24/2010 MARIE DO, EBONI K 307.47 SI PARASOMNIA 06/24/2010 MARIE DO, EBONI K 312.30 I IMPULSE CONTROL DISORDER NOS 06/24/2010 RAZA CASHERO SIGN MAKER, NANO N 307.47 SI PARASOMNIA 06/24/2010 RAZA CASHERO SIGN MAKER, NANO N 312.30 I IMPULSE CONTROL DISORDER NOS 06/24/2010 RAZA CASHERO SIGN MAKER, NANO N 307.47 SI PARASOMNIA 06/24/2010 RAZA CASHERO SIGN MAKER, NANO N 312.30 I IMPULSE CONTROL DISORDER NOS 06/24/2010 RAZA CASHERO SIGN MAKER, NANO N 307.47 SI PARASOMNIA 06/24/2010 RAZA CASHERO SIGN MAKER, NANO N 312.30 I IMPULSE CONTROL DISORDER NOS 06/24/2010 RAZA CASHERO SIGN MAKER, NANO N 307.47 SI PARASOMNIA 06/24/2010 RAZA CASHERO SIGN MAKER, NANO N 312.30 I IMPULSE CONTROL DISORDER NOS 06/24/2010 RAZA CASHERO SIGN MAKER, NANO N 307.47 SI PARASOMNIA 06/24/2010 RAZA CASHERO SIGN MAKER, NANO N 312.30 I IMPULSE CONTROL DISORDER NOS 06/24/2010 RAZA CASHERO SIGN MAKER, NANO N 307.47 SI PARASOMNIA 06/24/2010 LUZ MARINA COWART APRN NANO N 312.30 I IMPULSE CONTROL DISORDER NOS 08/17/2010 MARIE DO, EBONI K 300.23 AN SOCIAL PHOBIA 08/17/2010 MARIE DO, EBONI K 305.20 SA CANNABIS ABUSE 08/17/2010 MARIE DO, EBONI K 300.23 AN SOCIAL PHOBIA 08/17/2010 MARIE DO, EBONI K 305.20 SA CANNABIS ABUSE 08/17/2010 MARIE DO, EBONI K 300.23 AN SOCIAL PHOBIA 08/17/2010 MARIE DO, EBONI K 305.20 SA CANNABIS ABUSE 08/17/2010 MARIE DO, EBONI K 300.23 AN SOCIAL PHOBIA 08/17/2010 MARIE DO, EBONI K 305.20 SA CANNABIS ABUSE 08/17/2010 300.23 AN SOCIAL PHOBIA 08/17/2010 305.20 SA CANNABIS ABUSE 08/17/2010 300.23 AN SOCIAL PHOBIA 08/17/2010 305.20 SA CANNABIS ABUSE 08/17/2010 300.23 AN SOCIAL PHOBIA 08/17/2010 305.20 SA CANNABIS ABUSE 08/17/2010 300.23 AN SOCIAL PHOBIA 08/17/2010 305.20 SA CANNABIS ABUSE 08/17/2010 MARIE DO, EBONI K 300.23 AN SOCIAL PHOBIA 08/17/2010 MARIE DO, EBONI K 305.20 SA CANNABIS ABUSE 08/17/2010 MARIE DO, EBONI K 300.23 AN SOCIAL PHOBIA 08/17/2010 MARIE DO, EBONI K 305.20 SA CANNABIS ABUSE 08/17/2010 MARIE DO, EBONI K 300.23 AN SOCIAL PHOBIA 08/17/2010 MARIE DO, EBONI K 305.20 SA CANNABIS ABUSE 08/17/2010 MARIE DO, EBONI K 300.23 AN SOCIAL PHOBIA 08/17/2010 MARIE DO, EBONI K 305.20 SA CANNABIS ABUSE 08/17/2010 MAIRE DO, EBONI K 300.23 AN SOCIAL PHOBIA 08/17/2010 MARIE DO, EBONI K 305.20 SA CANNABIS ABUSE 08/17/2010 MARIE DO, EBONI K 300.23 AN SOCIAL PHOBIA 08/17/2010 MARIE DO, EBONI K 305.20 SA CANNABIS ABUSE 08/17/2010 NANO GILLIS APRN N 300.23 AN SOCIAL PHOBIA 08/17/2010 RAZA CASHERO SIGN MAKER, NANO N 305.20 SA CANNABIS ABUSE 08/17/2010 RAZA CASHERO SIGN MAKER, NANO N 300.23 AN SOCIAL PHOBIA 08/17/2010 RAZA CASHERO SIGN MAKER, NANO N 305.20 SA CANNABIS ABUSE 08/17/2010 RAZA CASHERO SIGN MAKER, NANO N 300.23 AN SOCIAL PHOBIA 08/17/2010 RAZA CASHERO SIGN MAKER, NANO N 305.20 SA CANNABIS ABUSE 08/17/2010 RAZA CASHERO SIGN MAKER, NANO N 300.23 AN SOCIAL PHOBIA 08/17/2010 RAZA CASHERO SIGN MAKER, NANO N 305.20 SA CANNABIS ABUSE 08/17/2010 RAZA CASHERO SIGN MAKER, NANO N 300.23 AN SOCIAL PHOBIA 08/17/2010 RAZA CASHERO SIGN MAKER, NANO N 305.20 SA CANNABIS ABUSE 08/17/2010 RAZA CASHERO SIGN MAKER, NANO N 300.23 AN SOCIAL PHOBIA 08/17/2010 RAZA CASHERO SIGN MAKER, NANO N 305.20 SA CANNABIS ABUSE 09/07/2010 MARIE DO, EBONI K 294.9 OR COG DIS NOS 09/07/2010 MARIE DO, EBONI K 294.9 OR COG DIS NOS 09/07/2010 MARIE DO, EBONI K 294.9 OR COG DIS NOS 09/07/2010 MARIE DO, EBONI K 294.9 OR COG DIS NOS 09/07/2010 294.9 OR COG DIS NOS 09/07/2010 294.9 OR COG DIS NOS 09/07/2010 294.9 OR COG DIS NOS 09/07/2010 294.9 OR COG DIS NOS 09/07/2010 MARIE DO, EBONI K 294.9 OR COG DIS NOS 09/07/2010 MARIE DO, EBONI K 294.9 OR COG DIS NOS 09/07/2010 MARIE DO, EBONI K 294.9 OR COG DIS NOS 09/07/2010 MARIE DO, EBONI K 294.9 OR COG DIS NOS 09/07/2010 MARIE DO, EBONI K 294.9 OR COG DIS NOS 09/07/2010 MARIE DO, EBONI K 294.9 OR COG DIS NOS 09/07/2010 RAZA CASHERO SIGN MAKER, NANO N 294.9 OR COG DIS NOS 09/07/2010 RAZA CASHERO SIGN MAKER, NANO N 294.9 OR COG DIS NOS 09/07/2010 RAZA CASHERO SIGN MAKER, NANO N 294.9 OR COG DIS NOS 09/07/2010 RAZA CASHERO SIGN MAKER, NANO N 294.9 OR COG DIS NOS 09/07/2010 RAZA CASHERO SIGN MAKER, NANO N 294.9 OR COG DIS NOS 09/07/2010 RAZA CASHERO SIGN MAKER, NANO N 294.9 OR COG DIS NOS 11/30/2010 MARIE DO, EBONI K 716.90 ARTHROPATHY 11/30/2010 MARIE DO, EBONI K 716.90 ARTHROPATHY 11/30/2010 MARIE DO, EBONI K 716.90 ARTHROPATHY 11/30/2010 MARIE DO, EBONI K 716.90 ARTHROPATHY 11/30/2010 716.90 ARTHROPATHY 11/30/2010 716.90 ARTHROPATHY 11/30/2010 716.90 ARTHROPATHY 11/30/2010 716.90 ARTHROPATHY 11/30/2010 MARIE DO, EBONI K 716.90 ARTHROPATHY 11/30/2010 MARIE DO, EBONI K 716.90 ARTHROPATHY 11/30/2010 MARIE DO, EBONI K 716.90 ARTHROPATHY 11/30/2010 MARIE DO, EBONI K 716.90 ARTHROPATHY 11/30/2010 MARIE DO, EBONI K 716.90 ARTHROPATHY 11/30/2010 MARIE DO, EBONI K 716.90 ARTHROPATHY 11/30/2010 RAZA CASHERO SIGN MAKER, NANO N 716.90 ARTHROPATHY 11/30/2010 RAZA CASHERO SIGN MAKER, NANO N 716.90 ARTHROPATHY 11/30/2010 RAZA CASHERO SIGN MAKER, NANO N 716.90 ARTHROPATHY 11/30/2010 RAZA CASHERO SIGN MAKER, NANO N 716.90 ARTHROPATHY 11/30/2010 RAZA CASHERO SIGN MAKER, NANO N 716.90 ARTHROPATHY 11/30/2010 RAZA CASHERO SIGN MAKER, NANO N 716.90 ARTHROPATHY 03/01/2011 MARIE DO, EBONI K 723.4 NEURITIS CERVICAL 03/01/2011 MARIE DO, EBONI K 723.4 NEURITIS CERVICAL 03/01/2011 MARIE DO, EBONI K 723.4 NEURITIS CERVICAL 03/01/2011 MARIE DO, EBONI K 723.4 NEURITIS CERVICAL 03/01/2011 723.4 NEURITIS CERVICAL 03/01/2011 723.4 NEURITIS CERVICAL 03/01/2011 723.4 NEURITIS CERVICAL 03/01/2011 723.4 NEURITIS CERVICAL 03/01/2011 MARIE DO, EBONI K 723.4 NEURITIS CERVICAL 03/01/2011 MARIE DO, EBONI K 723.4 NEURITIS CERVICAL 03/01/2011 MARIE DO, EBONI K 723.4 NEURITIS CERVICAL 03/01/2011 MARIE DO, EBONI K 723.4 NEURITIS CERVICAL 03/01/2011 MARIE DO, EBONI K 723.4 NEURITIS CERVICAL 03/01/2011 MARIE DO, EBONI K 723.4 NEURITIS CERVICAL 03/01/2011 RAZA CASHERO SIGN MAKER, NANO N 723.4 NEURITIS CERVICAL 03/01/2011 RAZA CASHERO SIGN MAKER, NANO N 723.4 NEURITIS CERVICAL 03/01/2011 RAZA CASHERO SIGN MAKER, NANO N 723.4 NEURITIS CERVICAL 03/01/2011 RAZA CASHERO SIGN MAKER, NANO N 723.4 NEURITIS CERVICAL 03/01/2011 RAZA CASHERO SIGN MAKER, NANO N 723.4 NEURITIS CERVICAL 03/01/2011 RAZA CASHERO SIGN MAKER, NANO N 723.4 NEURITIS CERVICAL 05/02/2011 Ot 401.9 HYPERTENSION NOS 05/02/2011 Ot 716.90 ARTHROPATHY NOS- UNSPEC 05/02/2011 Ot 723.4 BRACHIAL NEURITIS NOS 05/02/2011 Ot 724.2 LUMBAGO 05/02/2011 Ot V57.1 PHYSICAL THERAPY NEC 07/06/2011 MARIE DO, EBONI K 244.9 HYPOTHYROIDISM 07/06/2011 MARIE DO, EBONI K 272.4 HYPERLIPIDEMIA 07/06/2011 MARIE DO, EBONI K 244.9 HYPOTHYROIDISM 07/06/2011 MARIE DO, EBONI K 272.4 HYPERLIPIDEMIA 07/06/2011 MARIE DO, EBONI K 244.9 HYPOTHYROIDISM 07/06/2011 MARIE DO, EBONI K 272.4 HYPERLIPIDEMIA 07/06/2011 MARIE DO, EBONI K 244.9 HYPOTHYROIDISM 07/06/2011 MARIE DO, EBONI K 272.4 HYPERLIPIDEMIA 07/06/2011 244.9 HYPOTHYROIDISM 07/06/2011 272.4 HYPERLIPIDEMIA 07/06/2011 244.9 HYPOTHYROIDISM 07/06/2011 272.4 HYPERLIPIDEMIA 07/06/2011 244.9 HYPOTHYROIDISM 07/06/2011 272.4 HYPERLIPIDEMIA 07/06/2011 244.9 HYPOTHYROIDISM 07/06/2011 272.4 HYPERLIPIDEMIA 07/06/2011 MARIE DO, EBONI K 244.9 HYPOTHYROIDISM 07/06/2011 MARIE DO, EBONI K 272.4 HYPERLIPIDEMIA 07/06/2011 MARIE DO, EBONI K 244.9 HYPOTHYROIDISM 07/06/2011 MARIE DO, EBONI K 272.4 HYPERLIPIDEMIA 07/06/2011 MARIE DO, EBONI K 244.9 HYPOTHYROIDISM 07/06/2011 MARIE DO, EBONI K 272.4 HYPERLIPIDEMIA 07/06/2011 MARIE DO, EBONI K 244.9 HYPOTHYROIDISM 07/06/2011 MARIE DO, EBONI K 272.4 HYPERLIPIDEMIA 07/06/2011 MARIE DO, EBONI K 244.9 HYPOTHYROIDISM 07/06/2011 MARIE DO, EBONI K 272.4 HYPERLIPIDEMIA 07/06/2011 MARIE DO, EBONI K 244.9 HYPOTHYROIDISM 07/06/2011 MARIE DO, EBONI K 272.4 HYPERLIPIDEMIA 07/06/2011 RAZA CASHERO SIGN MAKER, NANO N 244.9 HYPOTHYROIDISM 07/06/2011 RAZA CASHERO SIGN MAKER, NANO N 272.4 HYPERLIPIDEMIA 07/06/2011 RAZA CASHERO SIGN MAKER, NANO N 244.9 HYPOTHYROIDISM 07/06/2011 RAZA CASHERO SIGN MAKER, NANO N 272.4 HYPERLIPIDEMIA 07/06/2011 RAZA CASHERO SIGN MAKER, NANO N 244.9 HYPOTHYROIDISM 07/06/2011 RAZA CASHERO SIGN MAKER, NANO N 272.4 HYPERLIPIDEMIA 07/06/2011 RAZA CASHERO SIGN MAKER, NANO N 244.9 HYPOTHYROIDISM 07/06/2011 RAZA CASHERO SIGN MAKER, NANO N 272.4 HYPERLIPIDEMIA 07/06/2011 RAZA CASHERO SIGN MAKER, NANO N 244.9 HYPOTHYROIDISM 07/06/2011 RAZA CASHERO SIGN MAKER, NANO N 272.4 HYPERLIPIDEMIA 07/06/2011 RAZA CASHERO SIGN MAKER, NANO N 244.9 HYPOTHYROIDISM 07/06/2011 RAZA CASHERO SIGN MAKER, NANO N 272.4 HYPERLIPIDEMIA 03/25/2012 MARIE DO, EBONI K 274.9 GOUT 03/25/2012 MARIE DO, EBONI K 274.9 GOUT 03/25/2012 MARIE DO, EBONI K 274.9 GOUT 03/25/2012 MARIE DO, EBONI K 274.9 GOUT 03/25/2012 274.9 GOUT 03/25/2012 274.9 GOUT 03/25/2012 274.9 GOUT 03/25/2012 274.9 GOUT 03/25/2012 MARIE DO, EBONI K 274.9 GOUT 03/25/2012 MARIE DO, EBONI K 274.9 GOUT 03/25/2012 MARIE DO, EBONI K 274.9 GOUT 03/25/2012 MARIE DO, EBONI K 274.9 GOUT 03/25/2012 MARIE DO, EBONI K 274.9 GOUT 03/25/2012 MARIE DO, EBONI K 274.9 GOUT 03/25/2012 RAZA CASHERO SIGN MAKER, NANO N 274.9 GOUT 03/25/2012 RAZA CASHERO SIGN MAKER, NANO N 274.9 GOUT 03/25/2012 RAZA CASHERO SIGN MAKER, NANO N 274.9 GOUT 03/25/2012 RAZA CASHERO SIGN MAKER, NANO N 274.9 GOUT 03/25/2012 RAZA CASHERO SIGN MAKER, NANO N 274.9 GOUT 03/25/2012 RAZA CASHERO SIGN MAKER, NANO N 274.9 GOUT 07/08/2012 MARIE DO, EBONI K 607.84 IMPOTENCE OF ORGANIC ORIGIN 07/08/2012 MARIE DO, EBONI K 607.84 IMPOTENCE OF ORGANIC ORIGIN 07/08/2012 MARIE DO, EBONI K 607.84 IMPOTENCE OF ORGANIC ORIGIN 07/08/2012 MARIE DO, EBONI K 607.84 IMPOTENCE OF ORGANIC ORIGIN 07/08/2012 607.84 IMPOTENCE OF ORGANIC ORIGIN 07/08/2012 607.84 IMPOTENCE OF ORGANIC ORIGIN 07/08/2012 607.84 IMPOTENCE OF ORGANIC ORIGIN 07/08/2012 607.84 IMPOTENCE OF ORGANIC ORIGIN 07/08/2012 MARIE DO, EBONI K 607.84 IMPOTENCE OF ORGANIC ORIGIN 07/08/2012 MARIE DO, EBNOI K 607.84 IMPOTENCE OF ORGANIC ORIGIN 07/08/2012 MARIE DO, EBONI K 607.84 IMPOTENCE OF ORGANIC ORIGIN 07/08/2012 MARIE DO, EBONI K 607.84 IMPOTENCE OF ORGANIC ORIGIN 07/08/2012 MARIE DO, EBONI K 607.84 IMPOTENCE OF ORGANIC ORIGIN 07/08/2012 MARIE DO, EBONI K 607.84 IMPOTENCE OF ORGANIC ORIGIN 07/08/2012 RAZA CASHERO SIGN MAKER, NANO N 607.84 IMPOTENCE OF ORGANIC ORIGIN 07/08/2012 RAZA CASHERO SIGN MAKER, NANO N 607.84 IMPOTENCE OF ORGANIC ORIGIN 07/08/2012 RAZA CASHERO SIGN MAKER, NANO N 607.84 IMPOTENCE OF ORGANIC ORIGIN 07/08/2012 RAZA CASHERO SIGN MAKER, NANO N 607.84 IMPOTENCE OF ORGANIC ORIGIN 07/08/2012 RAZA CASHERO SIGN MAKER, NANO N 607.84 IMPOTENCE OF ORGANIC ORIGIN 07/08/2012 RAZA CASHERO SIGN MAKER, NANO N 607.84 IMPOTENCE OF ORGANIC ORIGIN 03/26/2013 553.20 UNSPECIFIED VENTRAL HERNIA WITHOUT OBSTRUCTION OR GANGRENE 03/26/2013 553.20 UNSPECIFIED VENTRAL HERNIA WITHOUT OBSTRUCTION OR GANGRENE 03/26/2013 553.20 UNSPECIFIED VENTRAL HERNIA WITHOUT OBSTRUCTION OR GANGRENE 03/26/2013 553.20 UNSPECIFIED VENTRAL HERNIA WITHOUT OBSTRUCTION OR GANGRENE 03/26/2013 MARIE DO, EBONI K 553.20 UNSPECIFIED VENTRAL HERNIA WITHOUT OBSTRUCTION OR GANGRENE 03/26/2013 MARIE DO, EBONI K 553.20 UNSPECIFIED VENTRAL HERNIA WITHOUT OBSTRUCTION OR GANGRENE 03/26/2013 MARIE DO, EBONI K 553.20 UNSPECIFIED VENTRAL HERNIA WITHOUT OBSTRUCTION OR GANGRENE 03/26/2013 MARIE DO, EBONI K 553.20 UNSPECIFIED VENTRAL HERNIA WITHOUT OBSTRUCTION OR GANGRENE 03/26/2013 MARIE DO, EBONI K 553.20 UNSPECIFIED VENTRAL HERNIA WITHOUT OBSTRUCTION OR GANGRENE 03/26/2013 MARIE DO, EBONI K 553.20 UNSPECIFIED VENTRAL HERNIA WITHOUT OBSTRUCTION OR GANGRENE 03/26/2013 RAZA CASHERO SIGN MAKER, NANO N 553.20 UNSPECIFIED VENTRAL HERNIA WITHOUT OBSTRUCTION OR GANGRENE 03/26/2013 RAZA CASHERO SIGN MAKER, NANO N 553.20 UNSPECIFIED VENTRAL HERNIA WITHOUT OBSTRUCTION OR GANGRENE 03/26/2013 RAZA CASHERO SIGN MAKER, NANO N 553.20 UNSPECIFIED VENTRAL HERNIA WITHOUT OBSTRUCTION OR GANGRENE 03/26/2013 RAZA CASHERO SIGN MAKER, NANO N 553.20 UNSPECIFIED VENTRAL HERNIA WITHOUT OBSTRUCTION OR GANGRENE 03/26/2013 RAZA CASHERO SIGN MAKER, NANO N 553.20 UNSPECIFIED VENTRAL HERNIA WITHOUT OBSTRUCTION OR GANGRENE 03/26/2013 RAZA CASHERO SIGN MAKER, NANO N 553.20 UNSPECIFIED VENTRAL HERNIA WITHOUT OBSTRUCTION OR GANGRENE 07/15/2013 553.1 UMBILICAL HERNIA WITHOUT OBSTRUCTION OR GANGRENE 07/15/2013 MARIE DO, EBONI K 553.1 UMBILICAL HERNIA WITHOUT OBSTRUCTION OR GANGRENE 07/15/2013 MARIE DO, EBONI K 553.1 UMBILICAL HERNIA WITHOUT OBSTRUCTION OR GANGRENE 07/15/2013 MARIE DO, EBONI K 553.1 UMBILICAL HERNIA WITHOUT OBSTRUCTION OR GANGRENE 07/15/2013 MARIE DO, EBONI K 553.1 UMBILICAL HERNIA WITHOUT OBSTRUCTION OR GANGRENE 07/15/2013 MARIE DO, EBONI K 553.1 UMBILICAL HERNIA WITHOUT OBSTRUCTION OR GANGRENE 07/15/2013 MARIE DO, EBONI K 553.1 UMBILICAL HERNIA WITHOUT OBSTRUCTION OR GANGRENE 07/15/2013 RAZA CASHERO SIGN MAKER, NANO N 553.1 UMBILICAL HERNIA WITHOUT OBSTRUCTION OR GANGRENE 07/15/2013 RAZA CASHERO SIGN MAKER, NANO N 553.1 UMBILICAL HERNIA WITHOUT OBSTRUCTION OR GANGRENE 07/15/2013 RAZA CASHERO SIGN MAKER, NANO N 553.1 UMBILICAL HERNIA WITHOUT OBSTRUCTION OR GANGRENE 07/15/2013 RAZA CASHERO SIGN MAKER, NANO N 553.1 UMBILICAL HERNIA WITHOUT OBSTRUCTION OR GANGRENE 07/15/2013 RAZA CASHERO SIGN MAKER, NANO N 553.1 UMBILICAL HERNIA WITHOUT OBSTRUCTION OR GANGRENE 07/15/2013 RAZA CASHERO SIGN MAKER, NANO N 553.1 UMBILICAL HERNIA WITHOUT OBSTRUCTION OR GANGRENE 11/12/2013 MARIE DO, EBONI K 355.0 LESION OF SCIATIC NERVE 11/12/2013 MARIE DO, EBONI K 355.0 LESION OF SCIATIC NERVE 11/12/2013 MARIE DO, EBONI K 355.0 LESION OF SCIATIC NERVE 11/12/2013 MARIE DO, EBONI K 355.0 LESION OF SCIATIC NERVE 11/12/2013 MARIE DO, EBONI K 355.0 LESION OF SCIATIC NERVE 11/12/2013 RAZA CASHERO SIGN MAKER, NANO N 355.0 LESION OF SCIATIC NERVE 11/12/2013 RAZA CASHERO SIGN MAKER, NANO N 355.0 LESION OF SCIATIC NERVE 11/12/2013 RAZA CASHERO SIGN MAKER, NANO N 355.0 LESION OF SCIATIC NERVE 11/12/2013 RAZA CASHERO SIGN MAKER, NANO N 355.0 LESION OF SCIATIC NERVE 11/12/2013 RAZA CASHERO SIGN MAKER, NANO N 355.0 LESION OF SCIATIC NERVE 11/12/2013 RAZA CASHERO SIGN MAKER, NANO N 355.0 LESION OF SCIATIC NERVE 01/20/2014 MARIE DO, EBONI K 790.29 HYPERGLYCEMIA 01/20/2014 MARIE DO, EBONI K 790.29 HYPERGLYCEMIA 01/20/2014 MARIE DO, EBONI K 790.29 HYPERGLYCEMIA 01/20/2014 MARIE DO, EBONI K 790.29 HYPERGLYCEMIA 01/20/2014 RAZA CASHERO SIGN MAKER, NANO N 790.29 HYPERGLYCEMIA 01/20/2014 RAZA CASHERO SIGN MAKER, NANO N 790.29 HYPERGLYCEMIA 01/20/2014 RAZA CASHERO SIGN MAKER, NANO N 790.29 HYPERGLYCEMIA 01/20/2014 RAZA CASHERO SIGN MAKER, NANO N 790.29 HYPERGLYCEMIA 01/20/2014 RAZA CASHERO SIGN MAKER, NANO N 790.29 HYPERGLYCEMIA 01/20/2014 RAZA CASHERO SIGN MAKER, NANO N 790.29 HYPERGLYCEMIA 02/23/2014 MARIE DO, EBONI K 720.2 SACROILIITIS NOT ELSEWHERE CLASSIFIED 02/23/2014 MARIE DO, EBONI K 720.2 SACROILIITIS NOT ELSEWHERE CLASSIFIED 02/23/2014 MARIE DO, EBONI K 720.2 SACROILIITIS NOT ELSEWHERE CLASSIFIED 02/23/2014 RAZA CASHERO SIGN MAKER, NANO N 720.2 SACROILIITIS NOT ELSEWHERE CLASSIFIED 02/23/2014 RAZA CASHERO SIGN MAKER, NANO N 720.2 SACROILIITIS NOT ELSEWHERE CLASSIFIED 02/23/2014 RAZA CASHERO SIGN MAKER, NANO N 720.2 SACROILIITIS NOT ELSEWHERE CLASSIFIED 02/23/2014 RAZA CASHERO SIGN MAKER, NANO N 720.2 SACROILIITIS NOT ELSEWHERE CLASSIFIED 02/23/2014 RAZA CASHERO SIGN MAKER, NANO N 720.2 SACROILIITIS NOT ELSEWHERE CLASSIFIED 02/23/2014 RAZA CASHERO SIGN MAKER, NANO N 720.2 SACROILIITIS NOT ELSEWHERE CLASSIFIED 04/27/2014 MARIE DO, EBONI K 789.00 ABDOMINAL PAIN UNSPECIFIED SITE 04/27/2014 MARIE DO, EBONI K 789.00 ABDOMINAL PAIN UNSPECIFIED SITE 04/27/2014 RAZA CASHERO SIGN MAKER, NANO N 789.00 ABDOMINAL PAIN UNSPECIFIED SITE 04/27/2014 RAZA CASHERO SIGN MAKER, NANO N 789.00 ABDOMINAL PAIN UNSPECIFIED SITE 04/27/2014 RAZA CASHERO SIGN MAKER, NANO N 789.00 ABDOMINAL PAIN UNSPECIFIED SITE 04/27/2014 RAZA CASHERO SIGN MAKER, NANO N 789.00 ABDOMINAL PAIN UNSPECIFIED SITE 04/27/2014 RAZA CASHERO SIGN MAKER, NANO N 789.00 ABDOMINAL PAIN UNSPECIFIED SITE 04/27/2014 RAZA CASHERO SIGN MAKER, NANO N 789.00 ABDOMINAL PAIN UNSPECIFIED SITE 08/11/2014 RAZA CASHERO SIGN MAKER, NANO N 715.94 OSTEOARTHROSIS UNSPECIFIED WHETHER GENERALIZED OR LOCALIZED INVOLVING HAND 08/11/2014 RAZA CASHERO SIGN MAKER, NANO N 715.94 OSTEOARTHROSIS UNSPECIFIED WHETHER GENERALIZED OR LOCALIZED INVOLVING HAND 08/11/2014 RAZA CASHERO SIGN MAKER, NANO N 715.94 OSTEOARTHROSIS UNSPECIFIED WHETHER GENERALIZED OR LOCALIZED INVOLVING HAND 08/11/2014 RAZA CASHERO SIGN MAKER, NANO N 715.94 OSTEOARTHROSIS UNSPECIFIED WHETHER GENERALIZED OR LOCALIZED INVOLVING HAND 08/11/2014 RAZA CASHERO SIGN MAKER, NANO N 715.94 OSTEOARTHROSIS UNSPECIFIED WHETHER GENERALIZED OR LOCALIZED INVOLVING HAND 08/11/2014 RAZA CASHERO SIGN MAKER, NANO N 715.94 OSTEOARTHROSIS UNSPECIFIED WHETHER GENERALIZED OR LOCALIZED INVOLVING HAND 09/01/2014 RAZA CASHERO SIGN MAKERNANO Wilks N V04.81 FLU SHOT 09/01/2014 RAZA CASHERO SIGN MAKERNANO Wilks N V04.81 FLU SHOT 09/01/2014 RAZA CASHERO SIGN MAKERMATT WilksCY N V04.81 FLU SHOT 09/01/2014 RAZA CASHERO SIGN MAKERNANO Wilks N V04.81 FLU SHOT 09/01/2014 RAZA CASHERO SIGN MAKERMATTCY N V04.81 FLU SHOT 12/01/2014 LUZ MARINA COWART APRN, NANO N 719.41 PAIN IN JOINT INVOLVING SHOULDER REGION 12/01/2014 LUZ MARINA COWART APREfe NANO N 719.41 PAIN IN JOINT INVOLVING SHOULDER REGION 12/01/2014 LUZ MARINA COWART APRN, NANO N 719.41 PAIN IN JOINT INVOLVING SHOULDER REGION 12/22/2014 LUZ MARINA COWART APREfe NANO N 360.60 FOREIGN BODY INTRAOCULAR UNSPECIFIED 12/22/2014 LUZ MARINA COWART APRNANO Wilks N 360.60 FOREIGN BODY INTRAOCULAR UNSPECIFIED 03/09/2015 LUZ MARINA COWART APREfe NANO N 788.41 URINARY FREQUENCY 03/09/2015 LUZ MARINA COWART APRNANO Wilks N 788.41 URINARY FREQUENCY 08/16/2015 SRI NANO N MECHANICAL ORDNANCE ASSEMBLER Ot 719.41 JOINT PAIN-SHLDER 08/16/2015 SRI NANO N MECHANICAL ORDNANCE ASSEMBLER Ot M25.519 PAIN IN UNSPECIFIED SHOULDER 08/16/2015 SRINANO MECHANICAL ORDNANCE ASSEMBLER Ot V57.1 PHYSICAL THERAPY NEC 08/16/2015 SRI NANO N MECHANICAL ORDNANCE ASSEMBLER Ot Z51.89 ENCOUNTER FOR OTHER SPECIFIED AFTERCARE 09/14/2015 SRINANO MECHANICAL ORDNANCE ASSEMBLER Ot 360.50 09/14/2015 SRINANO MECHANICAL ORDNANCE ASSEMBLER Ot V90.11 09/14/2015 MARILU DO, JILLIAN K Ot E87.5 HYPERKALEMIA 09/14/2015 MARILU DO, JILLIAN K Ot N17.9 ACUTE KIDNEY FAILURE, UNSPECIFIED 09/14/2015 MARILU DO, JILLIAN K Ot R41.82 ALTERED MENTAL STATUS, UNSPECIFIED 09/14/2015 MARILU DO, JILLIAN K Ot R53.1 WEAKNESS 10/05/2015 ESTEENANO CHUNG MECHANICAL ORDNANCE ASSEMBLER Ot 360.50 10/05/2015 ESTEENANO CHUNG MECHANICAL ORDNANCE ASSEMBLER Ot V90.11 10/05/2015 ESTEENANO CHUNG MECHANICAL ORDNANCE ASSEMBLER Ot 360.50 10/05/2015 ESTEENANO CHUNG MECHANICAL ORDNANCE ASSEMBLER Ot V90.11 12/01/2015 RAZAYESSICANANO CHUNG MECHANICAL ORDNANCE ASSEMBLER Ot 360.50 12/01/2015 SRI NANOJULISSA MCDONNELL Ot V90.11 05/31/2016 NANO FIERRO Ot 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, EYE NOS 05/31/2016 RAZASharlaSUPA NANOJULISSA MCDONNELL Ot V90.11 RETAINED MAGNETIC METAL FRAGMENTS 05/31/2016 Ot 721.3 LUMBOSACRAL SPONDYLOSIS Procedures Code [place] [address] ROUTINE VENIPUNCTURE 12/10/2012 05848 LIPID PANEL 12/10/2012 99083 LIVER PANEL (LFT) 12/10/2012 37074 ROUTINE VENIPUNCTURE 02/27/2013 33270 CMP 02/27/2013 86195 LIPID PANEL 02/27/2013 7296521 GFR CALC (RESULT ONLY) 02/27/2013 62979 TSH 02/27/2013 SHAKIR ASIF 07/15/2013 19987 JOINT INJECTION- LARGE JOINT (SPECIFY MEDCIN DESCRIPTION) 11/12/2013 85988 ROUTINE VENIPUNCTURE 01/20/2014 [id number] GFR CALC (RESULT ONLY) 01/20/2014 09766 CMP 01/20/2014 53222 LIPID PANEL 01/20/2014 08882 TSH 01/20/2014 77006 JOINT INJECTION- LARGE JOINT (SPECIFY MEDCIN DESCRIPTION) 02/23/2014 70855 US GALLBLADDER ULTRASOUND 04/27/2014 01209 ROUTINE VENIPUNCTURE 05/26/2014 56423 LIPID PANEL 05/26/2014 18400 A1C (RML) 05/26/2014 93696 ROUTINE VENIPUNCTURE 12/01/2014 68800 XRAY ORBITS, X-RAY EXAM 12/01/2014 83872 DRUG BLOOD SCREEN 12/01/2014 56884 CMP 12/01/2014 68770 LIPID PANEL 12/01/2014 9255752 GFR CALC (RESULT ONLY) 12/01/2014 62018 TSH 12/01/2014 27374 ROUTINE VENIPUNCTURE 03/18/2015 2000F BLOOD PRESSURE CHECK 03/18/2015 62772 CBC 03/18/2015 7951244 GFR CALC (RESULT ONLY) 03/18/2015 88034 CMP 03/18/2015 61243 LIPID PANEL 03/18/2015 9801367 SPTYPE 03/18/2015 01181 PSA TOTAL 03/18/2015 00428 TSH 03/18/2015 Results Test Result Range THYROID PEROXIDASE ANTIBODIES - 01/18/18 11:39 THYROID PEROXIDASE ANTIBODIES 313 IU/mL <9 THYROID ANALYZER - 04/26/18 14:23 TSH 1.40 mIU/L 0.40-4.50 TISSUE, SPECIMEN A - 08/13/18 16:44 A SOURCE NRG A GROSS DESCRIPTION NRG A DIAGNOSIS NRG A COMMENT NRG Complete blood count (CBC) with automated white blood cell (WBC) differential - 06/16/19 13:05 Blood leukocytes automated count (number/volume) 9.9 10*3/uL 4.3-11.0 Blood erythrocytes automated count (number/volume) 4.84 10*6/uL 4.35-5.85 Venous blood hemoglobin measurement (mass/volume) 15.4 g/dL 13.3-17.7 Blood hematocrit (volume fraction) 45 % 40-54 Automated erythrocyte mean corpuscular volume 92 [foz_us] 80-99 Automated erythrocyte mean corpuscular hemoglobin (mass per erythrocyte) 32 pg 25-34 Automated erythrocyte mean corpuscular hemoglobin concentration measurement (mass/volume) 35 g/dL 32-36 Automated erythrocyte distribution width ratio 14.1 % 10.0- 14.5 Automated blood platelet count (count/volume) 260 10*3/uL 130-400 Automated blood platelet mean volume measurement 10.2 [foz_us] 7.4-10.4 Automated blood neutrophils/100 leukocytes 62 % 42-75 Automated blood lymphocytes/100 leukocytes 26 % 12-44 Blood monocytes/100 leukocytes 9 % 0-12 Automated blood eosinophils/100 leukocytes 3 % 0-10 Automated blood basophils/100 leukocytes 1 % 0-10 Blood neutrophils automated count (number/volume) 6.1 10*3 1.8-7.8 Blood lymphocytes automated count (number/volume) 2.6 10*3 1.0-4.0 Blood monocytes automated count (number/volume) 0.9 10*3 0.0- 1.0 Automated eosinophil count 0.3 10*3/uL 0.0-0.3 Automated blood basophil count (count/volume) 0.1 10*3/uL 0.0-0.1 Comprehensive metabolic panel - 06/16/19 13:05 Serum or plasma sodium measurement (moles/volume) 137 mmol/L 135-145 Serum or plasma potassium measurement (moles/volume) 4.1 mmol/L 3.6-5.0 Serum or plasma chloride measurement (moles/volume) 104 mmol/L 98-107 Carbon dioxide 24 mmol/L 21-32 Serum or plasma anion gap determination (moles/volume) 9 mmol/L 5-14 Serum or plasma urea nitrogen measurement (mass/volume) 13 mg/dL 7-18 Serum or plasma creatinine measurement (mass/volume) 1.07 mg/dL 0.60-1.30 Serum or plasma urea nitrogen/creatinine mass ratio 12 NRG Serum or plasma creatinine measurement with calculation of estimated glomerular filtration rate > NRG Serum or plasma glucose measurement (mass/volume) 110 mg/dL 70-105 Serum or plasma calcium measurement (mass/volume) 9.6 mg/dL 8.5-10.1 Serum or plasma total bilirubin measurement (mass/volume) 0.4 mg/dL 0.1-1.0 Serum or plasma alkaline phosphatase measurement (enzymatic activity/volume) 75 U/L 40-136 Serum or plasma aspartate aminotransferase measurement (enzymatic activity/volume) 22 U/L 5-34 Serum or plasma alanine aminotransferase measurement (enzymatic activity/volume) 23 U/L 0-55 Serum or plasma protein measurement (mass/volume) 7.0 g/dL 6.4-8.2 Serum or plasma albumin measurement (mass/volume) 4.3 g/dL 3.2-4.5 CALCIUM CORRECTED 9.4 mg/dL 8.5-10.1 Lipase - 06/16/19 13:05 Lipase 39 U/L 8-78 Encounters ACCT No. Visit Date/Time Discharge Status Pt. Type Provider Facility Loc./Unit Complaint [id number] 03/18/2015 10:19:00 03/18/2015 23:59:59 [facility] Outpatient NANO GILLIS APRN N [id number] 03/09/2015 07:58:00 03/09/2015 23:59:59 [facility] Outpatient NANO GILLIS APRN [id number] 12/01/2014 09:21:00 12/01/2014 23:59:59 [facility] Outpatient NANO GILLIS APRN [id number] 09/07/2014 00:00:00 09/07/2014 23:59:59 [facility] Outpatient NANO GILLIS APRN [id number] 09/01/2014 08:59:00 09/01/2014 23:59:59 [facility] Outpatient NANO GILLIS APRN N [id number] 08/11/2014 08:50:00 08/11/2014 23:59:59 [facility] Outpatient NANO GILLIS APRN Efe [id number] 05/26/2014 09:23:00 05/26/2014 23:59:59 [facility] Outpatient MARIE DOEBONI [id number] 04/27/2014 15:47:00 04/27/2014 23:59:59 [facility] Outpatient MARIE DOEBONI [id number] 02/23/2014 13:46:00 02/23/2014 23:59:59 C[facility] Outpatient MARIE DOEBONI [id number] 01/20/2014 08:03:00 01/20/2014 23:59:59 [facility] Outpatient MARIE DOEBONI [id number] 11/12/2013 10:59:00 11/12/2013 23:59:59 CLS Outpatient MARIE DOEBONI [id number] 10/13/2013 11:03:00 10/13/2013 23:59:59 CLS Outpatient MARIE DOEBONI [id number] 02/27/2013 09:27:00 02/27/2013 23:59:59 [facility] Outpatient MARIE DOEBONI [id number] 12/10/2012 09:42:00 12/10/2012 23:59:59 CLS Outpatient MARIE DOEBONI [id number] 09/03/2012 10:14:00 09/03/2012 23:59:59 CLS Outpatient MARIE DOEBONI [id number] 09/03/2012 10:14:00 09/03/2012 23:59:59 CLS Outpatient MARIE DOEBONI [id number] 07/15/2013 08:45:00 Document Registration [id number] 05/19/2013 15:28:00 Document Registration [id number] 04/30/2013 13:20:00 Document Registration [id number] 03/26/2013 11:27:00 Document Registration [id number] 09/14/2015 12:40:00 09/14/2015 16:20:00 DIS Emergency JILLIAN MICHEL DO [facility] ER [id number] 08/09/2015 09:41:00 08/16/2015 16:05:00 DIS Outpatient SRI NANOJULISSA MARSHALLP [facility] REHAB [id number] 12/24/2014 13:32:00 12/24/2014 23:59:59 CLS Outpatient NANO FIERRO [facility] [id number] 2019 13:16:00 Document Registration [id number] 04/21/2011 09:28:00 Document Registration [id number] 12/13/2009 08:40:00 Document Registration [id number] 05/13/2019 16:00:00 05/13/2019 23:59:59 CLS Outpatient KENISHA CABEZAS MD [facility] [id number] 08/13/2018 14:00:00 Document Registration [id number] 04/26/2018 14:00:00 Document Registration [id number] 01/18/2018 11:20:00 Document Registration
== END 2019-06-16 14:32 | disposition home or self-care (01) ==
LOC: EDUNIT# 12:32 → ER 12:33
DX: M62.08 Separation of muscle (nontraumatic), other site (principal); I10 Essential (primary) hypertension; F32.9 Major depressive disorder, single episode, unspecified; F17.200 Nicotine dependence, unspecified, uncomplicated; Z87.820 Personal history of traumatic brain injury
CPT/HCPCS: 36415; 74177; 80053; 83690; 85025